=== PATIENT | male | born 1950 | race Caucasian/White ===

== ENCOUNTER 2016-09-22 09:22 | Emergency (ER) | payer MEDICARE, OTHER ==
--- NOTE | 2016-09-22 09:48 | ED ---
General Adult HPI - General Chief complaint: Shortness of Breath Stated complaint: sob hx copd Time Seen by Provider: 09/22/16 09:32 Source: patient, RN notes reviewed, old records reviewed Mode of arrival: ambulatory Limitations: no limitations - History of Present Illness Initial comments: This is a 66-year-old male the ER for evaluation. This patient is a presents for evaluation of shortness of breath cough and congestion. Patient with history of COPD, history of smoking recently quit. Patient states symptoms since new years but worse over the last week, he does do an has at home but no other treatments. No fevers but does have increased cough or congestion, increased sputum production, no travel history or sick contacts. No chest pain - Related Data Allergies Allergy/AdvReac Type Severity Reaction Status Date / Time No Known Allergies Allergy Verified 09/22/16 09:30 Review of Systems ROS Statement: Those systems with pertinent positive or pertinent negative responses have been documented in the HPI. ROS Other: All systems not noted in ROS Statement are negative. Past Medical History Past Medical History: COPD, Hypertension History of Any Multi-Drug Resistant Organisms: None Reported Past Surgical History: No Surgical Hx Reported Past Psychological History: No Psychological Hx Reported Smoking Status: Former smoker Past Alcohol Use History: Daily Past Drug Use History: None Reported General Exam Limitations: no limitations General appearance: alert, in no apparent distress, anxious Head exam: Present: atraumatic, normocephalic, normal inspection Eye exam: Present: normal appearance, PERRL, EOMI. Absent: scleral icterus, conjunctival injection, periorbital swelling ENT exam: Present: normal exam, mucous membranes moist Neck exam: Present: normal inspection. Absent: tenderness, meningismus, lymphadenopathy Respiratory exam: Present: normal lung sounds bilaterally, wheezes. Absent: respiratory distress, rales, rhonchi, stridor Cardiovascular Exam: Present: regular rate, normal rhythm, normal heart sounds. Absent: systolic murmur, diastolic murmur, rubs, gallop, clicks GI/Abdominal exam: Present: soft, normal bowel sounds. Absent: distended, tenderness, guarding, rebound, rigid Extremities exam: Present: normal inspection, full ROM, normal capillary refill. Absent: tenderness, pedal edema, joint swelling, calf tenderness Back exam: Present: normal inspection Neurological exam: Present: alert, oriented X3, CN II-XII intact Psychiatric exam: Present: normal affect, normal mood Skin exam: Present: warm, dry, intact, normal color. Absent: rash Course Vital Signs 09/22/16 09/22/16 09/22/16 09:25 10:02 10:55 Temperature 97.7 F Pulse Rate 93 85 Respiratory 18 18 Rate Blood Pressure 172/94 O2 Sat by Pulse 96 Oximetry 09/22/16 09/22/16 11:15 11:43 Temperature Pulse Rate 89 95 Respiratory Rate Blood Pressure O2 Sat by Pulse Oximetry - Reevaluation(s) Reevaluation #1: 09/22/16 13:38 Patient with no improvement and breathing treatment, still concerned of inability to breathe, lower extremity edema EKG Findings - EKG Comments: EKG Findings:: EKG shows normal sinus rhythm rate of 85, TX 156, QRS 78, QTC 454 Medical Decision Making - Medical Decision Making 66 year with no real improvement of breathing symptoms, patient has CTA of the chest which is negative for PE, patient still with bilateral lower extremity edema shortness of breath and COPD exacerbation, will be admitted for breathing treatments [id number] and continued evaluation of cardiac troponin status, evaluation by pulmonology for COPD, echo for CHF, bilateral lower [place]'S - Lab Data Result diagrams: 09/22/16 10:35 09/22/16 10:35 Lab Results 09/22/16 09/22/16 09/22/16 Range/Units 10:35 10:35 10:35 WBC 9.6 (3.8-10.6) k/uL RBC 5.80 (4.30-5.90) m/uL Hgb 17.2 (13.0-17.5) gm/dL Hct 53.3 H (39.0-53.0) % MCV 91.8 (80.0-100.0) fL MCH 29.6 (25.0-35.0) pg MCHC 32.2 (31.0-37.0) g/dL RDW 20.2 H (11.5-15.5) % Plt Count 213 (150-450) k/uL Neutrophils % 76 % Lymphocytes % 9 % Monocytes % 7 % Eosinophils % 3 % Basophils % 0 % Neutrophils # 7.3 (1.3-7.7) k/uL Lymphocytes # 0.9 L (1.0-4.8) k/uL Monocytes # 0.7 (0-1.0) k/uL Eosinophils # 0.2 (0-0.7) k/uL Basophils # 0.0 (0-0.2) k/uL Anisocytosis Moderate Microcytosis Slight PT (9.0-12.0) sec INR (<1.1) APTT (22.0-30.0) sec D-Dimer (<0.60) mg/L FEU Sodium 140 (137-145) mmol/L Potassium 4.6 (3.5-5.1) mmol/L Chloride 101 (98-107) mmol/L Carbon Dioxide 28 (22-30) mmol/L Anion Gap 11 mmol/L BUN 17 (9-20) mg/dL Creatinine 1.18 (0.66-1.25) mg/dL Est GFR (MDRD) Af Amer >60 (>60 ml/min/1.73 sqM) Est GFR (MDRD) Non-Af >60 (>60 ml/min/1.73 sqM) Glucose 119 H (74-99) mg/dL Calcium 10.0 (8.4-10.2) mg/dL Magnesium 1.7 (1.6-2.3) mg/dL Total Bilirubin 1.0 (0.2-1.3) mg/dL AST 26 (17-59) U/L ALT 39 (21-72) U/L Alkaline Phosphatase 80 (38-126) U/L Total Creatine Kinase 71 (55-170) U/L CK-MB (CK-2) 2.1 (0.0-2.4) ng/mL CK-MB (CK-2) Rel Index 3.0 Troponin I <0.012 (0.000-0.034) ng/mL Total Protein 7.4 (6.3-8.2) g/dL Albumin 4.1 (3.5-5.0) g/dL 09/22/16 Range/Units 10:35 WBC (3.8-10.6) k/uL RBC (4.30-5.90) m/uL Hgb (13.0-17.5) gm/dL Hct (39.0-53.0) % MCV (80.0-100.0) fL MCH (25.0-35.0) pg MCHC (31.0-37.0) g/dL RDW (11.5-15.5) % Plt Count (150-450) k/uL Neutrophils % % Lymphocytes % % Monocytes % % Eosinophils % % Basophils % % Neutrophils # (1.3-7.7) k/uL Lymphocytes # (1.0-4.8) k/uL Monocytes # (0-1.0) k/uL Eosinophils # (0-0.7) k/uL Basophils # (0-0.2) k/uL Anisocytosis Microcytosis PT 11.0 (9.0-12.0) sec INR 1.1 (<1.1) APTT 23.8 (22.0-30.0) sec D-Dimer 0.65 H (<0.60) mg/L FEU Sodium (137-145) mmol/L Potassium (3.5-5.1) mmol/L Chloride (98-107) mmol/L Carbon Dioxide (22-30) mmol/L Anion Gap mmol/L BUN (9-20) mg/dL Creatinine (0.66-1.25) mg/dL Est GFR (MDRD) Af Amer (>60 ml/min/1.73 sqM) Est GFR (MDRD) Non-Af (>60 ml/min/1.73 sqM) Glucose (74-99) mg/dL Calcium (8.4-10.2) mg/dL Magnesium (1.6-2.3) mg/dL Total Bilirubin (0.2-1.3) mg/dL AST (17-59) U/L ALT (21-72) U/L Alkaline Phosphatase (38-126) U/L Total Creatine Kinase (55-170) U/L CK-MB (CK-2) (0.0-2.4) ng/mL CK-MB (CK-2) Rel Index Troponin I (0.000-0.034) ng/mL Total Protein (6.3-8.2) g/dL Albumin (3.5-5.0) g/dL - Radiology Data Radiology results: report reviewed (CXR neg, CTa chest neg for PE, possible mass ), image reviewed Disposition Clinical Impression: Acute exacerbation of chronic obstructive airways disease, Congestive heart failure, Bilateral lower extremity edema Disposition: ADMITTED IP TO THIS HOSP Condition: Good Referrals: Guy Whyte DO [Primary Care Provider] - 1-2 days
[2016-09-22] MEDS ORDERED: ALBUTEROL NEBULIZED 2.5 MG/3 ML INHALATION STA (10:27)
[2016-09-22] MEDS ORDERED: SODIUM CHLORIDE 0.9% 1,000 ML IV STA (10:27)
[2016-09-22] MEDS ORDERED: IPRATROPIUM 0.5 MG/2.5 ML NEBU INHALATION STA (10:27)
[2016-09-22] MEDS ORDERED: SODIUM CHLORIDE 0.9% 1,000 ML IV SCH (10:45)
[2016-09-22 11:00] LABS: Anisocytosis Moderate; Basophils % (A) 0 %; CH 30.3; Eosinophils # (A) 0.2 k/uL (0-0.7); Eosinophils % (A) 3 %; HCT 53.3 % (39.0-53.0); HDW 2.61; HGB 17.2 gm/dL (13.0-17.5); Luc # (Auto) 0.42; Luc % (Auto) 4; Lymphocytes # (A) 0.9 k/uL (1.0-4.8); Lymphocytes % (A) 9 %; MCH 29.6 pg (25.0-35.0); MCHC 32.2 g/dL (31.0-37.0); MCV 91.8 fL (80.0-100.0); Microcytosis Slight; Monocytes # (A) 0.7 k/uL (0-1.0); Monocytes % (A) 7 %; Neutrophils # (A) 7.3 k/uL (1.3-7.7); Neutrophils % (A) 76 %; RDW 20.2 % (11.5-15.5); WBC 9.6 k/uL (3.8-10.6); WBC (Perox) 10.06
[2016-09-22 11:17] LABS: ALT 39 U/L (21-72); AST 26 U/L (17-59); Alkaline Phosphatase 80 U/L (38-126); Anion Gap 11 mmol/L; Blood Urea Nitrogen 17 mg/dL (9-20); Carbon Dioxide 28 mmol/L (22-30); Chloride 101 mmol/L (98-107); Glucose 119 mg/dL (74-99); Magnesium 1.7 mg/dL (1.6-2.3); Non-African American GFR(MDRD) >60 (>60 ml/min/1.73 sqM); Sodium 140 mmol/L (137-145); Total Protein 7.4 g/dL (6.3-8.2)
[2016-09-22 11:23] LABS: Potassium 4.6 mmol/L (3.5-5.1)
[2016-09-22 11:32] LABS: Creatine Kinase 71 U/L (55-170)
[2016-09-22 11:45] LABS: Creatine Kinase MB 2.1 ng/mL (0.0-2.4); Troponin I <0.012 ng/mL (0.000-0.034)
[2016-09-22 11:50] LABS: INR 1.1 (<1.1); Partial Thromboplastin Time 23.8 sec (22.0-30.0)
--- NOTE | 2016-09-22 12:32 | XR ---
EXAMINATION TYPE: XR chest 2V DATE OF EXAM: 09/22/2016 12:01 PM COMPARISON: 09/15/2014 HISTORY: 66-year-old male with pain and shortness of breath for a few days TECHNIQUE: PA and lateral views FINDINGS: Heart is normal size. There is levoconvex scoliosis and focal kyphotic angulation at the thoracolumba r junction similar to prior. Pulmonary vasculature within normal limits. Focal bibasilar opacities lewis ve a linear and strandy configuration. No shagfuta consolidation or pleural effusion. IMPRESSION: 1. Overall stable exam with chronic appearing changes at both lung bases likely areas of scarring and atelectasis. No definite acute process. 2. Chronic appearing deformity of the spine with focal kyphotic angulation at the thoracolumbar junct ion and levoconvex scoliosis.
[2016-09-22] MEDS ORDERED: RX INFO: IV CONTRAST WAS GIVEN 1 EACH MISC MISCELLANE PRN (12:39)
--- NOTE | 2016-09-22 13:15 | CT ---
EXAMINATION TYPE: CT angio chest DATE OF EXAM: 09/22/2016 1:08 PM COMPARISON: NONE HISTORY: SOB CT DLP: 376.7 mGycm CONTRAST: CT chest with contrast and 3D reconstruction with MIP imaging is performed with IV Contrast, patient injected with 65 ml mL of Omnipaque 350. Contrast-enhanced CT of the chest was performed through the course of the pulmonary arteries with zane g and mediastinal window settings submitted. 3D reconstruction with MIP imaging was also performed. PULMONARY ARTERIES: The pulmonary arteries and their major tributaries are patent. I do not see noe dence for sizable filling defect to suggest pulmonary embolic process. LUNGS: 1.1 cm right apical nodule demonstrates mild spiculation and is suspicious for malignancy. Tis adin diagnosis or PET/CT is advised. No additional nodules identified. Hyperinflation compatible with COPD. Basilar parenchymal atelectasis. MEDIASTINUM: Thoracic aorta is of normal caliber . The heart is mildly enlarged. No evidence for me diastinal mass. No mediastinal lymph nodes greater than 1cm. HILAR STRUCTURES: No evidence for mass. No hilar lymph nodes greater than 1 cm. UPPER ABDOMEN: Moderate fixed paraesophageal hiatal hernia. Renal cystic changes noted. IMPRESSION: 1. No evidence for Pulmonary embolism at this time. 2. Right apical spiculated nodule suspicious for malignancy. Tissue diagnosis or PET CT is advised. 3. Fixed hiatal hernia.
[2016-09-22] MEDS ORDERED: methylPREDNISolone SOD SUCCI 125 MG/2 ML VIAL IV STA (13:32)
[2016-09-22] MEDS ORDERED: LEVOFLOXACIN 500 MG TAB PO STA (13:32)
[2016-09-22 15:01] VITALS: BP 135/87; PULSE 84; RESP 20; TEMP 98
--- NOTE | 2016-09-22 15:16 | ED ---
Medical Decision Making - Medical Decision Making 66 male ER for evaluation. The patient is a for evaluation of shortness of breath cough and bilateral lower extremity edema, patient informed of lesion in his right upper lung, patient also informedher lower extremity edema secondary to his COPD. Vision at this time states he does not stay in hospital, and he will be discharged home - Lab Data Result diagrams: 09/22/16 10:35 09/22/16 10:35 Lab Results 09/22/16 09/22/16 09/22/16 Range/Units 10:35 10:35 10:35 WBC 9.6 (3.8-10.6) k/uL RBC 5.80 (4.30-5.90) m/uL Hgb 17.2 (13.0-17.5) gm/dL Hct 53.3 H (39.0-53.0) % MCV 91.8 (80.0-100.0) fL MCH 29.6 (25.0-35.0) pg MCHC 32.2 (31.0-37.0) g/dL RDW 20.2 H (11.5-15.5) % Plt Count 213 (150-450) k/uL Neutrophils % 76 % Lymphocytes % 9 % Monocytes % 7 % Eosinophils % 3 % Basophils % 0 % Neutrophils # 7.3 (1.3-7.7) k/uL Lymphocytes # 0.9 L (1.0-4.8) k/uL Monocytes # 0.7 (0-1.0) k/uL Eosinophils # 0.2 (0-0.7) k/uL Basophils # 0.0 (0-0.2) k/uL Anisocytosis Moderate Microcytosis Slight PT (9.0-12.0) sec INR (<1.1) APTT (22.0-30.0) sec D-Dimer (<0.60) mg/L FEU Sodium 140 (137-145) mmol/L Potassium 4.6 (3.5-5.1) mmol/L Chloride 101 (98-107) mmol/L Carbon Dioxide 28 (22-30) mmol/L Anion Gap 11 mmol/L BUN 17 (9-20) mg/dL Creatinine 1.18 (0.66-1.25) mg/dL Est GFR (MDRD) Af Amer >60 (>60 ml/min/1.73 sqM) Est GFR (MDRD) Non-Af >60 (>60 ml/min/1.73 sqM) Glucose 119 H (74-99) mg/dL Calcium 10.0 (8.4-10.2) mg/dL Magnesium 1.7 (1.6-2.3) mg/dL Total Bilirubin 1.0 (0.2-1.3) mg/dL AST 26 (17-59) U/L ALT 39 (21-72) U/L Alkaline Phosphatase 80 (38-126) U/L Total Creatine Kinase 71 (55-170) U/L CK-MB (CK-2) 2.1 (0.0-2.4) ng/mL CK-MB (CK-2) Rel Index 3.0 Troponin I <0.012 (0.000-0.034) ng/mL Total Protein 7.4 (6.3-8.2) g/dL Albumin 4.1 (3.5-5.0) g/dL 09/22/16 Range/Units 10:35 WBC (3.8-10.6) k/uL RBC (4.30-5.90) m/uL Hgb (13.0-17.5) gm/dL Hct (39.0-53.0) % MCV (80.0-100.0) fL MCH (25.0-35.0) pg MCHC (31.0-37.0) g/dL RDW (11.5-15.5) % Plt Count (150-450) k/uL Neutrophils % % Lymphocytes % % Monocytes % % Eosinophils % % Basophils % % Neutrophils # (1.3-7.7) k/uL Lymphocytes # (1.0-4.8) k/uL Monocytes # (0-1.0) k/uL Eosinophils # (0-0.7) k/uL Basophils # (0-0.2) k/uL Anisocytosis Microcytosis PT 11.0 (9.0-12.0) sec INR 1.1 (<1.1) APTT 23.8 (22.0-30.0) sec D-Dimer 0.65 H (<0.60) mg/L FEU Sodium (137-145) mmol/L Potassium (3.5-5.1) mmol/L Chloride (98-107) mmol/L Carbon Dioxide (22-30) mmol/L Anion Gap mmol/L BUN (9-20) mg/dL Creatinine (0.66-1.25) mg/dL Est GFR (MDRD) Af Amer (>60 ml/min/1.73 sqM) Est GFR (MDRD) Non-Af (>60 ml/min/1.73 sqM) Glucose (74-99) mg/dL Calcium (8.4-10.2) mg/dL Magnesium (1.6-2.3) mg/dL Total Bilirubin (0.2-1.3) mg/dL AST (17-59) U/L ALT (21-72) U/L Alkaline Phosphatase (38-126) U/L Total Creatine Kinase (55-170) U/L CK-MB (CK-2) (0.0-2.4) ng/mL CK-MB (CK-2) Rel Index Troponin I (0.000-0.034) ng/mL Total Protein (6.3-8.2) g/dL Albumin (3.5-5.0) g/dL Disposition Clinical Impression: Acute exacerbation of chronic obstructive airways disease, Congestive heart failure, Bilateral lower extremity edema, Right-sided heart failure Disposition: HOME SELF-CARE Condition: Good
--- NOTE | 2016-09-22 15:18 | US ---
EXAMINATION TYPE: US venous doppler duplex LE BI DATE OF EXAM: 09/22/2016 2:33 PM COMPARISON: Non- CLINICAL HISTORY: 66-year-old male Pain. SOB, history of right leg DVT TECHNIQUE: Duplex Doppler ultrasound examination of the bilateral lower extremities. FINDINGS: SIDE PERFORMED: Bilateral VESSELS IMAGED: External Iliac Vein (EIV) Common Femoral Vein Deep Femoral Vein Greater Saphenous Vein * Femoral Vein Popliteal Vein Small Saphenous Vein * Proximal Calf Veins (* superficial vessels) Right Leg: Appears negative for DVT Left Leg: Appears negative for DVT IMPRESSION: No evidence for DVT in the bilateral lower extremities imaged from the groin to the upper calves.
[2016-09-22] MEDS ORDERED: IPRATROPIUM-ALBUTEROL 3 ML NEB INHALATION SCH (16:00)
[2016-09-22] MEDS ORDERED: methylPREDNISolone SOD SUCCI 125 MG/2 ML VIAL IV SCH (18:00)
[2016-09-23] MEDS ORDERED: AZITHROMYCIN 500 MG TAB PO SCH (09:00)
[2016-09-23] MEDS ORDERED: ENOXAPARIN 40 MG/0.4 ML SYRINGE SQ SCH (09:00)
--- NOTE | 2016-09-23 09:44 | ECHOF ---
Referral Reason:CHF MEASUREMENTS -------- HEIGHT: 152.4 cm WEIGHT: 99.8 kg BP: RVIDd: 3.2 cm (< 3.3) IVSd: 1.2 cm (0.6 - 1.1) LVIDd: 4.6 cm (3.9 - 5.3) LVPWd: 0.8 cm (0.6 - 1.1) IVSs: 1.3 cm LVIDs: 4.1 cm LVPWs: 1.1 cm LA Diam: 3.7 cm (2.7 - 3.8) LAESV Index (A-L): 25.76 ml/m Ao Diam: 3.9 cm (2.0 - 3.7) AV Cusp: 2.2 cm (1.5 - 2.6) LA Diam: 4.1 cm (2.7 - 3.8) MV EXCURSION: 17.701 mm (> 18.000) MV EF SLOPE: 74 mm/s (70 - 150) EPSS: 0.5 cm MV E Royal: 0.54 m/s MV DecT: 211 ms MV A Royal: 0.64 m/s MV E/A Ratio: 0.84 RAP: 5.00 mmHg RVSP: 41.95 mmHg FINDINGS -------- Sinus rhythm. This was a technically adequate study. There is mild concentric left ventricular hypertrophy. Overall left ventricular systolic function is low-normal with, an EF between 50 - 55 %. The right ventricle is normal in size. Normal LA size by volume 22+/-6 ml/m2. The right atrial size is normal. There is mild aortic valve sclerosis. There is no evidence of aortic regurgitation. Mild mitral annular calcification present. Mild mitral regurgitation is present. Mild tricuspid regurgitation present. There is mild pulmonary hypertension. The right ventricular systolic pressure, as measured by Doppler, is 41.95mmHg. There is no pulmonic regurgitation present. The aortic root size is normal. There is no pericardial effusion. CONCLUSIONS -------- 1. There is mild concentric left ventricular hypertrophy. 2. Overall left ventricular systolic function is low-normal with, an EF between 50 - 55 %. 3. Normal LA size by volume 22+/-6 ml/m2. 4. There is mild aortic valve sclerosis. 5. Mild mitral annular calcification present. 6. Mild mitral regurgitation is present. 7. Mild tricuspid regurgitation present. 8. There is mild pulmonary hypertension. 9. The right ventricular systolic pressure, as measured by Doppler, is 41.95mmHg. [employer]ACHINE TENDER: Estela Haines RDCS
== END 2016-09-22 15:24 | disposition home or self-care (01) ==
LOC: EC 09:22 → UNDOADMIN 13:34 → 4MS4W 13:34 → EC 15:24
DX: J44.1 Chronic obstructive pulmonary disease with (acute) exacerbation (principal); I50.9 Heart failure, unspecified; Z87.891 Personal history of nicotine dependence; R91.1 Solitary pulmonary nodule
CPT/HCPCS: 96374 ×2; 99285 ×2; 36415; 94644; 93005; 93306; 85379; 80053; 82550; 82553; 83735; 84484; 85025; 85610; 85730; 71020; 93970; 71275; J2930; Q9967

== ENCOUNTER 2016-10-27 13:24 | Inpatient (IN) | payer MEDICARE, OTHER ==
[2016-10-27] MEDS ORDERED: SODIUM CHLORIDE 0.9% 500 ML IV STA (14:19)
[2016-10-27] MEDS ORDERED: IPRATROPIUM-ALBUTEROL 3 ML NEB INHALATION STA (14:19)
--- NOTE | 2016-10-27 14:22 | ED ---
General Adult HPI - General Chief complaint: Shortness of Breath Stated complaint: SOB/Coughing Time Seen by Provider: 10/27/16 13:30 Source: patient, RN notes reviewed Mode of arrival: ambulatory Limitations: no limitations - History of Present Illness Initial comments: This is a 66-year-old male who presents to the emergency room with a past medical history significant for some years of smoking. Patient states he also has some chronic pedal edema. Patient comes in today because the last 2 weeks she's been coughing having right-sided chest pains worsening with coughing. Patient states she's also been short of breath which is worse with lying down. Patient has not noted any increased swelling to his legs compared to his baseline. Patient denies any fever or chills. Patient denies abdominal pain patient denies nausea vomiting diarrhea. Patient states about 2 weeks ago he went to see his primary medical care doctor and he started him on steroids and an antibiotic but things have not improved. Patient denies any headache patient denies numbness weakness. Patient denies any lightheadedness dizziness or near syncopal episode. - Related Data Home Medications Medication Instructions Recorded Confirmed Albuterol Inhaler [Ventolin Hfa 2 puff INHALATION RT-Q6H PRN 09/22/16 10/27/16 Inhaler] Budesonide/Formoterol Fumarate 2 puff INHALATION RT-BID 09/22/16 10/27/16 [Symbicort 160-4.5 Mcg Inhaler] Finasteride [Proscar] 5 mg PO DAILY 09/22/16 10/27/16 HYDROcodone/APAP 10-325MG [Brutus 2 tab PO QID PRN 09/22/16 10/27/16 10-325] Loratadine [Claritin] 10 mg PO DAILY 09/22/16 10/27/16 Pantoprazole Sodium [Protonix] 40 mg PO AC-BRKFST 09/22/16 10/27/16 Ranitidine HCl [Zantac] 300 mg PO HS 09/22/16 10/27/16 Tamsulosin [Flomax] 0.4 mg PO BID 09/22/16 10/27/16 Tiotropium [place] [Spiriva] 1 cap INHALATION RT-DAILY 09/22/16 10/27/16 amLODIPine [Norvasc] 5 mg PO DAILY 09/22/16 10/27/16 Docusate [Colace] 100 mg PO DAILY 10/27/16 10/27/16 Furosemide [Lasix] 40 mg PO DAILY 10/27/16 10/27/16 Allergies Allergy/AdvReac Type Severity Reaction Status Date / Time No Known Allergies Allergy Verified 10/27/16 14:23 Review of Systems ROS Statement: Those systems with pertinent positive or pertinent negative responses have been documented in the HPI. ROS Other: All systems not noted in ROS Statement are negative. Past Medical History Past Medical History: COPD, Hypertension, Osteoarthritis (OA), Prostate Disorder , Sleep Apnea/CPAP/BIPAP Additional Past Medical History / Comment(s): BACK PAIN, HIATAL HERNIA. History of Any Multi-Drug Resistant Organisms: None Reported Past Surgical History: Tonsillectomy Additional Past Surgical History / Comment(s): COLONOSCOPY Past Anesthesia/Blood Transfusion Reactions: Postoperative Nausea & Vomiting ( PONV) Additional Past Anesthesia/Blood Transfusion Reaction / Comment(s): TAKES A BIT TO WAKE UP Past Psychological History: No Psychological Hx Reported Smoking Status: Former smoker Past Alcohol Use History: Daily Additional Past Alcohol Use History / Comment(s): STARTED SMOKING AT AGE 15 QUIT JUL 2016 SMOKED 1/2 PPD. "COUPLE OF DRINKS A DAY" Past Drug Use History: None Reported Additional Drug Use History / Comment(s): QUIT MARIJUAN A 5 YEARS AGO - Past Family History Father History Unknown: Yes Mother History Unknown: Yes General Exam - General Exam Comments Initial Comments: GENERAL: Patient is well-developed and well-nourished. Patient is nontoxic and well- hydrated and is in mild distress. ENT: Neck is soft and supple. No significant lymphadenopathy is noted. Oropharynx is clear. Moist mucous membranes. Neck has full range of motion without eliciting any pain. EYES: The sclera were anicteric and conjunctiva were pink and moist. Extraocular movements were intact and pupils were equal round and reactive to light. Eyelids were unremarkable. PULMONARY: Patient has decreased breath sounds bilaterally with some expiratory wheezes he also has crackles in both bases but right is greater than left CARDIOVASCULAR: There is a regular rate and rhythm without any murmurs gallops or rubs. ABDOMEN: Soft and nontender with normal bowel sounds. No palpable organomegaly was noted. There is no palpable pulsatile mass. SKIN: Skin is clear with no lesions or rashes and otherwise unremarkable. NEUROLOGIC: Patient is alert and oriented x3. Cranial nerves II through XII are grossly intact. Motor and sensory are also intact. Normal speech, volume and content. Symmetrical smile. MUSCULOSKELETAL: Normal extremities with adequate strength and full range of motion. 1+ edema bilaterally LYMPHATICS: No significant lymphadenopathy is noted PSYCHIATRIC: Normal psychiatric evaluation. Normal interpersonal interactions appears functionally intact in deals appropriately with others. No signs of depression. No signs of anxiety. Limitations: no limitations Course Vital Signs 10/27/16 10/27/16 10/27/16 13:29 13:33 14:23 Temperature 98.0 F 98.9 F Pulse Rate 108 H 102 H Respiratory 18 26 H 28 H Rate Blood Pressure 142/87 O2 Sat by Pulse 91 L Oximetry 10/27/16 10/27/16 10/27/16 15:00 15:24 16:00 Temperature Pulse Rate 96 95 96 Respiratory 24 22 Rate Blood Pressure 141/93 124/76 O2 Sat by Pulse 95 90 L Oximetry Medical Decision Making - Medical Decision Making EKG shows a sinus tachycardia at 101 bpm OH interval is 150 QRS is 92 QT interval 348 QTC is 451. Patient's EKG shows no ST segment elevation or depression or T-wave abdomen is noted. Patient's CT shows a pulmonary embolism started the patient high dose heparin - Lab Data Result diagrams: 10/27/16 14:15 10/27/16 14:15 Lab Results 10/27/16 10/27/16 10/27/16 Range/Units 14:15 14:15 14:15 WBC 10.0 (3.8-10.6) k/uL RBC 5.26 (4.30-5.90) m/uL Hgb 16.3 (13.0-17.5) gm/dL Hct 49.5 (39.0-53.0) % MCV 94.2 (80.0-100.0) fL MCH 31.1 (25.0-35.0) pg MCHC 33.0 (31.0-37.0) g/dL RDW 16.5 H (11.5-15.5) % Plt Count 250 (150-450) k/uL Neutrophils % (Manual) 78.0 % Band Neutrophils % 1.0 % Lymphocytes % (Manual) 13.0 % Monocytes % (Manual) 8.0 % Neutrophils # (Manual) 7.9 H (1.3-7.7) k/uL Lymphocytes # (Manual) 1.3 (1.0-4.8) k/uL Monocytes # (Manual) 0.8 (0-1.0) k/uL Nucleated RBCs 0 (0-0) /100 WBC Manual Slide Review Performed Toxic Granulation Present Anisocytosis Slight PT (9.0-12.0) sec INR (<1.1) APTT (22.0-30.0) sec Sodium 141 (137-145) mmol/L Potassium 4.5 (3.5-5.1) mmol/L Chloride 104 (98-107) mmol/L Carbon Dioxide 26 (22-30) mmol/L Anion Gap 11 mmol/L BUN 22 H (9-20) mg/dL Creatinine 1.16 (0.66-1.25) mg/dL Est GFR (MDRD) Af Amer >60 (>60 ml/min/1.73 sqM) Est GFR (MDRD) Non-Af >60 (>60 ml/min/1.73 sqM) Glucose 96 (74-99) mg/dL Calcium 9.1 (8.4-10.2) mg/dL Magnesium 1.9 (1.6-2.3) mg/dL Total Bilirubin 1.1 (0.2-1.3) mg/dL AST 28 (17-59) U/L ALT 37 (21-72) U/L Alkaline Phosphatase 104 (38-126) U/L Total Creatine Kinase 57 (55-170) U/L CK-MB (CK-2) 2.6 H* (0.0-2.4) ng/mL CK-MB (CK-2) Rel Index 4.6 Troponin I <0.012 (0.000-0.034) ng/mL NT-Pro-B Natriuret Pep pg/mL Total Protein 7.1 (6.3-8.2) g/dL Albumin 3.9 (3.5-5.0) g/dL 10/27/16 10/27/16 Range/Units 14:15 14:15 WBC (3.8-10.6) k/uL RBC (4.30-5.90) m/uL Hgb (13.0-17.5) gm/dL Hct (39.0-53.0) % MCV (80.0-100.0) fL MCH (25.0-35.0) pg MCHC (31.0-37.0) g/dL RDW (11.5-15.5) % Plt Count (150-450) k/uL Neutrophils % (Manual) % Band Neutrophils % % Lymphocytes % (Manual) % Monocytes % (Manual) % Neutrophils # (Manual) (1.3-7.7) k/uL Lymphocytes # (Manual) (1.0-4.8) k/uL Monocytes # (Manual) (0-1.0) k/uL Nucleated RBCs (0-0) /100 WBC Manual Slide Review Toxic Granulation Anisocytosis PT 10.4 (9.0-12.0) sec INR 1.0 (<1.1) APTT 22.1 (22.0-30.0) sec Sodium (137-145) mmol/L Potassium (3.5-5.1) mmol/L Chloride (98-107) mmol/L Carbon Dioxide (22-30) mmol/L Anion Gap mmol/L BUN (9-20) mg/dL Creatinine (0.66-1.25) mg/dL Est GFR (MDRD) Af Amer (>60 ml/min/1.73 sqM) Est GFR (MDRD) Non-Af (>60 ml/min/1.73 sqM) Glucose (74-99) mg/dL Calcium (8.4-10.2) mg/dL Magnesium (1.6-2.3) mg/dL Total Bilirubin (0.2-1.3) mg/dL AST (17-59) U/L ALT (21-72) U/L Alkaline Phosphatase (38-126) U/L Total Creatine Kinase (55-170) U/L CK-MB (CK-2) (0.0-2.4) ng/mL CK-MB (CK-2) Rel Index Troponin I (0.000-0.034) ng/mL NT-Pro-B Natriuret Pep 234 pg/mL Total Protein (6.3-8.2) g/dL Albumin (3.5-5.0) g/dL Critical Care Time Critical Care Time: Yes Total Critical Care Time: 35 Disposition Clinical Impression: Pulmonary embolism Disposition: ADMITTED IP TO THIS [facility] Time of Disposition: 16:58
[2016-10-27 14:47] LABS: ALT 37 U/L (21-72); AST 28 U/L (17-59); Alkaline Phosphatase 104 U/L (38-126); Anion Gap 11 mmol/L; Blood Urea Nitrogen 22 mg/dL (9-20); Calcium 9.1 mg/dL (8.4-10.2); Carbon Dioxide 26 mmol/L (22-30); Chloride 104 mmol/L (98-107); Glucose 96 mg/dL (74-99); Magnesium 1.9 mg/dL (1.6-2.3); Non-African American GFR(MDRD) >60 (>60 ml/min/1.73 sqM); Partial Thromboplastin Time 22.1 sec (22.0-30.0); Potassium 4.5 mmol/L (3.5-5.1); Prothrombin Time 10.4 sec (9.0-12.0); Sodium 141 mmol/L (137-145); Total Bilirubin 1.1 mg/dL (0.2-1.3); Total Protein 7.1 g/dL (6.3-8.2)
[2016-10-27 14:48] LABS: Creatine Kinase 57 U/L (55-170)
[2016-10-27 14:53] LABS: Anisocytosis Slight; Aty Lym Flag Slight; CH 32.4; CHCM 34.4; HCT 49.5 % (39.0-53.0); HDW 2.59; HGB 16.3 gm/dL (13.0-17.5); MCH 31.1 pg (25.0-35.0); MCV 94.2 fL (80.0-100.0); Mean Platelet Volume 6.7; RBC 5.26 m/uL (4.30-5.90); RDW 16.5 % (11.5-15.5)
[2016-10-27 15:02] LABS: Troponin I <0.012 ng/mL (0.000-0.034)
[2016-10-27 15:04] LABS: Creatine Kinase MB 2.6 ng/mL (0.0-2.4)
--- NOTE | 2016-10-27 15:18 | XR ---
EXAMINATION TYPE: XR chest 2V DATE OF EXAM: 10/27/2016 3:14 PM COMPARISON: September 22, 2016 HISTORY: Shortness of breath TECHNIQUE: Frontal and lateral views of the chest are obtained. FINDINGS: Scattered senescent parenchymal changes noted. Hyperinflation compatible with COPD. No evidence for infiltrate. Heart size is stable. Mediastinal structures are stable and grossly unremarkable. No evidence for hilar prominence. Degenerative changes dorsal spine. IMPRESSION: 1. No evidence for acute pulmonary disease.
[2016-10-27 15:49] LABS: Add Differential Manual Differential
[2016-10-27 15:51] LABS: Manual Review Performed; Nucleated Red Blood Cells 0 /100 WBC (0-0); Total Cells Counted 100; Toxic Granulation Present
[2016-10-27] MEDS ORDERED: RX INFO: IV CONTRAST WAS GIVEN 1 EACH MISC MISCELLANE PRN (16:07)
[2016-10-27] MEDS ORDERED: KETOROLAC 60 MG/2 ML VIAL IVP STA (16:08)
[2016-10-27] MEDS ORDERED: HEPARIN SODIUM,PORCINE 10,000 UNIT/ML 1 ML VIAL IV ONE (16:55)
[2016-10-27] MEDS ORDERED: SODIUM CHLORIDE 0.9% 1,000 ML IV ONE (16:58)
--- NOTE | 2016-10-27 17:06 | CT ---
EXAMINATION TYPE: CT chest angio for PE DATE OF EXAM: 10/27/2016 4:56 PM COMPARISON: CTA chest September 22, 2016 HISTORY: Right sided chest pain and cough. CT DLP: 606.00 mGycm. Automated Exposure Control for Dose Reduction was Utilized. CONTRAST: CTA scan of the thorax is performed with IV Contrast, patient injected with 100 mL of Omnipaque 350, pulmonary embolism protocol. MIP Images are created on CT scanner and reviewed. FINDINGS: LUNGS: There is redemonstration of 1.1 x 0.7 cm scarlike nodule posterior right upper lung on axial i mage 30 with some medial aeration now present, stable in size from prior exam. There is dependent ate lectatic change in bilateral lower lobes now seen with more prominent atelectatic change seen near ba ses. Current exam is suboptimal as is degraded by respiratory motion artifact near diaphragm. No pleu ral effusion or pneumothorax is noted. No new parenchymal nodule or mass is seen. MEDIASTINUM: There is satisfactory enhancement of the pulmonary artery and its branches, there is new filling defect in the right middle and lower lobe pulmonary arterial branches with segmental and sub segmental extension beginning on axial image 73 extending prominently through axial image 91. No sig nificant left-sided lobar or segmental PE is clearly seen. There are no greater than 1 cm hilar or me diastinal lymph nodes. No cardiomegaly or pericardial effusion is seen. Main pulmonary artery is di lated at 3.8 cm on axial image 64. RV overall be ratio remains less than 1. There is moderate to larg e size hiatal hernia redemonstrated. Heterogeneous nonenlarged thyroid is redemonstrated, underlying nodules are suspected, consider multinodular goiter. OTHER: Some simple appearing cysts upper pole level right kidney are redemonstrated. Underlying levoc onvex scoliosis centered in the lower thoracic spine is again seen. Moderate spurring at this level i s noted. IMPRESSION: CT evidence for new right-sided lobar pulmonary embolism with segmental and subsegmental extension involving middle and more prominently involving lower lobe. No CT evidence for right ventri cular strain. Critical results communicated to ordering ER physician via telephone at time of dictation.
[2016-10-27] MEDS: HEPARIN SODIUM,PORCINE/D5W PMX 25,000 UNIT in DEXTROSE/WATER 1 500ML.BAG IV SCH (17:31)
--- NOTE | 2016-10-27 17:42 | US ---
EXAMINATION TYPE: US venous doppler duplex LE BI DATE OF EXAM: 10/27/2016 5:31 PM COMPARISON: Prior in PACS CLINICAL HISTORY: Pain. SOB SIDE PERFORMED: Bilateral VESSELS IMAGED: External Iliac Vein (EIV) Common Femoral Vein Deep Femoral Vein Greater Saphenous Vein * Femoral Vein Popliteal Vein Small Saphenous Vein * Proximal Calf Veins (* superficial vessels) TECHNOLOGIST IMPRESSION: Right Leg: Positive for DVT from the right upper popliteal vein to the proximal calf veins Left Leg: Negative for DVT IMPRESSION: No evidence of deep venous thrombosis in the left leg. There is evidence of acute and chronic deep venous thrombosis in the right leg involving popliteal an d posterior tibial vein.
[2016-10-27] MEDS ORDERED: IPRATROPIUM-ALBUTEROL 3 ML NEB INHALATION PRN (19:40)
[2016-10-27] MEDS: TAMSULOSIN 0.4 MG CAP.ER.24H PO SCH (20:07)
[2016-10-27] MEDS: FAMOTIDINE 20 MG TAB PO SCH (20:07)
[2016-10-27] MEDS ORDERED: FUROSEMIDE 40 MG TAB PO SCH (21:00)
[2016-10-27] MEDS: SYMBICORT 160-4.5 MCG INHALER INHALATION SCH (21:11)
[2016-10-27] MEDS: IPRATROPIUM-ALBUTEROL 3 ML NEB INHALATION SCH (21:11)
[2016-10-27] MEDS: HYDROcodone/APAP 10-325MG 1 EACH TAB PO PRN (22:01)
[2016-10-28] MEDS: HEPARIN SODIUM,PORCINE/D5W PMX 25,000 UNIT in DEXTROSE/WATER 1 500ML.BAG IV SCH (06:36)
[2016-10-28] MEDS ORDERED: TIOTROPIUM 18 MCG/PUFF INHALER INHALATION SCH (08:00)
[2016-10-28] MEDS: TAMSULOSIN 0.4 MG CAP.ER.24H PO SCH ×2 (08:13→20:26)
[2016-10-28] MEDS: HYDROcodone/APAP 10-325MG 1 EACH TAB PO PRN ×2 (08:21→13:44)
[2016-10-28] MEDS: SYMBICORT 160-4.5 MCG INHALER INHALATION SCH ×2 (08:57→19:35)
[2016-10-28] MEDS: IPRATROPIUM-ALBUTEROL 3 ML NEB INHALATION SCH ×4 (08:57→19:35)
[2016-10-28] MEDS: RIVAROXABAN 15 MG TAB PO SCH ×2 (10:44→17:21)
--- NOTE | 2016-10-28 10:57 | HP ---
DATE OF ADMISSION: A 66-year-old came in with complaints of severe shortness of breath, has been going on for 5 days. Patient had a DVT in the past. Later it was believed, the patient never had DVT and anticoagulation was discontinued. The patient did not have any recent surgery. Patient had his colonoscopies done. The patient is a smoker. Does have history of COPD. It did not feel like patient had COPD. Patient denied any fever or chills. Patient's chest x-ray is within normal limits. CT angiogram of the chest was done which showed pulmonary embolism in the right lung lower lobe and subsegmental pulmonary embolism. Patient denied any significant cough or sputum production. The patient is still quite a bit short of breath because of which I am unable to discharge the patient today. Although the patient will be switched to Xarelto here and once his respiratory status improves the patient will be discharged. The patient is on 2 L of oxygen, does not wear any oxygen at home, although saturating well. Patient is clinically short of breath. REVIEW OF SYSTEMS: CONSTITUTIONAL: No fever, no malaise, no fatigue. HEENT: No recent visual problems or hearing problems. Denied any sore throat. CARDIOVASCULAR: No chest pain, orthopnea, PND, no palpitations, no syncope. RESPIRATORY: As described in HPI. GASTROINTESTINAL: No diarrhea, no nausea, no vomiting, no abdominal pain. Normoactive bowel sounds. NEUROLOGICAL: No headaches, no weakness, no numbness. HEMATOLOGICAL: Denies any bleeding or petechiae. GENITOURINARY: Denies any burning micturition, frequency, or urgency. MUSCULOSKELETAL/RHEUMATOLOGICAL: Denies any joint pain, swelling, or any muscle pain. ENDOCRINE: Denies any polyuria or polydipsia. The rest of the 14 point review of systems is negative. Home medications include: 1. Albuterol. 2. Budesonide formoterol 3. Finasteride. 4. Hydrocodone acetaminophen. 5. Loratadine. 6. Pantoprazole. 7. Ranitidine. 8. Tamsulosin. 9. Spiriva. 10. Amlodipine. 11. Docusate. 12. Lasix. The patient did not have any chest pain. ALLERGIES: No known drug allergies. PAST MEDICAL HISTORY: COPD, hypertension, osteoarthritis, prostate disorder, sleep apnea, uses CPAP machine, back pain, hiatal hernia, tonsillectomy in the past. SOCIAL HISTORY: Former smoker. Quit smoking on last year. Denied any alcohol abuse or any drug abuse. Used to use marijuana in the past; quit 5 years ago. FAMILY HISTORY: Father had DVT and pulmonary embolism. PHYSICAL EXAMINATION: VITAL SIGNS: Temperature 98.1, pulse of 93, respiratory rate of 18, blood pressure 137/83, saturating at 96% on room air. GENERAL: Alert and oriented x3. Patient is in mild respiratory distress at rest and with ambulation patient goes into significant respiratory distress. HEENT: Pupils are round and equally reacting to light. EOMI. No scleral icterus. No conjunctival pallor. Normocephalic, atraumatic. No pharyngeal erythema. No thyromegaly. CARDIOVASCULAR: S1 and S2 present. No murmurs, rubs, or gallops. PULMONARY: Chest is clear to auscultation, no wheezing or crackles. ABDOMEN: Soft, nontender, nondistended, normoactive bowel sounds. No palpable organomegaly. MUSCULOSKELETAL: No joint swelling or deformity. EXTREMITIES: No cyanosis, clubbing, or pedal edema. NEUROLOGICAL: Gross neurological examination did not reveal any focal deficits. SKIN: No rashes. LABORATORY DATA: CBC, CMP, essentially within normal limits. CT of the chest as mention above. ASSESSMENT AND PLAN: 1. Right-sided pulmonary embolism, Acute No precipitating factor. Patient may need to be on a lifelong anticoagulation. In the past, the patient was treated for pulmonary embolism then believed not to have a pulmonary embolism. 2. Chronic obstructive pulmonary disease without any acute exacerbation, although we will continue with inhalational steroids and albuterol ipratropium. Will not need any systemic steroids. 3. Hypertension. 4. Osteoarthritis. 5. Benign prostatic hypertrophy. 6. Sleep apnea. PLAN: The patient will be switched to oral anticoagulant. Once respiratory status ( ), patient will be discharged. Will clinically monitor him here. Patient is taking Lasix at home for peripheral edema, which will be held. [facility]
--- NOTE | 2016-10-28 11:44 | CDI ---
In responding to this query, please exercise your independent professional judgment. The [facility] Coding Staff and Clinical Documentation Specialists appreciate your assistance in clarifying documentation, maintaining compliance with coding guidelines, accurately documenting patients condition and capturing severity of illness. The fact that a question is asked does not imply that any particular answer is desired or expected. Communication forms are a method of clarifying documentation and are not made part of the Legal Health Record. Thank you in advance for your clarification. Last Revision, June 2015 Job Brown [address] [facility] [place] [address] Documentation Clarification Form Date: 10/28/2016 11:32:00 AM From: Fannie Pacheco RN, CCDS Admit Date: 10/27/2016 4:58:00 PM Patient Name: Adalid Sorto Visit Number: [id number] Dr. Modesta Pan Patient history/risk factors: H&P: "Patient had a DVT in the past. Later it was believed, the patient never had DVT and anticoagulation was discontinued." Clinical Indicators: Venous Doppler Bilateral LE: "There is evidence of acute and chronic deep venous thrombosis in the right leg involving popliteal and posterior tibial vein." 10/28 H&P: "Right-sided pulmonary embolism." Lab findings: CKMB 2.6 Vital Signs: Temp 98, HR 108, RR 18-28, B/P 142/87, Spo2 91% on room air Treatment: Heparin Drip per protocol Xarelto 15mg PO BID Consults: Pulmonary In your professional opinion, can you please clarify based on the radiology results and patient presentation additional diagnosis and if they were POA Acute DVT (Please Specify laterality and location if known.) Chronic DVT (Please Specify laterality and location if known.) Acute on Chronic DVT (Please Specify laterality and location if known.) Other Unable to determine Please document in your progress notes and discharge summary in order to capture severity of illness and risk of mortality. Include clinical findings that support your diagnosis. FYI: Press F11 to launch patient chart. Place X here if this finding has no clinical significance, is not applicable or if you are not able to provide any additional documentation. DELMISD
--- NOTE | 2016-10-28 14:35 | P.CNPUL ---
History of Present Illness Consult date: 10/28/16 Requesting physician: Modesta Pan Reason for consult: abnormal CXR/CT Chief complaint: Chest pain, shortness of breath History of present illness: This is a very pleasant 66-year-old gentleman who follows at the [facility] for his primary care needs. He has a history of hypertension, I asked arthritis, prostate disorder, obstructive sleep apnea utilizing CPAP in the outpatient setting, chronic back pain, chronic hiatal hernia. He does have a history of chronic obstructive pulmonary disease and a significant smoking history however states and he quit in July 2016. He has been seen by a career guidance technician at the [facility] in [place] and is maintained on Spiriva, budesonide and albuterol. He had presented here on 10/27/2016 with complaints of chest pain, shortness of breath and cough. His discomfort was worse with lying down. He denies any recent surgery or trauma to the lower extremities. No lengthy travel. He does have some questionable history of a lower extremity DVT and initially was started on anticoagulants but once seen again at the [facility] in [place] he was felt to not have a DVT and his anticoagulation relation was stopped. No previous history of PE. His EKG showed normal sinus rhythm without acute ST or T-wave abnormalities. Chest x-ray showed no acute pulmonary process. A CT angiogram did reveal a new right-sided pulmonary embolism with segmental and subsegmental extension involving the middle and more prominently involving the lower lobe. No evidence of significant right ventricular strain. He was initiated on a heparin drip and admitted to the selective care unit. He is seen there today in consultation. He is awake and alert in no acute distress. He states he does still have some continued dyspnea on minimal exertion. He has a loose nonproductive cough. He is afebrile. He is maintaining good O2 saturations in the mid to upper 90s on 2 L/m per nasal cannula. He is being transitioned to Xarelto. Review of Systems 14 point review of system was conducted. All negative other than as mentioned in the HPI. Past Medical History Past Medical History: COPD, Hypertension, Osteoarthritis (OA), Prostate Disorder , Sleep Apnea/CPAP/BIPAP Additional Past Medical History / Comment(s): BACK PAIN,SCOLIOSIS,DDD, HIATAL HERNIA.STRIGHT CATHS 2-3 TIMES PER DAY, RECENTLY ON ABX FOR COUGH AND STATED HAD DIARRHEA WHILE ON THEN BUT IT STOPPED ON SAT 10/25/16 History of Any Multi-Drug Resistant Organisms: None Reported Past Surgical History: Tonsillectomy Additional Past Surgical History / Comment(s): COLONOSCOPY, HEMORRHOIDECTOMY Past Anesthesia/Blood Transfusion Reactions: Postoperative Nausea & Vomiting ( PONV) Additional Past Anesthesia/Blood Transfusion Reaction / Comment(s): TAKES A BIT TO WAKE UP Past Psychological History: No Psychological Hx Reported Additional Psychological History / Comment(s): PT IS INDEPENDANT, LIV[place] AL[place] HAS [address] RECIEVES NO OUTSIDE SERVICES. HAS CPAP -NO OTHER MEDICAL EQUIPMENT. 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 Smoking Status: Former smoker Past Alcohol Use History: Daily Additional Past Alcohol Use History / Comment(s): STARTED SMOKING AT AGE 15 QUIT JUL 2016 SMOKED 1/2 PPD. 3 DRINKS PER DAY Past Drug Use History: Marijuana Additional Drug Use History / Comment(s): QUIT MARIJUANA 5 YEARS AGO - Past Family History Father History Unknown: Yes Family Medical History: Congestive Heart Failure (CHF) Mother History Unknown: Yes Additional Family Medical History / Comment(s): IN HER SLEEP "NATRUAL CAUSES" Medications and Allergies Home Medications Medication Instructions Recorded Confirmed Type Albuterol Inhaler [Ventolin Hfa 2 puff INHALATION RT-Q6H PRN 09/22/16 10/27/16 History Inhaler] Budesonide/Formoterol Fumarate 2 puff INHALATION RT-BID 09/22/16 10/27/16 History [Symbicort 160-4.5 Mcg Inhaler] Finasteride [Proscar] 5 mg PO DAILY 09/22/16 10/27/16 History HYDROcodone/APAP 10-325MG [[place] 2 tab PO QID PRN 09/22/16 10/27/16 History 10-325] Loratadine [Claritin] 10 mg PO DAILY 09/22/16 10/27/16 History Pantoprazole Sodium [Protonix] 40 mg PO AC-BRKFST 09/22/16 10/27/16 History Ranitidine HCl [Zantac] 300 mg PO HS 09/22/16 10/27/16 History Tamsulosin [Flomax] 0.4 mg PO BID 09/22/16 10/27/16 History Tiotropium [place] [Spiriva] 1 cap INHALATION RT-DAILY 09/22/16 10/27/16 History amLODIPine [Norvasc] 5 mg PO DAILY 09/22/16 10/27/16 History Docusate [Colace] 100 mg PO DAILY 10/27/16 10/27/16 History Furosemide [Lasix] 40 mg PO DAILY 10/27/16 10/27/16 History Allergies Allergy/AdvReac Type Severity Reaction Status Date / Time No Known Allergies Allergy Verified 10/27/16 14:23 Physical Exam Vitals: Vital Signs Temp Pulse Pulse Resp BP BP Pulse Ox 10/28/16 13:43 100 10/28/16 13:33 100 10/28/16 09:07 98 10/28/16 08:57 98 96 10/28/16 08:20 98.1 F 93 18 137/83 93 L 10/28/16 08:00 93 18 10/27/16 23:20 89 16 10/27/16 21:35 98.2 F 97 16 142/86 94 L 10/27/16 21:22 94 10/27/16 21:11 90 10/27/16 18:54 99.3 F 100 20 137/90 92 L 10/27/16 17:34 98.4 F 100 20 166/87 92 L Intake and Output 10/27/16 10/28/16 10/28/16 22:59 06:59 14:59 Intake Total 1080 900.682 Output Total 500 550 Balance 580 350.682 Intake: Intake, IV Titration 660.682 Amount Heparin Sodium,Porcine/ 480.682 D5w Pmx 25,000 unit In Dextrose/Water 1 500ml. bag @ 18 UNITS/KG/HR 36. 74 mls/hr IV .[id number] [facility] Rx#:[id number] Sodium Chloride 0.9% 1, 180 000 ml @ 100 mls/hr IV . Q10H ONE Rx#:[id number] Oral 1080 240 Output: Urine 500 550 Other: # Voids 1 GENERAL EXAM: Alert, active, comfortable in no apparent distress. HEAD: Normocephalic. EYES: Normal reaction of pupils, equal size. NOSE: Clear with pink turbinates. THROAT: No erythema or exudates. NECK: No masses, no JVD. CHEST: No chest wall deformity. LUNGS: Equal air entry with bilateral end expiratory wheeze, few scattered rhonchi. Diminished.. CVS: S1 and S2 normal with no audible murmurs, regular rhythm. ABDOMEN: No hepatosplenomegaly, normal bowel sounds, no guarding or rigidity. SPINE: No scoliosis or deformity SKIN: No rashes CENTRAL NERVOUS SYSTEM: No focal deficits, tone is normal in all 4 extremities. Extremities: There is no significant peripheral edema. No clubbing, no cyanosis. Peripheral pulses are intact. Results - Laboratory Findings CBC and BMP: 10/27/16 14:15 10/27/16 14:15 PT/INR, D-dimer PT 10.4 sec (9.0-12.0) 10/27/16 14:15 INR 1.0 (<1.1) 10/27/16 14:15 Abnormal lab findings: Abnormal Labs 10/27/16 23:31 APTT 51.3 H - Diagnostic Findings Chest x-ray: image reviewed CT scan - chest: image reviewed Assessment and Plan Plan: Impression #1 Atypical chest pain and shortness of breath secondary to right lung pulmonary embolism. #2 Acute exacerbation of chronic obstructive pulmonary disease. #3 Acute hypoxic respiratory failure secondary to above. #4 Questionable history of previous DVT. #5 Benign prostatic hyperplasia. #6 Gastroesophageal reflux disease. #7 Chronic back pain. Plan: The patient was seen and evaluated by Dr. Gonzalez. His chest x-ray, CAT scan and labs were reviewed. The patient will require at least 6 months of anticoagulation most likely in the form of Xarelto. We'll continue with his current pulmonary medications including DuoNeb inhalations 4 times a day and when necessary, Symbicort. We'll start him on a prednisone taper. Will increase his activity as tolerated. We'll continue to follow make further recommendations based on his clinical status. Time with Patient: Greater than 30
[2016-10-28] MEDS: DOCUSATE 100 MG CAP PO SCH (15:21)
[2016-10-28] MEDS: predniSONE 20 MG TAB PO SCH (16:18)
[2016-10-28] MEDS: FINASTERIDE 5 MG TAB PO SCH (16:18)
[2016-10-28] MEDS: FAMOTIDINE 20 MG TAB PO SCH (20:26)
[2016-10-29] MEDS: HYDROcodone/APAP 10-325MG 1 EACH TAB PO PRN (05:40)
[2016-10-29] MEDS: IPRATROPIUM-ALBUTEROL 3 ML NEB INHALATION SCH ×4 (07:17→19:49)
[2016-10-29] MEDS: SYMBICORT 160-4.5 MCG INHALER INHALATION SCH ×2 (07:17→19:49)
[2016-10-29] MEDS: predniSONE 20 MG TAB PO SCH (07:58)
[2016-10-29] MEDS: FINASTERIDE 5 MG TAB PO SCH (07:58)
[2016-10-29] MEDS: TAMSULOSIN 0.4 MG CAP.ER.24H PO SCH ×2 (07:58→21:18)
[2016-10-29] MEDS: RIVAROXABAN 15 MG TAB PO SCH ×2 (07:58→17:41)
[2016-10-29 08:04] LABS: CH 32.1; CHCM 34.2; HCT 42.8 % (39.0-53.0); HDW 2.48; HGB 14.6 gm/dL (13.0-17.5); MCH 32.1 pg (25.0-35.0); MCV 94.4 fL (80.0-100.0); Mean Platelet Volume 7.8; RBC 4.54 m/uL (4.30-5.90); RDW 15.9 % (11.5-15.5); WBC 8.9 k/uL (3.8-10.6)
[2016-10-29 08:20] LABS: Anion Gap 8 mmol/L; Blood Urea Nitrogen 14 mg/dL (9-20); Calcium 9.3 mg/dL (8.4-10.2); Carbon Dioxide 27 mmol/L (22-30); Chloride 106 mmol/L (98-107); Glucose 116 mg/dL (74-99); Non-African American GFR(MDRD) >60 (>60 ml/min/1.73 sqM); Potassium 4.4 mmol/L (3.5-5.1); Sodium 141 mmol/L (137-145)
[2016-10-29] MEDS ORDERED: DOCUSATE 100 MG CAP PO SCH (09:00)
--- NOTE | 2016-10-29 11:44 | P.PN ---
Subjective Principal diagnosis: Pulmonary embolism This is a very pleasant 66-year-old gentleman who follows at the [facility] for his primary care needs. He has a history of hypertension, I asked arthritis, prostate disorder, obstructive sleep apnea utilizing CPAP in the outpatient setting, chronic back pain, chronic hiatal hernia. He does have a history of chronic obstructive pulmonary disease and a significant smoking history however [facility] and he quit in July 2016. He has been seen by a labor and delivery registered nurse at the [facility] in [place] and is maintained on Spiriva, budesonide and albuterol. He had presented here on 10/27/2016 with complaints of chest pain, shortness of breath and cough. His discomfort was worse with lying down. He denies any recent surgery or trauma to the lower extremities. No lengthy travel. He does have some questionable history of a lower extremity DVT and initially was started on anticoagulants but once seen again at the [facility] in [place] he was felt to not have a DVT and his anticoagulation relation was stopped. No previous history of PE. His EKG showed normal sinus rhythm without acute ST or T-wave abnormalities. Chest x-ray showed no acute pulmonary process. A CT angiogram did reveal a new right-sided pulmonary embolism with segmental and subsegmental extension involving the middle and more prominently involving the lower lobe. No evidence of significant right ventricular strain. He was initiated on a heparin drip and admitted to the selective care unit. He is seen there today in consultation. He is awake and alert in no acute distress. He states he does still have some continued dyspnea on minimal exertion. He has a loose nonproductive cough. He is afebrile. He is maintaining good O2 saturations in the mid to upper 90s on 2 L/m per nasal cannula. He is being transitioned to Xarelto. The patient is seen again today 10/29/2016 in follow-up. He is awake and alert in no acute distress. He denies any worsening shortness of breath, cough or congestion. No hemoptysis. He's been up ambulating without distress. He has been tolerating Xarelto. He is maintaining O2 saturations in the low 90s on room air. Objective - Vital Signs Vital signs: Vital Signs Temp 99.0 F 10/29/16 07:38 Pulse 93 10/29/16 07:38 Resp 18 10/29/16 07:38 BP 127/81 10/29/16 07:38 Pulse Ox 90 L 10/29/16 10:07 Intake & Output 10/28/16 10/29/16 10/29/16 18:59 06:59 18:59 Intake Total 680 Output Total 550 Balance -550 680 Weight 102.058 kg Intake: Intake, IV Titration 80 Amount Sodium Chloride 0.9% 1, 80 000 ml @ 100 mls/hr IV . Q10H ONE Rx#:[id number] Oral 600 Output: Urine 550 Other: # Voids 1 1 - Exam GENERAL EXAM: Alert, active, comfortable in no apparent distress. HEAD: Normocephalic. EYES: Normal reaction of pupils, equal size. NOSE: Clear with pink turbinates. THROAT: No erythema or exudates. NECK: No masses, no JVD. CHEST: No chest wall deformity. LUNGS: Equal air entry with bilateral end expiratory wheeze, few scattered rhonchi. Diminished.. CVS: S1 and S2 normal with no audible murmurs, regular rhythm. ABDOMEN: No hepatosplenomegaly, normal bowel sounds, no guarding or rigidity. SPINE: No scoliosis or deformity SKIN: No rashes CENTRAL NERVOUS SYSTEM: No focal deficits, tone is normal in all 4 extremities. Extremities: There is no significant peripheral edema. No clubbing, no cyanosis. Peripheral pulses are intact. - Labs CBC & Chem 7: 10/29/16 07:22 10/29/16 07:22 Labs: Abnormal Lab Results - Last 24 Hours (Table) 10/29/16 10/29/16 Range/Units 07:22 07:22 RDW 15.9 H (11.5-15.5) % Glucose 116 H (74-99) mg/dL Assessment and Plan Plan: Impression #1 Atypical chest pain and shortness of breath secondary to right lung pulmonary embolism. #2 Acute exacerbation of chronic obstructive pulmonary disease. #3 Acute hypoxic respiratory failure secondary to above. #4 Questionable history of previous DVT. #5 Benign prostatic hyperplasia. #6 Gastroesophageal reflux disease. #7 Chronic back pain. Plan: The patient was seen and evaluated by Dr. Gonzalez. He is cleared for discharge from the pulmonary standpoint. He is to be maintained on Xarelto for at least 6 months time. He will follow-up with his labor and delivery registered nurse at the [facility] and have a repeat computed tomography scan of the chest in 3 months time. The patient is agreeable to the plan and is encouraged to call sooner with any recurrence of symptoms or other questions or concerns.
--- NOTE | 2016-10-29 18:03 | P.PN ---
Subjective Date of service 10/29/2016. Progress note being dictated for Dr. Pan. Interval history: This a 66-year-old gentleman admitted with acute PE, acute on chronic right leg DVT from right upper popliteal vein to proximal calf veins, acute hypoxic respiratory failure, COPD in a patient with possible history of DVT and multiple other medical issues. Maintained on Xarelto. Upon ambulating in the hallway on room air, O2 sat after ambulation decreased to 84%. Denies cough, no hemoptysis. Good diet intake with no nausea or vomiting. Denies chest pain, palpitations. Objective - Vital Signs Vital signs: Vital Signs Temp 99.0 F 10/29/16 15:18 Pulse 84 10/29/16 16:46 Resp 18 10/29/16 15:18 BP 127/81 10/29/16 15:18 Pulse Ox 91 L 10/29/16 15:18 Intake & Output 10/28/16 10/29/16 10/29/16 18:59 06:59 18:59 Intake Total 680 Output Total 550 Balance -550 680 Weight 102.058 kg Intake: Intake, IV Titration 80 Amount Sodium Chloride 0.9% 1, 80 000 ml @ 100 mls/hr IV . Q10H ONE Rx#:[id number] Oral 600 Output: Urine 550 Other: # Voids 1 1 - Exam PHYSICAL EXAM: VITAL SIGNS: As above GENERAL: [Sitting up at bedside, no acute distress] HEENT: [Pupils equal conjunctiva normal.] NECK: [Supple, no JVD] RESPIRATORY EFFORT:[Mildly increased] LUNGS: [Diminished, with scattered fine expiratory wheeze] CARDIOVASCULAR[regular S1 and S2, trace edema] GI: [Abdomen soft, nontender, positive bowel sounds.] PSYCH: [Alert and oriented -3, mood and affect normal.] NEURO: No focal deficits, moves all 4 extremities, strength and sensation grossly intact - Labs CBC & Chem 7: 10/29/16 07:22 10/29/16 07:22 Labs: Abnormal Lab Results - Last 24 Hours (Table) 10/29/16 10/29/16 Range/Units 07:22 07:22 RDW 15.9 H (11.5-15.5) % Glucose 116 H (74-99) mg/dL Assessment and Plan Plan: 1. [Acute right-sided PE, Acute on chronic right leg DVT and right upper popliteal vein to proximal calf veins per Doppler. 2. Acute hypoxic respiratory failure secondary to #1 on top of COPD. 3. [COPD]]. 4. [Hypertension 5. [Benign prostatic hypertrophy]. 6. [Sleep apnea]. 7. Gastroesophageal reflux disease 8. Chronic back pain 9. Osteoarthritis]. Plan: Continue on current medication regime ,monitoring and symptomatic treatment. Initially had planned for discharge but given patient's significant hypoxia after ambulation, will hold discharge until tomorrow. Patient updated on plan of care, verbalizes understanding of and agrees with. The impression and plan of care has been dictated as directed. : I performed a H&P examination of this patient and discussed the same with the dictator. I agree with the dictator's note. Any additional findings/opinions/ etc. will be noted.
[2016-10-29] MEDS: FAMOTIDINE 20 MG TAB PO SCH (21:18)
[2016-10-29 22:16] VITALS: RESP 20; TEMP 98
[2016-10-30] MEDS: IPRATROPIUM-ALBUTEROL 3 ML NEB INHALATION SCH ×2 (07:26→11:53)
[2016-10-30] MEDS: SYMBICORT 160-4.5 MCG INHALER INHALATION SCH (07:37)
[2016-10-30 07:50] VITALS: BP 173/89
[2016-10-30] MEDS: predniSONE 20 MG TAB PO SCH (08:46)
[2016-10-30] MEDS: DOCUSATE 100 MG CAP PO SCH (08:46)
[2016-10-30] MEDS: RIVAROXABAN 15 MG TAB PO SCH (08:47)
[2016-10-30] MEDS: TAMSULOSIN 0.4 MG CAP.ER.24H PO SCH (08:47)
[2016-10-30] MEDS: FINASTERIDE 5 MG TAB PO SCH (08:47)
[2016-10-30] MEDS: HYDROcodone/APAP 10-325MG 1 EACH TAB PO PRN (09:09)
[2016-10-30 12:07] VITALS: PULSE 90
--- NOTE | 2016-10-30 13:06 | P.PN ---
Subjective Progress note dated 10/30/2016 66-year-old gentleman who's typically follows up with the [facility]. The patient does have a clinical data manager and a primary doctor at the [facility]. Was admitted with a diagnosis of pulmonary embolism. Doing well. Likely will be discharged home today. He has an appointment with his lung doctor next week. The patient's feeling well. We thought the patient should be treated for about 6 months. He is currently on a factor X a inhibitor. Objective - Vital Signs Vital signs: Vital Signs Temp 98.0 F 10/29/16 22:14 Pulse 90 10/30/16 12:07 Resp 20 10/30/16 08:00 BP 173/89 10/30/16 07:00 Pulse Ox 98 10/30/16 07:00 Intake & Output 10/29/16 10/30/16 10/30/16 18:59 06:59 18:59 Intake Total 1040 Output Total 550 Balance 490 Intake: Oral 1040 Output: Urine 550 Other: # Voids 3 2 - Exam No acute distress, oriented 3. Next HEENT examination is grossly unremarkable. Neck supple. Full range of motion. Cardiovascular examination was regular rhythm rate. S1-S2 normal. Lungs relatively clear breath sounds are equal. Abdomen soft Extremities are intact. - Labs CBC & Chem 7: 10/29/16 07:22 10/29/16 07:22 Assessment and Plan Plan: Plan The patient will likely be discharged. The patient should follow-up with his primary doctor's clinical data manager out of the [facility]. The patient should get his anticoagulant for a total of 6 months. I told him that he had a difficulty to call the office be happy to see him. About 10-12 weeks after the initial computed tomography scan, a follow-up computed tomography scan should be done to make sure the clot has dissipated. Other than that things are going relatively well. He is feeling well. Hopefully discharge home today. Time with Patient: Less than 30
--- NOTE | 2016-10-31 08:08 | DS ---
DATE OF ADMISSION: 10/27/2016 DATE OF DISCHARGE: 10/30/2016 Patient is admitted with acute pulmonary embolism. Patient is feeling better than yesterday. We will ambulate him today. If patient requires oxygen, we will start him on oxygen. On exam, patient has significantly decreased air entry, it is probably because of his advanced COPD because of his COPD he may end up needing oxygen. The patient will be discharged on Xarelto to follow up with his primary care physician. Patient was seen and examined on the day of discharge. Vital signs stable. PHYSICAL EXAMINATION: GENERAL: The patient is alert and oriented x3, not in any acute distress. Well developed, well nourished. HEENT: Pupils are round and equally reacting to light. EOMI. No scleral icterus. No conjunctival pallor. Normocephalic, atraumatic. No pharyngeal erythema. No thyromegaly. CARDIOVASCULAR: S1 and S2 present. No murmurs, rubs, or gallops. PULMONARY: Chest is clear to auscultation, no wheezing or crackles. ABDOMEN: Soft, nontender, nondistended, normoactive bowel sounds. No palpable organomegaly. MUSCULOSKELETAL: No joint swelling or deformity. EXTREMITIES: No cyanosis, clubbing, or pedal edema. NEUROLOGICAL: Gross neurological examination did not reveal any focal deficits. SKIN: No rashes. FINAL DIAGNOSES: 1. Acute pulmonary embolism, acute hypoxic respiratory failure and pulmonary embolism along with chronic obstructive pulmonary disease. 2. Chronic obstructive pulmonary disease with minimal to no exacerbation. 3. Hypertension. 4. Benign prostatic hypertrophy. 5. Sleep apnea. 6. Gastroesophageal reflux disease. 7. Chronic back pain. 8. Osteoarthritis. Please refer to my depart summary for details of discharge medications. Activity as tolerated. The patient will follow with Dr. Declan Gonzalez in 2 days, Dr. Guy Whyte on 06 of November at 3:00 p.m. Patient will be discharged home today after home O2 evaluation if required. If patient's saturations go down below 88%, patient will be started on home O2 . Yesterday patient's SATS dropped down to 84%. DISCHARGE DIET: Cardiac. Activity as tolerated. Spent greater than 35 minutes in total discharge process.
== END 2016-10-30 15:50 | disposition home or self-care (01) | DRG 175 ==
LOC: EC 13:24 → 5MS5E 16:58
PROVIDERS: ADMIT Internal Medicine; ATTEND Internal Medicine
DX: I26.99 Other pulmonary embolism without acute cor pulmonale (principal); J96.01 Acute respiratory failure with hypoxia; J44.1 Chronic obstructive pulmonary disease with (acute) exacerbation; I82.431 Acute embolism and thrombosis of right popliteal vein; I82.531 Chronic embolism and thrombosis of right popliteal vein; I10 Essential (primary) hypertension; F17.200 Nicotine dependence, unspecified, uncomplicated; G47.33 Obstructive sleep apnea (adult) (pediatric); G89.29 Other chronic pain; K21.9 Gastro-esophageal reflux disease without esophagitis; M19.90 Unspecified osteoarthritis, unspecified site; M41.9 Scoliosis, unspecified; N40.0 Benign prostatic hyperplasia without lower urinary tract symptoms; K44.9 Diaphragmatic hernia without obstruction or gangrene; M54.9 Dorsalgia, unspecified; Z79.899 Other long term (current) drug therapy; Z82.49 Family history of ischemic heart disease and other diseases of the circulatory system
CPT/HCPCS: 36415; 71020; 71275; 80048; 80053; 82550; 82553; 83735; 83880; 84484; 85025; 85027; 85610; 85730; 87040; 93005; 93970; 94640; 94760; 96361; 96365; 96375; 96376; 99291

== ENCOUNTER → 2018-02-19 | Outpatient (CLI) | payer OTHER ==
--- NOTE | 2018-02-19 13:09 | XR ---
EXAMINATION TYPE: XR chest 2V DATE OF EXAM: 02/19/2018 COMPARISON: Chest x-ray and CTA chest October 27, 2016. Chest x-ray from 3 days ago. HISTORY: History of CHF with shortness of breath TECHNIQUE: Frontal and lateral views of the chest are obtained. FINDINGS: Osseous structures remain demineralized. Underlying scoliosis is redemonstrated. Exaggerat ed kyphosis with mild compression fractures near thoracolumbar junction are again seen. There is persistent bibasilar scarring and/or atelectasis. There is no suspicious new focal airspace opacity, pleural effusion, or pneumothorax seen bilaterally. Retrocardiac opacity consistent with hia nidia hernia is redemonstrated. Cardiac silhouette size is stable and upper limits of normal. IMPRESSION: Chronic changes with bibasilar scarring and/or atelectasis. No suspicious acute infiltra te. No significant change from prior.
== END | disposition home or self-care (01) ==
LOC: RADXRMAIN 10:50
PROVIDERS: ATTEND Radiology Radiation Oncology
DX: I50.23 Acute on chronic systolic (congestive) heart failure (principal); C61 Malignant neoplasm of prostate
CPT/HCPCS: 71046

== ENCOUNTER 2018-07-11 14:00 | Emergency (ER) | payer OTHER ==
[2018-07-11 14:04] VITALS: TEMP 97.8
--- NOTE | 2018-07-11 14:27 | ED ---
Extremity Problem HPI - General Chief complaint: Extremity Problem,Nontraumatic Stated complaint: Swollen hand Time Seen by Provider: 07/11/18 14:16 Source: patient, RN notes reviewed Mode of arrival: ambulatory Limitations: no limitations - History of Present Illness Initial comments: This a 67-year-old male presents emergency Department chief complaint of right hand pain, swelling or redness. Patient started within last 24 hours. Patient states pain and torso aspect of his hand with no trauma. Patient has no history of gout reports no fever no chills. Patient states pain radiates up into his forearm denies any swelling of his forearm. Patient denies any current chest pain or worsening shortness breath from his normal baseline. Patient states she's not taking medications for it he does not want any current pain meds. - Related Data Home Medications Medication Instructions Recorded Confirmed Budesonide/Formoterol Fumarate 2 puff INHALATION RT-BID 09/22/16 10/27/16 [Symbicort 160-4.5 Mcg Inhaler] Finasteride [Proscar] 5 mg PO DAILY 09/22/16 10/27/16 HYDROcodone/APAP 10-325MG [[place] 2 tab PO QID PRN 09/22/16 10/27/16 10-325] Loratadine [Claritin] 10 mg PO DAILY 09/22/16 10/27/16 Pantoprazole Sodium [Protonix] 40 mg PO AC-BRKFST 09/22/16 10/27/16 Tamsulosin [Flomax] 0.4 mg PO BID 09/22/16 10/27/16 Tiotropium [place] [Spiriva] 1 cap INHALATION RT-DAILY 09/22/16 10/27/16 Docusate [Colace] 100 mg PO DAILY 10/27/16 10/27/16 Furosemide [Lasix] 40 mg PO DAILY 10/27/16 10/27/16 Previous Rx's Medication Instructions Recorded Albuterol Inhaler [Ventolin Hfa 2 puff INHALATION RT-Q6H PRN #0 10/29/16 Inhaler] Rivaroxaban [Xarelto Starter Pack] 1 each PO DIRECTED #1 pkg 10/29/16 predniSONE 10 mg PO DIRECTED #30 tab 10/29/16 Cephalexin [Keflex] 500 mg PO Q6HR #28 cap 11/18/18 predniSONE 50 mg PO DAILY #3 tab 07/11/18 Allergies Allergy/AdvReac Type Severity Reaction Status Date / Time No Known Allergies Allergy Verified 07/11/18 14:04 Review of Systems ROS Statement: Those systems with pertinent positive or pertinent negative responses have been documented in the HPI. ROS Other: All systems not noted in ROS Statement are negative. Past Medical History Past Medical History: COPD, Hypertension, Osteoarthritis (OA), Prostate Disorder , Sleep Apnea/CPAP/BIPAP Additional Past Medical History / Comment(s): BACK PAIN,SCOLIOSIS,DDD, HIATAL HERNIA.STRIGHT CATHS 2-3 TIMES PER DAY, RECENTLY ON ABX FOR COUGH AND STATED HAD DIARRHEA WHILE ON THEN BUT IT STOPPED ON SAT 10/25/16 History of Any Multi-Drug Resistant Organisms: None Reported Past Surgical History: Tonsillectomy Additional Past Surgical History / Comment(s): COLONOSCOPY, HEMORRHOIDECTOMY Past Anesthesia/Blood Transfusion Reactions: Postoperative Nausea & Vomiting ( PONV) Additional Past Anesthesia/Blood Transfusion Reaction / Comment(s): TAKES A BIT TO WAKE UP Past Psychological History: No Psychological Hx Reported Smoking Status: Former smoker Past Alcohol Use History: Daily Past Drug Use History: Marijuana - Past Family History Father History Unknown: Yes Family Medical History: Congestive Heart Failure (CHF) Mother History Unknown: Yes Additional Family Medical History / Comment(s): IN HER SLEEP "NATRUAL CAUSES" General Exam Limitations: no limitations General appearance: alert, in no apparent distress Head exam: Present: atraumatic, normocephalic, normal inspection Respiratory exam: Present: normal lung sounds bilaterally. Absent: respiratory distress, wheezes, rales, rhonchi, stridor Cardiovascular Exam: Present: regular rate, normal rhythm, normal heart sounds. Absent: systolic murmur, diastolic murmur, rubs, gallop, clicks Extremities exam: Present: other (Right hand there is large swelling on the dorsal aspect mild erythema with cap refill less than 2 seconds of all digits, full range of motion with minimal discomfort range of motion) Skin exam: Present: warm, dry, intact, normal color. Absent: rash Course Vital Signs 07/11/18 07/11/18 14:02 15:54 Temperature 97.8 F Pulse Rate 102 H 68 Respiratory 24 16 Rate Blood Pressure 147/90 136/89 O2 Sat by Pulse 98 98 Oximetry Medical Decision Making - Medical Decision Making 67-year-old male presented for right hand swelling. Patient does have moderate dorsal aspect swelling with minimal erythema. Patient had lab work and x-ray. X-rays unremarkable. Patient does have mild elevated uric acid. Patient we treated for ago and possible underlying cellulitis. Patient has good range of motion no evidence flexor tensosynvitis. Patient will follow-up tomorrow thinners PCP and return for any worsening symptoms. - Lab Data Result diagrams: 07/11/18 15:00 07/11/18 15:00 Lab Results 07/11/18 07/11/18 07/11/18 Range/Units 15:00 15:00 15:00 WBC 11.2 H (3.8-10.6) k/uL RBC 5.17 (4.30-5.90) m/uL Hgb 17.3 (13.0-17.5) gm/dL Hct 51.3 (39.0-53.0) % MCV 99.4 (80.0-100.0) fL MCH 33.5 (25.0-35.0) pg MCHC 33.7 (31.0-37.0) g/dL RDW 13.2 (11.5-15.5) % Plt Count 210 (150-450) k/uL Neutrophils % 75 % Lymphocytes % 11 % Monocytes % 8 % Eosinophils % 2 % Basophils % 0 % Neutrophils # 8.4 H (1.3-7.7) k/uL Lymphocytes # 1.2 (1.0-4.8) k/uL Monocytes # 0.9 (0-1.0) k/uL Eosinophils # 0.2 (0-0.7) k/uL Basophils # 0.0 (0-0.2) k/uL PT (9.0-12.0) sec INR (<1.2) APTT (22.0-30.0) sec Sodium 135 L (137-145) mmol/L Potassium 4.2 (3.5-5.1) mmol/L Chloride 94 L (98-107) mmol/L Carbon Dioxide 28 (22-30) mmol/L Anion Gap 13 mmol/L BUN 30 H (9-20) mg/dL Creatinine 1.25 (0.66-1.25) mg/dL Est GFR (CKD-EPI)AfAm 68 (>60 ml/min/1.73 sqM) Est GFR (CKD-EPI)NonAf 59 (>60 ml/min/1.73 sqM) Glucose 105 H (74-99) mg/dL Plasma Lactic Acid Brandt 1.6 (0.7-2.0) mmol/L Uric Acid 10.9 H (3.5-8.5) mg/dL Calcium 9.1 (8.4-10.2) mg/dL Total Bilirubin 1.2 (0.2-1.3) mg/dL AST 43 (17-59) U/L ALT 28 (21-72) U/L Alkaline Phosphatase 78 (38-126) U/L C-Reactive Protein 14.9 H (<10.0) mg/L Total Protein 7.7 (6.3-8.2) g/dL Albumin 4.2 (3.5-5.0) g/dL 07/11/18 Range/Units 15:00 WBC (3.8-10.6) k/uL RBC (4.30-5.90) m/uL Hgb (13.0-17.5) gm/dL Hct (39.0-53.0) % MCV (80.0-100.0) fL MCH (25.0-35.0) pg MCHC (31.0-37.0) g/dL RDW (11.5-15.5) % Plt Count (150-450) k/uL Neutrophils % % Lymphocytes % % Monocytes % % Eosinophils % % Basophils % % Neutrophils # (1.3-7.7) k/uL Lymphocytes # (1.0-4.8) k/uL Monocytes # (0-1.0) k/uL Eosinophils # (0-0.7) k/uL Basophils # (0-0.2) k/uL PT 12.6 H (9.0-12.0) sec INR 1.3 H (<1.2) APTT 28.9 (22.0-30.0) sec Sodium (137-145) mmol/L Potassium (3.5-5.1) mmol/L Chloride (98-107) mmol/L Carbon Dioxide (22-30) mmol/L Anion Gap mmol/L BUN (9-20) mg/dL Creatinine (0.66-1.25) mg/dL Est GFR (CKD-EPI)AfAm (>60 ml/min/1.73 sqM) Est GFR (CKD-EPI)NonAf (>60 ml/min/1.73 sqM) Glucose (74-99) mg/dL Plasma Lactic Acid Brandt (0.7-2.0) mmol/L Uric Acid (3.5-8.5) mg/dL Calcium (8.4-10.2) mg/dL Total Bilirubin (0.2-1.3) mg/dL AST (17-59) U/L ALT (21-72) U/L Alkaline Phosphatase (38-126) U/L C-Reactive Protein (<10.0) mg/L Total Protein (6.3-8.2) g/dL Albumin (3.5-5.0) g/dL Disposition Clinical Impression: Gout, Cellulitis of right hand Disposition: HOME SELF-CARE Condition: Stable Instructions: Low Purine Diet (ED), Gout (ED) Additional Instructions: Please return to the Emergency Department if symptoms worsen or any other concerns. Prescriptions: Cephalexin [Keflex] 500 mg PO Q6HR #28 cap predniSONE 50 mg PO DAILY #3 tab Is patient prescribed a controlled substance at d/c from ED?: No Referrals: [facility],Clinic [Primary Care Provider] - 1-2 days Time of Disposition: 16:18
--- NOTE | 2018-07-11 14:52 | XR ---
EXAMINATION TYPE: XR hand complete RT DATE OF EXAM: 07/11/2018 COMPARISON: None HISTORY: Right hand TECHNIQUE: Three-view right hand FINDINGS: No acute fractures are evident. Soft tissues are normal. There is moderate degenerative lorenzo nge first carpal metacarpal junction. IMPRESSION: 1. No acute osseous abnormality right hand.
[2018-07-11 15:32] LABS: Basophils % (A) 0 %; Eosinophils # (A) 0.2 k/uL (0-0.7); Eosinophils % (A) 2 %; HCT 51.3 % (39.0-53.0); HGB 17.3 gm/dL (13.0-17.5); Lymphocytes # (A) 1.2 k/uL (1.0-4.8); Lymphocytes % (A) 11 %; MCH 33.5 pg (25.0-35.0); MCHC 33.7 g/dL (31.0-37.0); MCV 99.4 fL (80.0-100.0); Mean Platelet Volume 6.8; Monocytes # (A) 0.9 k/uL (0-1.0); Monocytes % (A) 8 %; Neutrophils # (A) 8.4 k/uL (1.3-7.7); Neutrophils % (A) 75 %; Platelet Count 210 k/uL (150-450); RBC 5.17 m/uL (4.30-5.90); RDW 13.2 % (11.5-15.5); WBC 11.2 k/uL (3.8-10.6)
[2018-07-11 15:41] LABS: INR 1.3 (<1.2); Partial Thromboplastin Time 28.9 sec (22.0-30.0); Prothrombin Time 12.6 sec (9.0-12.0)
[2018-07-11 15:48] LABS: Albumin 4.2 g/dL (3.5-5.0); C Reactive Protein 14.9 mg/L (<10.0); Calcium 9.1 mg/dL (8.4-10.2); Total Bilirubin 1.2 mg/dL (0.2-1.3); Total Protein 7.7 g/dL (6.3-8.2); Uric Acid 10.9 mg/dL (3.5-8.5)
[2018-07-11 15:55] VITALS: RESP 16
[2018-07-11 15:55] LABS: Potassium 4.2 mmol/L (3.5-5.1)
[2018-07-11] MEDS ORDERED: methylPREDNISolone SOD SUCCI 125 MG/2 ML VIAL IV STA (16:15)
[2018-07-11 16:34] VITALS: BP 137/90; PULSE 72
== END 2018-07-11 16:30 | disposition home or self-care (01) ==
LOC: EC 14:00
DX: L03.113 Cellulitis of right upper limb (principal); M10.9 Gout, unspecified; J44.9 Chronic obstructive pulmonary disease, unspecified; G47.30 Sleep apnea, unspecified; I10 Essential (primary) hypertension; Z79.51 Long term (current) use of inhaled steroids; Z79.899 Other long term (current) drug therapy; Z87.891 Personal history of nicotine dependence
CPT/HCPCS: 36415; 80053; 83605; 84550; 85025; 85610; 85730; 86140; 87040; 73130; 99283; 96374; J2930

== ENCOUNTER → 2018-12-21 | Outpatient (CLI) | payer OTHER ==
--- NOTE | 2018-12-21 10:54 | CT ---
EXAMINATION TYPE: CT brain wo/w con DATE OF EXAM: 12/21/2018 COMPARISON: None HISTORY: 68-year-old male Headaches and history of prostate cancer TECHNIQUE: Examination was done in axial plane without and with intravenous contrast. 100 mL Isovue 300 IV contrast is administered. Coronal and sagittal reconstructions performed. CT DLP: 2202 mGycm Automated exposure control for dose reduction was used. FINDINGS: There is no evidence of acute intracranial hemorrhage, acute ischemic changes, mass, mass-effect, or extra-axial fluid collection. There is no effacement of cerebral sulci or basal subarachnoid cister ns. There is no hydrocephalus. There is no midline shift. Bruno-white matter distinction is preserv ed. Empty sella incidentally noted. Mild cerebral cortical volume loss. Dominant right vertebral artery. No enhancing intracranial lesions. Dural venous sinuses are patent. Trace mucosal thickening ethmoid air cells. Mastoid air cells are well pneumatized. IMPRESSION: Mild cortical atrophy. No enhancing intracranial lesions. No acute intracranial abnormality seen.
== END | disposition home or self-care (01) ==
LOC: RADCTMAIN 08:14
DX: R51 Headache (principal); D07.5 Carcinoma in situ of prostate
CPT/HCPCS: 82565; 84520; 70470; 36415; Q9967

== ENCOUNTER → 2019-03-31 | Outpatient (CLI) | payer OTHER ==
--- NOTE | 2019-03-31 09:06 | USB ---
Reason for exam: clinical finding. US Breast BILAT Right complete breast ultrasound includes all four quadrants, the retroareolar region and axilla. Finding demonstrates a 2.4cm hypoechoic lesion at the posterior nipple, appears as gynecomastia. Left complete breast ultrasound includes all four quadrants, the retroareolar region and axilla. Finding demonstrates a 2.0 x 1.6cm hypoechoic lesion at the posterior nipple, appears as gynecomastia. These results were verbally communicated with the patient and result sheet given to the patient on 03/31/19. ASSESSMENT: Benign, BI-RAD 2 RECOMMENDATION: Clinical management of both breasts. Manage patient on a clinical basis.
--- NOTE | 2019-03-31 09:36 | MM ---
Reason for exam: clinical finding. Baseline mammogram. Physical Findings: Nurse Summary: 2cm nodule in the right breast at the nipple and a 2cm nodule in the left breast at the nipple (nurse manfred). MG 3D Diag Mammo W/Cad TIM Bilateral CC and MLO view(s) were taken. No prior studies available for comparison. There are benign appearing round calcifications bilaterally. Flame shaped subareolar fibroglandular densities consistent with gynecomastia. These results were verbally communicated with the patient and result sheet given to the patient on 03/31/19. ASSESSMENT: Benign, BI-RAD 2 RECOMMENDATION: Clinical management of both breasts. Manage on a clinical basis with regard to bilateral pain.
== END | disposition home or self-care (01) ==
LOC: RADMAMWWP 06:56
DX: N62 Hypertrophy of breast (principal)
CPT/HCPCS: 77062; 77066

== ENCOUNTER → 2020-02-07 | Outpatient (CLI) | payer OTHER | END | disposition home or self-care (01) | LOC: LABWHC1 09:09 | PROVIDERS: ATTEND Radiology Radiation Oncology | DX: C61 Malignant neoplasm of prostate (principal); Z92.3 Personal history of irradiation; Z79.818 Long term (current) use of other agents affecting estrogen receptors and estrogen levels | CPT/HCPCS: 36415; 84153 ==

== ENCOUNTER 2020-04-10 13:45 | Emergency (ER) | payer OTHER ==
[2020-04-10 13:51] VITALS: TEMP 97.7
--- NOTE | 2020-04-10 14:15 | ED ---
General Adult HPI - General Source: patient Mode of arrival: wheelchair Limitations: no limitations <Marquis Brown - Last Filed: 04/10/20 14:59> <Mamadou Fan - Last Filed: 04/10/20 16:11> - General Chief complaint: Extremity Problem,Nontraumatic Stated complaint: L Leg Pain Time Seen by Provider: 04/10/20 13:58 - History of Present Illness Initial comments: Dictation was produced using [employer] dictation software. please excuse any grammatical, word or spelling errors. This patient was cared for during a federal and state declared state of emergency secondary to Covid 19 Chief Complaint: 69-year-old male presents with left calf pain. History of Present Illness: A 69-year-old male he has past medical history of DVT. Patient takes rivaroxaban for DVT prophylaxis. Patient's been on this medication for several years. Patient states he woke up this morning with point tenderness to his medial calf. Patient denies any worsening shortness of breath. He has a history of COPD and does rely on nasal cannula oxygen. Patient has any chest pain. Denies any constitutional symptoms. The ROS documented in this emergency department record has been reviewed and confirmed by me. Those systems with pertinent positive or negative responses have been documented in the HPI. All other systems are other negative and/or noncontributory. PHYSICAL EXAM: General Impression: Alert and oriented x3, not in acute distress HEENT: Normocephalic atraumatic, extra-ocular movements intact, pupils equal and reactive to light bilaterally, mucous membranes moist. Cardiovascular: Heart regular rate and rhythm Chest: Able to complete full sentences, no retractions, no tachypnea, diffuse wheezing Abdomen: abdomen soft, non-tender, non-distended, no organomegaly Musculoskeletal: Pulses present and equal in all extremities, no peripheral edema Lower extremities : Varicosity, bilaterally, there is a small 1 x 1 cm area of pain to the left medial calf. No asymmetric girth between the 2 legs Motor: no focal deficits noted Neurological: CN II-XII grossly intact, no focal motor or sensory deficits noted Skin: Intact with no visualized rashes Psych: Normal affect and mood ED course: 69 y Old male past medical history of DVT presents with left calf pain. Vital signs upon arrival are within acceptable limits. Patient does not have any thoracic symptoms. He is on anticoagulation medication. When initiating getting HPI from patient he denied any chest pain however nurse brought it to my attention that patient complained to her about some chest pain. Patient reevaluated at bedside. He states he did have some chest pain to the left lower chest. He points to his left anterior rib. States hurts when he presses or moves. Pain is reproduced with palpation to the lower rib margin at the left lower ribs just over the ribs. Patient's pain symptoms is musculoskeletal in nature. Furthermore, patient has no EKG findings to suggest ischemia or infarction. There is a pending chest x-ray and ultrasound read. Patient care signed out to Dr. Fan for follow-up of her radiology imaging studies and reevaluation to determine final disposition. EKG interpretation: Ventricular rate 98, sinus rhythm,. Interval 150, QRS 100, QTC 510. No OR prolongation, no ST or T-wave changes noted. EKG compared to 10/27/2016 showing no changes. QT is mildly prolonged (Marquis Brown) - Related Data Home Medications Medication Instructions Recorded Confirmed Budesonide/Formoterol Fumarate 2 puff INHALATION RT-BID 09/22/16 10/27/16 [Symbicort 160-4.5 Mcg Inhaler] Finasteride [Proscar] 5 mg PO DAILY 09/22/16 10/27/16 HYDROcodone/APAP 10-325MG [[place] 2 tab PO QID PRN 09/22/16 10/27/16 10-325] Loratadine [Claritin] 10 mg PO DAILY 09/22/16 10/27/16 Pantoprazole Sodium [Protonix] 40 mg PO AC-BRKFST 09/22/16 10/27/16 Tamsulosin [Flomax] 0.4 mg PO BID 09/22/16 10/27/16 Tiotropium [place] [Spiriva] 1 cap INHALATION RT-DAILY 09/22/16 10/27/16 Docusate [Colace] 100 mg PO DAILY 10/27/16 10/27/16 Furosemide [Lasix] 40 mg PO DAILY 10/27/16 10/27/16 Previous Rx's Medication Instructions Recorded Albuterol Inhaler (Mhu) [Ventolin 2 puff INHALATION RT-Q6H PRN #0 10/29/16 Hfa Inhaler (Mhu)] Rivaroxaban [Xarelto Starter Pack] 1 each PO DIRECTED #1 pkg 10/29/16 predniSONE 10 mg PO DIRECTED #30 tab 10/29/16 Cephalexin [Keflex] 500 mg PO Q6HR #28 cap 07/11/18 predniSONE 50 mg PO DAILY #3 tab 07/11/18 Cephalexin [Keflex] 500 mg PO TID #30 cap 04/10/20 Allergies Allergy/AdvReac Type Severity Reaction Status Date / Time No Known Allergies Allergy Verified 04/10/20 13:51 Review of Systems ROS Other: All systems not noted in ROS Statement are negative. <Marquis Brown - Last Filed: 04/10/20 14:59> ROS Other: All systems not noted in ROS Statement are negative. <Mamadou Fan - Last Filed: 04/10/20 16:11> ROS Statement: Those systems with pertinent positive or pertinent negative responses have been documented in the HPI. Past Medical History Past Medical History: COPD, Deep Vein Thrombosis (DVT), Hypertension, Osteoarthritis (OA), Prostate Disorder, Sleep Apnea/CPAP/BIPAP Additional Past Medical History / Comment(s): BACK PAIN,SCOLIOSIS,DDD, HIATAL HERNIA.STRIGHT CATHS 2-3 TIMES PER DAY, RECENTLY ON ABX FOR COUGH AND STATED HAD DIARRHEA WHILE ON THEN BUT IT STOPPED ON SAT 10/25/16, Home 02 3-4L History of Any Multi-Drug Resistant Organisms: None Reported Past Surgical History: Tonsillectomy Additional Past Surgical History / Comment(s): COLONOSCOPY, HEMORRHOIDECTOMY Past Anesthesia/Blood Transfusion Reactions: Postoperative Nausea & Vomiting (PONV) Additional Past Anesthesia/Blood Transfusion Reaction / Comment(s): TAKES A BIT TO WAKE UP Past Psychological History: No Psychological Hx Reported, PTSD Smoking Status: Former smoker Past Alcohol Use History: Daily Past Drug Use History: Marijuana - Past Family History Father History Unknown: Yes Family Medical History: Congestive Heart Failure (CHF) Mother History Unknown: Yes Additional Family Medical History / Comment(s): IN HER SLEEP "NATRUAL CAUSES" <Marquis Brown - Last Filed: 04/10/20 14:59> General Exam Limitations: no limitations <Marquis Brown - Last Filed: 04/10/20 14:59> Course Vital Signs 04/10/20 04/10/20 13:46 15:40 Temperature 97.7 F Pulse Rate 52 L 97 Respiratory 22 20 Rate Blood Pressure 127/89 143/81 O2 Sat by Pulse 97 94 L Oximetry Medical Decision Making - Lab Data Result diagrams: 04/10/20 14:23 04/10/20 14:23 <Marquis Brown - Last Filed: 04/10/20 14:59> - Lab Data Result diagrams: 04/10/20 14:23 04/10/20 14:23 - Radiology Data Radiology results: report reviewed (Ultrasound shows incomplete compressibility left common femoral vein suggesting possible partial chronic thrombosis), image reviewed (Chest x-ray shows COPD. Persistent bibasilar opacities fever and atelectasis or scarring.) <Mamadou Fan - Last Filed: 04/10/20 16:11> - Medical Decision Making Patient states he has been on steroids for the past couple of weeks. Patient reevaluated by myself, Dr. Fan. Patient resting comfortably in bed. Patient does have some pursed lip breathing. Patient has wheezing. Patient is advised for admission for shortness of breath and COPD however patient refuses. Patient is receptive to receiving a nebulizer treatment and a prescription for antibiot ics prior to leaving. Patient does have minimal cellulitic appearance to left anterior leg (Mamadou Fan) - Lab Data Lab Results 04/10/20 04/10/20 04/10/20 Range/Units 14:23 14:23 14:23 WBC 22.8 H (3.8-10.6) k/uL RBC 4.81 (4.30-5.90) m/uL Hgb 16.8 (13.0-17.5) gm/dL Hct 49.2 (39.0-53.0) % MCV 102.3 H (80.0-100.0) fL MCH 34.9 (25.0-35.0) pg MCHC 34.1 (31.0-37.0) g/dL RDW 13.9 (11.5-15.5) % Plt Count 242 (150-450) k/uL Neutrophils % 90 % Lymphocytes % 3 % Monocytes % 5 % Eosinophils % 0 % Basophils % 0 % Neutrophils # 20.5 H (1.3-7.7) k/uL Lymphocytes # 0.6 L (1.0-4.8) k/uL Monocytes # 1.2 H (0-1.0) k/uL Eosinophils # 0.1 (0-0.7) k/uL Basophils # 0.1 (0-0.2) k/uL Macrocytosis Slight PT 11.2 (9.0-12.0) sec INR 1.1 (<1.2) APTT 26.7 (22.0-30.0) sec Sodium 133 L (137-145) mmol/L Potassium 4.0 (3.5-5.1) mmol/L Chloride 90 L (98-107) mmol/L Carbon Dioxide 34 H (22-30) mmol/L Anion Gap 9 mmol/L BUN 28 H (9-20) mg/dL Creatinine 1.18 (0.66-1.25) mg/dL Est GFR (CKD-EPI)AfAm 72 (>60 ml/min/1.73 sqM) Est GFR (CKD-EPI)NonAf 62 (>60 ml/min/1.73 sqM) Glucose 149 H (74-99) mg/dL Calcium 9.1 (8.4-10.2) mg/dL Magnesium (1.6-2.3) mg/dL 04/10/20 Range/Units 14:23 WBC (3.8-10.6) k/uL RBC (4.30-5.90) m/uL Hgb (13.0-17.5) gm/dL Hct (39.0-53.0) % MCV (80.0-100.0) fL MCH (25.0-35.0) pg MCHC (31.0-37.0) g/dL RDW (11.5-15.5) % Plt Count (150-450) k/uL Neutrophils % % Lymphocytes % % Monocytes % % Eosinophils % % Basophils % % Neutrophils # (1.3-7.7) k/uL Lymphocytes # (1.0-4.8) k/uL Monocytes # (0-1.0) k/uL Eosinophils # (0-0.7) k/uL Basophils # (0-0.2) k/uL Macrocytosis PT (9.0-12.0) sec INR (<1.2) APTT (22.0-30.0) sec Sodium (137-145) mmol/L Potassium (3.5-5.1) mmol/L Chloride (98-107) mmol/L Carbon Dioxide (22-30) mmol/L Anion Gap mmol/L BUN (9-20) mg/dL Creatinine (0.66-1.25) mg/dL Est GFR (CKD-EPI)AfAm (>60 ml/min/1.73 sqM) Est GFR (CKD-EPI)NonAf (>60 ml/min/1.73 sqM) Glucose (74-99) mg/dL Calcium (8.4-10.2) mg/dL Magnesium 1.6 (1.6-2.3) mg/dL Disposition <Marquis Brown - Last Filed: 04/10/20 14:59> Is patient prescribed a controlled substance at d/c from ED?: No Time of Disposition: 16:10 <Mamadou Fan - Last Filed: 04/10/20 16:11> Clinical Impression: COPD (chronic obstructive pulmonary disease), Cellulitis Disposition: HOME SELF-CARE Condition: Stable Instructions (If sedation given, give patient instructions): Emphysema (ED), Cellulitis (ED) Additional Instructions: Please follow-up with primary care physician in the next day or 2 for recheck. Return for difficulty breathing, leg swelling, leg pain, fevers, worsening or change in symptoms or other concerns. Prescription sent to [facility] pharmacy Prescriptions: Cephalexin [Keflex] 500 mg PO TID #30 cap Referrals: [facility],Clinic [Primary Care Provider] - 1-2 days
[2020-04-10 14:32] LABS: Basophils # (A) 0.1 k/uL (0-0.2); Basophils % (A) 0 %; Eosinophils # (A) 0.1 k/uL (0-0.7); Eosinophils % (A) 0 %; HCT 49.2 % (39.0-53.0); HGB 16.8 gm/dL (13.0-17.5); Lymphocytes # (A) 0.6 k/uL (1.0-4.8); Lymphocytes % (A) 3 %; MCH 34.9 pg (25.0-35.0); MCHC 34.1 g/dL (31.0-37.0); MCV 102.3 fL (80.0-100.0); Macrocytosis Slight; Mean Platelet Volume 7.1; Monocytes # (A) 1.2 k/uL (0-1.0); Monocytes % (A) 5 %; Neutrophils # (A) 20.5 k/uL (1.3-7.7); Neutrophils % (A) 90 %; Platelet Count 242 k/uL (150-450); RBC 4.81 m/uL (4.30-5.90); RDW 13.9 % (11.5-15.5); WBC 22.8 k/uL (3.8-10.6)
[2020-04-10 14:43] LABS: INR 1.1 (<1.2); Partial Thromboplastin Time 26.7 sec (22.0-30.0); Prothrombin Time 11.2 sec (9.0-12.0)
[2020-04-10 14:52] LABS: Calcium 9.1 mg/dL (8.4-10.2)
[2020-04-10] MEDS ORDERED: MAGNESIUM OXIDE 400 MG TAB PO STA (14:54)
--- NOTE | 2020-04-10 15:12 | US ---
EXAMINATION TYPE: US venous doppler duplex LE LT DATE OF EXAM: 04/10/2020 2:06 PM COMPARISON: US bilateral 2017 CLINICAL HISTORY: calf pain. Left leg pain and swelling, patient on blood thinners SIDE PERFORMED: Left TECHNIQUE: The lower extremity deep venous system is examined utilizing real time linear array sonog ana with graded compression, doppler sonography and color-flow sonography. VESSELS IMAGED: External Iliac Vein (EIV) Common Femoral Vein Deep Femoral Vein Greater Saphenous Vein * Femoral Vein Popliteal Vein Small Saphenous Vein * Proximal Calf Veins (* superficial vessels) Left Leg: unable to fully compress mid femoral vein, color-flow satisfactory Grayscale, color doppler, spectral doppler imaging performed of the deep veins of the left lower extr emity. There is normal flow, . IMPRESSION: Focal incomplete compressibility mid aspect left common femoral vein with satisfactory co noah flow and phasicity suggest possible partial occlusive chronic thrombus. No convincing evidence fo r acute DVT in the left lower extremity.
--- NOTE | 2020-04-10 15:37 | XR ---
EXAMINATION TYPE: XR chest 1V portable DATE OF EXAM: 04/10/2020 COMPARISON: Chest x-ray February 19, 2018. CTA chest September 22, 2016. HISTORY: COPD with leukocytosis. TECHNIQUE: Single frontal view of the chest is obtained. FINDINGS: There is background chronic emphysematous change with left greater than right bibasilar op acities redemonstrated. No pleural effusion or pneumothorax seen bilaterally. The cardiac silhouette size is stable and upper limits of normal. Right retrocardiac opacity consistent with hiatal hernia i s redemonstrated. Underlying scoliosis is better seen on CT. IMPRESSION: Chronic emphysematous change with persistent bibasilar opacities favoring atelectasis an d/or scarring. No new focal infiltrate clearly seen.
[2020-04-10 15:46] VITALS: BP 143/81
[2020-04-10] MEDS ORDERED: IPRATROPIUM-ALBUTEROL 3 ML NEB INHALATION STA (16:08)
[2020-04-10 16:28] VITALS: RESP 18
[2020-04-10 16:34] VITALS: PULSE 88
== END 2020-04-10 16:44 | disposition home or self-care (01) ==
LOC: EC 13:45
DX: J44.9 Chronic obstructive pulmonary disease, unspecified (principal); L03.116 Cellulitis of left lower limb; R07.9 Chest pain, unspecified; G47.30 Sleep apnea, unspecified; N42.9 Disorder of prostate, unspecified; M54.9 Dorsalgia, unspecified; I10 Essential (primary) hypertension; Z79.899 Other long term (current) drug therapy; Z79.01 Long term (current) use of anticoagulants; Z79.51 Long term (current) use of inhaled steroids; Z87.891 Personal history of nicotine dependence; Z86.718 Personal history of other venous thrombosis and embolism; Z99.89 Dependence on other enabling machines and devices
CPT/HCPCS: 36415; 71045; 80048; 83735; 85025; 85610; 85730; 93005; 94640; 99284

== ENCOUNTER 2020-04-17 16:06 | Inpatient (IN) | payer OTHER, MEDICARE ==
[2020-04-17] MEDS ORDERED: SODIUM CHLORIDE 0.9% 1,000 ML IV STA (16:34)
[2020-04-17] MEDS ORDERED: VANCOMYCIN IV PER PHARMACY 1 EACH MISC MISCELLANE PRN (16:35)
[2020-04-17] MEDS ORDERED: DILTIAZEM DRIP BOLUS FROM BAG 1 MG SOLN IV ONE ×2 (16:35→17:46)
[2020-04-17] MEDS ORDERED: VANCOMYCIN 1,750 MG in SODIUM CHLORIDE 0.9% 500 ML 500 ML IVPB STA (16:41)
--- NOTE | 2020-04-17 16:54 | ED ---
Extremity Problem HPI - General Chief complaint: Extremity Problem,Nontraumatic Stated complaint: leg swelling Time Seen by Provider: 04/17/20 16:22 Source: patient, RN notes reviewed, old records reviewed Mode of arrival: wheelchair Limitations: no limitations - History of Present Illness Initial comments: This is a 69-year-old male DF presents today for evaluation regards to significant left lower extremity erythema swelling minimal pain some drainage patient has significant chronic venous stasis some blood thinners for atrial fibrillation patient admits his heart rate being level fastly not feeling well feeling weak. Otherwise no recent travel history sick contacts again is denying current fever. Redness just started today MD Complaint: extremity pain, extremity swelling, other (Significant lower extremity's cellulitic changes, erythema and warmth) Location: left, lower extremity History of Same: No Radiation: proximal Severity scale (1-10): 6 Quality: aching Consistency: constant Improves with: nothing Worsens with: nothing Associated Symptoms: myalgias - Related Data Home Medications Medication Instructions Recorded Confirmed Budesonide/Formoterol Fumarate 2 puff INHALATION RT-BID 09/22/16 04/17/20 [Symbicort 160-4.5 Mcg Inhaler] Pantoprazole Sodium [Protonix] 40 mg PO BID-W/MEALS 09/22/16 04/17/20 Tiotropium [place] [Spiriva] 18 mcg INHALATION RT-DAILY 09/22/16 04/17/20 Furosemide [Lasix] 40 mg PO BID 10/27/16 04/17/20 Acetaminophen [Tylenol] 650 mg PO Q6H 04/17/20 04/17/20 Albuterol Inhaler [Ventolin Hfa 1 puff INHALATION RT-Q6H PRN 04/17/20 04/17/20 Inhaler] Albuterol Nebulized [Ventolin 2.5 mg INHALATION RT-Q4H PRN 04/17/20 04/17/20 Nebulized] Cholecalciferol [Vitamin D3 (25 2,000 unit PO DAILY 04/17/20 04/17/20 Mcg = 1000 Iu)] Ferrous Sulfate [Iron (65 MG 325 mg PO DAILY 04/17/20 04/17/20 Elemental)] Fluticasone Nasal [place] [Flonase 1 spray EA NOSTRIL BID PRN 04/17/20 04/17/20 Nasal [place]] Lidocaine 5% Patch [Lidoderm 5% 1 patch TOPICAL DAILY PRN 04/17/20 04/17/20 Patch] Metoprolol Tartrate [Lopressor] 25 mg PO BID 04/17/20 04/17/20 Rivaroxaban [Xarelto] 20 mg PO DAILY 04/17/20 04/17/20 amLODIPine [Norvasc] 5 mg PO DAILY 04/17/20 04/17/20 Previous Rx's Medication Instructions Recorded Cephalexin [Keflex] 500 mg PO TID #30 cap 04/10/20 Allergies Allergy/AdvReac Type Severity Reaction Status Date / Time No Known Allergies Allergy Verified 04/17/20 18:33 Review of Systems ROS Statement: Those systems with pertinent positive or pertinent negative responses have been documented in the HPI. ROS Other: All systems not noted in ROS Statement are negative. Past Medical History Past Medical History: COPD, Deep Vein Thrombosis (DVT), Hypertension, Osteoarthritis (OA), Prostate Disorder, Sleep Apnea/CPAP/BIPAP Additional Past Medical History / Comment(s): BACK PAIN,SCOLIOSIS,DDD, HIATAL HERNIA.STRIGHT CATHS 2-3 TIMES PER DAY, RECENTLY ON ABX FOR COUGH AND STATED HAD DIARRHEA WHILE ON THEN BUT IT STOPPED ON SAT 10/25/16, Home 02 3-4L History of Any Multi-Drug Resistant Organisms: None Reported Past Surgical History: Tonsillectomy Additional Past Surgical History / Comment(s): COLONOSCOPY, HEMORRHOIDECTOMY Past Anesthesia/Blood Transfusion Reactions: Postoperative Nausea & Vomiting (PONV) Additional Past Anesthesia/Blood Transfusion Reaction / Comment(s): TAKES A BIT TO WAKE UP Past Psychological History: No Psychological Hx Reported, PTSD Smoking Status: Former smoker Past Alcohol Use History: Daily Past Drug Use History: Marijuana - Past Family History Father History Unknown: Yes Family Medical History: Congestive Heart Failure (CHF) Mother History Unknown: Yes Additional Family Medical History / Comment(s): IN HER SLEEP "NATRUAL CAUSES" General Exam - General Exam Comments Initial Comments: Upper extremity with significant cellulitic changes erythema redness and warmth Limitations: no limitations General appearance: alert, in no apparent distress Head exam: Present: atraumatic, normocephalic, normal inspection Eye exam: Present: normal appearance, PERRL, EOMI. Absent: scleral icterus, conjunctival injection, periorbital swelling ENT exam: Present: normal exam, mucous membranes moist Neck exam: Present: normal inspection. Absent: tenderness, meningismus, lymphadenopathy Respiratory exam: Present: normal lung sounds bilaterally. Absent: respiratory distress, wheezes, rales, rhonchi, stridor Cardiovascular Exam: Present: regular rate, normal rhythm, normal heart sounds. Absent: systolic murmur, diastolic murmur, rubs, gallop, clicks GI/Abdominal exam: Present: soft, normal bowel sounds. Absent: distended, tenderness, guarding, rebound, rigid Extremities exam: Present: normal inspection, full ROM, normal capillary refill, other (Left lower extremity shows significant swelling and erythema). Absent: tenderness, pedal edema, joint swelling, calf tenderness Back exam: Present: normal inspection Neurological exam: Present: alert, oriented X3, CN II-XII intact Psychiatric exam: Present: normal affect, normal mood Skin exam: Present: warm, dry, intact, normal color. Absent: rash Course Vital Signs 04/17/20 04/17/20 04/17/20 16:10 17:34 17:59 Temperature 98.0 F Pulse Rate 122 H 120 H 98 Respiratory 20 18 16 Rate Blood Pressure 155/95 178/104 O2 Sat by Pulse 96 99 Oximetry 04/17/20 04/17/20 18:06 18:33 Temperature 98 F Pulse Rate 100 115 H Respiratory 16 18 Rate Blood Pressure 157/98 O2 Sat by Pulse 96 Oximetry - Reevaluation(s) Reevaluation #1: 04/17/20 16:54 Medical records reviewed Reevaluation #2: 04/17/20 16:54 Heart is mildly improved Reevaluation #3: 04/17/20 19:06 Patient heart rate is now significantly improved - Consultations Consultation #1: Spoke with [facility] agrees for admission Medical Decision Making - Medical Decision Making 69 male DF for evaluation of left lower extremity edema, significant cellulitis will start on antibiotics patient found to be nature fibrillation with RVR difficult to control heart rate although is improved, cardiology consultation - Lab Data Result diagrams: 04/17/20 16:44 04/17/20 16:44 Lab Results 04/17/20 04/17/20 04/17/20 Range/Units 16:44 16:44 16:44 WBC 9.9 (3.8-10.6) k/uL RBC 4.39 (4.30-5.90) m/uL Hgb 15.3 (13.0-17.5) gm/dL Hct 45.9 (39.0-53.0) % MCV 104.5 H (80.0-100.0) fL MCH 34.8 (25.0-35.0) pg MCHC 33.3 (31.0-37.0) g/dL RDW 14.2 (11.5-15.5) % Plt Count 293 (150-450) k/uL Neutrophils % 78 % Lymphocytes % 8 % Monocytes % 10 % Eosinophils % 0 % Basophils % 1 % Neutrophils # 7.7 (1.3-7.7) k/uL Lymphocytes # 0.8 L (1.0-4.8) k/uL Monocytes # 1.0 (0-1.0) k/uL Eosinophils # 0.0 (0-0.7) k/uL Basophils # 0.1 (0-0.2) k/uL Macrocytosis Slight PT 10.2 (9.0-12.0) sec INR 1.0 (<1.2) APTT 24.0 (22.0-30.0) sec Sodium (137-145) mmol/L Potassium (3.5-5.1) mmol/L Chloride (98-107) mmol/L Carbon Dioxide (22-30) mmol/L Anion Gap mmol/L BUN (9-20) mg/dL Creatinine (0.66-1.25) mg/dL Est GFR (CKD-EPI)AfAm (>60 ml/min/1.73 sqM) Est GFR (CKD-EPI)NonAf (>60 ml/min/1.73 sqM) Glucose (74-99) mg/dL Plasma Lactic Acid [place] (0.7-2.0) mmol/L Calcium (8.4-10.2) mg/dL Phosphorus (2.5-4.5) mg/dL Magnesium (1.6-2.3) mg/dL Total Bilirubin (0.2-1.3) mg/dL AST (17-59) U/L ALT (4-49) U/L Alkaline Phosphatase (38-126) U/L Creatine Kinase (55-170) U/L Troponin I (0.000-0.034) ng/mL NT-Pro-B Natriuret Pep pg/mL Total Protein (6.3-8.2) g/dL Albumin (3.5-5.0) g/dL TSH (0.465-4.680) mIU/L Urine Color Yellow Urine Appearance Clear (Clear) Urine pH 5.5 (5.0-8.0) Ur Specific [place] 1.008 (1.001-1.035) Urine Protein Negative (Negative) Urine Glucose (UA) Negative (Negative) Urine Ketones Trace H (Negative) Urine Blood Negative (Negative) Urine Nitrite Negative (Negative) Urine Bilirubin Negative (Negative) Urine Urobilinogen <2.0 (<2.0) mg/dL Ur Leukocyte Esterase Negative (Negative) 04/17/20 04/17/20 04/17/20 Range/Units 16:44 16:44 16:44 WBC (3.8-10.6) k/uL RBC (4.30-5.90) m/uL Hgb (13.0-17.5) gm/dL Hct (39.0-53.0) % MCV (80.0-100.0) fL MCH (25.0-35.0) pg MCHC (31.0-37.0) g/dL RDW (11.5-15.5) % Plt Count (150-450) k/uL Neutrophils % % Lymphocytes % % Monocytes % % Eosinophils % % Basophils % % Neutrophils # (1.3-7.7) k/uL Lymphocytes # (1.0-4.8) k/uL Monocytes # (0-1.0) k/uL Eosinophils # (0-0.7) k/uL Basophils # (0-0.2) k/uL Macrocytosis PT (9.0-12.0) sec INR (<1.2) APTT (22.0-30.0) sec Sodium 135 L (137-145) mmol/L Potassium 3.9 (3.5-5.1) mmol/L Chloride 91 L (98-107) mmol/L Carbon Dioxide 34 H (22-30) mmol/L Anion Gap 10 mmol/L BUN 32 H (9-20) mg/dL Creatinine 1.31 H (0.66-1.25) mg/dL Est GFR (CKD-EPI)AfAm 64 (>60 ml/min/1.73 sqM) Est GFR (CKD-EPI)NonAf 55 (>60 ml/min/1.73 sqM) Glucose 105 H (74-99) mg/dL Plasma Lactic Acid [place] (0.7-2.0) mmol/L Calcium 9.3 (8.4-10.2) mg/dL Phosphorus 3.5 (2.5-4.5) mg/dL Magnesium 1.7 (1.6-2.3) mg/dL Total Bilirubin 1.5 H (0.2-1.3) mg/dL AST 96 H (17-59) U/L ALT 68 H (4-49) U/L Alkaline Phosphatase 130 H (38-126) U/L Creatine Kinase 138 (55-170) U/L Troponin I 0.027 (0.000-0.034) ng/mL NT-Pro-B Natriuret Pep 892 pg/mL Total Protein 6.9 (6.3-8.2) g/dL Albumin 4.1 (3.5-5.0) g/dL TSH 0.432 L (0.465-4.680) mIU/L Urine Color Urine Appearance (Clear) Urine pH (5.0-8.0) Ur Specific [place] (1.001-1.035) Urine Protein (Negative) Urine Glucose (UA) (Negative) Urine Ketones (Negative) Urine Blood (Negative) Urine Nitrite (Negative) Urine Bilirubin (Negative) Urine Urobilinogen (<2.0) mg/dL Ur Leukocyte Esterase (Negative) 04/17/20 Range/Units 16:53 WBC (3.8-10.6) k/uL RBC (4.30-5.90) m/uL Hgb (13.0-17.5) gm/dL Hct (39.0-53.0) % MCV (80.0-100.0) fL MCH (25.0-35.0) pg MCHC (31.0-37.0) g/dL RDW (11.5-15.5) % Plt Count (150-450) k/uL Neutrophils % % Lymphocytes % % Monocytes % % Eosinophils % % Basophils % % Neutrophils # (1.3-7.7) k/uL Lymphocytes # (1.0-4.8) k/uL Monocytes # (0-1.0) k/uL Eosinophils # (0-0.7) k/uL Basophils # (0-0.2) k/uL Macrocytosis PT (9.0-12.0) sec INR (<1.2) APTT (22.0-30.0) sec Sodium (137-145) mmol/L Potassium (3.5-5.1) mmol/L Chloride (98-107) mmol/L Carbon Dioxide (22-30) mmol/L Anion Gap mmol/L BUN (9-20) mg/dL Creatinine (0.66-1.25) mg/dL Est GFR (CKD-EPI)AfAm (>60 ml/min/1.73 sqM) Est GFR (CKD-EPI)NonAf (>60 ml/min/1.73 sqM) Glucose (74-99) mg/dL Plasma Lactic Acid [place] 1.6 (0.7-2.0) mmol/L Calcium (8.4-10.2) mg/dL Phosphorus (2.5-4.5) mg/dL Magnesium (1.6-2.3) mg/dL Total Bilirubin (0.2-1.3) mg/dL AST (17-59) U/L ALT (4-49) U/L Alkaline Phosphatase (38-126) U/L Creatine Kinase (55-170) U/L Troponin I (0.000-0.034) ng/mL NT-Pro-B Natriuret Pep pg/mL Total Protein (6.3-8.2) g/dL Albumin (3.5-5.0) g/dL TSH (0.465-4.680) mIU/L Urine Color Urine Appearance (Clear) Urine pH (5.0-8.0) Ur Specific [place] (1.001-1.035) Urine Protein (Negative) Urine Glucose (UA) (Negative) Urine Ketones (Negative) Urine Blood (Negative) Urine Nitrite (Negative) Urine Bilirubin (Negative) Urine Urobilinogen (<2.0) mg/dL Ur Leukocyte Esterase (Negative) Critical Care Time Critical Care Time: Yes Total Critical Care Time: 31 Disposition Clinical Impression: Atrial fibrillation with RVR, Left leg cellulitis Disposition: ADMITTED IP TO THIS HOSP Condition: Good Is patient prescribed a controlled substance at d/c from ED?: No Referrals: [facility],Clinic [Primary Care Provider] - 1-2 days
[2020-04-17] MEDS: DILTIAZEM 125 MG in SODIUM CHLORIDE 0.9% 100 ML IV SCH (16:55)
[2020-04-17 17:10] LABS: Albumin 4.1 g/dL (3.5-5.0); Calcium 9.3 mg/dL (8.4-10.2); Magnesium 1.7 mg/dL (1.6-2.3); Phosphorus 3.5 mg/dL (2.5-4.5); Potassium 3.9 mmol/L (3.5-5.1); Total Bilirubin 1.5 mg/dL (0.2-1.3); Total Protein 6.9 g/dL (6.3-8.2)
[2020-04-17 17:12] LABS: Basophils # (A) 0.1 k/uL (0-0.2); Basophils % (A) 1 %; Eosinophils % (A) 0 %; HCT 45.9 % (39.0-53.0); HGB 15.3 gm/dL (13.0-17.5); Lymphocytes # (A) 0.8 k/uL (1.0-4.8); Lymphocytes % (A) 8 %; MCH 34.8 pg (25.0-35.0); MCHC 33.3 g/dL (31.0-37.0); MCV 104.5 fL (80.0-100.0); Macrocytosis Slight; Mean Platelet Volume 7.1; Monocytes % (A) 10 %; Neutrophils # (A) 7.7 k/uL (1.3-7.7); Neutrophils % (A) 78 %; Platelet Count 293 k/uL (150-450); Prothrombin Time 10.2 sec (9.0-12.0); RBC 4.39 m/uL (4.30-5.90); RDW 14.2 % (11.5-15.5); WBC 9.9 k/uL (3.8-10.6)
[2020-04-17 17:14] LABS: Appearance,Urine Clear (Clear); Bilirubin,Urine Negative (Negative); Blood,Urine Negative (Negative); Color,Urine Yellow; Glucose,Urine (UA) Negative (Negative); Ketones,Urine Trace (Negative); Leukocyte Esterase,Urine Negative (Negative); Nitrite,Urine Negative (Negative); PH, Urine 5.5 (5.0-8.0); Protein,Urine Negative (Negative); Specific Gravity,Urine 1.008 (1.001-1.035); Urobilinogen,Urine <2.0 mg/dL (<2.0)
--- NOTE | 2020-04-17 17:26 | XR ---
EXAMINATION TYPE: XR chest 2V DATE OF EXAM: 04/17/2020 COMPARISON: HISTORY: Shortness of breath TECHNIQUE: Frontal and lateral views of the chest are obtained. FINDINGS: Scattered senescent parenchymal changes noted. Hyperinflation compatible with COPD. Basilar atelectasis and/or infiltrate. Right perihilar infiltrate noted as well. Heart size is stable. Mediastinal structures are stable and grossly unremarkable. No evidence for hilar prominence. Degenerative changes dorsal spine. IMPRESSION: 1. Basilar atelectasis and/or infiltrate. Right perihilar infiltrate noted as well.
[2020-04-17] MEDS ORDERED: IPRATROPIUM-ALBUTEROL 3 ML NEB INHALATION STA (17:46)
[2020-04-17] MEDS ORDERED: NALOXONE 0.4 MG/ML 1 ML VIAL IV PRN (19:01)
[2020-04-17] MEDS ORDERED: ONDANSETRON 4 MG/2 ML VIAL IVP PRN (19:01)
[2020-04-17] MEDS: IPRATROPIUM-ALBUTEROL 3 ML NEB INHALATION SCH (19:42)
[2020-04-17] MEDS ORDERED: ALBUTEROL NEBULIZED 2.5 MG/3 ML INHALATION PRN ×2 (21:54)
[2020-04-17] MEDS ORDERED: FLUTICASONE 50MCG/SPRAY NASAL 16GM EA NOSTRIL PRN (21:54)
[2020-04-17] MEDS ORDERED: LIDOCAINE 5% PATCH TOPICAL PRN (21:54)
[2020-04-17] MEDS ORDERED: ACETAMINOPHEN TAB 325 MG TAB PO SCH (22:00)
[2020-04-17] MEDS ORDERED: LORazepam 2 MG/ML INJ IV PRN ×3 (22:00)
[2020-04-17] MEDS: THIAMINE 100 MG TAB PO SCH (22:14)
[2020-04-17] MEDS: METOPROLOL TARTRATE 25 MG TAB PO SCH (22:17)
[2020-04-18] MEDS: DILTIAZEM 125 MG in SODIUM CHLORIDE 0.9% 100 ML IV SCH (00:33)
[2020-04-18] MEDS: IPRATROPIUM-ALBUTEROL 3 ML NEB INHALATION SCH ×6 (00:55→20:25)
[2020-04-18 06:27] LABS: Basophils # (A) 0.1 k/uL (0-0.2); Basophils % (A) 1 %; Eosinophils # (A) 0.1 k/uL (0-0.7); Eosinophils % (A) 2 %; HCT 43.7 % (39.0-53.0); HGB 14.1 gm/dL (13.0-17.5); Lymphocytes # (A) 0.6 k/uL (1.0-4.8); Lymphocytes % (A) 8 %; MCH 34.5 pg (25.0-35.0); MCHC 32.3 g/dL (31.0-37.0); MCV 106.9 fL (80.0-100.0); Macrocytosis Moderate; Mean Platelet Volume 6.8; Monocytes # (A) 0.7 k/uL (0-1.0); Monocytes % (A) 9 %; Neutrophils # (A) 6.1 k/uL (1.3-7.7); Neutrophils % (A) 77 %; Platelet Count 275 k/uL (150-450); RBC 4.08 m/uL (4.30-5.90); RDW 14.2 % (11.5-15.5); WBC 7.9 k/uL (3.8-10.6)
[2020-04-18 06:39] LABS: Albumin 3.4 g/dL (3.5-5.0); Calcium 8.6 mg/dL (8.4-10.2); Potassium 3.8 mmol/L (3.5-5.1); Total Bilirubin 1.3 mg/dL (0.2-1.3); Total Protein 5.8 g/dL (6.3-8.2)
[2020-04-18] MEDS: THIAMINE 100 MG TAB PO SCH ×2 (07:05→17:02)
[2020-04-18] MEDS: ACETAMINOPHEN TAB 325 MG TAB PO PRN ×2 (07:08→23:06)
[2020-04-18] MEDS ORDERED: PANTOPRAZOLE 40 MG TABLET PO SCH (07:30)
[2020-04-18] MEDS ORDERED: IPRATROPIUM 0.5 MG/2.5 ML NEBU INHALATION SCH (08:00)
[2020-04-18] MEDS ORDERED: VANCOMYCIN 1,500 MG in SODIUM CHLORIDE 0.9% 250 ML IVPB SCH (08:00)
[2020-04-18] MEDS: RIVAROXABAN 20 MG TAB PO SCH (08:28)
[2020-04-18] MEDS: FERROUS SULFATE 325 MG TAB PO SCH (08:28)
[2020-04-18] MEDS: METOPROLOL TARTRATE 25 MG TAB PO SCH ×2 (08:28→20:58)
[2020-04-18] MEDS: CHOLECALCIFEROL 1,000 UNIT TAB PO SCH (08:28)
[2020-04-18] MEDS: FUROSEMIDE 40 MG TAB PO SCH ×2 (08:54→20:58)
[2020-04-18] MEDS ORDERED: amLODIPine 5 MG TAB PO SCH (09:00)
[2020-04-18] MEDS: SYMBICORT 160-4.5 MCG INHALER INHALATION SCH ×2 (09:04→20:26)
--- NOTE | 2020-04-18 09:24 | US ---
EXAMINATION TYPE: US venous doppler duplex LE LT DATE OF EXAM: 04/18/2020 9:09 AM COMPARISON: NONE CLINICAL HISTORY: r/o DVT; lle pain and edema. redness and swelling in calf and ankle, already on thi nners SIDE PERFORMED: Left TECHNIQUE: The lower extremity deep venous system is examined utilizing real time linear array sonog ana with graded compression, doppler sonography and color-flow sonography. VESSELS IMAGED: External Iliac Vein (EIV) Common Femoral Vein Deep Femoral Vein Greater Saphenous Vein * Femoral Vein Popliteal Vein Small Saphenous Vein * Proximal Calf Veins (* superficial vessels) Left Leg: Negative for DVT IMPRESSION: 1. Left lower extremity ultrasound negative for deep venous thrombosis.
--- NOTE | 2020-04-18 11:43 | P.CRDCN ---
History of Present Illness Consult date: 04/18/20 History of present illness: CHIEF COMPLAINT: Afib RVR HISTORY OF PRESENT ILLNESS: 69-year-old male with history of COPD, DVT, PE, and home oxygen who presented to emergency room with chief complaint of increased swelling in his left lower extremity. Patient follows in the office with Dr. Castañeda. Cardiology was consulted for A. fib with RVR. Patient was seen and examined this morning at the bedside. EKG and telemetry reviewed by Dr. Rodarte which revealed multifocal atrial tachycardia, and not afib with RVR. Patient denies chest pain. He reports shortness of breath but states that is his baseline. Denies palpitations. DIAGNOSTICS: EKG reveals multifocal atrial tachycardia Chest xray basilar atelectasis or infiltrates Laboratory data: CBC 7.9. Hemoglobin 14.1. Platelet count 275. Sodium 134. Potassium 3.8. BUN 29. Creatinine 1.22. Lactic acid 1.6. Current home cardiac medications include Xarelto 20 mg daily, Lasix 40 mg twice a day, metoprolol 25 mg twice a day, Norvasc 5 mg daily Echocardiogram completed in February 2020 revealed ejection fraction of 50% with moderate mitral regurgitation REVIEW OF SYSTEMS: CONSTITUTIONAL: Denies fever or chills. HEENT: Denies blurred vision, vision changes, or eye pain. Denies hemoptysis CARDIOVASCULAR: Denies chest pain, orthopnea, PND or palpitations RESPIRATORY: Reports shortness of breath which is chronic for the patient and at his baseline GASTROINTESTINAL: Denies abdominal pain. Denies nausea or vomiting. HEMATOLOGIC: Denies bleeding disorders. GENITOURINARY: Denies any blood in urine. SKIN: Denies pruitis. Denies rash. Reports swelling and redness to left lower extremity PHYSICAL EXAM: VITAL SIGNS: Reviewed. GENERAL: Well-developed in no acute distress. HEENT: Head is normocephalic. Pupils are equal, round. Sclerae anicteric. Mucous membranes of the mouth are moist. Neck supple. No JVD or thyromegaly LUNGS: Respirations even and unlabored. Expiratory wheezing noted HEART: Regular rate and rhythm. S1 and S2 heard. ABDOMEN: Soft. Nontender. EXTREMITIES: Normal range of motion. No clubbing or cyanosis. Peripheral pulses intact. Bilateral lower extremity edema present. Left worse than right. Left with erythema. NEUROLOGIC: Awake and alert. Oriented x 3. ASSESSMENT: 1. Multifocal atrial tachycardia 2. Left lower extremity cellulitis 3. History of DVT/PE, on long-term anticoagulation with Xarelto 4. History of COPD on home O2 PLAN: -Cardizem drip was discontinued this morning by internal medicine -Discontinue Norvasc -Add verapamil -Continue additional cardiac medications including Xarelto, Lasix, and metoprolol -No need to repeat echocardiogram as this was just completed in February 2020. -Further recommendations pending patient's course. Nurse practitioner note has been reviewed by physician. Signing provider agrees with the documented findings, assessment, and plan of care. Past Medical History Past Medical History: COPD, Deep Vein Thrombosis (DVT), Hypertension, Osteoarthritis (OA), Prostate Disorder, Sleep Apnea/CPAP/BIPAP Additional Past Medical History / Comment(s): BACK PAIN,SCOLIOSIS,DDD, HIATAL HERNIA.STRIGHT CATHS 2-3 TIMES PER DAY, RECENTLY ON ABX FOR COUGH AND STATED HAD DIARRHEA WHILE ON THEN BUT IT STOPPED ON SAT 10/25/16, Home 02 3-4L. Prostate CA w/radiation History of Any Multi-Drug Resistant Organisms: None Reported Past Surgical History: Tonsillectomy Additional Past Surgical History / Comment(s): COLONOSCOPY, HEMORRHOIDECTOMY Past Anesthesia/Blood Transfusion Reactions: Postoperative Nausea & Vomiting (PONV) Additional Past Anesthesia/Blood Transfusion Reaction / Comment(s): TAKES A BIT TO WAKE UP Past Psychological History: No Psychological Hx Reported, PTSD Additional Psychological History / Comment(s): PT IS INDEPENDANT, LIVES ALONE IN [place]. HAS 13 STEPS TO APT. RECIEVES NO OUTSIDE SERVICES. HAS CPAP W/-NO OTHER MEDICAL EQUIPMENT. PT SERVED IN THE [employer] AND HAS WORKED A [employer]GEN [employer] F[employer]ER A [employer]. Smoking Status: Former smoker Past Alcohol Use History: Daily Additional Past Alcohol Use History / Comment(s): STARTED SMOKING AT AGE 15 QUIT JUL 2016 SMOKED 1/2 PPD. pt. states he drinks a pint of vodka a day Past Drug Use History: Marijuana Additional Drug Use History / Comment(s): QUIT MARIJUANA 5 YEARS AGO - Past Family History Father History Unknown: Yes Family Medical History: Congestive Heart Failure (CHF) Mother History Unknown: Yes Additional Family Medical History / Comment(s): IN HER SLEEP "NATRUAL CAUSES" Medications and Allergies Home Medications Medication Instructions Recorded Confirmed Type Budesonide/Formoterol Fumarate 2 puff INHALATION RT-BID 09/22/16 04/17/20 History [Symbicort 160-4.5 Mcg Inhaler] Pantoprazole Sodium [Protonix] 40 mg PO BID-W/MEALS 09/22/16 04/17/20 History Tiotropium [place] [Spiriva] 18 mcg INHALATION RT-DAILY 09/22/16 04/17/20 History Furosemide [Lasix] 40 mg PO BID 10/27/16 04/17/20 History Cephalexin [Keflex] 500 mg PO TID #30 cap 04/10/20 04/17/20 Rx Acetaminophen [Tylenol] 650 mg PO Q6H 04/17/20 04/17/20 History Albuterol Inhaler [Ventolin Hfa 1 puff INHALATION RT-Q6H PRN 04/17/20 04/17/20 History Inhaler] Albuterol Nebulized [Ventolin 2.5 mg INHALATION RT-Q4H PRN 04/17/20 04/17/20 History Nebulized] Cholecalciferol [Vitamin D3 (25 2,000 unit PO DAILY 04/17/20 04/17/20 History Mcg = 1000 Iu)] Ferrous Sulfate [Iron (65 MG 325 mg PO DAILY 04/17/20 04/17/20 History Elemental)] Fluticasone Nasal [place] [Flonase 1 spray EA NOSTRIL BID PRN 04/17/20 04/17/20 History Nasal [place]] Lidocaine 5% Patch [Lidoderm 5% 1 patch TOPICAL DAILY PRN 04/17/20 04/17/20 History Patch] Metoprolol Tartrate [Lopressor] 25 mg PO BID 04/17/20 04/17/20 History Rivaroxaban [Xarelto] 20 mg PO DAILY 04/17/20 04/17/20 History amLODIPine [Norvasc] 5 mg PO DAILY 04/17/20 04/17/20 History Allergies Allergy/AdvReac Type Severity Reaction Status Date / Time No Known Allergies Allergy Verified 04/17/20 18:33 Physical Exam Vitals: Vital Signs Temp Pulse Pulse Resp BP BP Pulse Ox 04/18/20 09:04 80 04/18/20 08:26 98.1 F 91 22 123/81 95 04/18/20 04:29 64 04/18/20 04:15 64 04/18/20 03:37 98.4 F 80 20 126/64 98 04/18/20 01:05 110 H 04/18/20 00:59 95 04/18/20 00:58 115 H 04/18/20 00:00 98.1 F 94 20 164/91 97 04/17/20 20:00 99 F 105 H 22 161/88 95 04/17/20 18:33 98 F 115 H 18 157/98 96 04/17/20 18:06 100 16 04/17/20 17:59 98 16 04/17/20 17:34 120 H 18 178/104 99 04/17/20 16:10 98.0 F 122 H 20 155/95 96 Intake and Output 04/17/20 04/18/20 04/18/20 22:59 06:59 14:59 Intake Total 15.183 619.0 294.833 Output Total 800 Balance 15.183 -181.0 294.833 Intake: IV 30 Invasive Line 1 30 Intake, IV Titration 15.183 79.0 24.833 Amount Diltiazem 125 mg In 15.183 79.0 24.833 Sodium Chloride 0.9% 100 ml @ 5 MG/HR 5 mls/hr IV .Q24H [facility] Rx#:[id number] Oral 540 240 Output: Urine 800 Other: Voiding Method Urinal Urinal Urinal # Voids 3 1 # Bowel Movements 0 Weight 103.5 kg 103.5 kg Results 04/18/20 05:56 04/18/20 05:56 Cardiac Enzymes 04/17/20 04/17/20 04/18/20 Range/Units 16:44 16:44 05:56 AST 96 H 55 (17-59) U/L Troponin I 0.027 (0.000-0.034) ng/mL Coagulation 04/17/20 Range/Units 16:44 PT 10.2 (9.0-12.0) sec APTT 24.0 (22.0-30.0) sec CBC 04/17/20 04/18/20 Range/Units 16:44 05:56 WBC 9.9 7.9 (3.8-10.6) k/uL RBC 4.39 4.08 L (4.30-5.90) m/uL Hgb 15.3 14.1 (13.0-17.5) gm/dL Hct 45.9 43.7 (39.0-53.0) % Plt Count 293 275 (150-450) k/uL Comprehensive Metabolic Panel 04/17/20 04/18/20 Range/Units 16:44 05:56 Sodium 135 L 134 L (137-145) mmol/L Potassium 3.9 3.8 (3.5-5.1) mmol/L Chloride 91 L 92 L (98-107) mmol/L Carbon Dioxide 34 H 37 H (22-30) mmol/L BUN 32 H 29 H (9-20) mg/dL Creatinine 1.31 H 1.22 (0.66-1.25) mg/dL Glucose 105 H 103 H (74-99) mg/dL Calcium 9.3 8.6 (8.4-10.2) mg/dL AST 96 H 55 (17-59) U/L ALT 68 H 53 H (4-49) U/L Alkaline Phosphatase 130 H 102 (38-126) U/L Total Protein 6.9 5.8 L (6.3-8.2) g/dL Albumin 4.1 3.4 L (3.5-5.0) g/dL Current Medications Generic Name Dose Route Start Last Admin Trade Name Freq PRN Reason Stop Dose Admin Acetaminophen 650 mg 04/17/20 22:15 04/18/20 07:08 Tylenol Tab PO 650 mg Q6H PRN Administration Pain Albuterol Sulfate 2.5 mg 04/17/20 21:54 Ventolin Nebulized INHALATION RT-Q4H PRN Shortness Of Breath Albuterol/Ipratropium 3 ml 04/17/20 20:00 04/18/20 09:04 Duoneb 0.5 Mg-3 Mg/3 Ml Soln INHALATION 3 ml RT-Q4H [facility] Administration Budesonide/Formoterol Fumarate 2 puff 04/18/20 08:00 04/18/20 09:04 Symbicort 160-4.5 Mcg Inhaler INHALATION 2 puff RT-BID [facility] Administration Cholecalciferol 2,000 unit 04/18/20 09:00 04/18/20 08:28 Vitamin D3 (25 Mcg = 1000 Iu) PO 2,000 unit DAILY [facility] Administration Ferrous Sulfate 325 mg 04/18/20 09:00 04/18/20 08:28 Feosol PO 325 mg DAILY [facility] Administration Fluticasone Propionate 1 spray 04/17/20 21:54 Flonase Nasal [place] EA NOSTRIL BID PRN Allergies Furosemide 40 mg 04/18/20 09:00 04/18/20 08:54 Lasix PO 40 mg BID [facility] Administration Vancomycin HCl 1,500 mg/ 250 mls @ 125 mls/hr 04/18/20 08:00 04/18/20 08:27 Sodium Chloride IVPB 125 mls/hr Q16H [facility] Administration Lidocaine 1 patch 04/17/20 21:54 Lidoderm TOPICAL DAILY PRN Pain Lorazepam 1 mg 04/17/20 22:00 Ativan IV Q2HR PRN CIWA 8 or 9 Lorazepam 1 mg 04/17/20 22:00 Ativan IV Q1HR PRN CIWA 10 to 15 Lorazepam 2 mg 04/17/20 22:00 Ativan IV 04/19/20 22:00 Q10M PRN CIWA 16 or higher Metoprolol Tartrate 25 mg 04/17/20 22:00 04/18/20 08:28 Lopressor PO 25 mg BID [facility] Administration Naloxone HCl 0.2 mg 04/17/20 19:01 Narcan IV Q2M PRN Opioid Reversal Ondansetron HCl 4 mg 04/17/20 19:01 Zofran IVP Q8HR PRN Nausea And Vomiting Pantoprazole Sodium 40 mg 04/19/20 07:30 Protonix PO AC-BRKFST [facility] Rivaroxaban 20 mg 04/18/20 09:00 04/18/20 08:28 Xarelto PO 20 mg DAILY [facility] Administration Thiamine HCl 100 mg 04/17/20 17:30 04/18/20 07:05 Vitamin B-1 PO 100 mg BID-W/MEALS [facility] Administration Verapamil HCl 240 mg 04/18/20 10:15 Isoptin Sr PO DAILY [facility] Intake and Output 04/17/20 04/18/20 04/18/20 22:59 06:59 14:59 Intake Total 15.183 619.0 294.833 Output Total 800 Balance 15.183 -181.0 294.833 Intake: IV 30 Invasive Line 1 30 Intake, IV Titration 15.183 79.0 24.833 Amount Diltiazem 125 mg In 15.183 79.0 24.833 Sodium Chloride 0.9% 100 ml @ 5 MG/HR 5 mls/hr IV .Q24H [facility] Rx#:[id number] Oral 540 240 Output: Urine 800 Other: Voiding Method Urinal Urinal Urinal # Voids 3 1 # Bowel Movements 0 Weight 103.5 kg 103.5 kg 04/18/20 05:56 04/18/20 05:56
[2020-04-18] MEDS: VERAPAMIL SR 240 MG TABLET.ER PO SCH (12:32)
--- NOTE | 2020-04-18 13:17 | P.HPIM ---
History of Present Illness 69-year-old male came in with the Celexa lightest redness of the left lower extremity patient was having increased the pain in that extremity and updated Doppler of the left lower extremity which did not show any DVT. Patient was al so believed to have atrial fibrillation on the EKG all the EKG was reviewed by cardiology and they believe patient has multifocal atrial tachycardia. Patient is already anti-correlation for DVT in the past and PE in the past. Patient was on Cardizem which was discontinued and patient is on metoprolol which will be continued. Patient had any 8 ejection fraction of 50% in month of February with moderate mitral regurgitation. Chest x-ray showing be a basilar atelectasisand BNP is only 92 although patient is obese. Review of Systems REVIEW OF SYSTEMS: CONSTITUTIONAL: No fever, no malaise, no fatigue. HEENT: No recent visual problems or hearing problems. Denied any sore throat. CARDIOVASCULAR: No chest pain, orthopnea, PND, no palpitations, no syncope. PULMONARY: No shortness of breath, no cough, no hemoptysis. GASTROINTESTINAL: No diarrhea, no nausea, no vomiting, no abdominal pain. NEUROLOGICAL: No headaches, no weakness, no numbness. HEMATOLOGICAL: Denies any bleeding or petechiae. GENITOURINARY: Denies any burning micturition, frequency, or urgency. MUSCULOSKELETAL/RHEUMATOLOGICAL: Denies any joint pain, swelling, or any muscle pain. ENDOCRINE: Denies any polyuria or polydipsia. The rest of the 14-point review of systems is negative. Past Medical History Past Medical History: COPD, Deep Vein Thrombosis (DVT), Hypertension, Osteoarthritis (OA), Prostate Disorder, Sleep Apnea/CPAP/BIPAP Additional Past Medical History / Comment(s): BACK PAIN,SCOLIOSIS,DDD, HIATAL HERNIA.STRIGHT CATHS 2-3 TIMES PER DAY, RECENTLY ON ABX FOR COUGH AND STATED HAD DIARRHEA WHILE ON THEN BUT IT STOPPED ON SAT 10/25/16, Home 02 3-4L. Prostate CA w/radiation History of Any Multi-Drug Resistant Organisms: None Reported Past Surgical History: Tonsillectomy Additional Past Surgical History / Comment(s): COLONOSCOPY, HEMORRHOIDECTOMY Past Anesthesia/Blood Transfusion Reactions: Postoperative Nausea & Vomiting (PONV) Additional Past Anesthesia/Blood Transfusion Reaction / Comment(s): TAKES A BIT TO WAKE UP Past Psychological History: No Psychological Hx Reported, PTSD Additional Psychological History / Comment(s): PT IS INDEPENDANT, LIVES ALONE IN [place]. HAS 13 [address]PS TO [address]T. RECIEVES NO OUTSIDE SERVICES. HAS CPAP -NO OTHER MEDICAL EQUIPMENT. 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 Smoking Status: Former smoker Past Alcohol Use History: Daily Additional Past Alcohol Use History / Comment(s): STARTED SMOKING AT AGE 15 QUIT JUL 2016 SMOKED 1/2 PPD. pt. states he drinks a pint of vodka a day Past Drug Use History: Marijuana Additional Drug Use History / Comment(s): QUIT MARIJUANA 5 YEARS AGO - Past Family History Father History Unknown: Yes Family Medical History: Congestive Heart Failure (CHF) Mother History Unknown: Yes Additional Family Medical History / Comment(s): IN HER SLEEP "NATRUAL CAUSES" Medications and Allergies Home Medications Medication Instructions Recorded Confirmed Type Budesonide/Formoterol Fumarate 2 puff INHALATION RT-BID 09/22/16 04/17/20 History [Symbicort 160-4.5 Mcg Inhaler] Pantoprazole Sodium [Protonix] 40 mg PO BID-W/MEALS 09/22/16 04/17/20 History Tiotropium [place] [Spiriva] 18 mcg INHALATION RT-DAILY 09/22/16 04/17/20 History Furosemide [Lasix] 40 mg PO BID 10/27/16 04/17/20 History Cephalexin [Keflex] 500 mg PO TID #30 cap 04/10/20 04/17/20 Rx Acetaminophen [Tylenol] 650 mg PO Q6H 04/17/20 04/17/20 History Albuterol Inhaler [Ventolin Hfa 1 puff INHALATION RT-Q6H PRN 04/17/20 04/17/20 H istory Inhaler] Albuterol Nebulized [Ventolin 2.5 mg INHALATION RT-Q4H PRN 04/17/20 04/17/20 History Nebulized] Cholecalciferol [Vitamin D3 (25 2,000 unit PO DAILY 04/17/20 04/17/20 History Mcg = 1000 Iu)] Ferrous Sulfate [Iron (65 MG 325 mg PO DAILY 04/17/20 04/17/20 History Elemental)] Fluticasone Nasal [place] [Flonase 1 spray EA NOSTRIL BID PRN 04/17/20 04/17/20 History Nasal [place]] Lidocaine 5% Patch [Lidoderm 5% 1 patch TOPICAL DAILY PRN 04/17/20 04/17/20 H istory Patch] Metoprolol Tartrate [Lopressor] 25 mg PO BID 04/17/20 04/17/20 History Rivaroxaban [Xarelto] 20 mg PO DAILY 04/17/20 04/17/20 History amLODIPine [Norvasc] 5 mg PO DAILY 04/17/20 04/17/20 History Allergies Allergy/AdvReac Type Severity Reaction Status Date / Time No Known Allergies Allergy Verified 04/17/20 18:33 Physical Exam Vitals: Vital Signs Temp Pulse Pulse Resp BP BP Pulse Ox 04/18/20 13:02 92 04/18/20 12:47 88 04/18/20 09:19 80 04/18/20 09:04 80 04/18/20 08:26 98.1 F 91 22 123/81 95 04/18/20 04:29 64 04/18/20 04:15 64 04/18/20 03:37 98.4 F 80 20 126/64 98 04/18/20 01:05 110 H 04/18/20 00:59 95 04/18/20 00:58 115 H 04/18/20 00:00 98.1 F 94 20 164/91 97 04/17/20 20:00 99 F 105 H 22 161/88 95 04/17/20 18:33 98 F 115 H 18 157/98 96 04/17/20 18:06 100 16 04/17/20 17:59 98 16 04/17/20 17:34 120 H 18 178/104 99 04/17/20 16:10 98.0 F 122 H 20 155/95 96 Intake and Output 04/17/20 04/18/20 04/18/20 22:59 06:59 14:59 Intake Total 15.183 619.0 294.833 Output Total 800 Balance 15.183 -181.0 294.833 Intake: IV 30 Invasive Line 1 30 Intake, IV Titration 15.183 79.0 24.833 Amount Diltiazem 125 mg In 15.183 79.0 24.833 Sodium Chloride 0.9% 100 ml @ 5 MG/HR 5 mls/hr IV .Q24H [facility] Rx#:[id number] Oral 540 240 Output: Urine 800 Other: Voiding Method Urinal Urinal Urinal # Voids 3 1 # Bowel Movements 0 Weight 103.5 kg 103.5 kg PHYSICAL EXAMINATION: GENERAL: The patient is alert and oriented x3, not in any acute distress. Well developed, well nourished. HEENT: Pupils are round and equally reacting to light. EOMI. No scleral icterus. No conjunctival pallor. Normocephalic, atraumatic. No pharyngeal erythema. No thyromegaly. CARDIOVASCULAR: S1 and S2 present. No murmurs, rubs, or gallops. PULMONARY: Chest is clear to auscultation, no wheezing or crackles. ABDOMEN: Soft, nontender, nondistended, normoactive bowel sounds. No palpable organomegaly. MUSCULOSKELETAL: No joint swelling or deformity. EXTREMITIES: No cyanosis, clubbing, she has significant edema with the local is of temperature redness in the left lower extremity patient has bilateral pedal edema probably because of chronic venous insufficiency. NEUROLOGICAL: Gross neurological examination did not reveal any focal deficits. SKIN: No rashes. Results CBC & Chem 7: 04/18/20 05:56 04/18/20 05:56 Labs: Abnormal Lab Results - Last 24 Hours (Table) 04/17/20 04/17/20 04/17/20 Range/Units 16:44 16:44 16:44 RBC (4.30-5.90) m/uL MCV 104.5 H (80.0-100.0) fL Lymphocytes # 0.8 L (1.0-4.8) k/uL Sodium 135 L (137-145) mmol/L Chloride 91 L (98-107) mmol/L Carbon Dioxide 34 H (22-30) mmol/L BUN 32 H (9-20) mg/dL Creatinine 1.31 H (0.66-1.25) mg/dL Glucose 105 H (74-99) mg/dL Total Bilirubin 1.5 H (0.2-1.3) mg/dL AST 96 H (17-59) U/L ALT 68 H (4-49) U/L Alkaline Phosphatase 130 H (38-126) U/L Total Protein (6.3-8.2) g/dL Albumin (3.5-5.0) g/dL TSH 0.432 L (0.465-4.680) mIU/L Urine Ketones Trace H (Negative) 04/18/20 04/18/20 Range/Units 05:56 05:56 RBC 4.08 L (4.30-5.90) m/uL MCV 106.9 H (80.0-100.0) fL Lymphocytes # 0.6 L (1.0-4.8) k/uL Sodium 134 L (137-145) mmol/L Chloride 92 L (98-107) mmol/L Carbon Dioxide 37 H (22-30) mmol/L BUN 29 H (9-20) mg/dL Creatinine (0.66-1.25) mg/dL Glucose 103 H (74-99) mg/dL Total Bilirubin (0.2-1.3) mg/dL AST (17-59) U/L ALT 53 H (4-49) U/L Alkaline Phosphatase (38-126) U/L Total Protein 5.8 L (6.3-8.2) g/dL Albumin 3.4 L (3.5-5.0) g/dL TSH (0.465-4.680) mIU/L Urine Ketones (Negative) Thrombosis Risk Factor Assmnt - Choose All That Apply Each Factor Represents 1 point: Abnormal pulmonary function (COPD), Obesity (BMI >25) Each Risk Factor Represents 2 Points: Age 61-74 years Each Risk Factor Represents 3 Points: History of DVT/PE Thrombosis Risk Factor Assessment Total Risk Factor Score: 7 Thrombosis Risk Factor Assessment Level: High Risk Assessment and Plan Plan: -possible facilities of the left lower extremity: Patient the was started on vancomycin infectious disease was consulted. Patient is on Lasix although patient is mildly hyponatremic will have to closely monitor serum sodium. multifocalcouple atrial tachycardia tachycardia improved patient has ascended is in sinus rhythm with frequent PVCspatient was started on verapamil all discontinued amlodipine because of that reason and patient is also having pedal edema.reason beta vasquez which will be continued -History of DVT BNP in the past for which patient is on Xarelto, upper of the left lower extremity did not show any DVT during this hospitalization -COPD without any acute exacerbation -history with sleep apnea continue CPAP machine -Benign prostatic of atrophic -Hypertension
--- NOTE | 2020-04-18 23:08 | P.CONS ---
History of Present Illness - Reason for Consult Consult date: 04/18/20 Left lower extremity DVT Requesting physician: Modesta Pan - Chief Complaint Left leg pain swelling and redness x few days - History of Present Illness Patient is a 69-year-old male presenting to the ER yesterday with chief complaints of left leg swelling redness and pain that has been going on for about a week patient denies having history of any trauma and he did mention that he was seen in the ER for the same problem last week where the patient apparently was prescribed antibiotic however the patient not sure about the name which he took it for a few days however his left leg and get more swollen and red and painful patient described the pain to the leg to be more of a dull aching and sharp intensity is 6-7 out of 10 and no radiation patient did have associated diffuse swelling redness of the left leg denies having history of any trauma wound or any drainage he did have some chills but denies high-grade fever on arrival to the ER the patient was afebrile but did have a normal white count patient did have left lower extremity Doppler was negative for DVT patient was started on vancomycin for mistress admitted to the hospital infectious disease was consulted for further management of antibiotic therapy Review of Systems Positive point has been mentioned in the HPI rest of the systems are negative Past Medical History Past Medical History: COPD, Deep Vein Thrombosis (DVT), Hypertension, Osteoarthritis (OA), Prostate Disorder, Sleep Apnea/CPAP/BIPAP Additional Past Medical History / Comment(s): BACK PAIN,SCOLIOSIS,DDD, HIATAL HERNIA.STRIGHT CATHS 2-3 TIMES PER DAY, RECENTLY ON ABX FOR COUGH AND STATED HAD DIARRHEA WHILE ON THEN BUT IT STOPPED ON SAT 10/25/16, Home 02 3-4L. Prostate CA w/radiation History of Any Multi-Drug Resistant Organisms: None Reported Past Surgical History: Tonsillectomy Additional Past Surgical History / Comment(s): COLONOSCOPY, HEMORRHOIDECTOMY Past Anesthesia/Blood Transfusion Reactions: Postoperative Nausea & Vomiting (PONV) Additional Past Anesthesia/Blood Transfusion Reaction / Comm: TAKES A BIT TO WAKE UP Past Psychological History: No Psychological Hx Reported, PTSD Additional Psychological History / Comment(s): PT IS INDEPENDANT, LIV[place] AL[place] HAS [address] RECIEVES NO OUTSIDE SERVICES. HAS CPAP /-NO OTHER MEDICAL EQUIPMENT. PT SERVED IN THE [employer] AND HAS WORKED A [employer] AND [employer]. Smoking Status: Former smoker Past Alcohol Use History: Daily Additional Past Alcohol Use History / Comment(s): STARTED SMOKING AT AGE 15 QUIT JUL 2016 SMOKED 1/2 PPD. pt. states he drinks a pint of vodka a day Past Drug Use History: Marijuana Additional Drug Use History / Comment(s): QUIT MARIJUANA 5 YEARS AGO - Past Family History Father History Unknown: Yes Family Medical History: Congestive Heart Failure (CHF) Mother History Unknown: Yes Additional Family Medical History / Comment(s): IN HER SLEEP "NATRUAL CAUSES" Medications and Allergies Home Medications Medication Instructions Recorded Confirmed Type Budesonide/Formoterol Fumarate 2 puff INHALATION RT-BID 09/22/16 04/17/20 History [Symbicort 160-4.5 Mcg Inhaler] Pantoprazole Sodium [Protonix] 40 mg PO BID-W/MEALS 09/22/16 04/17/20 History Tiotropium [place] [Spiriva] 18 mcg INHALATION RT-DAILY 09/22/16 04/17/20 History Furosemide [Lasix] 40 mg PO BID 10/27/16 04/17/20 History Cephalexin [Keflex] 500 mg PO TID #30 cap 04/10/20 04/17/20 Rx Acetaminophen [Tylenol] 650 mg PO Q6H 04/17/20 04/17/20 History Albuterol Inhaler [Ventolin Hfa 1 puff INHALATION RT-Q6H PRN 04/17/20 04/17/20 History Inhaler] Albuterol Nebulized [Ventolin 2.5 mg INHALATION RT-Q4H PRN 04/17/20 04/17/20 History Nebulized] Cholecalciferol [Vitamin D3 (25 2,000 unit PO DAILY 04/17/20 04/17/20 History Mcg = 1000 Iu)] Ferrous Sulfate [Iron (65 MG 325 mg PO DAILY 04/17/20 04/17/20 History Elemental)] Fluticasone Nasal [place] [Flonase 1 spray EA NOSTRIL BID PRN 04/17/20 04/17/20 History Nasal [place]] Lidocaine 5% Patch [Lidoderm 5% 1 patch TOPICAL DAILY PRN 04/17/20 04/17/20 History Patch] Metoprolol Tartrate [Lopressor] 25 mg PO BID 04/17/20 04/17/20 History Rivaroxaban [Xarelto] 20 mg PO DAILY 04/17/20 04/17/20 History amLODIPine [Norvasc] 5 mg PO DAILY 04/17/20 04/17/20 History Allergies Allergy/AdvReac Type Severity Reaction Status Date / Time No Known Allergies Allergy Verified 04/17/20 18:33 Physical Exam Vitals: Vital Signs Temp Pulse Pulse Resp BP BP Pulse Ox 04/18/20 13:02 92 04/18/20 12:47 88 04/18/20 12:30 97.9 F 82 20 136/92 95 04/18/20 09:19 80 04/18/20 09:04 80 04/18/20 08:26 98.1 F 91 22 123/81 95 04/18/20 04:29 64 04/18/20 04:15 64 04/18/20 03:37 98.4 F 80 20 126/64 98 04/18/20 01:05 110 H 04/18/20 00:59 95 04/18/20 00:58 115 H 04/18/20 00:00 98.1 F 94 20 164/91 97 04/17/20 20:00 99 F 105 H 22 161/88 95 04/17/20 18:33 98 F 115 H 18 157/98 96 04/17/20 18:06 100 16 04/17/20 17:59 98 16 04/17/20 17:34 120 H 18 178/104 99 04/17/20 16:10 98.0 F 122 H 20 155/95 96 Intake and Output 04/17/20 04/18/20 04/18/20 22:59 06:59 14:59 Intake Total 15.183 619.0 604.833 Output Total 800 Balance 15.183 -181.0 604.833 Intake: IV 40 Invasive Line 1 40 Intake, IV Titration 15.183 79.0 24.833 Amount Diltiazem 125 mg In 15.183 79.0 24.833 Sodium Chloride 0.9% 100 ml @ 5 MG/HR 5 mls/hr IV .Q24H [facility] Rx#:[id number] Oral 540 540 Output: Urine 800 Other: Voiding Method Urinal Urinal Urinal # Voids 3 1 # Bowel Movements 0 Weight 103.5 kg 103.5 kg GENERAL DESCRIPTION: An elderly male lying in bed, no distress. No tachypnea or accessory muscle of respiration use. HEENT: Shows Pallor , no scleral icterus. Oral mucous membrane is dry. No phary ngeal erythema or thrush NECK: Trachea central, no thyromegaly. LUNGS: Unlabored breathing. Clear to auscultation anteriorly. No wheeze or crackle. HEART: S1, S2, regular rate and rhythm. No loud murmur ABDOMEN: Soft, no tenderness , guarding or rigidity, no organomegaly EXTREMITIES: Diffuse swelling of the left lower extremity with redness no skin breakdown or any drainage did have evidence of athlete's foot SKIN: No rash, no masses palpable. NEUROLOGICAL: The patient is awake, alert, oriented x3, mood and affect normal. Results CBC & Chem 7: 04/18/20 05:56 04/18/20 05:56 Labs: Abnormal Lab Results - Last 24 Hours (Table) 04/17/20 04/17/20 04/17/20 Range/Units 16:44 16:44 16:44 RBC (4.30-5.90) m/uL MCV 104.5 H (80.0-100.0) fL Lymphocytes # 0.8 L (1.0-4.8) k/uL Sodium 135 L (137-145) mmol/L Chloride 91 L (98-107) mmol/L Carbon Dioxide 34 H (22-30) mmol/L BUN 32 H (9-20) mg/dL Creatinine 1.31 H (0.66-1.25) mg/dL Glucose 105 H (74-99) mg/dL Total Bilirubin 1.5 H (0.2-1.3) mg/dL AST 96 H (17-59) U/L ALT 68 H (4-49) U/L Alkaline Phosphatase 130 H (38-126) U/L Total Protein (6.3-8.2) g/dL Albumin (3.5-5.0) g/dL TSH 0.432 L (0.465-4.680) mIU/L Urine Ketones Trace H (Negative) 04/18/20 04/18/20 Range/Units 05:56 05:56 RBC 4.08 L (4.30-5.90) m/uL MCV 106.9 H (80.0-100.0) fL Lymphocytes # 0.6 L (1.0-4.8) k/uL Sodium 134 L (137-145) mmol/L Chloride 92 L (98-107) mmol/L Carbon Dioxide 37 H (22-30) mmol/L BUN 29 H (9-20) mg/dL Creatinine (0.66-1.25) mg/dL Glucose 103 H (74-99) mg/dL Total Bilirubin (0.2-1.3) mg/dL AST (17-59) U/L ALT 53 H (4-49) U/L Alkaline Phosphatase (38-126) U/L Total Protein 5.8 L (6.3-8.2) g/dL Albumin 3.4 L (3.5-5.0) g/dL TSH (0.465-4.680) mIU/L Urine Ketones (Negative) Assessment and Plan Assessment: 1- patient with acute left lower extremity cellulitis in this patient who did have diffuse swelling and redness likely streptococcal disease 2-athlete's foot 3-borderline kidney function and high risk of nephrotoxicity from vancomycin (1) Athletes foot Current Visit: Yes Status: Acute Code(s): B35.3 - TINEA PEDIS SNOMED Code(s): 2940649 (2) Left leg cellulitis Current Visit: Yes Status: Acute Code(s): L03.116 - CELLULITIS OF LEFT LOWER LIMB SNOMED Code(s): 482759332 Plan: 1- discontinue vancomycin 2- marked the area of redness left leg 3- Mumtaz wrap to the left leg from just above the toe to below the knee 4- cefazolin 2 g every 8 hours We will follow on clinical condition and cultures to further adjust medication if needed Thank you for this consultation will follow this patient with you Time with Patient: Greater than 30
[2020-04-19] MEDS: IPRATROPIUM-ALBUTEROL 3 ML NEB INHALATION SCH ×7 (00:06→23:45)
[2020-04-19] MEDS: PANTOPRAZOLE 40 MG TABLET PO SCH (05:57)
[2020-04-19] MEDS: THIAMINE 100 MG TAB PO SCH ×2 (05:58→17:20)
[2020-04-19] MEDS: METOPROLOL TARTRATE 25 MG TAB PO SCH ×2 (05:58→20:59)
[2020-04-19 06:17] LABS: HCT 42.5 % (39.0-53.0); HGB 13.8 gm/dL (13.0-17.5); MCH 34.8 pg (25.0-35.0); MCHC 32.5 g/dL (31.0-37.0); MCV 107.1 fL (80.0-100.0); Macrocytosis Moderate; Platelet Count 277 k/uL (150-450); RBC 3.97 m/uL (4.30-5.90); RDW 14.1 % (11.5-15.5); WBC 8.6 k/uL (3.8-10.6)
[2020-04-19 06:29] LABS: Calcium 8.7 mg/dL (8.4-10.2); Potassium 3.6 mmol/L (3.5-5.1)
[2020-04-19] MEDS: SYMBICORT 160-4.5 MCG INHALER INHALATION SCH ×2 (08:05→19:54)
[2020-04-19] MEDS: RIVAROXABAN 20 MG TAB PO SCH (08:52)
[2020-04-19] MEDS: VERAPAMIL SR 240 MG TABLET.ER PO SCH (08:52)
[2020-04-19] MEDS: FERROUS SULFATE 325 MG TAB PO SCH (08:52)
[2020-04-19] MEDS: CHOLECALCIFEROL 1,000 UNIT TAB PO SCH (08:52)
[2020-04-19] MEDS: FUROSEMIDE 40 MG TAB PO SCH ×2 (08:52→20:59)
[2020-04-19] MEDS: ACETAMINOPHEN TAB 325 MG TAB PO PRN (08:57)
[2020-04-19] MEDS ORDERED: traMADol 50 MG TAB PO PRN (10:33)
--- NOTE | 2020-04-19 10:41 | CDI ---
Documentation Clarification Form Date: 04/19/2020 10:26:31 AM From: Paola Ocasio RN CCDS Admit Date: 04/17/2020 07:02:00 PM Patient Name: Adalid Sorto Visit Number: [id number] Discharge Date: ATTENTION: The Clinical Documentation Specialists (CDI) and [facility] Coding Staff appreciate your assistance in clarifying documentation. Please respond to the clarification below the line at the bottom and electronically sign. The CDI & [facility] Coding staff will review the response and follow-up if needed. Please note: Queries are made part of the Legal Health Record. If you have any questions, please contact the author of this message via ITS. Dr. Modesta Pan The patient presented with the following respiratory symptoms shortness of breath. History/Risk Factors: 69-year-old male presents to the ED for evaluation of left lower extremity erythema swelling and drainage. Medical History chronic venous stasis, Atrial fibrillation, COPD, Sleep apnea on cpap/bipap and home oxygen Tobacco use: Former smoker quit 2015 Home oxygen: 3-4L Clinical Indicators: 04/17 Admission Vital signs: BP: 155/95; HR: 122; Temp: 98.0; RR: 20; SpO2: 96% 4L nasal cannula 04/18 H&P Lung/Breathing assessment: Chest is clear to auscultation, no wheezing or crackles. Treatment: Breathing Tx: Duoneb scheduled Oxygen via nasal cannula 3 to 4 L In your professional opinion, can you please clarify if these findings signify one of the following conditions? Chronic Respiratory Failure Other Diagnosis, please specify Unable to determine Specificity: If known, further specify (if known): With hypercapnia? (pCO2 >50 and pH <7.35) With hypoxia? (pO2 <60 mm Hg or SpO2 <91% on room air) (Last Query Form Revision: April 2019) unknown MTDD
--- NOTE | 2020-04-19 11:07 | CDI ---
chronic diastolic heart failure Documentation Clarification Form Date: 04/19/2020 10:43:30 AM From: Paola Ocasio RN CCDS Admit Date: 04/17/2020 07:02:00 PM Patient Name: Adalid Sorto Visit Number: [id number] Discharge Date: ATTENTION: The Clinical Documentation Specialists (CDI) and [facility] Coding Staff appreciate your assistance in clarifying documentation. Please respond to the clarification below the line at the bottom and electronically sign. The CDI & [facility] Coding staff will review the response and follow-up if needed. Please note: Queries are made part of the Legal Health Record. If you have any questions, please contact the author of this message via ITS. Dr. Vanessa Rodarte The patient is on home medication of Lasix and Lopressor. The patient is also being treated with the same medications while inpatient. History/Risk Factors: 69-year-old male presents to the ED for evaluation of Shortness of breath, left lower extremity erythema swelling and drainage. Medical History: chronic venous stasis and Atrial fibrillation. Clinical Indicators: 04/17 Admission Vital signs: BP: 155/95; HR: 122; Temp: 98.0; RR: 20; SpO2: 96% 4L nasal 04/17 BNP: 892 04/18 Per Cardiology Consult: Echocardiogram completed February 2020 revealed ejection fraction of 50% with moderate mitral regurgitation. 04/17 Chest X Ray: Basilar atelectasis and /or infiltrate. Right perihilar infiltrate. 04/18 Per Cardiology Consult: Treatment: Lasix 40mg bid; Lopressor 25mg bid In your professional opinion, can you please clarify the acuity and type of CHF if known? Chronic Diastolic Heart Failure: Chronic Systolic & Diastolic Heart Failure: Heart Failure Ruled Out: Unable to Determine: Other, please specify: (Last Revision: November 2017) MTDD
--- NOTE | 2020-04-19 12:27 | P.PN ---
Subjective Progress Note Date: 04/19/20 CHIEF COMPLAINT: Afib RVR HISTORY OF PRESENT ILLNESS: Patient examined this morning at the bedside. He denies chest pain or shortness of breath. Vital signs have been stable. Heart rate in the 80s. PHYSICAL EXAM: VITAL SIGNS: Reviewed. GENERAL: Well-developed in no acute distress. HEENT: Head is normocephalic. Pupils are equal, round. Sclerae anicteric. Mucous membranes of the mouth are moist. Neck supple. No JVD or thyromegaly LUNGS: Respirations even and unlabored. HEART: Regular rate and rhythm. S1 and S2 heard. ABDOMEN: Soft. Nontender. EXTREMITIES: Normal range of motion. No clubbing or cyanosis. Peripheral pulses intact. Bilateral lower extremity edema present. Left worse than right. Left with erythema. NEUROLOGIC: Awake and alert. Oriented x 3. ASSESSMENT: 1. Multifocal atrial tachycardia 2. Left lower extremity cellulitis 3. History of DVT/PE, on long-term anticoagulation with Xarelto 4. History of COPD on home O2 PLAN: -Continue current cardiac medications -No need to repeat echocardiogram as this was just completed in February 2020. -Further recommendations pending patient's course -Stable for discharge from a cardiac standpoint Nurse practitioner note has been reviewed by physician. Signing provider agrees with the documented findings, assessment, and plan of care. Objective - Vital Signs Vital signs: Vital Signs Temp 98 F 04/19/20 08:00 Pulse 88 04/19/20 08:18 Resp 18 04/19/20 08:00 BP 123/78 04/19/20 08:00 Pulse Ox 99 04/19/20 08:00 Intake & Output 04/18/20 04/19/20 04/19/20 18:59 06:59 18:59 Intake Total 1864.833 780 Output Total 3100 Balance 1864.833 -2320 Weight 103.5 kg Intake: IV 300 Invasive Line 1 50 Vancomycin 1,500 mg In 250 Sodium Chloride 0.9% 250 ml @ 125 mls/hr IVPB Q16H [facility] Rx#:[id number] Intake, IV Titration 24.833 Amount Diltiazem 125 mg In 24.833 Sodium Chloride 0.9% 100 ml @ 5 MG/HR 5 mls/hr IV .Q24H [facility] Rx#:[id number] Oral 1540 780 Output: Urine 3100 Other: Voiding Method Urinal Urinal # Voids 1 1 # Bowel Movements 0 - Labs CBC & Chem 7: 04/19/20 05:33 04/19/20 05:33 Labs: Abnormal Lab Results - Last 24 Hours (Table) 04/19/20 04/19/20 Range/Units 05:33 05:33 RBC 3.97 L (4.30-5.90) m/uL MCV 107.1 H (80.0-100.0) fL Sodium 135 L (137-145) mmol/L Chloride 92 L (98-107) mmol/L Carbon Dioxide 37 H (22-30) mmol/L BUN 23 H (9-20) mg/dL Glucose 111 H (74-99) mg/dL Microbiology - Last 24 Hours (Table) 04/17/20 17:34 Blood Culture - Preliminary Blood No Growth after 24 hours
--- NOTE | 2020-04-19 13:19 | P.PN ---
Subjective 69-year-old male came in with the Celexa lightest redness of the left lower extremity patient was having increased the pain in that extremity and Doppler of the left lower extremity which did not show any DVT. Patient was also believed to have atrial fibrillation on the EKG all the EKG was reviewed by cardiology and they believe patient has multifocal atrial tachycardia. Patient is already anti-correlation for DVT in the past and PE in the past. Patient was on Cardizem which was discontinued and patient is on metoprolol which will be continued. Patient had any 8 ejection fraction of 50% in month of February with moderate mitral regurgitation. Chest x-ray showing be a basilar atelectasisand BNP is only 92 although patient is obese. 04/19/2020 patient's pedal edema improved patient still has the lightest because of which are infectious disease is recommending addition of clindamycin. Patient's creatinine improved patient will be reviewed on IV Lasix patient heart rate is well controlled at this time. Constitutional: Denied any fatigue denied any fever. Cardio vascular: denied any chest pain, palpitations Gastrointestinal denied any nausea vomiting Pulmonary: Denied any shortness of breath cough Neurologic denied any new focal deficits All inpatient medications were reviewed and appropriate changes in these medications as dictated in the interval history and assessment and plan. Objective - Vital Signs Vital signs: Vital Signs Temp 97.9 F 04/19/20 11:40 Pulse 76 04/19/20 13:05 Resp 18 04/19/20 11:40 BP 134/82 04/19/20 11:40 Pulse Ox 97 04/19/20 11:40 Intake & Output 04/18/20 04/19/20 04/19/20 18:59 06:59 18:59 Intake Total 1864.833 780 590 Output Total 3100 700 Balance 1407.833 -2320 -110 Weight 103.5 kg Intake: IV 300 50 Invasive Line 1 50 Vancomycin 1,500 mg In 250 Sodium Chloride 0.9% 250 ml @ 125 mls/hr IVPB Q16H [facility] Rx#:[id number] ceFAZolin 2 gm In Sodium 50 Chloride 0.9% 50 ml @ 100 mls/hr IVPB Q8HR [facility] Rx# :[id number] Intake, IV Titration 24.833 Amount Diltiazem 125 mg In 24.833 Sodium Chloride 0.9% 100 ml @ 5 MG/HR 5 mls/hr IV .Q24H [facility]PLAC[facility] Rx#:[id number] Oral 1540 780 240 Tube Feeding 300 Output: Urine 3100 700 Other: Voiding Method Urinal Urinal Urinal # Voids 1 1 # Bowel Movements 0 - Exam PHYSICAL EXAMINATION: GENERAL: The patient is alert and oriented x3, not in any acute distress. Well developed, well nourished. HEENT: Pupils are round and equally reacting to light. EOMI. No scleral icterus. No conjunctival pallor. Normocephalic, atraumatic. No pharyngeal erythema. No thyromegaly. CARDIOVASCULAR: S1 and S2 present. No murmurs, rubs, or gallops. PULMONARY: Chest is clear to auscultation, no wheezing or crackles. ABDOMEN: Soft, nontender, nondistended, normoactive bowel sounds. No palpable organomegaly. MUSCULOSKELETAL: No joint swelling or deformity. EXTREMITIES: No cyanosis, clubbing, patient has edema with the local is of temperature redness in the left lower extremity patient has bilateral pedal edema probably because of chronic venous insufficiency.pedal edema did improve NEUROLOGICAL: Gross neurological examination did not reveal any focal deficits. SKIN: No rashes. - Labs CBC & Chem 7: 04/19/20 05:33 04/19/20 05:33 Labs: Abnormal Lab Results - Last 24 Hours (Table) 04/19/20 04/19/20 Range/Units 05:33 05:33 RBC 3.97 L (4.30-5.90) m/uL MCV 107.1 H (80.0-100.0) fL Sodium 135 L (137-145) mmol/L Chloride 92 L (98-107) mmol/L Carbon Dioxide 37 H (22-30) mmol/L BUN 23 H (9-20) mg/dL Glucose 111 H (74-99) mg/dL Microbiology - Last 24 Hours (Table) 04/17/20 17:34 Blood Culture - Preliminary Blood No Growth after 24 hours Assessment and Plan Plan: -cellulitisof the left lower extremity: Patient the was started on ceftezole by infectious disease , Clindamycin is being added multifocalcouple atrial tachycardia tachycardia improved patient has ascended is in sinus rhythm with frequent PVCspatient was started on verapamil and patient is on beta vasquez as well -History of DVT NPT in the past for which patient is on Xarelto, upper of the left lower extremity did not show any DVT during this hospitalization -acute renal failure with hyperkalemia patient is on Lasix serum creatinine improved -Bilateral chronic venous stasis -hypervolemic hyponatremia improved with Lasix -COPD without any acute exacerbation -history with sleep apnea continue CPAP machine -Benign prostatic of atrophic -Hypertension
[2020-04-19] MEDS: CLINDAMYCIN 900 MG in DEXTROSE 5% IN WATER 50 ML IVPB SCH ×4 (14:33→20:59)
--- NOTE | 2020-04-19 15:41 | PN ---
PROGRESS NOTE DATE OF SERVICE: 04/19/2020 REASON FOR FOLLOWUP: Left lower extremity cellulitis. INTERVAL HISTORY: Patient is currently afebrile, patient is breathing comfortably. The patient is still complaining of pain and swelling to the left leg, minimally improved. No chest pain, no cough, no abdominal pain, no diarrhea. PHYSICAL EXAMINATION: Blood pressure 125/72 with a pulse of 87, temperature 97.9. He is 97% on 5 L nasal cannula. General description is an elderly male, lying in bed in no distress. RESPIRATORY SYSTEM: Unlabored breathing, clear to auscultation anteriorly. HEART: S1, S2. Regular rate and rhythm. ABDOMEN: Soft, no tenderness. Left leg swelling and redness minimally improved. LABS: Hemoglobin 13.1, white count 8.6, BUN of 23, creatinine 0.19. DIAGNOSTIC IMPRESSION AND PLAN: Patient with acute left lower extremity cellulitis. The patient minimally focus of the oral clindamycin, francisco the area of the redness. Continue Mumtaz wrap. Continue supportive care. MMODL / IJN: [id number] /
[2020-04-19] MEDS ORDERED: CLINDAMYCIN 900 MG in DEXTROSE 5% IN WATER 50 ML IVPB SCH ×2 (16:00)
[2020-04-20] MEDS: IPRATROPIUM-ALBUTEROL 3 ML NEB INHALATION SCH ×5 (03:53→20:17)
[2020-04-20] MEDS: THIAMINE 100 MG TAB PO SCH ×2 (06:29→16:35)
[2020-04-20] MEDS: PANTOPRAZOLE 40 MG TABLET PO SCH (06:29)
[2020-04-20] MEDS: CLINDAMYCIN 900 MG in DEXTROSE 5% IN WATER 50 ML IVPB SCH ×6 (06:29→22:33)
[2020-04-20] MEDS: SYMBICORT 160-4.5 MCG INHALER INHALATION SCH ×2 (07:30→20:17)
[2020-04-20] MEDS: CHOLECALCIFEROL 1,000 UNIT TAB PO SCH (09:09)
[2020-04-20] MEDS: VERAPAMIL SR 240 MG TABLET.ER PO SCH (09:09)
[2020-04-20] MEDS: FERROUS SULFATE 325 MG TAB PO SCH (09:10)
[2020-04-20] MEDS: RIVAROXABAN 20 MG TAB PO SCH (09:10)
[2020-04-20] MEDS: FUROSEMIDE 40 MG TAB PO SCH ×2 (09:10→20:12)
[2020-04-20] MEDS: METOPROLOL TARTRATE 25 MG TAB PO SCH ×2 (09:10→20:12)
[2020-04-20 10:00] LABS: Potassium 3.9 mmol/L (3.5-5.1)
[2020-04-20] MEDS ORDERED: predniSONE 20 MG TAB PO STA (10:15)
[2020-04-20] MEDS ORDERED: FUROSEMIDE 10 MG/ML 4 ML VIAL IV STA (10:27)
--- NOTE | 2020-04-20 10:34 | P.PN ---
Subjective 69-year-old male came in with the Celexa lightest redness of the left lower extremity patient was having increased the pain in that extremity and Doppler of the left lower extremity which did not show any DVT. Patient was also believed to have atrial fibrillation on the EKG all the EKG was reviewed by cardiology and they believe patient has multifocal atrial tachycardia. Patient is already anti-correlation for DVT in the past and PE in the past. Patient was on Cardizem which was discontinued and patient is on metoprolol which will be continued. Patient had any 8 ejection fraction of 50% in month of February with moderate mitral regurgitation. Chest x-ray showing be a basilar atelectasisand BNP is only 92 although patient is obese. 04/19/2020 patient's pedal edema improved patient still has the lightest because of which are infectious disease is recommending addition of clindamycin. Patient's creatinine improved patient will be reviewed on IV Lasix patient heart rate is well controlled at this time. 04/20/2020 Patient has significant wheezing today patient will be started on systemic steroids I'll start him on 20 mg oral steroids. patient stilll has edema and redness in the left leg Constitutional: Denied any fatigue denied any fever. Cardio vascular: denied any chest pain, palpitations Gastrointestinal denied any nausea vomiting Pulmonary: Denied any shortness of breath cough Neurologic denied any new focal deficits All inpatient medications were reviewed and appropriate changes in these medications as dictated in the interval history and assessment and plan. Objective - Vital Signs Vital signs: Vital Signs Temp 97.8 F 04/20/20 08:45 Pulse 96 04/20/20 08:45 Resp 20 04/20/20 08:45 BP 111/75 04/20/20 08:45 Pulse Ox 97 04/20/20 08:45 Intake & Output 04/19/20 04/20/20 04/20/20 18:59 06:59 18:59 Intake Total 590 1620 240 Output Total 700 1600 200 Balance -110 20 40 Weight 102.7 kg Intake: IV 50 ceFAZolin 2 gm In Sodium 50 Chloride 0.9% 50 ml @ 100 mls/hr IVPB Q8HR CHAU Rx# :[id number] Oral 240 1620 240 Tube Feeding 300 Output: Urine 700 1600 200 Other: Voiding Method Urinal Urinal Urinal # Voids 2 - Exam PHYSICAL EXAMINATION: GENERAL: The patient is alert and oriented x3, not in any acute distress. Well developed, well nourished. HEENT: Pupils are round and equally reacting to light. EOMI. No scleral icterus. No conjunctival pallor. Normocephalic, atraumatic. No pharyngeal erythema. No thyromegaly. CARDIOVASCULAR: S1 and S2 present. No murmurs, rubs, or gallops. PULMONARY: significant expiratory wheezing on exam ABDOMEN: Soft, nontender, nondistended, normoactive bowel sounds. No palpable organomegaly. MUSCULOSKELETAL: No joint swelling or deformity. EXTREMITIES: No cyanosis, clubbing, patient has edema with the local is of temperature redness in the left lower extremity patient has bilateral pedal edema probably because of chronic venous insufficiency.pedal edema did improve NEUROLOGICAL: Gross neurological examination did not reveal any focal deficits. SKIN: No rashes. - Labs CBC & Chem 7: 04/19/20 05:33 04/20/20 09:37 Labs: Abnormal Lab Results - Last 24 Hours (Table) 04/20/20 Range/Units 09:37 Sodium 134 L (137-145) mmol/L Chloride 91 L (98-107) mmol/L Carbon Dioxide 37 H (22-30) mmol/L BUN 22 H (9-20) mg/dL Microbiology - Last 24 Hours (Table) 04/17/20 17:34 Blood Culture - Preliminary Blood No Growth after 48 hours Assessment and Plan Plan: -cellulitisof the left lower extremity: infectious disease evaluate the patient and patient is presently on Cefazolin and clindamycin multifocal atrial tachycardia tachycardia improved patient has ascended is in sinus rhythm with frequent PVCspatient was started on verapamil and patient is on beta vasquez as well -History of DVT NPT in the past for which patient is on Xarelto, upper of the left lower extremity did not show any DVT during this hospitalization -acute renal failure with hyperkalemia patient is on Lasix serum creatinine improved -Bilateral chronic venous stasis -hypervolemic hyponatremia improved with Lasix -COPD with acute exacerbation and patient is also coughing. Patient was started on oral Lasix continue with breathing treatments -history with sleep apnea continue CPAP machine -Benign prostatic of atrophic -Hypertension
--- NOTE | 2020-04-20 12:49 | P.PN ---
Subjective Progress Note Date: 04/20/20 CHIEF COMPLAINT: Afib RVR HISTORY OF PRESENT ILLNESS: Patient examined this morning at the bedside. He denies chest pain or shortness of breath. He continues to have lower extremity edema. Vital signs have been stable. PHYSICAL EXAM: VITAL SIGNS: Reviewed. GENERAL: Well-developed in no acute distress. HEENT: Head is normocephalic. Pupils are equal, round. Sclerae anicteric. Mucous membranes of the mouth are moist. Neck supple. No JVD or thyromegaly LUNGS: Respirations even and unlabored. HEART: Regular rate and rhythm. S1 and S2 heard. ABDOMEN: Soft. Nontender. EXTREMITIES: Normal range of motion. No clubbing or cyanosis. Peripheral pulses intact. Bilateral lower extremity edema present. Left worse than right. Left with erythema. NEUROLOGIC: Awake and alert. Oriented x 3. ASSESSMENT: 1. Multifocal atrial tachycardia, A. fib ruled out 2. Left lower extremity cellulitis 3. History of DVT/PE, on long-term anticoagulation with Xarelto 4. History of COPD on home O2 PLAN: -Continue current cardiac medications -No need to repeat echocardiogram as this was just completed in February 2020. -Continue oral Lasix. Patient given a one-time dose of IV Lasix per internal me dicine -Further recommendations pending patient's course Nurse practitioner note has been reviewed by physician. Signing provider agrees with the documented findings, assessment, and plan of care. Objective - Vital Signs Vital signs: Vital Signs Temp 97.8 F 04/20/20 08:45 Pulse 96 04/20/20 08:45 Resp 20 04/20/20 08:45 BP 111/75 04/20/20 08:45 Pulse Ox 97 04/20/20 08:45 Intake & Output 04/19/20 04/20/20 04/20/20 18:59 06:59 18:59 Intake Total 590 1620 240 Output Total 700 1600 200 Balance -110 20 40 Weight 102.7 kg Intake: IV 50 ceFAZolin 2 gm In Sodium 50 Chloride 0.9% 50 ml @ 100 mls/hr IVPB Q8HR CHAU Rx# :[id number] Oral 240 1620 240 Tube Feeding 300 Output: Urine 700 1600 200 Other: Voiding Method Urinal Urinal Urinal # Voids 2 - Labs CBC & Chem 7: 04/19/20 05:33 04/20/20 09:37 Labs: Microbiology - Last 24 Hours (Table) 04/17/20 17:34 Blood Culture - Preliminary Blood No Growth after 48 hours
--- NOTE | 2020-04-20 16:09 | PN ---
PROGRESS NOTE DATE OF SERVICE: 04/20/2020 REASON FOR FOLLOWUP: Left lower extremity cellulitis. INTERVAL HISTORY: The patient is currently afebrile. The patient is breathing comfortably. Denies having any chest pain or cough. No abdominal pain. Left leg swelling and redness minimally improved. PHYSICAL EXAMINATION: Blood pressure 116/76, pulse of 91, temperature 97.9. He is 98% on 3.5 L nasal cannula. General description is an elderly male lying in bed in no distress. RESPIRATORY SYSTEM: Unlabored breathing. Clear to auscultation anteriorly. HEART: S1, S2. Regular rate and rhythm. ABDOMEN: Soft. No tenderness. Left leg swelling and redness have decreased. LABS: Hemoglobin is 13.8, white count 8.6, BUN of 22, creatinine 1.18. DIAGNOSTIC IMPRESSION AND PLAN: Patient with acute left lower extremity cellulitis in this patient who did have diffuse swelling and redness, likely streptococcal disease. The patient is covered with cefazolin and clindamycin; to continue for another 24 hours. Re-evaluate the leg tomorrow. Continue with supportive care. MMODL / IJN: [id number] /
[2020-04-20] MEDS: ACETAMINOPHEN TAB 325 MG TAB PO PRN (22:30)
[2020-04-21] MEDS: CLINDAMYCIN 900 MG in DEXTROSE 5% IN WATER 50 ML IVPB SCH ×6 (05:46→23:22)
[2020-04-21 08:08] LABS: Calcium 8.9 mg/dL (8.4-10.2); Potassium 3.4 mmol/L (3.5-5.1)
[2020-04-21] MEDS: IPRATROPIUM-ALBUTEROL 3 ML NEB INHALATION SCH ×4 (08:11→20:37)
[2020-04-21] MEDS: SYMBICORT 160-4.5 MCG INHALER INHALATION SCH ×2 (08:12→20:37)
[2020-04-21] MEDS: METOPROLOL TARTRATE 25 MG TAB PO SCH ×2 (08:54→20:14)
[2020-04-21] MEDS: FERROUS SULFATE 325 MG TAB PO SCH (08:54)
[2020-04-21] MEDS: predniSONE 20 MG TAB PO SCH (08:54)
[2020-04-21] MEDS: CHOLECALCIFEROL 1,000 UNIT TAB PO SCH (08:54)
[2020-04-21] MEDS: PANTOPRAZOLE 40 MG TABLET PO SCH (08:54)
[2020-04-21] MEDS: FUROSEMIDE 40 MG TAB PO SCH (08:54)
[2020-04-21] MEDS: THIAMINE 100 MG TAB PO SCH ×2 (08:54→17:02)
[2020-04-21] MEDS: VERAPAMIL SR 240 MG TABLET.ER PO SCH (08:55)
[2020-04-21] MEDS: RIVAROXABAN 20 MG TAB PO SCH (09:20)
[2020-04-21] MEDS ORDERED: Potassium Replacement Protocol 1 EACH MISC MISCELLANE PRN ×2 (10:13→17:29)
[2020-04-21] MEDS: POTASSIUM CHLORIDE ER 20 MEQ TAB.ER PO SCH ×3 (10:33→20:14)
--- NOTE | 2020-04-21 16:47 | PN ---
PROGRESS NOTE DATE OF SERVICE: 04/21/2020 REASON FOR FOLLOWUP: Left lower extremity cellulitis. INTERVAL HISTORY: Patient is currently afebrile. The patient is breathing comfortably. Denies having any chest pain. No shortness of breath or cough. Left leg swelling and redness slightly decreased. No diarrhea. The patient is constipated with no bowel movement for 3 days. PHYSICAL EXAMINATION: Blood pressure 135/85 with a pulse of 61. Temperature 96.8. He is 100% on 3.5 L nasal cannula. General description is an elderly male lying in bed in no distress. Respiratory system: Unlabored breathing, clear to auscultation anteriorly. Heart S1, S2. Regular rate and rhythm. ABDOMEN: Soft, no tenderness. Left leg swelling and redness has decreased. LABS: BUN of 24, creatinine 1.12. DIAGNOSTIC IMPRESSION AND PLAN: Patient with acute left lower extremity cellulitis with diffuse swelling and redness likely streptococcal disease in this patient seemed to have shown some clinical improvement with cefazolin and vancomycin to continue along with Mumtaz wrap and monitor clinical course closely. MMODL / IJN: [id number] /
[2020-04-21] MEDS ORDERED: ALPRAZolam 0.25 MG TAB PO PRN (17:26)
[2020-04-21] MEDS ORDERED: HYDROcodone/APAP 5-325MG 1 EACH TAB PO PRN (17:26)
[2020-04-21] MEDS ORDERED: TEMAZEPAM 15 MG CAP PO PRN (17:27)
[2020-04-21] MEDS ORDERED: Magnesium Replacement Protocol 1 EACH MISC MISCELLANE PRN (17:29)
[2020-04-21] MEDS: FUROSEMIDE 10 MG/ML 4 ML VIAL IV SCH (17:49)
[2020-04-21 18:31] LABS: Albumin 3.9 g/dL (3.5-5.0); Calcium 8.8 mg/dL (8.4-10.2); Total Bilirubin 0.5 mg/dL (0.2-1.3); Total Protein 6.6 g/dL (6.3-8.2)
--- NOTE | 2020-04-21 18:38 | PN ---
PROGRESS NOTE DATE OF SERVICE: 04/21/2020. This 69-year-old gentleman with a past history of multiple medical problems was admitted with significant cellulitis. Cultures are not available at this time. Patient also has a history of DVT. Patient also complains of generalized swelling also. The patient is on p.o. Lasix. PAST MEDICAL HISTORY: Reviewed. REVIEW OF SYSTEMS: CARDIOVASCULAR SYSTEM: No angina or palpitations. GI: As mentioned. : As mentioned. CURRENT MEDICATIONS: Tylenol, [place] 5 mg, Ventolin, Symbicort, cefazolin, clindamycin, Lasix, Ativan, Lopressor. Other medications reviewed. Doses are reviewed. PHYSICAL EXAM: Patient is alert, oriented x3. Pulse is 88, blood pressure 130/76, respirations 19, temperature 97.7, pulse ox 98% on 4 L HEENT: Conjunctivae normal. NECK: Supple. No JVD. CARDIOVASCULAR: S1 and S2 muffled. LUNGS: Breath sounds diminished at the bases. Few scattered rhonchi. ABDOMEN: Soft, obese. Bilateral leg edema. Left leg cellulitis. NERVOUS SYSTEM: No focal deficits. LABS: Sodium 132, potassium 3.4. ASSESSMENT: 1. Acute cellulitis of left lower extremity with failure of outpatient treatment. 2. Multifocal atrial tachycardia. 3. History of deep vein thrombosis. 4. History of acute renal failure with hyperkalemia. 5. Bilateral chronic venostasis. 6. Hypokalemia, currently. 7. Hypovolemic hyponatremia. 8. Chronic obstructive pulmonary disease. 9. History of sleep apnea. 10.History of benign prostatic hypertrophy. 11.Hypertension. RECOMMENDATIONS: Recommend to continue current management and symptomatic treatment. Recommend a short course of IV Lasix. Potassium supplementation. We will monitor the potassium and as well as creatinine very closely. Total bilirubin is 1.5, present on admission. AST and ALT were also elevated. I would will repeat CMP tomorrow, otherwise continue the rest of medications. Prognosis guarded. Further recommendations to follow. Elevate the leg. Continue the IV antibiotics. I will also order aerobic wound culture as well. Prognosis guarded because of multiple complex medical conditions. MMODL / IJN: [id number] /
[2020-04-21] MEDS: ACETAMINOPHEN TAB 325 MG TAB PO PRN (20:14)
[2020-04-22] MEDS: CLINDAMYCIN 900 MG in DEXTROSE 5% IN WATER 50 ML IVPB SCH ×6 (05:39→22:29)
[2020-04-22] MEDS: IPRATROPIUM-ALBUTEROL 3 ML NEB INHALATION SCH ×4 (07:18→19:43)
[2020-04-22] MEDS: SYMBICORT 160-4.5 MCG INHALER INHALATION SCH ×2 (07:18→19:43)
[2020-04-22] MEDS: METOPROLOL TARTRATE 25 MG TAB PO SCH ×2 (08:14→22:29)
[2020-04-22] MEDS: THIAMINE 100 MG TAB PO SCH ×2 (08:14→15:43)
[2020-04-22] MEDS: FUROSEMIDE 10 MG/ML 4 ML VIAL IV SCH ×2 (08:14→22:29)
[2020-04-22] MEDS: POTASSIUM CHLORIDE ER 20 MEQ TAB.ER PO SCH ×2 (08:14→22:29)
[2020-04-22] MEDS: CHOLECALCIFEROL 1,000 UNIT TAB PO SCH (08:14)
[2020-04-22] MEDS: FERROUS SULFATE 325 MG TAB PO SCH (08:14)
[2020-04-22] MEDS: PANTOPRAZOLE 40 MG TABLET PO SCH (08:14)
[2020-04-22] MEDS: predniSONE 20 MG TAB PO SCH (08:14)
[2020-04-22] MEDS: VERAPAMIL SR 240 MG TABLET.ER PO SCH (08:15)
[2020-04-22] MEDS: RIVAROXABAN 20 MG TAB PO SCH (08:15)
[2020-04-22 09:16] LABS: Calcium 9.1 mg/dL (8.4-10.2); Magnesium 1.5 mg/dL (1.6-2.3)
[2020-04-22 09:19] LABS: Basophils # (A) 0.1 k/uL (0-0.2); Basophils % (A) 1 %; Eosinophils # (A) 0.3 k/uL (0-0.7); Eosinophils % (A) 3 %; HCT 45.4 % (39.0-53.0); HGB 14.2 gm/dL (13.0-17.5); Lymphocytes # (A) 1.1 k/uL (1.0-4.8); Lymphocytes % (A) 11 %; MCH 33.9 pg (25.0-35.0); MCHC 31.3 g/dL (31.0-37.0); MCV 108.4 fL (80.0-100.0); Macrocytosis Marked; Mean Platelet Volume 7.2; Monocytes # (A) 0.8 k/uL (0-1.0); Monocytes % (A) 7 %; Neutrophils # (A) 7.7 k/uL (1.3-7.7); Neutrophils % (A) 74 %; Platelet Count 285 k/uL (150-450); RBC 4.19 m/uL (4.30-5.90); WBC 10.3 k/uL (3.8-10.6)
[2020-04-22] MEDS ORDERED: NICOTINE 4 MG PO PRN (17:52)
--- NOTE | 2020-04-22 23:37 | PN ---
PROGRESS NOTE DATE OF SERVICE: 04/22/2020 This 69-year-old gentleman who was admitted with acute cellulitis left lower extremity with failure of outpatient treatment also had multifocal atrial tachycardia. The patient also has swelling of the leg also. No chest pain. No palpitations. The cultures are negative so far. PHYSICAL EXAMINATION: On exam, alert and oriented x3. Pulse 86, blood pressure 132/88, respiration 20, temperature 97.8, pulse ox 96% on 5 L. HEENT: Conjunctivae normal. NECK: No JVD. CARDIOVASCULAR: S1, S2 muffled. RESPIRATORY: Breath sounds diminished at the bases. A few scattered rhonchi and crackles. ABDOMEN: Soft, nontender. LEGS: Significant cellulitis and edema of the left leg present. NERVOUS SYSTEM: No focal deficits. LABS: WBC 10.3, hemoglobin 14.2, creatinine is 1.2 and BUN is 25. Sodium 136. ASSESSMENT: 1. Acute cellulitis of the left lower extremity with failure of outpatient treatment. 2. Multifocal atrial tachycardia. 3. History of deep vein thrombosis. 4. History of acute renal failure with hyperkalemia. 5. Bilateral chronic venous stasis. 6. Hypokalemia, currently. 7. Hypovolemic hyponatremia. 8. Chronic obstructive pulmonary disease. 9. History of sleep apnea. 10.History of benign prostatic hypertrophy. 11.Hypertension. RECOMMENDATIONS AND DISCUSSION: Recommend to continue current medications. Continue with monitoring and symptomatic treatment. Repeat electrolytes. Continue the antibiotics. Local treatment. Guarded prognosis. Further recommendations to follow. MMODL / IJN: [id number] /
--- NOTE | 2020-04-23 00:52 | PN ---
PROGRESS NOTE DATE OF SERVICE: 04/22/2020 REASON FOR FOLLOWUP: Left lower extremity cellulitis. INTERVAL HISTORY: The patient is currently afebrile. Patient is feeling better. Breathing comfortably. Overall, left leg is swelling and redness has decreased. No chest pain. No cough. No abdominal pain. No diarrhea. PHYSICAL EXAMINATION: Blood pressure 132/88 with a pulse of 86, temperature is 97.8. He is 98% on 5 L nasal cannula. General description is an elderly male up in the bed in no distress. RESPIRATORY SYSTEM: Unlabored breathing, decreased intensity of breath sounds. No wheeze. HEART: S1, S2. Regular rate and rhythm. ABDOMEN: Soft, no tenderness. Left leg swelling and redness has decreased. LABS: Hemoglobin is 14.2, white count 10.3, BUN of 25, creatinine 1.21. Blood culture has been negative. DIAGNOSTIC IMPRESSION AND PLAN: Patient with acute left lower extremity cellulitis with diffuse swelling and redness likely streptococcal disease. The patient is currently covered with cefazolin and clindamycin. Plan to finish therapy with oral Keflex 500 mg p.o. q.8 hours for 7 to 10 days. Continue with Mumtaz wrap to the leg to keep the swelling down. MMODL / IJN: [id number] /
[2020-04-23] MEDS: CLINDAMYCIN 900 MG in DEXTROSE 5% IN WATER 50 ML IVPB SCH ×2 (05:44)
[2020-04-23] MEDS: FERROUS SULFATE 325 MG TAB PO SCH (07:54)
[2020-04-23] MEDS: CHOLECALCIFEROL 1,000 UNIT TAB PO SCH (07:54)
[2020-04-23] MEDS: THIAMINE 100 MG TAB PO SCH (07:54)
[2020-04-23] MEDS: PANTOPRAZOLE 40 MG TABLET PO SCH (07:54)
[2020-04-23] MEDS: RIVAROXABAN 20 MG TAB PO SCH (07:54)
[2020-04-23] MEDS: predniSONE 20 MG TAB PO SCH (07:54)
[2020-04-23] MEDS: VERAPAMIL SR 240 MG TABLET.ER PO SCH (07:54)
[2020-04-23] MEDS: POTASSIUM CHLORIDE ER 20 MEQ TAB.ER PO SCH (07:55)
[2020-04-23] MEDS: METOPROLOL TARTRATE 25 MG TAB PO SCH (07:55)
[2020-04-23] MEDS: FUROSEMIDE 10 MG/ML 4 ML VIAL IV SCH (07:55)
--- NOTE | 2020-04-23 08:01 | CDI ---
unable to determine Documentation Clarification Form Date: 04/20/2020 10:43:30 AM From: Paola Ocasio RN CCDS Admit Date: 04/17/2020 07:02:00 PM Patient Name: Adalid Sorto Visit Number: [id number] Discharge Date: ATTENTION: The Clinical Documentation Specialists (CDI) and [facility] Coding Staff appreciate your assistance in clarifying documentation. Please respond to the clarification below the line at the bottom and electronically sign. The CDI & [facility] Coding staff will review the response and follow-up if needed. Please note: Queries are made part of the Legal Health Record. If you have any questions, please contact the author of this message via ITS. Dr. Vanessa Rodarte The patient is on home medication of Lasix and Lopressor. The patient is also being treated with the same medications while inpatient. History/Risk Factors: 69-year-old male presents to the ED for evaluation of Shortness of breath, left lower extremity erythema swelling and drainage. Medical History: chronic venous stasis and Atrial fibrillation. Clinical Indicators: 04/17 Admission Vital signs: BP: 155/95; HR: 122; Temp: 98.0; RR: 20; SpO2: 96% 4L nasal 04/17 BNP: 892 04/18 Per Cardiology Consult: Echocardiogram completed February 2020 revealed ejection fraction of 50% with moderate mitral regurgitation. 04/17 Chest X Ray: Basilar atelectasis and /or infiltrate. Right perihilar infiltrate. 04/18 Per Cardiology Consult: Bilateral lower extremity edema present. Continue additional cardiac medications including Xarelto, Lasix and Metoprolol Treatment: Lasix 40mg bid; Lopressor 25mg bid In your professional opinion, can you please clarify the acuity and type of CHF if known? Chronic Diastolic Heart Failure: Chronic Systolic & Diastolic Heart Failure: Heart Failure Ruled Out: Unable to Determine: Other, please specify: (Last Revision: November 2017) MTDD
[2020-04-23] MEDS: IPRATROPIUM-ALBUTEROL 3 ML NEB INHALATION SCH ×2 (08:37→11:54)
[2020-04-23] MEDS: SYMBICORT 160-4.5 MCG INHALER INHALATION SCH (08:38)
[2020-04-23 09:01] VITALS: BP 143/86; RESP 20; TEMP 97.6
[2020-04-23 11:12] VITALS: BMI 32.9
[2020-04-23 12:07] VITALS: PULSE 82
--- NOTE | 2020-04-23 15:40 | PN ---
PROGRESS NOTE DATE OF SERVICE: 04/23/2020 REASON FOR FOLLOWUP: 1. Left lower extremity cellulitis. 2. Onychomycosis. INTERVAL HISTORY: The patient is currently afebrile. The patient is breathing comfortably. Denies having any chest pain or shortness of breath or cough. The leg swelling and redness has improved. No nausea, vomiting or abdominal pain. Has been complaining of fungal infection of the toes and wants some prescription for the same. PHYSICAL EXAMINATION: Blood pressure 143/86, pulse of 78, temperature 97.6. He is 96% on 3 L nasal cannula. General description is an elderly male up in the chair in no distress. RESPIRATORY SYSTEM: Unlabored breathing. Clear to auscultation anteriorly. HEART: S1, S2. Regular rate and rhythm. ABDOMEN: Soft. No tenderness. Left leg swelling and redness has improved. Did have onychomycosis of the fingernails, left foot. LABS: Hemoglobin is 14.8, white count 10.3, BUN of 25, creatinine 1.21. ALT was mildly elevated but it has normalized now. DIAGNOSTIC IMPRESSION AND PLAN: 1. Patient with left lower extremity cellulitis, for which the patient therapy with oral Keflex. 2. Patient with onychomycosis. We will give him a prescription for Lamisil. However, we need to monitor his liver function closely. Advised to follow up in the office 1-2 weeks for repeat liver enzymes and close outpatient followup. MMODL / IJN: [id number] /
--- NOTE | 2020-04-24 08:44 | P.DS ---
Providers Date of admission: 04/17/20 19:02 Expected date of discharge: 04/23/20 Attending physician: Otoniel Lee Consults: 04/17/20 22:03 Consult Physician Routine Consulting Provider: Dilip Granger Consult Reason/Comments: a fib rvr Do you want consulting provider notified?: Yes, Notify in am 04/17/20 22:05 Consult Physician Routine Consulting Provider: Joshua Woodruff Consult Reason/Comments: cellulitis Do you want consulting provider notified?: Yes, Notify in am Primary care physician: [facility] Hospital Course: Final diagnosis Acute cellulitis of the left lower extremity with failure of outpatient treatment Multifocal atrial tachycardia History of deep vein thrombosis History of acute renal failure with hyperkalemia Bilateral chronic venous stasis Hypokalemia, currently Hypovolemic hyponatremia Chronic obstructive pulmonary disease History of sleep apnea History of benign prostatic hypertrophy Hypertension Discharge disposition Patient is being discharged in a stable condition with guarded prognosis to home. Patient will follow-up with [facility] in the outpatient setting upon discharge. Patient also instructed to follow-up with Dr. Woodruff in the outpatient setting in 2-3 weeks. Patient is to continue with short course of oral antibiotics in the form of Keflex 500 mg 3 times daily for the next 10 days to complete the course along with a prednisone taper. Patient will also continue with Lamisil until follow-up. Patient also instructed to follow-up with podiatry although a referral will be needed from the [place]. Total time taken is greater than 35 minutes. History of present illness This is a 69-year-old male who was recently admitted with acute cellulitis of the left lower extremity with failure of outpatient treatment and was also found to have multifactorial atrial tachycardia and was being closely monitored. Cardiology along with infectious disease following. Patient continued to have lower extremity swelling in the left more so than the right and will continue to use compression stockings on the right and continue to Mumtaz wrap the left lower extremity from the toes up to the knee to aid in swelling for the next few days. Patient also instructed to elevate lower extremities while at rest. Patient was also given a prescription for Lamisil and instructed to follow-up with a sawmill production worker in the outpatient setting for skin and nail care of the feet. [facility] and will need a referral to podiatry from there. Patient will also be following up with infectious disease in the outpatient setting. Will continue on oral Keflex 500 mg 3 times daily for the next 10 days. Patient would really like to go home today. Currently no reports of chest pain, shortness of breath, or palpitations. Patient is afebrile. No reports of nausea or vomiting and patient is tolerating diet. Patient will be discharged home today. Guarded prognosis. On exam vital signs are stable. Temp is 97.6F, pulse is 78, respirations are 20, blood pressure is 143/86, oxygen saturation is 96% on 3 L via nasal cannula. Cardio S1, S2 are muffled. Respiratory system shows diminished breath sounds at the bases with no wheezing or rhonchi noted. Abdomen is soft and nontender. Nervous system shows no focal deficits. Please refer to medication reconciliation sheet for a list of medications. Patient Condition at Discharge: Good Plan - Discharge Summary Discharge Rx Participant: No New Discharge Prescriptions: New Verapamil Sr [Isoptin Sr] 240 mg PO DAILY #30 tablet.er Potassium Chloride ER [K-Dur 20] 20 meq PO DAILY 30 Days #30 tab.er.prt Cephalexin [Keflex] 500 mg PO Q8HR 10 Days #30 cap predniSONE 10 mg PO DIRECTED #20 tab SILVER sulfADIAZINE CREAM [Silvadene Cream] 1 applic TOPICAL DAILY 30 Days #1 applic Thiamine [Vitamin B-1] 100 mg PO BID-W/MEALS 30 Days #60 tab Terbinafine [LamISIL] 250 mg PO DAILY #30 tablet Continue Tiotropium [place] [Spiriva] 18 mcg INHALATION RT-DAILY Pantoprazole Sodium [Protonix] 40 mg PO BID-W/MEALS Budesonide/Formoterol Fumarate [Symbicort 160-4.5 Mcg Inhaler] 2 puff INHALATION RT-BID Furosemide [Lasix] 40 mg PO BID Acetaminophen [Tylenol] 650 mg PO Q6H Albuterol Inhaler [Ventolin Hfa Inhaler] 1 puff INHALATION RT-Q6H PRN PRN Reason: Shortness Of Breath Albuterol Nebulized [Ventolin Nebulized] 2.5 mg INHALATION RT-Q4H PRN PRN Reason: Shortness Of Breath Cholecalciferol [Vitamin D3 (25 Mcg = 1000 Iu)] 2,000 unit PO DAILY Fluticasone Nasal [place] [Flonase Nasal [place]] 1 spray EA NOSTRIL BID PRN PRN Reason: Allergies Lidocaine 5% Patch [Lidoderm 5% Patch] 1 patch TOPICAL DAILY PRN PRN Reason: Pain Metoprolol Tartrate [Lopressor] 25 mg PO BID Rivaroxaban [Xarelto] 20 mg PO DAILY Ferrous Sulfate [Iron (65 MG Elemental)] 325 mg PO DAILY Discontinued Cephalexin [Keflex] 500 mg PO TID #30 cap amLODIPine [Norvasc] 5 mg PO DAILY Discharge Medication List Budesonide/Formoterol Fumarate [Symbicort 160-4.5 Mcg Inhaler] 2 puff INHALATION RT-BID 09/22/16 [History] Pantoprazole Sodium [Protonix] 40 mg PO BID-W/MEALS 09/22/16 [History] Tiotropium [place] [Spiriva] 18 mcg INHALATION RT-DAILY 09/22/16 [History] Furosemide [Lasix] 40 mg PO BID 10/27/16 [History] Acetaminophen [Tylenol] 650 mg PO Q6H 04/17/20 [History] Albuterol Inhaler [Ventolin Hfa Inhaler] 1 puff INHALATION RT-Q6H PRN 04/17/20 [History] Albuterol Nebulized [Ventolin Nebulized] 2.5 mg INHALATION RT-Q4H PRN 04/17/20 [History] Cholecalciferol [Vitamin D3 (25 Mcg = 1000 Iu)] 2,000 unit PO DAILY 04/17/20 [History] Ferrous Sulfate [Iron (65 MG Elemental)] 325 mg PO DAILY 04/17/20 [History] Fluticasone Nasal [place] [Flonase Nasal [place]] 1 spray EA NOSTRIL BID PRN 04/17/20 [History] Lidocaine 5% Patch [Lidoderm 5% Patch] 1 patch TOPICAL DAILY PRN 04/17/20 [History] Metoprolol Tartrate [Lopressor] 25 mg PO BID 04/17/20 [History] Rivaroxaban [Xarelto] 20 mg PO DAILY 04/17/20 [History] Verapamil Sr [Isoptin Sr] 240 mg PO DAILY #30 tablet.er 04/19/20 [Rx] Cephalexin [Keflex] 500 mg PO Q8HR 10 Days #30 cap 04/23/20 [Rx] Potassium Chloride ER [K-Dur 20] 20 meq PO DAILY 30 Days #30 tab.er.prt 04/23/20 [Rx] SILVER sulfADIAZINE CREAM [Silvadene Cream] 1 applic TOPICAL DAILY 30 Days #1 applic 04/23/20 [Rx] Terbinafine [LamISIL] 250 mg PO DAILY #30 tablet 04/23/20 [Rx] Thiamine [Vitamin B-1] 100 mg PO BID-W/MEALS 30 Days #60 tab 04/23/20 [Rx] predniSONE 10 mg PO DIRECTED #20 tab 04/23/20 [Rx] Follow up Appointment(s)/Referral(s): Joshua Woodruff MD [STAFF PHYSICIAN] - 05[facility]15[facility]20 10[facility] - 05/18/20 3:00 pm Patient Instructions/Handouts: Cellulitis (DC) Activity/Diet/Wound Care/Special Instructions: Activity Limited until follow-up Continue with antibiotics for 10 days until finished Follow-up with infectious disease Follow-up with primary care provider upon discharge Follow-up with podiatry in the outpatient setting Continue with antifungal to bilateral feet Continue to Mumtaz wrap the left lower extremity from the toes up to the knee and wear compression hosing on the right lower extremity Continue to elevate bilateral lower extremities while at rest Continue with a heart healthy diet Follow-up with cardiology in the outpatient setting Discharge Disposition: HOME SELF-CARE
== END 2020-04-23 15:48 | disposition home or self-care (01) | DRG 603 ==
LOC: EC 16:06 → 3SCARD 19:02 → 3NCARDOBS 20:12 → 4SSUR 04-20 18:24
PROVIDERS: ADMIT Hospitalist; ATTEND Hospitalist
DX: L03.116 Cellulitis of left lower limb (principal); J98.11 Atelectasis; E87.1 Hypo-osmolality and hyponatremia; N17.9 Acute kidney failure, unspecified; J44.1 Chronic obstructive pulmonary disease with (acute) exacerbation; I47.1 Supraventricular tachycardia; I48.91 Unspecified atrial fibrillation; M19.90 Unspecified osteoarthritis, unspecified site; G47.30 Sleep apnea, unspecified; E66.9 Obesity, unspecified; I10 Essential (primary) hypertension; I34.0 Nonrheumatic mitral (valve) insufficiency; E86.1 Hypovolemia; B35.1 Tinea unguium; M41.9 Scoliosis, unspecified; B35.3 Tinea pedis; E87.5 Hyperkalemia; I87.8 Other specified disorders of veins; K59.00 Constipation, unspecified; N40.0 Benign prostatic hyperplasia without lower urinary tract symptoms; E87.6 Hypokalemia; Z79.899 Other long term (current) drug therapy; Z79.51 Long term (current) use of inhaled steroids; Z79.01 Long term (current) use of anticoagulants; Z87.891 Personal history of nicotine dependence; Z99.81 Dependence on supplemental oxygen; Z87.19 Personal history of other diseases of the digestive system; Z82.49 Family history of ischemic heart disease and other diseases of the circulatory system; Z86.711 Personal history of pulmonary embolism; Z90.89 Acquired absence of other organs; Z98.890 Other specified postprocedural states; Z86.718 Personal history of other venous thrombosis and embolism; Z99.89 Dependence on other enabling machines and devices; Z85.46 Personal history of malignant neoplasm of prostate; Z92.3 Personal history of irradiation; Z68.32 Body mass index [BMI] 32.0-32.9, adult
CPT/HCPCS: 36415; 71046; 80048; 80053; 81003; 82550; 83605; 83735; 83880; 84100; 84439; 84443; 84484; 85025; 85027; 85610; 85730; 87040; 93005; 94640; 94760; 96365; 96366; 96368; 96376; 99285

== ENCOUNTER 2020-05-05 09:55 | Inpatient (IN) | payer OTHER, MEDICARE ==
[2020-05-05] MEDS ORDERED: KETOROLAC 15 MG/ML 1 ML VIAL IM STA (10:10)
[2020-05-05] MEDS ORDERED: HYDROmorphone 0.5 MG/0.5 ML SYRINGE IM STA (10:10)
--- NOTE | 2020-05-05 10:35 | ED ---
General Adult HPI - General Chief complaint: Fall Stated complaint: fall, tailbone pain Time Seen by Provider: 05/05/20 10:00 Source: patient, RN notes reviewed, old records reviewed Mode of arrival: wheelchair Limitations: no limitations - History of Present Illness Initial comments: This is a 69-year-old male who was standing outside and he lost his pills fell backward and landed on his tailbone. Patient complains of lower back pain. Patient denies hip pain. Patient states he was able to ambulate after the fall. Patient denies hitting his head or neck. Patient denies any other complaints except lower back pain. Patient denies any chest pain difficulty breathing or palpitations. Patient is on oxygen for COPD but he states that currently. - Related Data Home Medications Medication Instructions Recorded Confirmed Budesonide/Formoterol Fumarate 2 puff INHALATION RT-BID 09/22/16 04/17/20 [Symbicort 160-4.5 Mcg Inhaler] Pantoprazole Sodium [Protonix] 40 mg PO BID-W/MEALS 09/22/16 04/17/20 Tiotropium [place] [Spiriva] 18 mcg INHALATION RT-DAILY 09/22/16 04/17/20 Furosemide [Lasix] 40 mg PO BID 10/27/16 04/17/20 Acetaminophen [Tylenol] 650 mg PO Q6H 04/17/20 04/17/20 Albuterol Inhaler [Ventolin Hfa 1 puff INHALATION RT-Q6H PRN 04/17/20 04/17/20 Inhaler] Albuterol Nebulized [Ventolin 2.5 mg INHALATION RT-Q4H PRN 04/17/20 04/17/20 Nebulized] Cholecalciferol [Vitamin D3 (25 2,000 unit PO DAILY 04/17/20 04/17/20 Mcg = 1000 Iu)] Ferrous Sulfate [Iron (65 MG 325 mg PO DAILY 04/17/20 04/17/20 Elemental)] Fluticasone Nasal [place] [Flonase 1 spray EA NOSTRIL BID PRN 04/17/20 04/17/20 Nasal [place]] Lidocaine 5% Patch [Lidoderm 5% 1 patch TOPICAL DAILY PRN 04/17/20 04/17/20 Patch] Metoprolol Tartrate [Lopressor] 25 mg PO BID 08/25/20 08/25/20 Rivaroxaban [Xarelto] 20 mg PO DAILY 04/17/20 04/17/20 Previous Rx's Medication Instructions Recorded Verapamil Sr [Isoptin Sr] 240 mg PO DAILY #30 tablet.er 04/19/20 Cephalexin [Keflex] 500 mg PO Q8HR 10 Days #30 cap 04/23/20 Potassium Chloride ER [K-Dur 20] 20 meq PO DAILY 30 Days #30 04/23/20 tab.er.prt SILVER sulfADIAZINE CREAM 1 applic TOPICAL DAILY 30 Days #1 04/23/20 [Silvadene Cream] applic Terbinafine [LamISIL] 250 mg PO DAILY #30 tablet 04/23/20 Thiamine [Vitamin B-1] 100 mg PO BID-W/MEALS 30 Days #60 04/23/20 tab predniSONE 10 mg PO DIRECTED #20 tab 04/23/20 Allergies Allergy/AdvReac Type Severity Reaction Status Date / Time No Known Allergies Allergy Verified 05/05/20 10:00 Review of Systems ROS Statement: Those systems with pertinent positive or pertinent negative responses have been documented in the HPI. ROS Other: All systems not noted in ROS Statement are negative. Past Medical History Past Medical History: COPD, Deep Vein Thrombosis (DVT), Hypertension, Osteoarthritis (OA), Prostate Disorder, Sleep Apnea/CPAP/BIPAP Additional Past Medical History / Comment(s): BACK PAIN,SCOLIOSIS,DDD, HIATAL HERNIA.STRIGHT CATHS 2-3 TIMES PER DAY, RECENTLY ON ABX FOR COUGH AND STATED HAD DIARRHEA WHILE ON THEN BUT IT STOPPED ON SAT 10/25/16, Home 02 3-4L. Prostate CA w/radiation History of Any Multi-Drug Resistant Organisms: None Reported Past Surgical History: Tonsillectomy Additional Past Surgical History / Comment(s): COLONOSCOPY, HEMORRHOIDECTOMY Past Anesthesia/Blood Transfusion Reactions: Postoperative Nausea & Vomiting (PONV) Additional Past Anesthesia/Blood Transfusion Reaction / Comment(s): TAKES A BIT TO WAKE UP Past Psychological History: No Psychological Hx Reported, PTSD Smoking Status: Former smoker Past Alcohol Use History: Daily Past Drug Use History: Marijuana - Past Family History Father History Unknown: Yes Family Medical History: Congestive Heart Failure (CHF) Mother History Unknown: Yes Additional Family Medical History / Comment(s): IN HER SLEEP "NATRUAL CAUSES" General Exam - General Exam Comments Initial Comments: GENERAL: Patient is well-developed and well-nourished. Patient is nontoxic and well- hydrated and is in moderate distress. ENT: Neck is soft and supple. No significant lymphadenopathy is noted. Oropharynx is clear. Moist mucous membranes. Neck has full range of motion without eliciting any pain. EYES: The sclera were anicteric and conjunctiva were pink and moist. Extraocular movements were intact and pupils were equal round and reactive to light. Eyelids were unremarkable. PULMONARY: Some expiratory wheezing CARDIOVASCULAR: There is a regular rate and rhythm without any murmurs gallops or rubs. ABDOMEN: Soft and nontender with normal bowel sounds. SKIN: Skin is clear with no lesions or rashes and otherwise unremarkable. NEUROLOGIC: Patient is alert and oriented x3. Cranial nerves II through XII are grossly intact. Motor and sensory are also intact. Normal speech, volume and content. Symmetrical smile. MUSCULOSKELETAL: Normal extremities with adequate strength and full range of motion. Lower back is tender in the L3 4 5 region LYMPHATICS: No significant lymphadenopathy is noted PSYCHIATRIC: Normal psychiatric evaluation. Limitations: no limitations Course Vital Signs 05/05/20 05/05/20 05/05/20 09:57 11:41 12:13 Temperature 98.4 F Pulse Rate 98 145 H 141 H Respiratory 24 22 20 Rate Blood Pressure 135/88 142/98 115/93 O2 Sat by Pulse 95 95 95 Oximetry Medical Decision Making - Medical Decision Making When patient was in the emergency department his heart rate started going fast or so he took an EKG showed atrial fibrillation with rapid ventricular response at 143 bpm QRS 104 QT interval 336 QTC is 518. Patient's EKG shows some ST segment depression in precordial leads. CT of the lumbar spine shows an L3 burst fracture with no retropulsion. It is nondisplaced. Chest x-ray shows some scarring but no new infiltrate or acute abnormality Patient is an Cardizem drip after Cardizem bolus was given Spoke with Mr. Laura hospitalist agreed to consult the patient admitted the patient wrote admitting orders consult cardiology. - Lab Data Result diagrams: 05/05/20 11:45 05/05/20 11:45 Lab Results 05/05/20 05/05/20 05/05/20 Range/Units 11:45 11:45 11:45 WBC 13.2 H (3.8-10.6) k/uL RBC 4.30 (4.30-5.90) m/uL Hgb 14.3 (13.0-17.5) gm/dL Hct 44.0 (39.0-53.0) % MCV 102.3 H D (80.0-100.0) fL MCH 33.3 (25.0-35.0) pg MCHC 32.5 (31.0-37.0) g/dL RDW 14.0 (11.5-15.5) % Plt Count 279 (150-450) k/uL Neutrophils % 79 % Lymphocytes % 7 % Monocytes % 8 % Eosinophils % 1 % Basophils % 1 % Neutrophils # 10.5 H (1.3-7.7) k/uL Lymphocytes # 0.9 L (1.0-4.8) k/uL Monocytes # 1.0 (0-1.0) k/uL Eosinophils # 0.1 (0-0.7) k/uL Basophils # 0.1 (0-0.2) k/uL Macrocytosis Slight PT 10.7 (9.0-12.0) sec INR 1.0 (<1.2) APTT 25.5 (22.0-30.0) sec Sodium 134 L (137-145) mmol/L Potassium 4.6 (3.5-5.1) mmol/L Chloride 97 L (98-107) mmol/L Carbon Dioxide 28 (22-30) mmol/L Anion Gap 9 mmol/L BUN 35 H (9-20) mg/dL Creatinine 1.53 H (0.66-1.25) mg/dL Est GFR (CKD-EPI)AfAm 52 (>60 ml/min/1.73 sqM) Est GFR (CKD-EPI)NonAf 45 (>60 ml/min/1.73 sqM) Glucose 126 H (74-99) mg/dL Calcium 8.5 (8.4-10.2) mg/dL Magnesium 1.8 (1.6-2.3) mg/dL Total Bilirubin 0.8 (0.2-1.3) mg/dL AST 39 (17-59) U/L ALT 26 (4-49) U/L Alkaline Phosphatase 60 (38-126) U/L Total Protein 6.6 (6.3-8.2) g/dL Albumin 3.6 (3.5-5.0) g/dL Critical Care Time Critical Care Time: Yes Total Critical Care Time: 35 Disposition Clinical Impression: Fall, L3 vertebral fracture, Atrial fibrillation with rapid ventricular response, Acute renal failure Disposition: ADMITTED IP TO THIS HOSP Referrals: [facility],Clinic [Primary Care Provider] - 1-2 days Time of Disposition: 12:20
--- NOTE | 2020-05-05 10:56 | XR ---
EXAMINATION TYPE: XR lumbosacral spine min 4V DATE OF EXAM: 05/05/2020 CLINICAL HISTORY: Fall 5 days ago TECHNIQUE: Frontal, lateral, and oblique images of the lumbar spine are obtained. COMPARISON: None FINDINGS: There are 5 lumbar type vertebral bodies identified. There is severe degenerative disc di sease and facet arthropathy. Dextro scoliosis of the lumbar spine with rotation component. There frac ture of the L3 vertebral body extending to each endplate. Questionable height loss of L1 on lateral p rojection may be due to oblique orientation of the vertebral body. Decreased osseous mineralization. IMPRESSION: 1. Comminuted fracture of the L3 vertebral body. Decreased osseous mineralization and severe degenera tive change somewhat limits evaluation of this fracture. Consider follow-up with CT. 2. Questionable compression deformity of L1 may be projectional.
[2020-05-05] MEDS ORDERED: HYDROmorphone 1 MG/ML 1 ML SYRINGE IVP STA (11:20)
[2020-05-05] MEDS ORDERED: HYDROmorphone 1 MG/ML 1 ML SYRINGE IM STA (11:24)
[2020-05-05] MEDS ORDERED: DILTIAZEM DRIP BOLUS FROM BAG 1 MG SOLN IV ONE (11:34)
[2020-05-05 11:55] LABS: Basophils # (A) 0.1 k/uL (0-0.2); Basophils % (A) 1 %; Eosinophils # (A) 0.1 k/uL (0-0.7); Eosinophils % (A) 1 %; HGB 14.3 gm/dL (13.0-17.5); Lymphocytes # (A) 0.9 k/uL (1.0-4.8); Lymphocytes % (A) 7 %; MCH 33.3 pg (25.0-35.0); MCHC 32.5 g/dL (31.0-37.0); Macrocytosis Slight; Mean Platelet Volume 7.3; Monocytes % (A) 8 %; Neutrophils # (A) 10.5 k/uL (1.3-7.7); Neutrophils % (A) 79 %; Platelet Count 279 k/uL (150-450); WBC 13.2 k/uL (3.8-10.6)
--- NOTE | 2020-05-05 11:58 | CT ---
EXAMINATION TYPE: CT lumbar spine wo con DATE OF EXAM: 05/05/2020 11:21 AM COMPARISON: Lumbar radiograph 05/05/2020. CTA chest 10/27/2016. HISTORY: Low back pain post fall CT DLP: 1696.6 mGycm Automated exposure control for dose reduction was used. Unenhanced CT of the lumbar spine was performed. Bone and soft tissue window settings are submitted as well as coronal and sagittal reconstructions. Decreased osseous mineralization. There is dextroscoliosis of the lumbar spine with areas of lateral subluxation and marked degenerative change. There is a burst fracture of the mid and left thirds of t he L3 vertebral body spanning from anterior to posterior and superior to inferior endplates. There is no significant displacement or vertebral body height loss. There is no retropulsion. The previously questioned vertebral body height loss of L1 on same day radiograph and was projectional and due to ob lique plane. There is mild old height loss of T11 related to endplate degenerative changes. Multilevel mild to moderate canal stenosis and neural foramina narrowing. No high-grade canal stenosi s. Numerous renal cysts and indeterminate renal lesions. No hydronephrosis. Incompletely visualized hiat al hernia. IMPRESSION: 1. Nondisplaced burst fracture of the mid and left thirds of the L3 vertebral body. No height loss or retropulsion. 2. Previously questioned L1 vertebral body height loss was projectional. 3. Decreased osseous mineralization. 4. Dextroscoliosis with marked areas of subluxation, degenerative disc disease, and facet arthropathy . Mild to moderate canal stenosis with no high-grade stenosis. Varying degrees of neural foramina florin rowing. 5. Numerous renal cysts and indeterminate renal lesions, incompletely evaluated on noncontrast exam. Consider nonemergent dedicated renal ultrasound.
[2020-05-05 12:04] LABS: MCV 102.3 fL (80.0-100.0)
[2020-05-05 12:06] LABS: Albumin 3.6 g/dL (3.5-5.0); Calcium 8.5 mg/dL (8.4-10.2); Total Bilirubin 0.8 mg/dL (0.2-1.3); Total Protein 6.6 g/dL (6.3-8.2)
[2020-05-05 12:07] LABS: Partial Thromboplastin Time 25.5 sec (22.0-30.0); Prothrombin Time 10.7 sec (9.0-12.0)
[2020-05-05] MEDS: DILTIAZEM 125 MG in SODIUM CHLORIDE 0.9% 100 ML IV SCH ×2 (12:13→22:49)
[2020-05-05 12:14] LABS: Magnesium 1.8 mg/dL (1.6-2.3); Potassium 4.6 mmol/L (3.5-5.1)
[2020-05-05] MEDS ORDERED: NITROGLYCERIN SL TABS 0.4 MG TAB SUBLINGUAL PRN (12:20)
--- NOTE | 2020-05-05 12:49 | XR ---
EXAMINATION TYPE: XR chest 2V DATE OF EXAM: 05/05/2020 CLINICAL HISTORY: Chest pain, shortness of breath TECHNIQUE: Frontal and lateral views of the chest are obtained. COMPARISON: 04/17/2020 chest radiograph FINDINGS: Lungs are hyperinflated. The cardiac silhouette is unchanged, upper limits of normal. Pulm onary vasculature is normal. Left basilar subsegmental atelectasis redemonstrated. There is no focal air space opacity, pleural effusion, or pneumothorax seen. Hiatal hernia. Increased thoracic kyphosis . Osseous demineralization. IMPRESSION: Chronic left basilar subsegmental atelectasis. No acute cardiopulmonary process.
[2020-05-05] MEDS: HYDROmorphone 1 MG/ML 1 ML SYRINGE IVP PRN (14:05)
[2020-05-05] MEDS ORDERED: LIDOCAINE 5% PATCH TOPICAL PRN (15:41)
[2020-05-05] MEDS ORDERED: IPRATROPIUM-ALBUTEROL 3 ML NEB INHALATION PRN (15:43)
[2020-05-05] MEDS ORDERED: ACETAMINOPHEN TAB 325 MG TAB PO PRN (15:45)
[2020-05-05] MEDS ORDERED: polyethylene glycoL 3350 17 GM POWD.PACK PO PRN (15:47)
[2020-05-05] MEDS ORDERED: IPRATROPIUM-ALBUTEROL 3 ML NEB INHALATION SCH (16:00)
--- NOTE | 2020-05-05 16:06 | P.HPIM ---
History of Present Illness Patient is pleasant 69-year-old male was recently discharged from the hospital came back after a fall patient is started having back pain after a fall. Patient has been chronically on steroids which may have lead to osteoporosis and patient is found to have burst fracture and nondisplaced fracture of the mid and left the third set of the L3 vertebral body. There is some may height loss in the L1 vertebral body as well. Patient is found to be bit dehydrated with acute renal failure with creatinine going up to 1.5 baseline appear to be around 1.1. Patient in ER for found to have been atrial fibrillation with rapid ventricular rate because of which patient was subsequently admitted patient was started on Cardizem drip and patient is present and Cardizem drip. Patient had multifocal atrial tachycardia in the past and patient probably had history of atrial fibrillation because of which patient is on anti-correlation with Xarelto patient is bit hyponatremic as well. Patient does have advanced COPD uses about 3 and half liters at home presently on 4 L of oxygen patient is wheezing and a fairly short of breath. Patient is also completing of tingling and numbness in both the feet fingers. This is not new actually he believes this tingling and numbness led to his fall. Patient denied any other weakness or any sensory deficits. Patient had normal ejection fraction the past and patient is with a is on Lasix for pedal edema patient has Mumtaz bandages does have significant edema of both legs. Patient has only mild pulmonary hypertension with RVSP of around 42. Review of Systems REVIEW OF SYSTEMS: CONSTITUTIONAL: No fever, no malaise, no fatigue. HEENT: No recent visual problems or hearing problems. Denied any sore throat. CARDIOVASCULAR: No chest pain, orthopnea, PND, no palpitations, no syncope. PULMONARY: no hemoptysis. GASTROINTESTINAL: No diarrhea, no nausea, no vomiting, no abdominal pain. NEUROLOGICAL: No headaches, no weakness, no numbness. HEMATOLOGICAL: Denies any bleeding or petechiae. GENITOURINARY: Denies any burning micturition, frequency, or urgency. MUSCULOSKELETAL/RHEUMATOLOGICAL: Denies any joint pain, swelling, or any muscle pain. ENDOCRINE: Denies any polyuria or polydipsia. The rest of the 14-point review of systems is negative. Past Medical History Past Medical History: COPD, Deep Vein Thrombosis (DVT), Hypertension, Osteoarthritis (OA), Prostate Disorder, Sleep Apnea/CPAP/BIPAP Additional Past Medical History / Comment(s): BACK PAIN,SCOLIOSIS,DDD, HIATAL HERNIA.STRIGHT CATHS 2-3 TIMES PER DAY, RECENTLY ON ABX FOR COUGH AND STATED HAD DIARRHEA WHILE ON THEN BUT IT STOPPED ON SAT 10/25/16, Home 02 3-4L. Prostate CA w/radiation History of Any Multi-Drug Resistant Organisms: None Reported Past Surgical History: Tonsillectomy Additional Past Surgical History / Comment(s): COLONOSCOPY, HEMORRHOIDECTOMY Past Anesthesia/Blood Transfusion Reactions: Postoperative Nausea & Vomiting (PONV) Additional Past Anesthesia/Blood Transfusion Reaction / Comment(s): TAKES A BIT TO WAKE UP Smoking Status: Former smoker - Past Family History Father History Unknown: Yes Family Medical History: Congestive Heart Failure (CHF) Mother History Unknown: Yes Additional Family Medical History / Comment(s): IN HER SLEEP "NATRUAL CAUSES" Medications and Allergies Home Medications Medication Instructions Recorded Confirmed Type Budesonide/Formoterol Fumarate 2 puff INHALATION RT-BID 09/22/16 05/05/20 History [Symbicort 160-4.5 Mcg Inhaler] Pantoprazole Sodium [Protonix] 40 mg PO BID-W/MEALS 09/22/16 05/05/20 History Tiotropium [place] [Spiriva] 18 mcg INHALATION RT-DAILY 09/22/16 05/05/20 History Furosemide [Lasix] 40 mg PO BID 10/27/16 05/05/20 History Acetaminophen [Tylenol] 650 mg PO Q6H 04/17/20 05/05/20 History Albuterol Inhaler [Ventolin Hfa 1 puff INHALATION RT-Q6H PRN 04/17/20 05/05/20 History Inhaler] Albuterol Nebulized [Ventolin 2.5 mg INHALATION RT-Q4H PRN 04/17/20 05/05/20 History Nebulized] Cholecalciferol [Vitamin D3 (25 2,000 unit PO DAILY 04/17/20 05/05/20 History Mcg = 1000 Iu)] Ferrous Sulfate [Iron (65 MG 325 mg PO DAILY 04/17/20 05/05/20 History Elemental)] Fluticasone Nasal [place] [Flonase 1 spray EA NOSTRIL BID PRN 04/17/20 05/05/20 History Nasal [place]] Lidocaine 5% Patch [Lidoderm 5% 1 patch TOPICAL DAILY PRN 04/17/20 05/05/20 History Patch] Metoprolol Tartrate [Lopressor] 25 mg PO BID 04/17/20 05/05/20 History Rivaroxaban [Xarelto] 20 mg PO DAILY 04/17/20 05/05/20 History Verapamil Sr [Isoptin Sr] 240 mg PO DAILY #30 tablet.er 04/19/20 05/05/20 Rx Potassium Chloride ER [K-Dur 20] 20 meq PO DAILY 30 Days #30 04/23/20 05/05/20 Rx tab.er.prt SILVER sulfADIAZINE CREAM 1 applic TOPICAL DAILY 30 Days #1 04/23/20 05/05/20 Rx [Silvadene Cream] applic Terbinafine [LamISIL] 250 mg PO DAILY #30 tablet 04/23/20 05/05/20 Rx Thiamine [Vitamin B-1] 100 mg PO BID-W/MEALS 30 Days #60 04/23/20 05/05/20 Rx tab predniSONE See Taper PO DAILY 05/05/20 05/05/20 History Allergies Allergy/AdvReac Type Severity Reaction Status Date / Time No Known Allergies Allergy Verified 05/05/20 10:00 Physical Exam Vitals: Vital Signs Temp Pulse Pulse Resp BP BP Pulse Ox 05/05/20 15:13 98.0 F 84 20 141/84 96 05/05/20 13:23 98.6 F 128 H 22 134/98 95 05/05/20 12:13 141 H 20 115/93 95 05/05/20 11:41 145 H 22 142/98 95 05/05/20 09:57 98.4 F 98 24 135/88 95 Intake and Output 05/05/20 05/05/20 05/05/20 06:59 14:59 22:59 Intake Total 5.417 Balance 5.417 Intake: Intake, IV Titration 5.417 Amount Diltiazem 125 mg In 5.417 Sodium Chloride 0.9% 100 ml @ 5 MG/HR 5 mls/hr IV .Q24H [facility] Rx#:[id number] Other: Weight 103.419 kg 98 kg PHYSICAL EXAMINATION: GENERAL: The patient is alert and oriented x3, not in any acute distress. Well developed, well nourished. Obese HEENT: Pupils are round and equally reacting to light. EOMI. No scleral icterus. No conjunctival pallor. Normocephalic, atraumatic. No pharyngeal erythema. No thyromegaly. CARDIOVASCULAR: S1 and S2 present. No murmurs, rubs, or gallops. Tachycardia,irregularly irregular rhythm PULMONARY: Chest is clear to auscultation, no wheezing or crackles. ABDOMEN: Soft, nontender, nondistended, normoactive bowel sounds. No palpable organomegaly. MUSCULOSKELETAL: No joint swelling or deformity. EXTREMITIES: No cyanosis, clubbing, extensive pedal edema NEUROLOGICAL: Gross neurological examination did not reveal any focal deficits. SKIN: No rashes. Results CBC & Chem 7: 05/05/20 11:45 05/05/20 11:45 Labs: Abnormal Lab Results - Last 24 Hours (Table) 05/05/20 05/05/20 Range/Units 11:45 11:45 WBC 13.2 H (3.8-10.6) k/uL MCV 102.3 H D (80.0-100.0) fL Neutrophils # 10.5 H (1.3-7.7) k/uL Lymphocytes # 0.9 L (1.0-4.8) k/uL Sodium 134 L (137-145) mmol/L Chloride 97 L (98-107) mmol/L BUN 35 H (9-20) mg/dL Creatinine 1.53 H (0.66-1.25) mg/dL Glucose 126 H (74-99) mg/dL Thrombosis Risk Factor Assmnt - Choose All That Apply Any of the Below Risk Factors Present?: Yes Each Factor Represents 1 point: Obesity (BMI >25) Other Risk Factors: Yes Each Risk Factor Represents 2 Points: Age 61-74 years Each Risk Factor Represents 3 Points: History of DVT/PE Other congenital or acquired thrombophilia - If yes, enter type in comment: No Thrombosis Risk Factor Assessment Total Risk Factor Score: 6 Thrombosis Risk Factor Assessment Level: High Risk Assessment and Plan Plan: -Burst fracture of the lumbar vertebrae: PT and OT will be consulted and we'll order TLSO brace. Unfortunately we cannot use any NSAIDs for pain patient is on Dilaudid to avoid excess opiate use her start him on oral [place] for pain. -COPD with acute exacerbation patient was started on 40 mg of oral steroids along with the continuation of inhalational treatments. -Acute on chronic hypercapnic respiratory failure secondary to COPD -Atrial fibrillation, paroxysmal patient will be continued on the coagulation, continue with the Cardizem patient is still in atrial fibrillation rapid unclear rate -History of DVT in the past -B benign prostatic hypertrophy -Sleep apnea: Continue with CPAP machine -Mild pulmonary hypertension -Peripheral edema chronic -Acute renal failure secondary to diuretics, Lasix will be held temporarily patient will be given IV fluids -Mild hypovolemic hyponatremia
[2020-05-05] MEDS: IPRATROPIUM-ALBUTEROL 3 ML NEB INHALATION SCH ×2 (16:14→20:08)
[2020-05-05] MEDS: SODIUM CHLORIDE 0.9% 1,000 ML IV SCH (17:28)
[2020-05-05] MEDS: predniSONE 20 MG TAB PO SCH (17:28)
[2020-05-05] MEDS: PANTOPRAZOLE 40 MG TABLET PO SCH (17:28)
[2020-05-05] MEDS: THIAMINE 100 MG TAB PO SCH (17:28)
[2020-05-05] MEDS: SYMBICORT 160-4.5 MCG INHALER INHALATION SCH (20:08)
[2020-05-05] MEDS ORDERED: METOPROLOL TARTRATE 25 MG TAB PO SCH (21:00)
[2020-05-06] MEDS: HYDROcodone/APAP 7.5-325MG 1 EACH TAB PO PRN ×3 (01:36→20:10)
[2020-05-06 02:42] LABS: Cholesterol 204 mg/dL (<200); HDL Cholesterol 88 mg/dL (40-60); LDL Cholesterol,Calculated 80 mg/dL (0-99); Triglycerides 182 mg/dL (<150)
[2020-05-06] MEDS: HYDROmorphone 1 MG/ML 1 ML SYRINGE IVP PRN ×3 (04:30→23:30)
[2020-05-06] MEDS: PANTOPRAZOLE 40 MG TABLET PO SCH ×2 (07:01→17:03)
[2020-05-06] MEDS: THIAMINE 100 MG TAB PO SCH ×2 (07:01→17:03)
[2020-05-06] MEDS: SODIUM CHLORIDE 0.9% 1,000 ML IV SCH ×2 (07:02→17:03)
--- NOTE | 2020-05-06 08:00 | P.PN ---
Subjective Patient is admitted after fall patient is found to have a burst fracture of L3 vertebral body, patient also has acute renal failure because of which patient is receiving IV fluids although patient does have some pedal edema once the creatinine improves IV fluids will be discontinued. Patient to be history of benign hypovolemia because of which I can't started him on IV fluids. A she is also on anti-correlation patient presented with atrial fibrillation with rapid ventricular rate patient is presently sinus rhythm Cardizem was discontinued in crease the dose of metoprolol from 25 to 50 twice a day. Cardiology will evaluate the patient. Patient was also treated for COPD exacerbation patient wheezing significantly improved. TLSO brace was ordered, PT and OT will evaluate the patient patient may need to be placed in subacute rehabitation. Patient apparently drinks about 1 pint of alcohol every day patient is on Ativan CIWA protocol patient does have tremor but doesn't have any alcohol withdrawals this to for his chronic. Constitutional: Denied any fatigue denied any fever. Still has pain in the back Cardio vascular: denied any chest pain, palpitations Gastrointestinal denied any nausea vomiting Pulmonary: Shortness of breath significantly improved Neurologic denied any new focal deficits All inpatient medications were reviewed and appropriate changes in these medications as dictated in the interval history and assessment and plan. Objective - Vital Signs Vital signs: Vital Signs Temp 98.2 F 05/06/20 04:00 Pulse 73 05/06/20 04:00 Resp 20 05/06/20 04:00 BP 162/95 05/06/20 04:00 Pulse Ox 96 05/06/20 04:00 Intake & Output 05/05/20 05/06/20 05/06/20 18:59 06:59 18:59 Intake Total 245.417 95.167 Balance 245.417 95.167 Weight 98 kg 98.5 kg Intake: Intake, IV Titration 5.417 95.167 Amount Diltiazem 125 mg In 5.417 95.167 Sodium Chloride 0.9% 100 ml @ 5 MG/HR 5 mls/hr IV .Q24H [facility] Rx#:[id number] Oral 240 Other: Voiding Method Toilet # Voids 1 - Exam PHYSICAL EXAMINATION: GENERAL: The patient is alert and oriented x3, not in any acute distress. Well developed, well nourished. Obese HEENT: Pupils are round and equally reacting to light. EOMI. No scleral icterus. No conjunctival pallor. Normocephalic, atraumatic. No pharyngeal erythema. No thyromegaly. CARDIOVASCULAR: S1 and S2 present. No murmurs, rubs, or gallops. Sinus rhythm rate controlled PULMONARY: She has significant wheezing which improved ABDOMEN: Soft, nontender, nondistended, normoactive bowel sounds. No palpable organomegaly. MUSCULOSKELETAL: No joint swelling or deformity. EXTREMITIES: No cyanosis, clubbing, extensive pedal edema NEUROLOGICAL: Gross neurological examination did not reveal any focal deficits. SKIN: No rashes. - Labs CBC & Chem 7: 05/05/20 11:45 05/05/20 11:45 Labs: Abnormal Lab Results - Last 24 Hours (Table) 05/05/20 05/05/20 05/05/20 Range/Units 11:45 11:45 11:45 WBC 13.2 H (3.8-10.6) k/uL MCV 102.3 H D (80.0-100.0) fL Neutrophils # 10.5 H (1.3-7.7) k/uL Lymphocytes # 0.9 L (1.0-4.8) k/uL Sodium 134 L (137-145) mmol/L Chloride 97 L (98-107) mmol/L BUN 35 H (9-20) mg/dL Creatinine 1.53 H (0.66-1.25) mg/dL Glucose 126 H (74-99) mg/dL Triglycerides 182 H (<150) mg/dL Cholesterol 204 H (<200) mg/dL HDL Cholesterol 88 H (40-60) mg/dL Assessment and Plan Plan: -Burst fracture of the lumbar vertebrae: PT and OT will be consulted and we'll order TLSO brace. Unfortunately we cannot use any NSAIDs for pain patient is on Dilaudid and [place] for pain. -COPD with acute exacerbation patient was started on 40 mg of oral steroids along with the continuation of inhalational treatments. Improved respiratory status -Acute on chronic hypercapnic respiratory failure secondary to COPD -Atrial fibrillation, paroxysmal patient will be continued on anticoagulation, Cardizem will be discontinued and patient was switched to metoprolol and increase the dose of metoprolol -History of DVT in the past -B benign prostatic hypertrophy -Sleep apnea: Continue with CPAP machine -Mild pulmonary hypertension -Peripheral edema chronic -Acute renal failure secondary to diuretics, Lasix will be held temporarily patient will be given IV fluids, his kidney function improves IV fluids and this can urine patient does have pedal edema -Mild hypovolemic hyponatremia -Alcohol abuse: Patient will be monitored for alcohol withdrawals
[2020-05-06] MEDS: SYMBICORT 160-4.5 MCG INHALER INHALATION SCH ×2 (08:34→19:09)
[2020-05-06] MEDS: IPRATROPIUM-ALBUTEROL 3 ML NEB INHALATION SCH ×4 (08:34→19:10)
[2020-05-06 08:55] LABS: Calcium 8.5 mg/dL (8.4-10.2); Potassium 4.6 mmol/L (3.5-5.1)
[2020-05-06] MEDS ORDERED: ASPIRIN 325 MG TAB PO SCH (09:00)
[2020-05-06] MEDS: predniSONE 20 MG TAB PO SCH (09:23)
[2020-05-06] MEDS: RIVAROXABAN 20 MG TAB PO SCH (09:23)
[2020-05-06] MEDS: METOPROLOL TARTRATE 50 MG TAB PO SCH ×2 (09:24→23:22)
[2020-05-06] MEDS: TERBINAFINE 250 MG TAB PO SCH (09:27)
--- NOTE | 2020-05-06 11:11 | P.CNOR ---
<Shakir Herman - Last Filed: 05/06/20 11:08> History of Present Illness - [facility] Consult date: 05/06/20 History of present illness: This patient is a 69-year-old male with past medical history of COPD, atrial fibrillation, acute renal failure, and alcohol abuse that presented to [facility] emergency department yesterday with complaints of low back pain. The patient states he sustained a fall on Thursday04/30/20. The fall was from ground height. Patient states he is unsure what happened, he believes he may have tripped over his toes, he is unsure. He states he woke up on the ground, and called his children for assistance. He states his low back pain worsened over the past few days, therefore he presented to [facility] emergency department for evaluation. X-rays and computed tomography scan of the lumbar spine in the emergency department revealed an L3 burst fracture. Patient was also found to be in atrial fibrillation with RVR in the emergency department, therefore the patient was admitted under the care of the internal medicine with a consult placed to orthopedic surgery for the L3 burst fracture. At the time exam, the patient is complaining of isolated low back pain. He states his pain has improved with medication. He denies numbness or tingling of the bilateral lower extremities. Denies weakness of the bilateral lower extremities. Denies bowel or bladder dysfunction. He does note mild tingling in his toes, although he states this is chronic and has been present for about 6-8 months. He states this is not new since his fall. He denies any additional complaints today. Vital signs stable. Past Medical History Past Medical History: COPD, Deep Vein Thrombosis (DVT), Hypertension, Osteoarthritis (OA), Prostate Disorder, Sleep Apnea/CPAP/BIPAP Additional Past Medical History / Comment(s): BACK PAIN,SCOLIOSIS,DDD, HIATAL HERNIA.STRIGHT CATHS 2-3 TIMES PER DAY, RECENTLY ON ABX FOR COUGH AND STATED HAD DIARRHEA WHILE ON THEN BUT IT STOPPED ON SAT 10/25/16, Home 02 3-4L. Prostate CA w/radiation History of Any Multi-Drug Resistant Organisms: None Reported Past Surgical History: Tonsillectomy Additional Past Surgical History / Comment(s): COLONOSCOPY, HEMORRHOIDECTOMY Past Anesthesia/Blood Transfusion Reactions: Postoperative Nausea & Vomiting (PONV) Additional Past Anesthesia/Blood Transfusion Reaction / Comm: TAKES A BIT TO WAKE UP Smoking Status: Former smoker - Past Family History Father History Unknown: Yes Family Medical History: Congestive Heart Failure (CHF) Mother History Unknown: Yes Additional Family Medical History / Comment(s): IN HER SLEEP "NATRUAL CAUSES" Medications and Allergies Home Medications Medication Instructions Recorded Confirmed Type Budesonide/Formoterol Fumarate 2 puff INHALATION RT-BID 09/22/16 05/05/20 History [Symbicort 160-4.5 Mcg Inhaler] Pantoprazole Sodium [Protonix] 40 mg PO BID-W/MEALS 09/22/16 05/05/20 History Tiotropium [place] [Spiriva] 18 mcg INHALATION RT-DAILY 09/22/16 05/05/20 History Furosemide [Lasix] 40 mg PO BID 10/27/16 05/05/20 History Acetaminophen [Tylenol] 650 mg PO Q6H 04/17/20 05/05/20 History Albuterol Inhaler [Ventolin Hfa 1 puff INHALATION RT-Q6H PRN 04/17/20 05/05/20 History Inhaler] Albuterol Nebulized [Ventolin 2.5 mg INHALATION RT-Q4H PRN 04/17/20 05/05/20 History Nebulized] Cholecalciferol [Vitamin D3 (25 2,000 unit PO DAILY 04/17/20 05/05/20 History Mcg = 1000 Iu)] Ferrous Sulfate [Iron (65 MG 325 mg PO DAILY 04/17/20 05/05/20 History Elemental)] Fluticasone Nasal [place] [Flonase 1 spray EA NOSTRIL BID PRN 04/17/20 05/05/20 History Nasal [place]] Lidocaine 5% Patch [Lidoderm 5% 1 patch TOPICAL DAILY PRN 04/17/20 05/05/20 History Patch] Metoprolol Tartrate [Lopressor] 25 mg PO BID 04/17/20 05/05/20 History Rivaroxaban [Xarelto] 20 mg PO DAILY 04/17/20 05/05/20 History Verapamil Sr [Isoptin Sr] 240 mg PO DAILY #30 tablet.er 04/19/20 05/05/20 Rx Potassium Chloride ER [K-Dur 20] 20 meq PO DAILY 30 Days #30 04/23/20 05/05/20 Rx tab.er.prt SILVER sulfADIAZINE CREAM 1 applic TOPICAL DAILY 30 Days #1 04/23/20 05/05/20 Rx [Silvadene Cream] applic Terbinafine [LamISIL] 250 mg PO DAILY #30 tablet 04/23/20 05/05/20 Rx Thiamine [Vitamin B-1] 100 mg PO BID-W/MEALS 30 Days #60 04/23/20 05/05/20 Rx tab predniSONE See Taper PO DAILY 05/05/20 05/05/20 History Allergies Allergy/AdvReac Type Severity Reaction Status Date / Time No Known Allergies Allergy Verified 05/05/20 10:00 Physical Examination On examination, the patient is sitting up in the bedside chair in no apparent distress. He is alert and oriented 3. His head appears normocephalic and atraumatic. His breathing appears nonlabored. On inspection of his bilateral upper extremities there is no obvious deformities or signs of trauma. On inspection of the bilateral lower extremities, no obvious deformities or signs of trauma. On inspection of the low back, there is no ecchymosis, erythema, skin discolor ation. There are no open wounds or lacerations. There is no pain on palpation of the cervical or thoracic spine. There is moderate pain on palpation of the fracture site. Full strength of his bilateral lower extremities, sensory function subjectively intact. The bilateral extremities are warm and well-perfused with brisk capillary refill distally. Calves are soft and nontender bilaterally. No significant pain with PROM of the bilateral hips. Results Computed tomography scan lumbar spine 05/05/20: Nondisplaced L3 burst fracture. Scoliosis. - Labs Labs: Abnormal Lab Results - Last 24 Hours (Table) 05/05/20 05/05/20 05/05/20 Range/Units 11:45 11:45 11:45 WBC 13.2 H (3.8-10.6) k/uL MCV 102.3 H D (80.0-100.0) fL Neutrophils # 10.5 H (1.3-7.7) k/uL Lymphocytes # 0.9 L (1.0-4.8) k/uL Sodium 134 L (137-145) mmol/L Chloride 97 L (98-107) mmol/L BUN 35 H (9-20) mg/dL Creatinine 1.53 H (0.66-1.25) mg/dL Glucose 126 H (74-99) mg/dL Triglycerides 182 H (<150) mg/dL Cholesterol 204 H (<200) mg/dL HDL Cholesterol 88 H (40-60) mg/dL 05/06/20 Range/Units 08:34 WBC (3.8-10.6) k/uL MCV (80.0-100.0) fL Neutrophils # (1.3-7.7) k/uL Lymphocytes # (1.0-4.8) k/uL Sodium 135 L (137-145) mmol/L Chloride 97 L (98-107) mmol/L BUN 38 H (9-20) mg/dL Creatinine 1.36 H (0.66-1.25) mg/dL Glucose 118 H (74-99) mg/dL Triglycerides (<150) mg/dL Cholesterol (<200) mg/dL HDL Cholesterol (40-60) mg/dL H & H 05/05/20 Range/Units 11:45 Hgb 14.3 (13.0-17.5) gm/dL Hct 44.0 (39.0-53.0) % Coagulation 05/05/20 Range/Units 11:45 INR 1.0 (<1.2) Result Diagrams: 05/05/20 11:45 05/06/20 08:34 Assessment and Plan Assessment: Nondisplaced L3 burst fracture Plan: Clinical and imaging findings were discussed with the patient. The patient was discussed with Dr. Peng. Recommended conservative treatment at this time. We will order the patient an LSO brace. Once the patient obtains the brace, he may ambulate and mobilize as tolerated. Fall precautions. Pain management per admitting team. We will continue to follow the patient as he remains inpatient and make recommendations as needed. He may follow-up with Dr. Wing on an outpatient basis following discharge. <Jose Eduardo Peng - Last Filed: 05/06/20 13:14> Results - Labs Labs: Abnormal Lab Results - Last 24 Hours (Table) 05/05/20 05/06/20 Range/Units 11:45 08:34 Sodium 135 L (137-145) mmol/L Chloride 97 L (98-107) mmol/L BUN 38 H (9-20) mg/dL Creatinine 1.36 H (0.66-1.25) mg/dL Glucose 118 H (74-99) mg/dL Triglycerides 182 H (<150) mg/dL Cholesterol 204 H (<200) mg/dL HDL Cholesterol 88 H (40-60) mg/dL H & H 05/05/20 Range/Units 11:45 Hgb 14.3 (13.0-17.5) gm/dL Hct 44.0 (39.0-53.0) % Coagulation 05/05/20 Range/Units 11:45 INR 1.0 (<1.2) Result Diagrams: 05/05/20 11:45 05/06/20 08:34 Assessment and Plan Plan: Case was discussed with RUTH Herman. Reviewed and agree with above (amendments/corrections noted below). The patient was subsequently seen and examined by me as well. S: The patient states that he does not know how he fell but thinks he must have tripped. He admits that he has had some diminished sensation in his toes for a few months and feels that may have contributed. In the days immediately following the fall, the pain wasnt too intense. However, the day of admission, it became intense and he had to crawl out of bed. Known history of scoliosis. He denies incontinence, subjective weakness or saddle anesthesia. O: Mild to moderate tenderness in the mid lumbar spine, most prominent at the L3 level. Full (5/5) and symmetric strength to the tibialis anterior, extensor hallucis longus and gastrocsoleus complex. Intact and subjectively symmetric light touch sensation throughout the L2-S1 dermatomes; however, the patient states that the toes of both feet feel funny. One beat of clonus bilaterally. Subtle flexor response with Babinski bilaterally. Bilateral LE edema noted. Imaging: CT scan demonstrates a nondisplaced burst fracture of the L3 vertebral body. Fractures extend into both the superior and inferior endplates. No loss of height or encroachment into the canal. No appreciable involvement of the posterior column. Dextroscoliosis noted with advanced degenerative changes, including near-complete loss of the L1-2 and L4-5 disc spaces. A: Nondisplaced L3 burst fracture status post fall Dextroscoliosis with moderately advanced lumbar degenerative disc disease Morbid obesity P: I reviewed the clinical and x-ray findings in detail with the patient. Treatment options were presented. Recommended nonsurgical management with bracing ([place] LSO). Weightbearing as tolerated with a walker or cane. Up with assist only. Fall precautions. Continue PRN pain management with ice and topical/oral analgesics as needed. Recommend a Lidoderm patch trial. Follow up outpatient with Dr. Wing in 1-2 weeks. We discussed potential signs and symptoms which could indicate progressive neurological compromise. He was instructed to contact our office right away or return to the emergency department if any of these develop. Questions were invited and answered; the patient expressed understanding and agreement with the plan as outlined above. Thank you for allowing us to participate in the care of this patient. Jose Eduardo Peng D.O. [facility]
--- NOTE | 2020-05-06 11:42 | P.CRDCN ---
History of Present Illness History of present illness: This is Mel Romeo PA-C dictating a consult on this patient The patient was interviewed and examined by me as well as by Dr. Granger Case discussed with Dr. Granger and he agrees with the plan of care HPI Patient is a 69-year-old male with a history of COPD on home oxygen, DVT for which he takes Xarelto who presented with weakness. He follows with Dr. Castañeda in the office. He states that this past Thursday he fell in his kitchen. He is unsure how he fell but he states he did not pass out. He thinks he may have tripped. Then on Thursday he felt weak. He wasn't able to get out of bed. He is short of breath at baseline due to his COPD but denies any worsening shortness o f breath. No chest pain. No dizziness or lightheadedness. No syncope or palpitations. He called EMS because of his weakness and was brought into the emergency department. On arrival to the emergency department he was afebrile, pulse 98, respirations 24, blood pressure 135/88, oxygen saturation 95% on 4 L nasal cannula. EKG showed atrial fibrillation with RVR, incomplete right bundle branch block, rate of 143. Chest x-ray showed chronic left basilar subsegmental atelectasis. Lumbar spine CT showed nondisplaced burst fracture of the mid and left thirds of the L3 vertebral body. Troponins were negative 3. Overnight he converted to sinus rhythm. EKG today shows sinus rhythm with incomplete right bundle branch block, T wave inversions V1 and V2. Today he is in sinus rhythm with heart rates in the 80s. Patient seen and examined resting in bed. Continues to feel weak. Complains of back pain. Denies any chest pain. He is short of breath at baseline but denies any worsening shortness of breath. Patient is a former smoker and admits to drinking greater than 1 pint per day ROS: No fevers, chills or rigors, Positive for cough no nausea, vomiting or diarrhea, no hematuria, dysuria, Positive for back pain no strokes or seizures, Positive for bruising on the arms EXAMINATION: Patient is afebrile, pulse in the 80s, respirations 20, blood pressure 155/93, oxygen saturation 96% on 4 L nasal cannula Patient seen and examined sitting up at the side of the bed, in no acute distress Lungs with diffuse wheezing bilaterally Heart is regular, no audible murmurs No JVD Mild lower extremity edema bilaterally REVIEW OF LABS, ECG & MEDICAL DATA WBC 13.2, hemoglobin 14.3, platelets 279, sodium 135, potassium 4.6, BUN 38, creatinine 1.36 LDL 80 Total cholesterol 204 per previous cardiology note echocardiogram in February 2020 revealed EF 50% with moderate MR IMPRESSION / ASSESSMENT: #1 paroxysmal atrial fibrillation with RVR, currently in sinus rhythm, on Xarelto #2 nondisplaced burst fracture of the mid and left thirds of the L3 vertebral body, or so following, recommends conservative treatment and a brace at this time #3 symptoms of weakness #4 COPD on home oxygen #5 history of DVT on Xarelto #6 hypertension #7 daily alcohol use #8 acute kidney injury improved #9 dyslipidemia #10 recent echocardiogram showing EF 50% with moderate MR PLAN: He has been started on metoprolol 50 mg twice a day Continue anticoagulation with Xarelto Reduce the dose of aspirin to 81 mg daily Start atorvastatin 20 mg daily Discussed the importance of alcohol cessation with the patient Continue to monitor telemetry Past Medical History Past Medical History: COPD, Deep Vein Thrombosis (DVT), Hypertension, Osteoarthritis (OA), Prostate Disorder, Sleep Apnea/CPAP/BIPAP Additional Past Medical History / Comment(s): BACK PAIN,SCOLIOSIS,DDD, HIATAL HERNIA.STRIGHT CATHS 2-3 TIMES PER DAY, RECENTLY ON ABX FOR COUGH AND STATED HAD DIARRHEA WHILE ON THEN BUT IT STOPPED ON SAT 10/25/16, Home 02 3-4L. Prostate CA w/radiation History of Any Multi-Drug Resistant Organisms: None Reported Past Surgical History: Tonsillectomy Additional Past Surgical History / Comment(s): COLONOSCOPY, HEMORRHOIDECTOMY Past Anesthesia/Blood Transfusion Reactions: Postoperative Nausea & Vomiting (PONV) Additional Past Anesthesia/Blood Transfusion Reaction / Comment(s): TAKES A BIT TO WAKE UP Smoking Status: Former smoker - Past Family History Father History Unknown: Yes Family Medical History: Congestive Heart Failure (CHF) Mother History Unknown: Yes Additional Family Medical History / Comment(s): IN HER SLEEP "NATRUAL CAUSES" Medications and Allergies Home Medications Medication Instructions Recorded Confirmed Type Budesonide/Formoterol Fumarate 2 puff INHALATION RT-BID 09/22/16 05/05/20 History [Symbicort 160-4.5 Mcg Inhaler] Pantoprazole Sodium [Protonix] 40 mg PO BID-W/MEALS 09/22/16 05/05/20 History Tiotropium [place] [Spiriva] 18 mcg INHALATION RT-DAILY 09/22/16 05/05/20 History Furosemide [Lasix] 40 mg PO BID 10/27/16 05/05/20 History Acetaminophen [Tylenol] 650 mg PO Q6H 04/17/20 05/05/20 History Albuterol Inhaler [Ventolin Hfa 1 puff INHALATION RT-Q6H PRN 04/17/20 05/05/20 History Inhaler] Albuterol Nebulized [Ventolin 2.5 mg INHALATION RT-Q4H PRN 04/17/20 05/05/20 History Nebulized] Cholecalciferol [Vitamin D3 (25 2,000 unit PO DAILY 04/17/20 05/05/20 History Mcg = 1000 Iu)] Ferrous Sulfate [Iron (65 MG 325 mg PO DAILY 04/17/20 05/05/20 History Elemental)] Fluticasone Nasal [place] [Flonase 1 spray EA NOSTRIL BID PRN 04/17/20 05/05/20 History Nasal [place]] Lidocaine 5% Patch [Lidoderm 5% 1 patch TOPICAL DAILY PRN 04/17/20 05/05/20 History Patch] Metoprolol Tartrate [Lopressor] 25 mg PO BID 04/17/20 05/05/20 History Rivaroxaban [Xarelto] 20 mg PO DAILY 04/17/20 05/05/20 History Verapamil Sr [Isoptin Sr] 240 mg PO DAILY #30 tablet.er 04/19/20 05/05/20 Rx Potassium Chloride ER [K-Dur 20] 20 meq PO DAILY 30 Days #30 04/23/20 05/05/20 Rx tab.er.prt SILVER sulfADIAZINE CREAM 1 applic TOPICAL DAILY 30 Days #1 04/23/20 05/05/20 Rx [Silvadene Cream] applic Terbinafine [LamISIL] 250 mg PO DAILY #30 tablet 04/23/20 05/05/20 Rx Thiamine [Vitamin B-1] 100 mg PO BID-W/MEALS 30 Days #60 04/23/20 05/05/20 Rx tab predniSONE See Taper PO DAILY 05/05/20 05/05/20 History Allergies Allergy/AdvReac Type Severity Reaction Status Date / Time No Known Allergies Allergy Verified 05/05/20 10:00 Physical Exam Vitals: Vital Signs Temp Pulse Pulse Resp BP BP Pulse Ox 05/06/20 08:47 82 05/06/20 08:34 83 96 05/06/20 08:00 97.0 F L 84 20 155/93 98 05/06/20 04:00 98.2 F 73 18 162/95 96 05/06/20 00:00 98.1 F 69 20 159/98 98 05/05/20 20:24 84 05/05/20 20:09 80 05/05/20 20:00 97.7 F 85 20 169/92 95 05/05/20 16:32 82 05/05/20 16:15 84 95 05/05/20 15:13 98.0 F 84 20 141/84 96 05/05/20 13:23 98.6 F 128 H 22 134/98 95 05/05/20 12:13 141 H 20 115/93 95 Intake and Output 05/05/20 05/06/20 05/06/20 22:59 06:59 14:59 Intake Total 335.167 240 Balance 335.167 240 Intake: Intake, IV Titration 95.167 Amount Diltiazem 125 mg In 95.167 Sodium Chloride 0.9% 100 ml @ 5 MG/HR 5 mls/hr IV .Q24H [facility] Rx#:[id number] Oral 240 240 Other: Voiding Method Toilet Toilet # Voids 1 1 Weight 98 kg 98.5 kg Results 05/05/20 11:45 05/06/20 08:34 Cardiac Enzymes 05/05/20 05/05/20 05/05/20 Range/Units 11:45 11:45 14:20 AST 39 (17-59) U/L Troponin I 0.014 0.013 (0.000-0.034) ng/mL 05/05/20 Range/Units 17:17 AST (17-59) U/L Troponin I <0.012 (0.000-0.034) ng/mL Coagulation 05/05/20 Range/Units 11:45 PT 10.7 (9.0-12.0) sec APTT 25.5 (22.0-30.0) sec Lipids 05/05/20 Range/Units 11:45 Triglycerides 182 H (<150) mg/dL Cholesterol 204 H (<200) mg/dL HDL Cholesterol 88 H (40-60) mg/dL CBC 05/05/20 Range/Units 11:45 WBC 13.2 H (3.8-10.6) k/uL RBC 4.30 (4.30-5.90) m/uL Hgb 14.3 (13.0-17.5) gm/dL Hct 44.0 (39.0-53.0) % Plt Count 279 (150-450) k/uL Comprehensive Metabolic Panel 05/05/20 05/06/20 Range/Units 11:45 08:34 Sodium 134 L 135 L (137-145) mmol/L Potassium 4.6 4.6 (3.5-5.1) mmol/L Chloride 97 L 97 L (98-107) mmol/L Carbon Dioxide 28 30 (22-30) mmol/L BUN 35 H 38 H (9-20) mg/dL Creatinine 1.53 H 1.36 H (0.66-1.25) mg/dL Glucose 126 H 118 H (74-99) mg/dL Calcium 8.5 8.5 (8.4-10.2) mg/dL AST 39 (17-59) U/L ALT 26 (4-49) U/L Alkaline Phosphatase 60 (38-126) U/L Total Protein 6.6 (6.3-8.2) g/dL Albumin 3.6 (3.5-5.0) g/dL Current Medications Generic Name Dose Route Start Last Admin Trade Name Freq PRN Reason Stop Dose Admin Acetaminophen 650 mg 05/05/20 15:45 Acetaminophen Tab 325 Mg Tab PO Q6H PRN Mild pain Hydrocodone Bitart/Acetaminophen 1 each 05/05/20 15:46 05/06/20 09:23 Hydrocodone/Apap 7.5-325mg 1 Each Tab PO 1 each Q6H PRN Administration Pain Albuterol/Ipratropium 3 ml 05/05/20 15:43 Ipratropium-Albuterol 3 Ml Neb INHALATION RT-QID PRN Shortness Of Breath Or Wheezing Albuterol/Ipratropium 3 ml 05/05/20 16:00 05/06/20 08:34 Ipratropium-Albuterol 3 Ml Neb INHALATION 3 ml RT-QID CHAU Administration Aspirin 81 mg 05/07/20 09:00 Aspirin 325 Mg Tab PO DAILY [facility] Atorvastatin Calcium 20 mg 05/06/20 21:00 Atorvastatin 20 Mg Tab PO HS [facility] Budesonide/Formoterol Fumarate 2 puff 05/05/20 20:00 05/06/20 08:34 Symbicort 160-4.5 Mcg Inhaler INHALATION 2 puff RT-BID CHAU Administration Hydromorphone HCl 1 mg 05/05/20 12:23 05/06/20 04:30 Hydromorphone 1 Mg/Ml 1 Ml Syringe IVP 1 mg Q4HR PRN Administration Pain Sodium Chloride 1,000 mls @ 75 mls/hr 05/05/20 15:45 05/06/20 07:02 Saline 0.9% IV 75 mls/hr .[id number] CHAU Administration Lidocaine 1 patch 05/05/20 15:41 Lidocaine 5% Patch TOPICAL DAILY PRN Pain Metoprolol Tartrate 50 mg 05/06/20 09:00 05/06/20 09:24 Metoprolol Tartrate 50 Mg Tab PO 50 mg BID [facility] Administration Nitroglycerin 0.4 mg 05/05/20 12:20 Nitroglycerin Sl Tabs 0.4 Mg Tab SUBLINGUAL Q5M PRN Chest Pain Pantoprazole Sodium 40 mg 05/05/20 17:30 05/06/20 07:01 Pantoprazole 40 Mg Tablet PO 40 mg BID-W/MEALS [facility] Administration Polyethylene Glycol 17 gm 05/05/20 15:47 Polyethylene Glycol 3350 17 Gm Powd.Pack PO DAILY PRN Constipation Prednisone 40 mg 05/05/20 15:45 05/06/20 09:23 Prednisone 20 Mg Tab PO 40 mg DAILY [facility] Administration Rivaroxaban 20 mg 05/06/20 09:00 05/06/20 09:23 Rivaroxaban 20 Mg Tab PO 20 mg DAILY [facility] Administration Silver Sulfadiazine 1 applic 05/06/20 09:00 05/06/20 09:24 Silver Sulfadiazine 1% Cream 25 Gm Tube TOPICAL 1 applic DAILY [facility] Administration Terbinafine HCl 250 mg 05/06/20 09:00 05/06/20 09:27 Terbinafine 250 Mg Tab PO 250 mg DAILY [facility] Administration Thiamine HCl 100 mg 05/05/20 17:30 05/06/20 07:01 Thiamine 100 Mg Tab PO 100 mg BID-W/MEALS CHAU Administration Intake and Output 05/05/20 05/06/20 05/06/20 22:59 06:59 14:59 Intake Total 335.167 240 Balance 335.167 240 Intake: Intake, IV Titration 95.167 Amount Diltiazem 125 mg In 95.167 Sodium Chloride 0.9% 100 ml @ 5 MG/HR 5 mls/hr IV .Q24H [facility] Rx#:[id number] Oral 240 240 Other: Voiding Method Toilet Toilet # Voids 1 1 Weight 98 kg 98.5 kg 05/05/20 11:45 05/06/20 08:34
[2020-05-06] MEDS: ATORVASTATIN 20 MG TAB PO SCH (23:22)
[2020-05-07] MEDS: HYDROcodone/APAP 7.5-325MG 1 EACH TAB PO PRN ×3 (03:33→21:12)
[2020-05-07 06:50] LABS: Calcium 8.2 mg/dL (8.4-10.2); Potassium 4.3 mmol/L (3.5-5.1)
[2020-05-07] MEDS: THIAMINE 100 MG TAB PO SCH ×2 (07:12→17:22)
[2020-05-07] MEDS: PANTOPRAZOLE 40 MG TABLET PO SCH ×2 (07:12→17:22)
[2020-05-07] MEDS: IPRATROPIUM-ALBUTEROL 3 ML NEB INHALATION SCH ×5 (09:00→21:56)
[2020-05-07] MEDS: SYMBICORT 160-4.5 MCG INHALER INHALATION SCH ×3 (09:00→21:56)
[2020-05-07] MEDS: ASPIRIN 81 MG PO SCH (09:28)
[2020-05-07] MEDS: TERBINAFINE 250 MG TAB PO SCH (09:28)
[2020-05-07] MEDS: HYDROmorphone 1 MG/ML 1 ML SYRINGE IVP PRN (09:28)
[2020-05-07] MEDS: predniSONE 20 MG TAB PO SCH (09:29)
[2020-05-07] MEDS: RIVAROXABAN 20 MG TAB PO SCH (09:29)
[2020-05-07] MEDS: METOPROLOL TARTRATE 50 MG TAB PO SCH ×2 (09:29→21:10)
[2020-05-07] MEDS ORDERED: FUROSEMIDE 10 MG/ML 2 ML VIAL IV STA (09:39)
[2020-05-07] MEDS ORDERED: SENNOSIDES 8.6 MG TAB PO PRN (09:40)
[2020-05-07] MEDS ORDERED: polyethylene glycoL 3350 17 GM POWD.PACK PO PRN (09:40)
--- NOTE | 2020-05-07 10:40 | XR ---
EXAMINATION TYPE: XR chest 1V DATE OF EXAM: 05/07/2020 CLINICAL HISTORY: Difficulty breathing and CHF progress study. TECHNIQUE: Single AP portable upright view of the chest is obtained. COMPARISON: Chest x-ray from 2 days earlier and older studies. FINDINGS: Background chronic parenchymal change without suspicious new focal airspace opacity, pleur al effusion, or pneumothorax seen bilaterally. Patchy bibasilar opacities redemonstrated. Stable mild cardiomegaly. Osseous structures remain intact. Hiatal hernia less well seen on current single view study. IMPRESSION: Chronic changes and mild cardiomegaly without new suspicious infiltrate or effusion. No n ew significant interstitial edema noted. Patchy bibasilar atelectasis and/or infiltrate remain stable .
--- NOTE | 2020-05-07 12:52 | P.PN ---
Subjective Patient is admitted after fall patient is found to have a burst fracture of L3 vertebral body, patient also has acute renal failure because of which patient is receiving IV fluids although patient does have some pedal edema once the creatinine improves IV fluids will be discontinued. Patient to be history of benign hypovolemia because of which I can't started him on IV fluids. A she is also on anti-correlation patient presented with atrial fibrillation with rapid ventricular rate patient is presently sinus rhythm Cardizem was discontinued in crease the dose of metoprolol from 25 to 50 twice a day. Cardiology will evaluate the patient. Patient was also treated for COPD exacerbation patient wheezing significantly improved. TLSO brace was ordered, PT and OT will evaluate the patient patient may need to be placed in subacute rehabitation. Patient apparently drinks about 1 pint of alcohol every day patient is on Ativan CIWA protocol patient does have tremor but doesn't have any alcohol withdrawals this to for his chronic. 05/07/2020 Patient respiratory status improved, patient heart rate is better controlled and presently sinus rhythm with the rate well controlled serum creatinine improved with a sodium has worsened patient does have segment pedal edema. Give a dose of Lasix and see how his sodium responds. IV fluids were discontinued. And patient is still having significant pain in the back and using Dilaudid frequently patient is awaiting for TLSO brace. PT and OT will evaluate the patient Constitutional: Denied any fatigue denied any fever. Still has pain in the back Cardio vascular: denied any chest pain, palpitations Gastrointestinal denied any nausea vomiting Pulmonary: Shortness of breath significantly improved Neurologic denied any new focal deficits All inpatient medications were reviewed and appropriate changes in these medications as dictated in the interval history and assessment and plan. Objective - Vital Signs Vital signs: Vital Signs Temp 98.1 F 05/07/20 08:00 Pulse 88 05/07/20 12:24 Resp 20 05/07/20 08:00 BP 156/93 05/07/20 08:00 Pulse Ox 95 05/07/20 08:00 Intake & Output 05/06/20 05/07/20 05/07/20 18:59 06:59 18:59 Intake Total 720 Output Total 800 300 Balance -80 -300 Weight 102 kg Intake: Oral 720 Output: Urine 800 300 Other: Voiding Method Toilet Toilet # Voids 3 - Exam PHYSICAL EXAMINATION: GENERAL: The patient is alert and oriented x3, not in any acute distress. Well developed, well nourished. Obese HEENT: Pupils are round and equally reacting to light. EOMI. No scleral icterus. No conjunctival pallor. Normocephalic, atraumatic. No pharyngeal erythema. No thyromegaly. CARDIOVASCULAR: S1 and S2 present. No murmurs, rubs, or gallops. Sinus rhythm rate controlled PULMONARY: Wheezing did improve ABDOMEN: Soft, nontender, nondistended, normoactive bowel sounds. No palpable organomegaly. MUSCULOSKELETAL: No joint swelling or deformity. EXTREMITIES: No cyanosis, clubbing, extensive pedal edema NEUROLOGICAL: Gross neurological examination did not reveal any focal deficits. SKIN: No rashes. - Labs CBC & Chem 7: 05/05/20 11:45 05/07/20 06:12 Labs: Abnormal Lab Results - Last 24 Hours (Table) 05/07/20 Range/Units 06:12 Sodium 132 L (137-145) mmol/L Carbon Dioxide 32 H (22-30) mmol/L BUN 34 H (9-20) mg/dL Calcium 8.2 L (8.4-10.2) mg/dL Assessment and Plan Plan: -Burst fracture of the lumbar vertebrae: PT and OT will be consulted and we'll order TLSO brace. Unfortunately we cannot use any NSAIDs for pain patient is on Dilaudid and [place] for pain. -COPD with acute exacerbation patient was started on 40 mg of oral steroids along with the continuation of inhalational treatments. Improved respiratory status -Acute on chronic hypercapnic respiratory failure secondary to COPD -Atrial fibrillation, paroxysmal patient will be continued on anticoagulation, aphasia and is presently on metoprolol. Patient presently appears sinus rhythm -History of DVT in the past - benign prostatic hypertrophy -Sleep apnea: Continue with CPAP machine -Mild pulmonary hypertension -Peripheral edema chronic -Acute renal failure secondary to diuretics, with IV fluids -Mild hyponatremia for worsened with IV fluids, will give a dose of Lasix and see if that improves his serum sodium. -Alcohol abuse: Patient will be monitored for alcohol withdrawals
--- NOTE | 2020-05-07 14:37 | P.PN ---
Subjective Progress Note Date: 05/07/20 Patient is a 69-year-old male with a history of COPD on home oxygen, DVT for which he takes Xarelto who presented with weakness. Patient also has a history of prior nicotine dependence, hypertension, and EtOH use. Patient presented to the hospital after he experienced a fall in his kitchen. According to the patient, he had been extremely weak at home. On arrival to the emergency room patient was afebrile, heart rate in the 90s, blood pressure 135/80, oxygen saturation 95% on 4 L of oxygen. His EKG showed atrial fibrillation with a rapid ventricular response and incomplete right bundle branch block pattern, rate of 143. Patient since converted to normal sinus rhythm, continues to be in a normal sinus rhythm with a right bundle branch block pattern. Patient does have vertebral fracture for which conservative therapy was recommended, patient is awaiting a brace for that. He also had a recent echocardiogram with Doppler study performed which revealed an ejection fraction of 50%, moderate mitral regurgitation. Patient was seen and examined this morning, he was complaining of moderate to severe pain in his back. His breathing was overall stable. He denied any chest discomfort. Remains in normal sinus rhythm this morning. Blood pressure 138/80 with a heart rate in the 80s, 97% on 3 L of oxygen. Sodium 132, potassium 4.3, BUN 34 and creatinine 1.2. Objective - Vital Signs Vital signs: Vital Signs Temp 98.1 F 05/07/20 08:00 Pulse 88 05/07/20 12:24 Resp 20 05/07/20 08:00 BP 156/93 05/07/20 08:00 Pulse Ox 95 05/07/20 08:00 Intake & Output 05/06/20 05/07/20 05/07/20 18:59 06:59 18:59 Intake Total 720 Output Total 800 300 Balance -80 -300 Weight 102 kg Intake: Oral 720 Output: Urine 800 300 Other: Voiding Method Toilet Toilet # Voids 3 - Exam Patient seen and examined sitting up at the side of the bed, intermittent severe back pain Lungs with diffuse wheezing bilaterally Heart S1 S2 1 systolic murmur is heard No JVD 1+ lower extremity edema bilaterally - Labs CBC & Chem 7: 05/05/20 11:45 05/07/20 06:12 Labs: Abnormal Lab Results - Last 24 Hours (Table) 05/07/20 Range/Units 06:12 Sodium 132 L (137-145) mmol/L Carbon Dioxide 32 H (22-30) mmol/L BUN 34 H (9-20) mg/dL Calcium 8.2 L (8.4-10.2) mg/dL Assessment and Plan Plan: IMPRESSION / ASSESSMENT: #1 paroxysmal atrial fibrillation with RVR, currently in sinus rhythm, on Xarelto #2 nondisplaced burst fracture of the mid and left thirds of the L3 vertebral body, or so following, recommends conservative treatment and a brace at this time #3 symptoms of weakness #4 COPD on home oxygen #5 history of DVT on Xarelto #6 hypertension #7 daily alcohol use #8 acute kidney injury improved #9 dyslipidemia #10 recent echocardiogram showing EF 50% with moderate MR Plan From cardiology's perspective we will continue current dose of metoprolol along with Xarelto for anticoagulation. DNP note has been reviewed, I agree with a documented findings and plan of care. Patient was seen and examined.
[2020-05-07] MEDS: SODIUM CHLORIDE 0.9% 1,000 ML IV SCH (15:15)
--- NOTE | 2020-05-07 17:01 | P.PN ---
Subjective Progress Note Date: 05/07/20 This patient is a 69-year-old male with past medical history of COPD, atrial fibrillation, acute renal failure, and alcohol abuse that presented to [facility] emergency department yesterday with complaints of low back pain. The patient states he sustained a fall on Thursday04/30/20. The fall was from ground height. Patient states he is unsure what happened, he believes he may have tripped over his toes, he is unsure. He states he woke up on the ground, and called his children for assistance. He states his low back pain worsened over the past few days, therefore he presented to [facility] emergency department for evaluation. X-rays and computed tomography scan of the lumbar spine in the emergency department revealed an L3 burst fracture. Patient was also found to be in atrial fibrillation with RVR in the emergency department, therefore the patient was admitted under the care of the internal medicine with a consult placed to orthopedic surgery for the L3 burst fracture. At the time exam, the patient is complaining of isolated low back pain. He states his pain has improved with medication. He denies numbness or tingling of the bilateral lower extremities. Denies weakness of the bilateral lower extremities. Denies bowel or bladder dysfunction. He does note mild tingling in his toes, although he states this is chronic and has been present for about 6-8 months. He states this is not new since his fall. He denies any additional complaints today. Vital signs stable. 05/07/20: Patient is seen and examined bedside. He states the pain in his back is well-controlled if he does not move. He has not yet obtained his LSO brace. He has no new complaints today in regards to his L3 burst fracture. Denies any new numbness, tingling, weakness of his bilateral lower extremities. Objective - Vital Signs Vital signs: Vital Signs Temp 98.1 F 05/07/20 08:00 Pulse 84 05/07/20 16:18 Resp 20 05/07/20 16:00 BP 134/75 05/07/20 12:00 Pulse Ox 93 L 05/07/20 12:00 Intake & Output 05/06/20 05/07/20 05/07/20 18:59 06:59 18:59 Intake Total 720 240 Output Total 800 700 Balance -80 -460 Weight 102 kg Intake: Oral 720 240 Output: Urine 800 700 Other: Voiding Method Toilet Toilet # Voids 3 - Exam On examination, the patient is sitting up in the bed in no apparent distress. He is alert and oriented 3. On inspection of the low back, there is no ecchymosis, erythema, skin discoloration. There are no open wounds or lacerations. There is no pain on palpation of the cervical or thoracic spine. There is moderate pain on palpation of the fracture site. Full strength of his bilateral lower extremities, sensory function subjectively intact. The bilateral extremities are warm and well-perfused with brisk capillary refill distally. Calves are soft and nontender bilaterally. - Labs CBC & Chem 7: 05/05/20 11:45 05/07/20 06:12 Labs: Abnormal Lab Results - Last 24 Hours (Table) 05/07/20 Range/Units 06:12 Sodium 132 L (137-145) mmol/L Carbon Dioxide 32 H (22-30) mmol/L BUN 34 H (9-20) mg/dL Calcium 8.2 L (8.4-10.2) mg/dL Assessment and Plan Assessment: Nondisplaced L3 burst fracture Plan: Recommended continuing with conservative treatment at this time. Patient is currently awaiting LSO brace. Once the patient obtains the brace, he may ambulate and mobilize as tolerated. Up with a walker or cane, up with assist only. Fall precautions. Pain management per admitting team. We will continue to follow the patient as he remains inpatient and make recommendations as needed. He may follow-up with Dr. Wing on an outpatient basis 2 weeks following discharge. Patient was discussed with Dr. Peng.
[2020-05-07] MEDS: traMADol 50 MG TAB PO PRN (17:22)
[2020-05-07] MEDS: ATORVASTATIN 20 MG TAB PO SCH (21:10)
[2020-05-08] MEDS: PANTOPRAZOLE 40 MG TABLET PO SCH ×2 (05:37→17:21)
[2020-05-08] MEDS: HYDROcodone/APAP 7.5-325MG 1 EACH TAB PO PRN ×2 (05:37→20:33)
[2020-05-08] MEDS: THIAMINE 100 MG TAB PO SCH ×2 (05:37→17:21)
[2020-05-08 07:57] LABS: Calcium 8.6 mg/dL (8.4-10.2); Potassium 4.1 mmol/L (3.5-5.1)
[2020-05-08] MEDS: SYMBICORT 160-4.5 MCG INHALER INHALATION SCH ×2 (08:19→20:37)
[2020-05-08] MEDS: IPRATROPIUM-ALBUTEROL 3 ML NEB INHALATION SCH ×4 (08:19→20:37)
[2020-05-08] MEDS: ASPIRIN 81 MG PO SCH (08:55)
[2020-05-08] MEDS: predniSONE 20 MG TAB PO SCH (08:55)
[2020-05-08] MEDS: METOPROLOL TARTRATE 50 MG TAB PO SCH ×2 (08:55→20:33)
[2020-05-08] MEDS: TERBINAFINE 250 MG TAB PO SCH (08:56)
[2020-05-08] MEDS: traMADol 50 MG TAB PO PRN (08:56)
[2020-05-08] MEDS: RIVAROXABAN 20 MG TAB PO SCH (08:56)
[2020-05-08] MEDS ORDERED: FUROSEMIDE 10 MG/ML 4 ML VIAL IV STA (08:58)
--- NOTE | 2020-05-08 10:31 | P.PN ---
Subjective Patient is admitted after fall patient is found to have a burst fracture of L3 vertebral body, patient also has acute renal failure because of which patient is receiving IV fluids although patient does have some pedal edema once the creatinine improves IV fluids will be discontinued. Patient to be history of benign hypovolemia because of which I can't started him on IV fluids. A she is also on anti-correlation patient presented with atrial fibrillation with rapid ventricular rate patient is presently sinus rhythm Cardizem was discontinued in crease the dose of metoprolol from 25 to 50 twice a day. Cardiology will evaluate the patient. Patient was also treated for COPD exacerbation patient wheezing significantly improved. TLSO brace was ordered, PT and OT will evaluate the patient patient may need to be placed in subacute rehabitation. Patient apparently drinks about 1 pint of alcohol every day patient is on Ativan CIWA protocol patient does have tremor but doesn't have any alcohol withdrawals this to for his chronic. 05/07/2020 Patient respiratory status improved, patient heart rate is better controlled and presently sinus rhythm with the rate well controlled serum creatinine improved with a sodium has worsened patient does have segment pedal edema. Give a dose of Lasix and see how his sodium responds. IV fluids were discontinued. And patient is still having significant pain in the back and using Dilaudid frequently patient is awaiting for TLSO brace. PT and OT will evaluate the patient 05/08/2020 Patient serum sodium improved with IV Lasix. Patient has significant edema which is much worse, patient the has some questions about how to use a brace. Possibly of discharge tomorrow. Constitutional: Denied any fatigue denied any fever. Still has pain in the back Cardio vascular: denied any chest pain, palpitations Gastrointestinal denied any nausea vomiting Pulmonary: Shortness of breath significantly improved Neurologic denied any new focal deficits All inpatient medications were reviewed and appropriate changes in these medications as dictated in the interval history and assessment and plan. Objective - Vital Signs Vital signs: Vital Signs Temp 98.1 F 05/08/20 04:46 Pulse 92 05/08/20 08:37 Resp 18 05/08/20 04:46 BP 171/94 05/08/20 04:46 Pulse Ox 94 L 05/08/20 04:46 Intake & Output 05/07/20 05/08/20 05/08/20 18:59 06:59 18:59 Intake Total 720 240 Output Total 700 500 Balance 20 -500 240 Weight 102 kg Intake: Oral 720 240 Output: Urine 700 500 Other: Voiding Method Toilet - Exam PHYSICAL EXAMINATION: GENERAL: The patient is alert and oriented x3, not in any acute distress. Well developed, well nourished. Obese HEENT: Pupils are round and equally reacting to light. EOMI. No scleral icterus. No conjunctival pallor. Normocephalic, atraumatic. No pharyngeal erythema. No thyromegaly. CARDIOVASCULAR: S1 and S2 present. No murmurs, rubs, or gallops. Sinus rhythm rate controlled PULMONARY: Wheezing did improve ABDOMEN: Soft, nontender, nondistended, normoactive bowel sounds. No palpable organomegaly. MUSCULOSKELETAL: No joint swelling or deformity. EXTREMITIES: No cyanosis, clubbing, extensive pedal edema NEUROLOGICAL: Gross neurological examination did not reveal any focal deficits. SKIN: No rashes. - Labs CBC & Chem 7: 05/05/20 11:45 05/08/20 07:09 Labs: Abnormal Lab Results - Last 24 Hours (Table) 05/08/20 Range/Units 07:09 Sodium 134 L (137-145) mmol/L Chloride 97 L (98-107) mmol/L Carbon Dioxide 34 H (22-30) mmol/L BUN 35 H (9-20) mg/dL Assessment and Plan Plan: -Burst fracture of the lumbar vertebrae: PT and OT will be consulted and we'll order TLSO brace. Unfortunately we cannot use any NSAIDs for pain patient is on Dilaudid and [place] for pain. -COPD with acute exacerbation patient was started on 40 mg of oral steroids along with the continuation of inhalational treatments. Improved respiratory status -Acute on chronic hypercapnic respiratory failure secondary to COPD -Atrial fibrillation, paroxysmal patient will be continued on anticoagulation, aphasia and is presently on metoprolol. Patient presently appears sinus rhythm -History of DVT in the past - benign prostatic hypertrophy -Sleep apnea: Continue with CPAP machine -Mild pulmonary hypertension -Peripheral edema chronic -Acute renal failure believed to be secondary to excessive diuresis now improved patient was resumed on not diuretic because of extensive pedal edema. -Mild hyponatremia for worsened with IV fluids, will give a dose of Lasix and see if that improves his serum sodium. -Alcohol abuse: Patient will be monitored for alcohol withdrawals
[2020-05-08] MEDS: HYDROmorphone 1 MG/ML 1 ML SYRINGE IVP PRN ×2 (12:32→17:21)
--- NOTE | 2020-05-08 14:39 | P.PN ---
Subjective Progress Note Date: 05/08/20 Patient is a 69-year-old male with a history of COPD on home oxygen, DVT for which he takes Xarelto who presented with weakness. Patient also has a history of prior nicotine dependence, hypertension, and EtOH use. Patient presented to the hospital after he experienced a fall in his kitchen. According to the patient, he had been extremely weak at home. On arrival to the emergency room patient was afebrile, heart rate in the 90s, blood pressure 135/80, oxygen saturation 95% on 4 L of oxygen. His EKG showed atrial fibrillation with a rapid ventricular response and incomplete right bundle branch block pattern, rate of 143. Patient since converted to normal sinus rhythm, continues to be in a normal sinus rhythm with a right bundle branch block pattern. Patient does have vertebral fracture for which conservative therapy was recommended, patient is awaiting a brace for that. He also had a recent echocardiogram with Doppler study performed which revealed an ejection fraction of 50%, moderate mitral regurgitation. Patient was seen and examined this morning, he was complaining of moderate to severe pain in his back. His breathing was overall stable. He denied any chest discomfort. Remains in normal sinus rhythm this morning. Blood pressure 138/80 with a heart rate in the 80s, 97% on 3 L of oxygen. Sodium 132, potassium 4.3, BUN 34 and creatinine 1.2. 05/08/2020 Patient seen and examined this morning overall her breathing is improving as well as his edema. Continues to have back pain, continues to be in a normal sinus rhythm. Sodium 134, potassium 4.1, BUN 35, creatinine 1.2. Objective - Vital Signs Vital signs: Vital Signs Temp 98.2 F 05/08/20 08:00 Pulse 84 05/08/20 12:17 Resp 20 05/08/20 08:00 BP 153/67 05/08/20 08:00 Pulse Ox 95 05/08/20 08:00 Intake & Output 05/07/20 05/08/20 05/08/20 18:59 06:59 18:59 Intake Total 720 240 Output Total 700 500 Balance 20 -500 240 Weight 102 kg Intake: Oral 720 240 Output: Urine 700 500 Other: Voiding Method Toilet - Exam Patient seen and examined sitting up at the side of the bed, intermittent severe back pain Lungs with diffuse wheezing bilaterally Heart S1 S2 1 systolic murmur is heard No JVD 1+ lower extremity edema bilaterally - Labs CBC & Chem 7: 05/05/20 11:45 05/08/20 07:09 Labs: Abnormal Lab Results - Last 24 Hours (Table) 05/08/20 Range/Units 07:09 Sodium 134 L (137-145) mmol/L Chloride 97 L (98-107) mmol/L Carbon Dioxide 34 H (22-30) mmol/L BUN 35 H (9-20) mg/dL Assessment and Plan Plan: IMPRESSION / ASSESSMENT: #1 paroxysmal atrial fibrillation with RVR, currently in sinus rhythm, on Xarelto #2 nondisplaced burst fracture of the mid and left thirds of the L3 vertebral body, or so following, recommends conservative treatment and a brace at this time #3 symptoms of weakness #4 COPD on home oxygen #5 history of DVT on Xarelto #6 hypertension #7 daily alcohol use #8 acute kidney injury improved #9 dyslipidemia #10 recent echocardiogram showing EF 50% with moderate MR Plan From cardiology's perspective we will continue current dose of metoprolol along with Xarelto for anticoagulation. We will follow this patient along with you now on an as-needed basis only, please don't hesitate to call with any questions. DNP note has been reviewed, I agree with a documented findings and plan of care. Patient was seen and examined.
[2020-05-08] MEDS ORDERED: FUROSEMIDE 40 MG TAB PO SCH (16:00)
[2020-05-08] MEDS: FUROSEMIDE 10 MG/ML 4 ML VIAL IV SCH (20:33)
[2020-05-08] MEDS: ATORVASTATIN 20 MG TAB PO SCH (20:33)
[2020-05-09] MEDS: THIAMINE 100 MG TAB PO SCH ×2 (04:27→15:17)
[2020-05-09] MEDS: HYDROcodone/APAP 7.5-325MG 1 EACH TAB PO PRN ×3 (04:27→22:11)
[2020-05-09] MEDS: PANTOPRAZOLE 40 MG TABLET PO SCH ×2 (04:27→15:17)
[2020-05-09 06:02] LABS: Glucose,Whole Blood 89 mg/dL (75-99)
[2020-05-09 08:02] LABS: Calcium 8.5 mg/dL (8.4-10.2)
[2020-05-09] MEDS: SYMBICORT 160-4.5 MCG INHALER INHALATION SCH ×2 (08:31→19:55)
[2020-05-09] MEDS: IPRATROPIUM-ALBUTEROL 3 ML NEB INHALATION SCH ×4 (08:31→19:55)
[2020-05-09] MEDS: RIVAROXABAN 20 MG TAB PO SCH (08:44)
[2020-05-09] MEDS: ASPIRIN 81 MG PO SCH (08:44)
[2020-05-09] MEDS: TERBINAFINE 250 MG TAB PO SCH (08:45)
[2020-05-09] MEDS: predniSONE 20 MG TAB PO SCH (08:45)
[2020-05-09] MEDS: FUROSEMIDE 10 MG/ML 4 ML VIAL IV SCH ×2 (08:45→20:45)
[2020-05-09] MEDS: METOPROLOL TARTRATE 50 MG TAB PO SCH ×2 (08:45→20:45)
--- NOTE | 2020-05-09 10:07 | P.PN ---
Subjective Progress Note Date: 05/09/20 Patient is a 69-year-old male with a history of COPD on home oxygen, DVT for which he takes Xarelto who presented with weakness. Patient also has a history of prior nicotine dependence, hypertension, and EtOH use. Patient presented to the hospital after he experienced a fall in his kitchen. According to the patient, he had been extremely weak at home. On arrival to the emergency room patient was afebrile, heart rate in the 90s, blood pressure 135/80, oxygen saturation 95% on 4 L of oxygen. His EKG showed atrial fibrillation with a rapid ventricular response and incomplete right bundle branch block pattern, rate of 143. Patient since converted to normal sinus rhythm, continues to be in a normal sinus rhythm with a right bundle branch block pattern. Patient does have vertebral fracture for which conservative therapy was recommended, patient is awaiting a brace for that. He also had a recent echocardiogram with Doppler study performed which revealed an ejection fraction of 50%, moderate mitral regurgitation. Patient was seen and examined this morning, he was complaining of moderate to severe pain in his back. His breathing was overall stable. He denied any chest discomfort. Remains in normal sinus rhythm this morning. Blood pressure 138/80 with a heart rate in the 80s, 97% on 3 L of oxygen. Sodium 132, potassium 4.3, BUN 34 and creatinine 1.2. 05/08/2020 Patient seen and examined this morning overall her breathing is improving as well as his edema. Continues to have back pain, continues to be in a normal sinus rhythm. Sodium 134, potassium 4.1, BUN 35, creatinine 1.2. 05/09/2020 Patient seen and examined this morning, he is sitting up in the chair at bedside, overall doing significantly better. Physical therapy was in to work with the patient this morning as well. Blood pressure this morning 122/60 with a heart rate in the 50s to 70s, 95% on 3 L of oxygen. Sodium 135, potassium 4.0, BUN 36, creatinine 1.2. Objective - Vital Signs Vital signs: Vital Signs Temp 97.9 F 05/09/20 04:00 Pulse 50 L 05/09/20 08:44 Resp 16 05/09/20 04:00 BP 122/67 05/09/20 04:00 Pulse Ox 95 05/09/20 04:00 Intake & Output 0905/09/20 05/09/20 18:59 06:59 18:59 Intake Total 480 240 120 Output Total 400 Balance 480 -160 120 Weight 101.6 kg Intake: Oral 480 240 120 Output: Urine 400 Other: Voiding Method Toilet # Voids 2 - Exam Patient seen and examined sitting up at the side of the bed, intermittent severe back pain Lungs with diffuse wheezing bilaterally Heart S1 S2 1 systolic murmur is heard No JVD 1+ lower extremity edema bilaterally - Labs CBC & Chem 7: 05/05/20 11:45 05/09/20 07:18 Labs: Abnormal Lab Results - Last 24 Hours (Table) 05/09/20 Range/Units 07:18 Sodium 135 L (137-145) mmol/L Chloride 97 L (98-107) mmol/L Carbon Dioxide 36 H (22-30) mmol/L BUN 36 H (9-20) mg/dL Assessment and Plan Plan: IMPRESSION / ASSESSMENT: #1 paroxysmal atrial fibrillation with RVR, currently in sinus rhythm, on Xarelto #2 nondisplaced burst fracture of the mid and left thirds of the L3 vertebral body, or so following, recommends conservative treatment and a brace at this time #3 symptoms of weakness #4 COPD on home oxygen #5 history of DVT on Xarelto #6 hypertension #7 daily alcohol use #8 acute kidney injury improved #9 dyslipidemia #10 recent echocardiogram showing EF 50% with moderate MR Plan From cardiology's perspective we will continue current dose of metoprolol along with Xarelto for anticoagulation. We will follow this patient along with you now on an as-needed basis only, please don't hesitate to call with any [place]uro[place] ions. DNP note has been reviewed, I agree with a documented findings and plan of care. Patient was seen and examined.
--- NOTE | 2020-05-09 10:09 | P.PN ---
Subjective Patient is admitted after fall patient is found to have a burst fracture of L3 vertebral body, patient also has acute renal failure because of which patient is receiving IV fluids although patient does have some pedal edema once the creatinine improves IV fluids will be discontinued. Patient to be history of benign hypovolemia because of which I can't started him on IV fluids. A she is also on anti-correlation patient presented with atrial fibrillation with rapid ventricular rate patient is presently sinus rhythm Cardizem was discontinued in crease the dose of metoprolol from 25 to 50 twice a day. Cardiology will evaluate the patient. Patient was also treated for COPD exacerbation patient wheezing significantly improved. TLSO brace was ordered, PT and OT will evaluate the patient patient may need to be placed in subacute rehabitation. Patient apparently drinks about 1 pint of alcohol every day patient is on Ativan CIWA protocol patient does have tremor but doesn't have any alcohol withdrawals this to for his chronic. 05/07/2020 Patient respiratory status improved, patient heart rate is better controlled and presently sinus rhythm with the rate well controlled serum creatinine improved with a sodium has worsened patient does have segment pedal edema. Give a dose of Lasix and see how his sodium responds. IV fluids were discontinued. And patient is still having significant pain in the back and using Dilaudid frequently patient is awaiting for TLSO brace. PT and OT will evaluate the patient 05/08/2020 Patient serum sodium improved with IV Lasix. Patient has significant edema which is much worse, patient the has some questions about how to use a brace. Possibly of discharge tomorrow. 05/09/2020 Patient still has edema concerned about edema because of which patient wanted to stay until the edema is better so we'll continue with IV Lasix for today. Possibly of discharge tomorrow. Patient declining subacute rehabilitation. Constitutional: Denied any fatigue denied any fever. Still has pain in the back Cardio vascular: denied any chest pain, palpitations Gastrointestinal denied any nausea vomiting Pulmonary: Shortness of breath significantly improved Neurologic denied any new focal deficits All inpatient medications were reviewed and appropriate changes in these medications as dictated in the interval history and assessment and plan. Objective - Vital Signs Vital signs: Vital Signs Temp 97.9 F 05/09/20 04:00 Pulse 50 L 05/09/20 08:44 Resp 16 05/09/20 04:00 BP 122/67 05/09/20 04:00 Pulse Ox 95 05/09/20 04:00 Intake & Output 05/08/20 05/09/20 05/09/20 18:59 06:59 18:59 Intake Total 480 240 120 Output Total 400 Balance 480 -160 120 Weight 101.6 kg Intake: Oral 480 240 120 Output: Urine 400 Other: Voiding Method Toilet # Voids 2 - Exam PHYSICAL EXAMINATION: GENERAL: The patient is alert and oriented x3, not in any acute distress. Well developed, well nourished. Obese HEENT: Pupils are round and equally reacting to light. EOMI. No scleral icterus. No conjunctival pallor. Normocephalic, atraumatic. No pharyngeal erythema. No thyromegaly. CARDIOVASCULAR: S1 and S2 present. No murmurs, rubs, or gallops. Sinus rhythm rate controlled PULMONARY: Wheezing did improve ABDOMEN: Soft, nontender, nondistended, normoactive bowel sounds. No palpable organomegaly. MUSCULOSKELETAL: No joint swelling or deformity. EXTREMITIES: No cyanosis, clubbing, still has pedal edema but improved compared to yesterday NEUROLOGICAL: Gross neurological examination did not reveal any focal deficits. SKIN: No rashes. - Labs CBC & Chem 7: 05/05/20 11:45 05/09/20 07:18 Labs: Abnormal Lab Results - Last 24 Hours (Table) 05/09/20 Range/Units 07:18 Sodium 135 L (137-145) mmol/L Chloride 97 L (98-107) mmol/L Carbon Dioxide 36 H (22-30) mmol/L BUN 36 H (9-20) mg/dL Assessment and Plan Plan: -Burst fracture of the lumbar vertebrae: PT and OT valuated and patient has TLSO brace. Unfortunately we cannot use any NSAIDs for pain patient is on Dilaudid and [place] for pain. -COPD with acute exacerbation patient was started on 40 mg of oral steroids along with the continuation of inhalational treatments. Improved respiratory status -Acute on chronic hypercapnic respiratory failure secondary to COPD -Atrial fibrillation, paroxysmal patient will be continued on anticoagulation, aphasia and is presently on metoprolol. Patient presently appears sinus rhythm -History of DVT in the past - benign prostatic hypertrophy -Sleep apnea: Continue with CPAP machine -Mild pulmonary hypertension -Peripheral edema chronic -Acute renal failure believed to be secondary to excessive diuresis now improved patient was resumed on diuretic because of extensive pedal edema. -Mild hyponatremia improved with the Lasix hypervolemic hyponatremia -Alcohol abuse: Patient will be monitored for alcohol withdrawals Patient will be discharged home with home care has his declining
--- NOTE | 2020-05-09 20:09 | P.PN ---
Subjective Progress Note Date: 05/09/20 This patient is a 69-year-old male with past medical history of COPD, atrial fibrillation, acute renal failure, and alcohol abuse that presented to [facility] emergency department yesterday with complaints of low back pain. The patient states he sustained a fall on Thursday04/30/20. The fall was from ground height. Patient states he is unsure what happened, he believes he may have tripped over his toes, he is unsure. He states he woke up on the ground, and called his children for assistance. He states his low back pain worsened over the past few days, therefore he presented to [facility] emergency department for evaluation. X-rays and computed tomography scan of the lumbar spine in the emergency department revealed an L3 burst fracture. Patient was also found to be in atrial fibrillation with RVR in the emergency department, therefore the patient was admitted under the care of the internal medicine with a consult placed to orthopedic surgery for the L3 burst fracture. At the time exam, the patient is complaining of isolated low back pain. He states his pain has improved with medication. He denies numbness or tingling of the bilateral lower extremities. Denies weakness of the bilateral lower extremities. Denies bowel or bladder dysfunction. He does note mild tingling in his toes, although he states this is chronic and has been present for about 6-8 months. He states this is not new since his fall. He denies any additional complaints today. Vital signs stable. 05/09/20: Patient is seen and examined bedside. He has his LSO brace, which is is unsure how to wear. He has questions regarding how to use it. He is complaining of bilateral lower extremity edema, which is being managed by internal medicine. He has no new complaints today in regards to his L3 burst fracture. He has been ambulating. Denies any new numbness, tingling, weakness of his bilateral lower extremities. Objective - Vital Signs Vital signs: Vital Signs Temp 97.8 F 05/09/20 15:00 Pulse 68 05/09/20 19:55 Resp 16 05/09/20 19:55 BP 134/80 05/09/20 15:00 Pulse Ox 96 05/09/20 15:00 Intake & Output 05/09/20 05/09/20 05/10/20 06:59 18:59 06:59 Intake Total 240 720 Output Total 400 Balance -160 720 Weight 101.6 kg Intake: Oral 240 720 Output: Urine 400 Other: Voiding Method Toilet - Exam On examination, the patient is sitting up in the bedside chair in no apparent distress. He is alert and oriented 3. On inspection of the low back, there is a lidocaine patch in place. There are no open wounds or lacerations. There is no pain on palpation of the cervical or thoracic spine. There is moderate pain on palpation of the fracture site. Full strength of his bilateral lower extremities, sensory function subjectively intact. The bilateral extremities are warm and well-perfused. Calves are soft and non tender bilaterally. Bilateral lower legs are wrapped in SHANDRA wraps. - Labs CBC & Chem 7: 05/05/20 11:45 05/09/20 07:18 Labs: Abnormal Lab Results - Last 24 Hours (Table) 05/09/20 Range/Units 07:18 Sodium 135 L (137-145) mmol/L Chloride 97 L (98-107) mmol/L Carbon Dioxide 36 H (22-30) mmol/L BUN 36 H (9-20) mg/dL Assessment and Plan Assessment: Nondisplaced L3 burst fracture Plan: - Recommended continuing with conservative treatment at this time. Patient has obtained LSO brace. He was instructed to wear the brace at all times while sitting upright, or at an angle greater than 45 degrees, and while working with physical therapy. He should wear the brace with ambulation. He does not have to wear the brace while lying in bed or bathing. - Patient may ambulate and mobilize as tolerated with the LSO brace. Up with a walker or cane, up with assist only. Fall precautions. - Pain management and medial management per admitting team. - Patient will follow-up with Dr. Wing on an outpatient basis 2 weeks following discharge.
[2020-05-09] MEDS: traMADol 50 MG TAB PO PRN (20:44)
[2020-05-09] MEDS: ATORVASTATIN 20 MG TAB PO SCH (20:45)
[2020-05-10] MEDS: HYDROmorphone 1 MG/ML 1 ML SYRINGE IVP PRN (01:06)
[2020-05-10] MEDS: THIAMINE 100 MG TAB PO SCH (06:12)
[2020-05-10] MEDS: HYDROcodone/APAP 7.5-325MG 1 EACH TAB PO PRN (06:12)
[2020-05-10] MEDS: PANTOPRAZOLE 40 MG TABLET PO SCH (06:12)
[2020-05-10] MEDS: IPRATROPIUM-ALBUTEROL 3 ML NEB INHALATION SCH ×2 (07:34→11:37)
[2020-05-10] MEDS: SYMBICORT 160-4.5 MCG INHALER INHALATION SCH (07:34)
[2020-05-10 08:24] VITALS: BP 121/76; RESP 23; TEMP 97.5
[2020-05-10 08:41] LABS: Calcium 8.7 mg/dL (8.4-10.2); Potassium 3.9 mmol/L (3.5-5.1)
[2020-05-10] MEDS: ASPIRIN 81 MG PO SCH (10:10)
[2020-05-10] MEDS: METOPROLOL TARTRATE 50 MG TAB PO SCH (10:11)
[2020-05-10] MEDS: predniSONE 20 MG TAB PO SCH (10:11)
[2020-05-10] MEDS: RIVAROXABAN 20 MG TAB PO SCH (10:13)
[2020-05-10] MEDS: traMADol 50 MG TAB PO PRN (10:13)
[2020-05-10] MEDS: FUROSEMIDE 10 MG/ML 4 ML VIAL IV SCH (10:15)
[2020-05-10] MEDS: TERBINAFINE 250 MG TAB PO SCH (10:15)
--- NOTE | 2020-05-10 10:34 | P.DS ---
Providers Date of admission: 05/05/20 12:21 Attending physician: Modesta Pan Consults: 05/05/20 12:20 Consult Physician Urgent Consulting Provider: Jose Eduardo Peng Consult Reason/Comments: L3 burst fracture Do you want consulting provider notified?: Yes 05/05/20 12:21 Consult Physician Urgent Consulting Provider: [facility] Consult Reason/Comments: A. fib with rapid ventricular response Do you want consulting provider notified?: Yes Primary care physician: [facility] Hospital Course: Patient is admitted after fall patient is found to have a burst fracture of L3 vertebral body, patient also has acute renal failure because of which patient is receiving IV fluids although patient does have some pedal edema once the creatinine improves IV fluids will be discontinued. Patient to be history of benign hypovolemia because of which I can't started him on IV fluids. A she is also on anti-correlation patient presented with atrial fibrillation with rapid ventricular rate patient is presently sinus rhythm Cardizem was discontinued increase the dose of metoprolol from 25 to 50 twice a day. Cardiology will evaluate the patient. Patient was also treated for COPD exacerbation patient wheezing significantly improved. TLSO brace was ordered, PT and OT will evaluate the patient patient may need to be placed in subacute rehabitation. Patient apparently drinks about 1 pint of alcohol every day patient is on Ativan CIWA protocol patient does have tremor but doesn't have any alcohol withdrawals this to for his chronic. 05/07/2020 Patient respiratory status improved, patient heart rate is better controlled and presently sinus rhythm with the rate well controlled serum creatinine improved with a sodium has worsened patient does have segment pedal edema. Give a dose of Lasix and see how his sodium responds. IV fluids were discontinued. And patient is still having significant pain in the back and using Dilaudid frequently patient is awaiting for TLSO brace. PT and OT will evaluate the patient 05/08/2020 Patient serum sodium improved with IV Lasix. Patient has significant edema which is much worse, patient the has some questions about how to use a brace. Possibly of discharge tomorrow. 05/09/2020 Patient still has edema concerned about edema because of which patient wanted to stay until the edema is better so we'll continue with IV Lasix for today. Possibly of discharge tomorrow. Patient declining subacute rehabilitation. 05/10/2020 Patient's peripheral edema improved significantly patient is otherwise clinically doing well is only requiring 2 L of oxygen here. Patient is not willing to go to subacute rehabilitation patient was discharged home with home care. PHYSICAL EXAMINATION: GENERAL: The patient is alert and oriented x3, not in any acute distress. Well developed, well nourished. Obese HEENT: Pupils are round and equally reacting to light. EOMI. No scleral icterus. No conjunctival pallor. Normocephalic, atraumatic. No pharyngeal erythema. No thyromegaly. CARDIOVASCULAR: S1 and S2 present. No murmurs, rubs, or gallops. Sinus rhythm rate controlled PULMONARY: Wheezing did improve ABDOMEN: Soft, nontender, nondistended, normoactive bowel sounds. No palpable organomegaly. MUSCULOSKELETAL: No joint swelling or deformity. EXTREMITIES: No cyanosis, clubbing, pedal edema improved NEUROLOGICAL: Gross neurological examination did not reveal any focal deficits. SKIN: No rashes. Assessment and Plan Plan: -Burst fracture of the lumbar vertebrae: Patient is mixed discharged to home with home care patient has TLSO brace. Unfortunately we cannot use any NSAIDs for pain patient is on Dilaudid and [place] for pain. -COPD with acute exacerbation patient will be discharged on weaning dose of steroids -Acute on chronic hypercapnic respiratory failure secondary to COPD -Atrial fibrillation, paroxysmal patient will be continued on anticoagulation, heart rate and is presently on metoprolol. Patient presently in sinus rhythm -History of DVT in the past - benign prostatic hypertrophy -Sleep apnea: Continue with CPAP machine -Mild pulmonary hypertension -Peripheral edema chronic -Acute renal failure improved and at his baseline of around 1.2. -Mild hyponatremia improved with the Lasix hypervolemic hyponatremia -Alcohol abuse: Counseling was provided Plan - Discharge Summary Discharge Rx Participant: No New Discharge Prescriptions: New Metoprolol Tartrate [Lopressor] 50 mg PO BID #30 tab predniSONE 10 mg PO DAILY #30 tab Continue Tiotropium [place] [Spiriva] 18 mcg INHALATION RT-DAILY Pantoprazole Sodium [Protonix] 40 mg PO BID-W/MEALS Budesonide/Formoterol Fumarate [Symbicort 160-4.5 Mcg Inhaler] 2 puff INHALATION RT-BID Furosemide [Lasix] 40 mg PO BID Acetaminophen [Tylenol] 650 mg PO Q6H Albuterol Inhaler [Ventolin Hfa Inhaler] 1 puff INHALATION RT-Q6H PRN PRN Reason: Shortness Of Breath Albuterol Nebulized [Ventolin Nebulized] 2.5 mg INHALATION RT-Q4H PRN PRN Reason: Shortness Of Breath Cholecalciferol [Vitamin D3 (25 Mcg = 1000 Iu)] 2,000 unit PO DAILY Fluticasone Nasal [place] [Flonase Nasal [place]] 1 spray EA NOSTRIL BID PRN PRN Reason: Allergies Lidocaine 5% Patch [Lidoderm 5% Patch] 1 patch TOPICAL DAILY PRN PRN Reason: Pain Rivaroxaban [Xarelto] 20 mg PO DAILY Ferrous Sulfate [Iron (65 MG Elemental)] 325 mg PO DAILY Potassium Chloride ER [K-Dur 20] 20 meq PO DAILY 30 Days #30 tab.er.prt SILVER sulfADIAZINE CREAM [Silvadene Cream] 1 applic TOPICAL DAILY 30 Days #1 applic Thiamine [Vitamin B-1] 100 mg PO BID-W/MEALS 30 Days #60 tab Terbinafine [LamISIL] 250 mg PO DAILY #30 tablet Discontinued Metoprolol Tartrate [Lopressor] 25 mg PO BID Verapamil Sr [Isoptin Sr] 240 mg PO DAILY #30 tablet.er predniSONE See Taper PO DAILY Discharge Medication List Budesonide/Formoterol Fumarate [Symbicort 160-4.5 Mcg Inhaler] 2 puff INHALATION RT-BID 09/22/16 [History] Pantoprazole Sodium [Protonix] 40 mg PO BID-W/MEALS 09/22/16 [History] Tiotropium [place] [Spiriva] 18 mcg INHALATION RT-DAILY 09/22/16 [History] Furosemide [Lasix] 40 mg PO BID 10/27/16 [History] Acetaminophen [Tylenol] 650 mg PO Q6H 04/17/20 [History] Albuterol Inhaler [Ventolin Hfa Inhaler] 1 puff INHALATION RT-Q6H PRN 04/17/20 [History] Albuterol Nebulized [Ventolin Nebulized] 2.5 mg INHALATION RT-Q4H PRN 04/17/20 [History] Cholecalciferol [Vitamin D3 (25 Mcg = 1000 Iu)] 2,000 unit PO DAILY 04/17/20 [History] Ferrous Sulfate [Iron (65 MG Elemental)] 325 mg PO DAILY 04/17/20 [History] Fluticasone Nasal [place] [Flonase Nasal [place]] 1 spray EA NOSTRIL BID PRN 04/17/20 [History] Lidocaine 5% Patch [Lidoderm 5% Patch] 1 patch TOPICAL DAILY PRN 04/17/20 [History] Rivaroxaban [Xarelto] 20 mg PO DAILY 04/17/20 [History] Potassium Chloride ER [K-Dur 20] 20 meq PO DAILY 30 Days #30 tab.er.prt 04/23/20 [Rx] SILVER sulfADIAZINE CREAM [Silvadene Cream] 1 applic TOPICAL DAILY 30 Days #1 applic 04/23/20 [Rx] Terbinafine [LamISIL] 250 mg PO DAILY #30 tablet 04/23/20 [Rx] Thiamine [Vitamin B-1] 100 mg PO BID-W/MEALS 30 Days #60 tab 04/23/20 [Rx] HYDROcodone/APAP 7.5-325MG [[place] 7.5-325] 1 each PO Q6H PRN #14 tab 05/10/20 [Rx] Metoprolol Tartrate [Lopressor] 50 mg PO BID #30 tab 05/10/20 [Rx] predniSONE 10 mg PO DAILY #30 tab 05/10/20 [Rx] traMADol HCl [Ultram] 50 mg PO QID PRN #14 tab 05/10/20 [Rx] Follow up Appointment(s)/Referral(s): Monica Wing DO [Doctor of Osteopathic Medicine] - 2 Weeks [facility] [Primary Care Provider] - 3 Days Activity/Diet/Wound Care/Special Instructions: Patient is to wear LSO brace while sitting upright or while sitting at greater than 45 angle. He is to wear the brace to with increased activity, ambulating, and while working with physical therapy. Patient does not have to wear the LSO brace while lying in bed or while bathing. Discharge Disposition: HOME WITH HOME HEALTH SERVICES
[2020-05-10 11:51] VITALS: PULSE 72
--- NOTE | 2020-05-11 12:45 | CDI ---
Documentation Clarification Form Date: 05/11/2020 11:34:00 AM From: Tete Walls Phone: If you have a question about this query, please contact Jennie Monroy Lines Tender at [phone] between 8am and 5pm Admit Date: 05/05/2020 12:21:00 PM Patient Name: Adalid Sorto Visit Number: [id number] Discharge Date: 05/10/2020 02:17:00 PM ATTENTION: The Clinical Documentation Specialists (CDI) and [employer] Coding Staff appreciate your assistance in clarifying documentation. Please respond to the clarification below the line at the bottom and electronically sign. The CDI & [employer] Coding staff will review the response and follow-up if needed. Please note: Queries are made part of the Legal Health Record. If you have any questions, please contact the author of this message via ITS. Dr. Modesta Pan Patient has been diagnosed with an L3 burst fracture. Per H and P "Patient has been chronically on steroieds which may have lead to osteoporosis and patient is found to have a burst fracture and nondisplaced fracture of mid and left third set of the L3 vertebral body. Please clarify if fracture was traumatic or pathologic. 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
== END 2020-05-10 14:17 | disposition home health service (06) | DRG 551 ==
LOC: EC 09:55 → 3SCARD 12:21
PROVIDERS: ADMIT Internal Medicine; ATTEND Internal Medicine
DX: S32.031A Stable burst fracture of third lumbar vertebra, initial encounter for closed fracture (principal); J96.22 Acute and chronic respiratory failure with hypercapnia; N17.9 Acute kidney failure, unspecified; E87.1 Hypo-osmolality and hyponatremia; J44.1 Chronic obstructive pulmonary disease with (acute) exacerbation; J98.11 Atelectasis; W01.0XXA Fall on same level from slipping, tripping and stumbling without subsequent striking against object, initial encounter; Y92.000 Kitchen of unspecified non-institutional (private) residence as the place of occurrence of the external cause; M41.9 Scoliosis, unspecified; E86.0 Dehydration; E86.1 Hypovolemia; F10.10 Alcohol abuse, uncomplicated; G47.30 Sleep apnea, unspecified; Z99.89 Dependence on other enabling machines and devices; I10 Essential (primary) hypertension; I27.20 Pulmonary hypertension, unspecified; I34.0 Nonrheumatic mitral (valve) insufficiency; I45.10 Unspecified right bundle-branch block; I48.0 Paroxysmal atrial fibrillation; N40.0 Benign prostatic hyperplasia without lower urinary tract symptoms; T50.2X5A Adverse effect of carbonic-anhydrase inhibitors, benzothiadiazides and other diuretics, initial encounter; Z79.01 Long term (current) use of anticoagulants; Z79.51 Long term (current) use of inhaled steroids; Z79.52 Long term (current) use of systemic steroids; M81.8 Other osteoporosis without current pathological fracture; T38.0X5A Adverse effect of glucocorticoids and synthetic analogues, initial encounter; Z79.899 Other long term (current) drug therapy; Z82.49 Family history of ischemic heart disease and other diseases of the circulatory system; Z85.46 Personal history of malignant neoplasm of prostate; Z86.718 Personal history of other venous thrombosis and embolism; Z87.891 Personal history of nicotine dependence; Z99.81 Dependence on supplemental oxygen; Z92.3 Personal history of irradiation; M51.36 Other intervertebral disc degeneration, lumbar region; Z71.41 Alcohol abuse counseling and surveillance of alcoholic; K44.9 Diaphragmatic hernia without obstruction or gangrene; R60.0 Localized edema; M19.90 Unspecified osteoarthritis, unspecified site; Z90.89 Acquired absence of other organs
CPT/HCPCS: 36415; 71045; 71046; 72110; 72131; 80048; 80053; 80061; 83735; 84484; 85025; 85610; 85730; 93005; 94640; 94760; 96365; 96372; 96376; 99291

== ENCOUNTER 2020-07-03 14:06 | Inpatient (IN) | payer OTHER, MEDICARE ==
[2020-07-03] MEDS ORDERED: cefTRIAXone IN SWFI 1,000 MG/10 ML SYRINGE IVP STA (15:36)
[2020-07-03] MEDS ORDERED: IPRATROPIUM-ALBUTEROL 3 ML NEB INHALATION STA (15:39)
[2020-07-03] MEDS ORDERED: methylPREDNISolone SOD SUCCI 125 MG/2 ML VIAL IV STA (15:39)
--- NOTE | 2020-07-03 15:39 | ED ---
Skin/Abscess/FB HPI - General Chief complaint: Skin/Abscess/Foreign Body Stated complaint: Swelling Time Seen by Provider: 07/03/20 15:16 Source: patient Mode of arrival: wheelchair Limitations: no limitations - History of Present Illness Initial comments: 69-year-old male presenting today for chief complaint of left hand swelling bilateral lower extremity swelling left hand redness right foot redness. Patient states that he has been struggling with partially swelling for the past 3-4 weeks. He states the past 2 weeks his left hand has been swollen he states it began developing redness as well as the right foot. He denies fevers chills general malaise. Patient states he has chronic shortness of breath from severe COPD and is on home oxygen 3 L. Patient states as the years have gone on including the last year he has had increasing shortness of breath he denies acute onset of worsening shortness of breath. He states it has gradually become more and more difficulty to ambulate secondary to dyspnea. Patient admits to kidney and liver disease, states he currently in no drinking but has a past history ETOH use/possible abuse. Denies abdominal pain, states "always big", denies vomiting, chest pain, pain with deep inspiration. Patient on arrival appears SOB. - Related Data Home Medications Medication Instructions Recorded Confirmed Budesonide/Formoterol Fumarate 2 puff INHALATION RT-BID 09/22/16 05/05/20 [Symbicort 160-4.5 Mcg Inhaler] Pantoprazole Sodium [Protonix] 40 mg PO BID-W/MEALS 09/22/16 05/05/20 Tiotropium [place] [Spiriva] 18 mcg INHALATION RT-DAILY 09/22/16 05/05/20 Furosemide [Lasix] 40 mg PO BID 10/27/16 05/05/20 Acetaminophen [Tylenol] 650 mg PO Q6H 04/17/20 05/05/20 Albuterol Inhaler [Ventolin Hfa 1 puff INHALATION RT-Q6H PRN 04/17/20 05/05/20 Inhaler] Albuterol Nebulized [Ventolin 2.5 mg INHALATION RT-Q4H PRN 04/17/20 05/05/20 Nebulized] Cholecalciferol [Vitamin D3 (25 2,000 unit PO DAILY 04/17/20 05/05/20 Mcg = 1000 Iu)] Ferrous Sulfate [Iron (65 MG 325 mg PO DAILY 04/17/20 05/05/20 Elemental)] Fluticasone Nasal [place] [Flonase 1 spray EA NOSTRIL BID PRN 04/17/20 05/05/20 Nasal [place]] Lidocaine 5% Patch [Lidoderm 5% 1 patch TOPICAL DAILY PRN 04/17/20 05/05/20 Patch] Rivaroxaban [Xarelto] 20 mg PO DAILY 04/17/20 05/05/20 Previous Rx's Medication Instructions Recorded Potassium Chloride ER [K-Dur 20] 20 meq PO DAILY 30 Days #30 04/23/20 tab.er.prt SILVER sulfADIAZINE CREAM 1 applic TOPICAL DAILY 30 Days #1 04/23/20 [Silvadene Cream] applic Terbinafine [LamISIL] 250 mg PO DAILY #30 tablet 04/23/20 Thiamine [Vitamin B-1] 100 mg PO BID-W/MEALS 30 Days #60 04/23/20 tab HYDROcodone/APAP 7.5-325MG [[place] 1 each PO Q6H PRN #14 tab 05/10/20 7.5-325] Metoprolol Tartrate [Lopressor] 50 mg PO BID #30 tab 05/10/20 predniSONE 10 mg PO DAILY #30 tab 05/10/20 traMADol HCl [Ultram] 50 mg PO QID PRN #14 tab 05/10/20 Allergies Allergy/AdvReac Type Severity Reaction Status Date / Time No Known Allergies Allergy Verified 07/03/20 14:47 Review of Systems ROS Statement: Those systems with pertinent positive or pertinent negative responses have been documented in the HPI. ROS Other: All systems not noted in ROS Statement are negative. Past Medical History Past Medical History: COPD, Deep Vein Thrombosis (DVT), Hypertension, Osteoarthritis (OA), Prostate Disorder, Sleep Apnea/CPAP/BIPAP Additional Past Medical History / Comment(s): BACK PAIN,SCOLIOSIS,DDD, HIATAL HERNIA.STRIGHT CATHS 2-3 TIMES PER DAY, RECENTLY ON ABX FOR COUGH AND STATED HAD DIARRHEA WHILE ON THEN BUT IT STOPPED ON SAT 10/25/16, Home 02 3-4L. Prostate CA w/radiation History of Any Multi-Drug Resistant Organisms: None Reported Past Surgical History: Tonsillectomy Additional Past Surgical History / Comment(s): COLONOSCOPY, HEMORRHOIDECTOMY Past Anesthesia/Blood Transfusion Reactions: Postoperative Nausea & Vomiting (PONV) Additional Past Anesthesia/Blood Transfusion Reaction / Comment(s): TAKES A BIT TO WAKE UP Past Psychological History: No Psychological Hx Reported, PTSD Smoking Status: Former smoker Past Alcohol Use History: Abuse, Daily, Heavy Past Drug Use History: Marijuana - Past Family History Father History Unknown: Yes Family Medical History: Congestive Heart Failure (CHF) Mother History Unknown: Yes Additional Family Medical History / Comment(s): IN HER SLEEP "NATRUAL CAUSES" General Exam - General Exam Comments Initial Comments: General: The patient is awake and alert Eye: +3 mm pupils are equal, round and reactive to light, extra-ocular movements are intact. No nystagmus. There is normal conjunctiva bilaterally. No signs of icterus. Ears, nose, mouth and throat: There are moist mucous membranes and no oral lesions. Neck: The neck is supple, there is no tenderness or JVD. Cardiovascular: There is a increased rate and irregular rhythm. No murmur, rub or gallop is appreciated. Respiratory: Diminished lung sounds throughout, respirations are mildly- labored, breath sounds are equal. Mild expiratory wheeze. No stridor, rales, or rhonchi. Gastrointestinal: Soft, non-distended, non-tender abdomen without masses or organomegaly noted. There is no rebound or guarding present. Musculoskeletal: Normal ROM, no tenderness. Strength 5/5. Sensation intact. Radial and DP pulses equal bilaterally 2+. Neurological: A&O x 3. CN II-XII intact grossly, There are no obvious motor or sensory deficits. Coordination appears grossly intact. Speech is normal. Skin: Skin is warm and dry and no rashes or lesions are noted. There is b/l +3 pitting edema of the LE, with redness of the right foot Psychiatric: Cooperative, appropriate mood & affect, normal judgment. Limitations: no limitations Course Vital Signs 07/03/20 07/03/20 07/03/20 14:40 15:50 16:30 Temperature 98.8 F Pulse Rate 50 L 133 H 151 H Respiratory 22 22 22 Rate Blood Pressure 116/56 109/80 116/79 O2 Sat by Pulse 99 99 99 Oximetry 07/03/20 07/03/20 07/03/20 17:00 17:30 18:00 Temperature Pulse Rate 125 H 117 H 135 H Respiratory 20 20 20 Rate Blood Pressure 124/80 124/85 114/53 O2 Sat by Pulse 97 98 95 Oximetry Medical Decision Making - Medical Decision Making Pt presenting for swelling, SOB. HX liver disease/kidney disease/Afib. In Afib RVR on arrival. on xarelto. Patient case consulted wtih attending, recommend cardizem drip without bolus. No CXR findings for pulmonary congestion, will hold lasix with BP being on lower aspect of normal. Patient troponin (-). Lung diminished, mild wheeze, consistent with hx of COPD. Patient denied any chest pain. Patient hand, and foot concerning for cellulitis. Will treat with antibiotics, pt doesnt appear toxic. Patient is agreeable to admission. Cardiology on consultation, Dr. Carrasco spoke with accepting admitting provider. Total 35 minutes of critical care time spent speaking with patient, attending, admitting providers, reviewing labs/EKG/images. DX; Afib RVR > 60 minutes. - Lab Data Result diagrams: 07/03/20 16:14 07/03/20 16:14 Lab Results 07/03/20 07/03/20 07/03/20 Range/Units 16:14 16:14 16:14 WBC 12.7 H (3.8-10.6) k/uL RBC 4.22 L (4.30-5.90) m/uL Hgb 14.1 (13.0-17.5) gm/dL Hct 43.2 (39.0-53.0) % MCV 102.3 H (80.0-100.0) fL MCH 33.4 (25.0-35.0) pg MCHC 32.6 (31.0-37.0) g/dL RDW 15.6 H (11.5-15.5) % Plt Count 352 (150-450) k/uL MPV 7.1 Neutrophils % 80 % Lymphocytes % 7 % Monocytes % 9 % Eosinophils % 0 % Basophils % 0 % Neutrophils # 10.1 H (1.3-7.7) k/uL Lymphocytes # 0.9 L (1.0-4.8) k/uL Monocytes # 1.2 H (0-1.0) k/uL Eosinophils # 0.0 (0-0.7) k/uL Basophils # 0.0 (0-0.2) k/uL Macrocytosis Slight Sodium 136 L (137-145) mmol/L Potassium 4.4 (3.5-5.1) mmol/L Chloride 93 L (98-107) mmol/L Carbon Dioxide 30 (22-30) mmol/L Anion Gap 13 mmol/L BUN 38 H (9-20) mg/dL Creatinine 1.91 H (0.66-1.25) mg/dL Est GFR (CKD-EPI)AfAm 40 (>60 ml/min/1.73 sqM) Est GFR (CKD-EPI)NonAf 35 (>60 ml/min/1.73 sqM) Glucose 84 (74-99) mg/dL Plasma Lactic Acid [place] 1.7 (0.7-2.0) mmol/L Calcium 9.3 (8.4-10.2) mg/dL Total Bilirubin 1.6 H (0.2-1.3) mg/dL AST 39 (17-59) U/L ALT 17 (4-49) U/L Alkaline Phosphatase 123 (38-126) U/L Troponin I (0.000-0.034) ng/mL NT-Pro-B Natriuret Pep pg/mL Total Protein 6.5 (6.3-8.2) g/dL Albumin 3.5 (3.5-5.0) g/dL 07/03/20 07/03/20 Range/Units 16:14 16:14 WBC (3.8-10.6) k/uL RBC (4.30-5.90) m/uL Hgb (13.0-17.5) gm/dL Hct (39.0-53.0) % MCV (80.0-100.0) fL MCH (25.0-35.0) pg MCHC (31.0-37.0) g/dL RDW (11.5-15.5) % Plt Count (150-450) k/uL MPV Neutrophils % % Lymphocytes % % Monocytes % % Eosinophils % % Basophils % % Neutrophils # (1.3-7.7) k/uL Lymphocytes # (1.0-4.8) k/uL Monocytes # (0-1.0) k/uL Eosinophils # (0-0.7) k/uL Basophils # (0-0.2) k/uL Macrocytosis Sodium (137-145) mmol/L Potassium (3.5-5.1) mmol/L Chloride (98-107) mmol/L Carbon Dioxide (22-30) mmol/L Anion Gap mmol/L BUN (9-20) mg/dL Creatinine (0.66-1.25) mg/dL Est GFR (CKD-EPI)AfAm (>60 ml/min/1.73 sqM) Est GFR (CKD-EPI)NonAf (>60 ml/min/1.73 sqM) Glucose (74-99) mg/dL Plasma Lactic Acid Brandt (0.7-2.0) mmol/L Calcium (8.4-10.2) mg/dL Total Bilirubin (0.2-1.3) mg/dL AST (17-59) U/L ALT (4-49) U/L Alkaline Phosphatase (38-126) U/L Troponin I 0.015 (0.000-0.034) ng/mL NT-Pro-B Natriuret Pep 5560 pg/mL Total Protein (6.3-8.2) g/dL Albumin (3.5-5.0) g/dL Disposition Clinical Impression: Atrial fibrillation with RVR, Dyspnea, Leg swelling, Hand swelling, Cellulitis Disposition: ADMITTED IP TO THIS [facility] Condition: Serious Is patient prescribed a controlled substance at d/c from ED?: No Time of Disposition: 18:05 Decision to Admit Reason: Admit from EC Decision Date: 07/03/20 Decision Time: 18:05
--- NOTE | 2020-07-03 15:49 | XR ---
EXAMINATION TYPE: XR chest 2V DATE OF EXAM: 07/03/2020 COMPARISON: 05/07/2020 HISTORY: Shortness of breath TECHNIQUE: Frontal and lateral views of the chest are obtained. FINDINGS: Scattered senescent parenchymal changes noted. Hyperinflation compatible with COPD. No evidence for infiltrate. No evidence for atelectasis. Heart size is stable. Mediastinal structures are stable and grossly unremarkable. No evidence for hilar prominence. Degenerative changes dorsal spine. IMPRESSION: 1. No evidence for acute pulmonary disease.
[2020-07-03 16:26] LABS: Basophils % (A) 0 %; Eosinophils % (A) 0 %; HCT 43.2 % (39.0-53.0); HGB 14.1 gm/dL (13.0-17.5); Lymphocytes # (A) 0.9 k/uL (1.0-4.8); Lymphocytes % (A) 7 %; MCH 33.4 pg (25.0-35.0); MCHC 32.6 g/dL (31.0-37.0); MCV 102.3 fL (80.0-100.0); Macrocytosis Slight; Mean Platelet Volume 7.1; Monocytes # (A) 1.2 k/uL (0-1.0); Monocytes % (A) 9 %; Neutrophils # (A) 10.1 k/uL (1.3-7.7); Neutrophils % (A) 80 %; Platelet Count 352 k/uL (150-450); RBC 4.22 m/uL (4.30-5.90); RDW 15.6 % (11.5-15.5); WBC 12.7 k/uL (3.8-10.6)
[2020-07-03 16:41] LABS: Albumin 3.5 g/dL (3.5-5.0); Calcium 9.3 mg/dL (8.4-10.2); Potassium 4.4 mmol/L (3.5-5.1); Total Bilirubin 1.6 mg/dL (0.2-1.3); Total Protein 6.5 g/dL (6.3-8.2)
[2020-07-03] MEDS: DILTIAZEM 125 MG in SODIUM CHLORIDE 0.9% 100 ML IV SCH (16:43)
[2020-07-03] MEDS ORDERED: NALOXONE 0.4 MG/ML 1 ML VIAL IV PRN (16:54)
[2020-07-03] MEDS ORDERED: AMPICILLIN-SULBACTAM 1.5 GM in SODIUM CHLORIDE 0.9% 50 ML IVPB STA (17:11)
[2020-07-03] MEDS ORDERED: SODIUM CHLORIDE 0.9% 500 ML 500 ML IV STA (19:21)
[2020-07-03] MEDS ORDERED: VANCOMYCIN IV PER PHARMACY 1 EACH MISC MISCELLANE PRN (20:33)
[2020-07-03] MEDS ORDERED: VANCOMYCIN 1,000 MG in SODIUM CHLORIDE 0.9% 250 ML IVPB ONE (21:00)
[2020-07-03] MEDS ORDERED: ALBUTEROL HFA INHALER INHALATION PRN (21:17)
[2020-07-03] MEDS ORDERED: LIDOCAINE 5% PATCH TOPICAL PRN (21:17)
[2020-07-03] MEDS ORDERED: ARTIFICIAL TEARS-HYPROMELLOSE DROPS 15 ML BTL BOTH EYES PRN (21:17)
[2020-07-03] MEDS: ACETAMINOPHEN TAB 325 MG TAB PO SCH (22:00)
[2020-07-03] MEDS: RIVAROXABAN 20 MG TAB PO SCH (23:51)
[2020-07-04] MEDS: ACETAMINOPHEN TAB 325 MG TAB PO SCH ×4 (06:10→23:27)
[2020-07-04] MEDS: THIAMINE 100 MG TAB PO SCH ×2 (06:30→17:12)
[2020-07-04] MEDS: ALBUTEROL NEBULIZED 2.5 MG/3 ML INHALATION PRN ×3 (07:26→21:33)
[2020-07-04] MEDS: SYMBICORT 160-4.5 MCG INHALER INHALATION SCH ×2 (07:27→21:33)
[2020-07-04] MEDS: TIOTROPIUM 18 MCG/PUFF INHALER INHALATION SCH (07:38)
[2020-07-04] MEDS ORDERED: SODIUM CHLORIDE 0.9% 1,000 ML IV SCH (07:45)
[2020-07-04] MEDS ORDERED: TIOTROPIUM 18 MCG/PUFF INHALER INHALATION SCH (08:00)
[2020-07-04] MEDS ORDERED: LORazepam 2 MG/ML INJ IV PRN ×4 (08:15)
--- NOTE | 2020-07-04 08:32 | P.HPIM ---
History of Present Illness This is a 69 years old male with past medical history of COPD, with chronic hypoxic respiratory failure deep at 3 L of oxygen at home. venous thrombosis on Xarelto, hypertension, osteoarthritis, benign prostatic hypertrophy, sleep apnea on CPAP/BiPAP. Atrial fibrillation, patient presents because of bilateral leg swelling for 1 week duration. Also he has swelling and redness of the left hand with no loss of function. He has chronic dyspnea related to COPD and he is under 3-1/2 L of oxygen via nasal cannula. Today he still have dyspnea with chronic cough and scant white phlegm. He denies chest pain, he had some loose stool yesterday but not sure what today, no abdominal pain or nausea vomiting. He has some difficulty in urination and [facility]: Last week he might need self-catheterization. No fever no palpitation or dizziness He quit smoking about 1.5 years ago, however he drinks about half: Per day, he quit cocaine or heroin and to use marijuana occasionally. On admission patient was tachycardic around 135-151, tachypneic 22, transiently hypotensive 89/54, currently blood pressure is 116/67, patient saturating 98% on 4 L oxygen via nasal cannula WBCs increased to 12.7 K, rest of CBC is unremarkable. Sodium 136, creatinine 1.9, baseline is around 1.2. Liver enzymes not elevated. ProBNP is 5560, troponin is negative at 0.015. EKG showing A. fib with RVR at [address]-T changes. Chest x-ray: No acute process by office services assistant. And emergency room he received Unasyn 1, ceftriaxone 1, IV vancomycin 1 Solu- Medrol from 125 mg and Review of Systems CONSTITUTIONAL: No fever, no malaise, no fatigue. HEENT: No recent visual problems or hearing problems. Denied any sore throat. CARDIOVASCULAR: No orthopnea, PND, no palpitations, no syncope. PULMONARY: No chest wall tenderness, no hemoptysis. GASTROINTESTINAL: No diarrhea, no nausea, no vomiting, no abdominal pain. Normoactive bowel sounds. NEUROLOGICAL: No headaches, no weakness, no numbness. HEMATOLOGICAL: Denies any bleeding or petechiae. GENITOURINARY: Denies any burning micturition, frequency, or urgency. MUSCULOSKELETAL/RHEUMATOLOGICAL: Denies any joint pain, or any muscle pain. ENDOCRINE: Denies any polyuria or polydipsia. Past Medical History Past Medical History: COPD, Deep Vein Thrombosis (DVT), Hypertension, Osteoart hritis (OA), Prostate Disorder, Sleep Apnea/CPAP/BIPAP Additional Past Medical History / Comment(s): BACK PAIN,SCOLIOSIS,DDD, HIATAL HERNIA.STRIGHT CATHS 2-3 TIMES PER DAY, RECENTLY ON ABX FOR COUGH AND STATED HAD DIARRHEA WHILE ON THEN BUT IT STOPPED ON SAT 10/25/16, Home 02 3-4L. Prostate CA w/radiation History of Any Multi-Drug Resistant Organisms: None Reported Past Surgical History: Tonsillectomy Additional Past Surgical History / Comment(s): COLONOSCOPY, HEMORRHOIDECTOMY Past Anesthesia/Blood Transfusion Reactions: Postoperative Nausea & Vomiting (PONV) Additional Past Anesthesia/Blood Transfusion Reaction / Comment(s): TAKES A BIT TO WAKE UP Past Psychological History: No Psychological Hx Reported, PTSD Smoking Status: Former smoker Past Alcohol Use History: Abuse, Daily, Heavy Past Drug Use History: Marijuana - Past Family History Father History Unknown: Yes Family Medical History: Congestive Heart Failure (CHF) Mother History Unknown: Yes Additional Family Medical History / Comment(s): IN HER SLEEP "NATRUAL CAUSES" Medications and Allergies Home Medications Medication Instructions Recorded Confirmed Type Budesonide/Formoterol Fumarate 2 puff INHALATION RT-BID 09/22/16 07/03/20 History [Symbicort 160-4.5 Mcg Inhaler] Tiotropium [place] [Spiriva] 18 mcg INHALATION RT-DAILY 09/22/16 07/03/20 History Furosemide [Lasix] 40 mg PO BID 10/27/16 07/03/20 History Acetaminophen [Tylenol] 650 mg PO Q6H 04/17/20 07/03/20 History Albuterol Inhaler [Ventolin Hfa 1 puff INHALATION RT-Q6H PRN 04/17/20 07/03/20 History Inhaler] Albuterol Nebulized [Ventolin 2.5 mg INHALATION RT-Q4H PRN 04/17/20 07/03/20 History Nebulized] Cholecalciferol [Vitamin D3 (25 2,000 unit PO DAILY 04/17/20 07/03/20 History Mcg = 1000 Iu)] Lidocaine 5% Patch [Lidoderm 5% 1 patch TOPICAL DAILY PRN 04/17/20 07/03/20 History Patch] Rivaroxaban [Xarelto] 20 mg PO DAILY 04/17/20 07/03/20 History Potassium Chloride ER [K-Dur 20] 20 meq PO DAILY 30 Days #30 04/23/20 07/03/20 Rx tab.er.prt SILVER sulfADIAZINE CREAM 1 applic TOPICAL DAILY 30 Days #1 04/23/20 07/03/20 Rx [Silvadene Cream] applic Thiamine [Vitamin B-1] 100 mg PO BID-W/MEALS 30 Days #60 04/23/20 07/03/20 Rx tab Dextran 70/Hypromellose [Genteal 1 drop BOTH EYES QID PRN 07/03/20 07/03/20 History Tears 0.1%-0.3% Drop] Metoprolol Tartrate [Lopressor] 25 mg PO BID 07/03/20 07/03/20 History amLODIPine [Norvasc] 5 mg PO DAILY 07/03/20 07/03/20 History Allergies Allergy/AdvReac Type Severity Reaction Status Date / Time No Known Allergies Allergy Verified 07/03/20 19:34 Physical Exam Vitals: Vital Signs Temp Pulse Pulse Resp BP BP Pulse Ox 07/04/20 04:00 98 18 07/04/20 03:45 98.4 F 98 18 116/67 98 07/04/20 00:00 89 19 07/03/20 23:44 98.1 F 89 19 116/96 97 07/03/20 20:00 99.0 F 98 18 144/81 97 07/03/20 19:00 151 H 22 102/53 93 L 07/03/20 18:59 135 H 22 89/54 95 07/03/20 18:00 135 H 20 114/53 95 07/03/20 17:30 117 H 20 124/85 98 07/03/20 17:00 125 H 20 124/80 97 07/03/20 16:30 138 H 22 100/74 96 07/03/20 15:50 133 H 22 109/80 99 07/03/20 14:40 98.8 F 50 L 22 116/56 99 Intake and Output 07/03/20 07/04/20 07/04/20 22:59 06:59 14:59 Other: # Voids 0 GENERAL: The patient is alert and oriented x3, not in any acute distress. Well developed, well nourished. HEENT: Pupils are round and equally reacting to light. EOMI. No scleral icterus. No conjunctival pallor. Normocephalic, atraumatic. No pharyngeal erythema. No thyromegaly. CARDIOVASCULAR: S1 and S2 present. No murmurs, rubs, or gallops. -PULMONARY: Chest is clear to auscultation, bilateral expiratory wheezing ABDOMEN: Soft, nontender, nondistended, normoactive bowel sounds. No palpable organomegaly. MUSCULOSKELETAL: No joint swelling or deformity. -EXTREMITIES: No cyanosis, clubbing,. Bilateral patellar like edema. Left hand slightly swollen and pink and warm. NEUROLOGICAL: Gross neurological examination did not reveal any focal deficits. SKIN: No rashes. No petechiae Results CBC & Chem 7: 07/03/20 16:14 07/03/20 16:14 Labs: Abnormal Lab Results - Last 24 Hours (Table) 07/03/20 07/03/20 Range/Units 16:14 16:14 WBC 12.7 H (3.8-10.6) k/uL RBC 4.22 L (4.30-5.90) m/uL MCV 102.3 H (80.0-100.0) fL RDW 15.6 H (11.5-15.5) % Neutrophils # 10.1 H (1.3-7.7) k/uL Lymphocytes # 0.9 L (1.0-4.8) k/uL Monocytes # 1.2 H (0-1.0) k/uL Sodium 136 L (137-145) mmol/L Chloride 93 L (98-107) mmol/L BUN 38 H (9-20) mg/dL Creatinine 1.91 H (0.66-1.25) mg/dL Total Bilirubin 1.6 H (0.2-1.3) mg/dL Assessment and Plan Assessment: -Bilateral leg swelling, could be due to Norvasc. Rule out heart failure -Cellulitis of the left hand -Paroxysmal A. fib with RVR -Acute kidney injury -History of prostate cancer, status post radiotherapy, also necessary catheterization -COPD , and mild exacerbation -Chronic respiratory failure or 3.5 L/m of oxygen via nasal cannula -History of DVT in the past -Benign prostatic hypertrophy -Sleep apnea: Continue with CPAP machine -Mild pulmonary hypertension -History of Burst fracture of the lumbar vertebrae:TLSO brace. With osteoporosis -Peripheral edema chronic -Acute renal failure secondary to diuretics, Lasix will be held temporarily patient will be given IV fluids -Mild hypovolemic hyponatremia Plan: This is a pleasant 69 years old male who presents with cellulitis of the left hand and right foot and A. fib with RVR. Start the patient on cefazolin. Continue with Cardizem drip. Follow-up recommendation with infectious disease and cardiology team. Order urine analysis, add calcium-vitamin D. Hold Norvasc for now, continue with metoprolol 25 mg twice daily. We will check a bladder scan and renal ultrasound Start prednisone and presented treatment for his COPD. Continue with you Labs and medication were reviewed.. Continue same treatment. Continue with symptomatic treatment. Resume home medication. Monitor lytes and vitals. DVT and GI prophylaxis. Further recommendations depends on the clinical course of the patient DVT prophylaxis: Xarelto GI Prophylaxis: Pepcid PT/OT: Pending Prognosis is guarded
[2020-07-04] MEDS ORDERED: amLODIPine 5 MG TAB PO SCH (09:00)
[2020-07-04] MEDS: CHOLECALCIFEROL 1,000 UNIT TAB PO SCH (09:45)
[2020-07-04] MEDS: METOPROLOL TARTRATE 25 MG TAB PO SCH ×2 (09:45→21:24)
[2020-07-04] MEDS: predniSONE 20 MG TAB PO SCH (09:45)
[2020-07-04] MEDS: MULTIVITAMINS, THERA 1 EACH TAB PO SCH (09:45)
--- NOTE | 2020-07-04 09:52 | US ---
EXAMINATION TYPE: US renals and bladder DATE OF EXAM: 07/04/2020 COMPARISON: NONE CLINICAL HISTORY: 69 year-old male acute kidney injury, history of prostate cancer. Abnormal labs, no kidney complaints, radiation to prostate, changes in urinary function TECHNIQUE: Multiple sonographic images of the kidneys and bladder are obtained. FINDINGS: EXAM MEASUREMENTS: Right Kidney: 9.4 x 4.0 x 5.6cm Left Kidney: 10.4 x 5.3 x 6.0 cm Right Kidney: multiple cysts, largest = 3.0cm superior pole. On image 2, there is an ovoid hypoecho ic area along the upper pole of the right kidney measuring 4.3 x 2.6 cm, suspect projection artifact as it is not seen on any of the latter images. Follow-up is recommended. No hydronephrosis. Left Kidney: No hydronephrosis. Bladder: wnl Bilateral Jets seen: only left IMPRESSION: 1. No hydronephrosis. 2. Multiple cysts within the right kidney, largest measuring 3.0 cm. 3. On one image, there is a focal hypoechoic area along the upper pole of the right kidney measuring 4.3 x 2.6 cm. Suspect projection artifact related to renal contour rather than mass as this is not se en on any of the lateral images. 6 - 8 week follow-up ultrasound recommended to reassess this area.
--- NOTE | 2020-07-04 10:44 | ECHOF ---
Referral Reason: MEASUREMENTS -------- HEIGHT: 177.8 cm WEIGHT: 56.7 kg BP: RVIDd: 3.6 cm (< 3.3) IVSd: 1.7 cm (0.6 - 1.1) LVIDd: 4.1 cm (3.9 - 5.3) LVPWd: 1.2 cm (0.6 - 1.1) IVSs: 1.3 cm LVIDs: 3.1 cm LVPWs: 1.1 cm Ao Diam: 3.4 cm (2.0 - 3.7) AV Cusp: 2.1 cm (1.5 - 2.6) LA Diam: 4.1 cm (2.7 - 3.8) RAP: 15.00 mmHg RVSP: 48.74 mmHg FINDINGS -------- Atrial fibrillation. This was a technically adequate study. The left ventricular size is normal. There is mild concentric left ventricular hypertrophy. Overa ll left ventricular systolic function is low-normal with, an EF between 50 - 55 %. There is paradox ical/dysynergic septal motion consistent with right ventricular volume overload and/or elevated right ventricular end-diastolic pressure. The right ventricle is mildly enlarged. The left atrium is mildly dilated. The right atrial size is normal. The aortic valve is trileaflet and appears structurally normal. The mitral valve is normal. Mild mitral regurgitation is present. The tricuspid valve appears structurally normal. Mild tricuspid regurgitation present. There is m ild to moderate pulmonary hypertension. The right ventricular systolic pressure, as measured by Dop pler, is 48.74mmHg. There is no pulmonic regurgitation present. The aortic root size is normal. The inferior vena cava is mildly dilated. There is no pericardial effusion. CONCLUSIONS -------- 1. The left ventricular size is normal. 2. There is mild concentric left ventricular hypertrophy. 3. Overall left ventricular systolic function is low-normal with, an EF between 50 - 55 %. 4. There is paradoxical/dysynergic septal motion consistent with right ventricular volume overload an d/or elevated right ventricular end-diastolic pressure. 5. The right ventricle is mildly enlarged. 6. The left atrium is mildly dilated. 7. Mild mitral regurgitation is present. 8. Mild tricuspid regurgitation present. 9. There is mild to moderate pulmonary hypertension. 10. The right ventricular systolic pressure, as measured by Doppler, is 48.74mmHg. 11. There is no pericardial effusion. SENIOR RISK MANAGER: Erica Grossman RDCS
[2020-07-04] MEDS ORDERED: VANCOMYCIN 1,000 MG in SODIUM CHLORIDE 0.9% 250 ML IVPB SCH (12:00)
[2020-07-04] MEDS: CALCIUM CARB-VIT D 500MG-200UN 1 EACH TAB PO SCH ×2 (12:42→17:12)
--- NOTE | 2020-07-04 13:05 | P.CRDCN ---
History of Present Illness Consult date: 07/04/20 Chief complaint: Bilateral lower extremities edema History of present illness: This is a very pleasant 69-year-old gentleman with a past medical history significant for paroxysmal atrial fibrillation as well as history of chronic obstructive pulmonary disease and history of hypoxic respiratory failure on oxygen who presented to the hospital complaining of bilateral lower extremities edema. The patient somewhat is a poor historian. He stated that for the last few days he has been experiencing increasing in the swelling in the legs without any increasing in the shortness of breath above the baseline and without any symptoms of chest pain or chest discomfort or dizziness or lightheadedness or any feeling of heart racing or fluttering or syncope. No fever or chills. When he presented to the emergency he was found to be in atrial fibrillation with rapid ventricular response and subsequently he was started on Cardizem drip. I reviewed the EKG which seems to be atrial fibrillation with differential diagnosis of multifocal atrial tachycardia. The patient is known to have atrial fibrillation in the past and currently he is on oral anticoagulation. No prior history of congestive heart failure according to him. The blood work came in to be unremarkable except for slightly abnormal creatinine. He underwent an echocardiogram during this admission and that revealed normal left ventricular systolic function was evidence off mild valvular abnormalities and mild to moderate pulmonary hypertension which is expected because of the chronic obstructive pulmonary disease. On examination he seems to be euvolemic was very mild lower extremities edema only. Past Medical History Past Medical History: COPD, Deep Vein Thrombosis (DVT), Hypertension, Osteoarthritis (OA), Prostate Disorder, Sleep Apnea/CPAP/BIPAP Additional Past Medical History / Comment(s): BACK PAIN,SCOLIOSIS,DDD, HIATAL HERNIA.STRIGHT CATHS 2-3 TIMES PER DAY, RECENTLY ON ABX FOR COUGH AND STATED HAD DIARRHEA WHILE ON THEN BUT IT STOPPED ON SAT 10/25/16, Home 02 3-4L. Prostate CA w/radiation History of Any Multi-Drug Resistant Organisms: None Reported Past Surgical History: Tonsillectomy Additional Past Surgical History / Comment(s): COLONOSCOPY, HEMORRHOIDECTOMY Past Anesthesia/Blood Transfusion Reactions: Postoperative Nausea & Vomiting (PONV) Additional Past Anesthesia/Blood Transfusion Reaction / Comment(s): TAKES A BIT TO WAKE UP Past Psychological History: No Psychological Hx Reported, PTSD Smoking Status: Former smoker Past Alcohol Use History: Abuse, Daily, Heavy Past Drug Use History: Marijuana - Past Family History Father History Unknown: Yes Family Medical History: Congestive Heart Failure (CHF) Mother History Unknown: Yes Additional Family Medical History / Comment(s): IN HER SLEEP "NATRUAL CAUSES" Medications and Allergies Home Medications Medication Instructions Recorded Confirmed Type Budesonide/Formoterol Fumarate 2 puff INHALATION RT-BID 09/22/16 07/03/20 History [Symbicort 160-4.5 Mcg Inhaler] Tiotropium [place] [Spiriva] 18 mcg INHALATION RT-DAILY 09/22/16 07/03/20 History Furosemide [Lasix] 40 mg PO BID 10/27/16 07/03/20 History Acetaminophen [Tylenol] 650 mg PO Q6H 04/17/20 07/03/20 History Albuterol Inhaler [Ventolin Hfa 1 puff INHALATION RT-Q6H PRN 04/17/20 07/03/20 History Inhaler] Albuterol Nebulized [Ventolin 2.5 mg INHALATION RT-Q4H PRN 04/17/20 07/03/20 History Nebulized] Cholecalciferol [Vitamin D3 (25 2,000 unit PO DAILY 04/17/20 07/03/20 History Mcg = 1000 Iu)] Lidocaine 5% Patch [Lidoderm 5% 1 patch TOPICAL DAILY PRN 04/17/20 07/03/20 History Patch] Rivaroxaban [Xarelto] 20 mg PO DAILY 04/17/20 07/03/20 History Potassium Chloride ER [K-Dur 20] 20 meq PO DAILY 30 Days #30 04/23/20 07/03/20 Rx tab.er.prt SILVER sulfADIAZINE CREAM 1 applic TOPICAL DAILY 30 Days #1 04/23/20 07/03/20 Rx [Silvadene Cream] applic Thiamine [Vitamin B-1] 100 mg PO BID-W/MEALS 30 Days #60 04/23/20 07/03/20 Rx tab Dextran 70/Hypromellose [Genteal 1 drop BOTH EYES QID PRN 07/03/20 07/03/20 History Tears 0.1%-0.3% Drop] Metoprolol Tartrate [Lopressor] 25 mg PO BID 07/03/20 07/03/20 History amLODIPine [Norvasc] 5 mg PO DAILY 07/03/20 07/03/20 History Allergies Allergy/AdvReac Type Severity Reaction Status Date / Time No Known Allergies Allergy Verified 07/03/20 19:34 Physical Exam Vitals: Vital Signs Temp Pulse Pulse Resp BP BP Pulse Ox 07/04/20 12:00 97.9 F 70 18 126/96 100 07/04/20 11:30 73 07/04/20 11:19 87 07/04/20 07:51 106 H 18 138/96 98 07/04/20 07:43 107 H 07/04/20 07:31 107 H 07/04/20 04:00 98 18 07/04/20 03:45 98.4 F 98 18 116/67 98 07/04/20 00:00 89 19 07/03/20 23:44 98.1 F 89 19 116/96 97 07/03/20 20:00 99.0 F 98 18 144/81 97 07/03/20 19:00 151 H 22 102/53 93 L 07/03/20 18:59 135 H 22 89/54 95 07/03/20 18:00 135 H 20 114/53 95 07/03/20 17:30 117 H 20 124/85 98 07/03/20 17:00 125 H 20 124/80 97 07/03/20 16:30 138 H 22 100/74 96 07/03/20 15:50 133 H 22 109/80 99 07/03/20 14:40 98.8 F 50 L 22 116/56 99 Intake and Output 07/03/20 07/04/20 07/04/20 22:59 06:59 14:59 Output Total 1060 Balance -1060 Output: Urine 1060 Straight 530 Other: Voiding Method Urinal Self-Catheterization # Voids 0 Weight 56.699 kg - Constitutional General appearance: no acute distress - Respiratory Respiratory: bilateral: diminished, wheezing - Cardiovascular Rhythm: irregularly irregular Heart sounds: normal: S1, S2 Results 07/03/20 16:14 07/04/20 07:56 Cardiac Enzymes 07/03/20 07/03/20 Range/Units 16:14 16:14 AST 39 (17-59) U/L Troponin I 0.015 (0.000-0.034) ng/mL CBC 07/03/20 Range/Units 16:14 WBC 12.7 H (3.8-10.6) k/uL RBC 4.22 L (4.30-5.90) m/uL Hgb 14.1 (13.0-17.5) gm/dL Hct 43.2 (39.0-53.0) % Plt Count 352 (150-450) k/uL Comprehensive Metabolic Panel 07/03/20 07/04/20 Range/Units 16:14 07:56 Sodium 136 L (137-145) mmol/L Potassium 4.4 (3.5-5.1) mmol/L Chloride 93 L (98-107) mmol/L Carbon Dioxide 30 (22-30) mmol/L BUN 38 H (9-20) mg/dL Creatinine 1.91 H 1.78 H (0.66-1.25) mg/dL Glucose 84 (74-99) mg/dL Calcium 9.3 (8.4-10.2) mg/dL AST 39 (17-59) U/L ALT 17 (4-49) U/L Alkaline Phosphatase 123 (38-126) U/L Total Protein 6.5 (6.3-8.2) g/dL Albumin 3.5 (3.5-5.0) g/dL Current Medications Generic Name Dose Route Start Last Admin Trade Name Freq PRN Reason Stop Dose Admin Acetaminophen 650 mg 07/03/20 21:30 07/04/20 09:44 Acetaminophen Tab 325 Mg Tab PO 650 mg Q6H CHAU Administration Albuterol Sulfate 2.5 mg 07/03/20 21:17 07/04/20 11:19 Albuterol Nebulized 2.5 Mg/3 Ml INHALATION 2.5 mg RT-Q4H PRN Administration Shortness Of Breath Artificial Tears 1 drops 07/03/20 21:17 Artificial Tears-Hypromellose Drops 15 Ml Btl BOTH EYES QID PRN DRY EYES Budesonide/Formoterol Fumarate 2 puff 07/04/20 08:00 07/04/20 07:27 Symbicort 160-4.5 Mcg Inhaler INHALATION 2 puff RT-BID CHAU Administration Calcium Carbonate 1 each 07/04/20 12:30 07/04/20 12:42 Calcium Carb-Vit D 500mg-200un 1 Each Tab PO 1 each TID-W/MEALS CHAU Administration Cholecalciferol 2,000 unit 07/04/20 09:00 11/11/20 09:45 Cholecalciferol 1,000 Unit Tab PO 2,000 unit DAILY CHAU Administration Diltiazem HCl 125 mg/ Sodium 125 mls @ 5 mls/hr 07/03/20 16:30 07/03/20 16:43 Chloride IV 5 mg/hr .Q24H CHAU 5 mls/hr Administration 5 MG/HR Vancomycin HCl 1,000 mg/ 250 mls @ 125 mls/hr 07/04/20 12:00 07/04/20 12:37 Sodium Chloride IVPB 125 mls/hr DAILY CHAU Administration Cefazolin Sodium 1,000 mg/ 50 mls @ 100 mls/hr 07/04/20 08:30 07/04/20 09:45 Sodium Chloride IVPB 100 mls/hr Q8HR CHAU Administration Lidocaine 1 patch 07/03/20 21:17 Lidocaine 5% Patch TOPICAL DAILY PRN Pain Lorazepam 1 mg 07/04/20 08:15 Lorazepam 2 Mg/Ml Inj IV Q2HR PRN CIWA 8 or 9 Lorazepam 1 mg 07/04/20 08:15 Lorazepam 2 Mg/Ml Inj IV Q1HR PRN CIWA 10 to 15 Lorazepam 2 mg 07/04/20 08:15 Lorazepam 2 Mg/Ml Inj IV 07/06/20 08:17 Q10M PRN CIWA 16 or higher Lorazepam 2 mg 07/04/20 08:15 Lorazepam 2 Mg/Ml Inj IV Q6HR PRN Seizures Metoprolol Tartrate 25 mg 07/04/20 09:00 07/04/20 09:45 Metoprolol Tartrate 25 Mg Tab PO 25 mg BID CHAU Administration Multivitamins 1 each 07/04/20 09:00 07/04/20 09:45 Multivitamins, Thera 1 Each Tab PO 1 each DAILY CHAU Administration Naloxone HCl 0.2 mg 07/03/20 16:54 Naloxone 0.4 Mg/Ml 1 Ml Vial IV Q2M PRN Opioid Reversal Prednisone 40 mg 07/04/20 09:00 07/04/20 09:45 Prednisone 20 Mg Tab PO 40 mg DAILY CHAU Administration Rivaroxaban 20 mg 07/03/20 21:30 07/03/20 23:51 Rivaroxaban 20 Mg Tab PO 20 mg HS CHAU Administration Silver Sulfadiazine 1 applic 07/04/20 09:00 07/04/20 09:45 Silver Sulfadiazine 1% Cream 25 Gm Tube TOPICAL 1 applic DAILY CHAU Administration Thiamine HCl 100 mg 07/04/20 07:30 07/04/20 06:30 Thiamine 100 Mg Tab PO 100 mg BID-W/MEALS CHAU Administration Tiotropium [place] 1 puff 07/04/20 08:00 07/04/20 07:38 Tiotropium 18 Mcg/Puff Inhaler INHALATION 1 puff RT-DAILY CHAU Administration Intake and Output 07/03/20 07/04/20 07/04/20 22:59 06:59 14:59 Output Total 1060 Balance -1060 Output: Urine 1060 Straight 530 Other: Voiding Method Urinal Self-Catheterization # Voids 0 Weight 56.699 kg Patient Weight 07/05/20 06:59 Weight 56.699 kg 07/03/20 16:14 07/04/20 07:56 Assessment and Plan Assessment: Assessment #1 bilateral lower extremities edema #2 atrial fibrillation with rapid ventricular response #3 renal failure #4 chronic hypoxic respiratory failure #50 comorbid conditions Plan #1 continue the Cardizem drip and try to titrate that down #2 I would start the patient on a small dose of Lasix was 20 mg by mouth twice a day. He is only in very mild heart failure with predominantly right more than left heart failure #3 continue oral anticoagulation #4 the echocardiogram was reviewed and described above #5 follow-up with the patient Thank you for allowing us participate in his care
[2020-07-04 15:33] LABS: Appearance,Urine Clear (Clear); Bacteria,Urine Rare /hpf; Bilirubin,Urine Negative (Negative); Blood,Urine Small (Negative); Color,Urine Yellow; Glucose,Urine (UA) Negative (Negative); Ketones,Urine 1+ (Negative); Leukocyte Esterase,Urine Small (Negative); Mucus,Urine Rare /hpf; Nitrite,Urine Negative (Negative); PH, Urine 6.5 (5.0-8.0); Protein,Urine Trace (Negative); RBC,Urine 5 /hpf (0-5); Squamous Epithelial Cell,Urine 1 /hpf (0-4); Urobilinogen,Urine <2.0 mg/dL (<2.0); WBC,Urine <1 /hpf (0-5)
[2020-07-04 16:45] LABS: Glucose,Whole Blood 117 mg/dL (75-99)
[2020-07-04] MEDS: FUROSEMIDE 20 MG TAB PO SCH (17:12)
[2020-07-04] MEDS: DILTIAZEM 125 MG in SODIUM CHLORIDE 0.9% 100 ML IV SCH (17:13)
[2020-07-04] MEDS: RIVAROXABAN 20 MG TAB PO SCH (21:24)
--- NOTE | 2020-07-04 21:43 | XR ---
EXAMINATION TYPE: XR ankle complete RT DATE OF EXAM: 07/04/2020 COMPARISON: NONE HISTORY: Pain TECHNIQUE: 3 views FINDINGS: Ankle mortise is anatomic. There is soft tissue swelling over the lateral malleolus. Joint spaces are fairly normal. IMPRESSION: Soft tissue swelling. No fracture.
--- NOTE | 2020-07-05 02:40 | CONS ---
CONSULTATION DATE OF SERVICE: 07/04/2020 REASON FOR CONSULTATION: Cellulitis. HISTORY OF PRESENT ILLNESS: The patient is a 69-year-old male presenting to the ER with chief complaints of left hand swelling and bilateral lower extremity swelling and right foot redness. The patient's symptoms have been going on for the last few days. The patient denies having any history of any trauma or any falls. Has been complaining of pain mostly to the right ankle area, intensity almost 5 to 6 out of 10, no radiation with extensive swelling and redness, but no open wound or any drainage. The patient did have some chills, but denies high-grade fever. With these symptoms, the patient was evaluated by the ER physician. On arrival to the ER, the patient was afebrile. The patient did have a white count of 12.7, creatinine 1.91. Liver enzymes are normal. Urine has been negative. Patient did have a chest x-ray which was negative for any acute pulmonary process. The patient has been diagnosed with lower extremity cellulitis. The patient was started on cefazolin and admitted to the hospital. Infectious Disease was consulted for further management for antibiotic therapy. REVIEW OF SYSTEMS: Positive points have been mentioned in HPI. Rest of the systems are negative. PAST MEDICAL HISTORY: COPD, DVT, hypertension, osteoarthritis, sleep apnea, and lower extremity cellulitis. PAST SURGICAL HISTORY: Tonsillectomy, colonoscopy, hemorrhoidectomy. SOCIAL HISTORY: Remote history of smoking. No history of drug use as well as a drinking. FAMILY HISTORY: Father has congestive heart failure. ALLERGIES: No known drug allergies. MEDICATIONS: Medications include the patient is currently on Tylenol, Ventolin, Symbicort, cefazolin 1 gram q.8 hours, diltiazem, Lasix, lidocaine, Ativan, Lopressor, prednisone, Xarelto, Spiriva and vancomycin. PHYSICAL EXAMINATION: Blood pressure 128/99 with a pulse of 82, temperature 97.9. He is 92% on 4 L nasal cannula. General description is an elderly male lying in bed in no distress. No tachypnea or accessory muscle of respiration use. HEENT: Examination no pallor or scleral icterus. Oral mucous membranes moist. NECK: Trachea central, no thyromegaly. LUNGS: Unlabored breathing, clear to auscultation anteriorly. HEART: S1, S2. Regular rate and rhythm. ABDOMEN: Soft, no tenderness. EXTREMITIES: Lower extremities did have swelling. The patient mentioned the redness seemed to improve since he has been in the hospital since yesterday. No open wound or any drainage. NEUROLOGICAL: Patient is awake, alert, oriented x3. Mood and affect normal. LABS: Hemoglobin 14.1, white count 12.7, BUN of 38, creatinine 1.91. DIAGNOSTIC IMPRESSION: Patient admitted to the hospital with lower extremity swelling and redness with concern for cellulitis in this patient complaining of more swelling to the ankle area in this patient who did have diffuse swelling, no open wound or any drainage, possible streptococcal cellulitis however with a history of deep venous thrombosis. We will need to rule out deep venous thrombosis. The patient is on anticoagulation. PLAN: 1. We will adjust dose of cefazolin 2 grams . 2. Discontinue vancomycin. 3. Check bilateral lower extremity Doppler. 4. We will follow on clinical condition and culture to further adjust medication if needed. Thank you for this consultation. Will follow this patient along with you. MMYUL / TATYN: [id number] /
[2020-07-05] MEDS: ACETAMINOPHEN TAB 325 MG TAB PO SCH ×4 (04:05→20:00)
[2020-07-05] MEDS: THIAMINE 100 MG TAB PO SCH ×2 (06:35→17:58)
[2020-07-05] MEDS: CALCIUM CARB-VIT D 500MG-200UN 1 EACH TAB PO SCH ×3 (06:35→18:06)
--- NOTE | 2020-07-05 07:42 | US ---
EXAMINATION TYPE: US venous doppler duplex LE DATE OF EXAM: 07/05/2020 7:20 AM COMPARISON: Left lower extremity venous ultrasound April 18, 2020. Bilateral lower extremity venous ultrasound October 27, 2016 CLINICAL HISTORY: swelling r/o dvt. cellulitis. History of DVT in past. SIDE PERFORMED: Bilateral TECHNIQUE: The lower extremity deep venous system is examined utilizing real time linear array sonog ana with graded compression, doppler sonography and color-flow sonography. VESSELS IMAGED: External Iliac Vein (EIV) Common Femoral Vein Deep Femoral Vein Greater Saphenous Vein * Femoral Vein Popliteal Vein Small Saphenous Vein * Proximal Calf Veins (* superficial vessels) Right Leg: Negative for DVT Left Leg: Negative for DVT Grayscale, color doppler, spectral doppler imaging performed of the deep veins of the bilateral lower extremities. There is normal flow, compressibility, vascular waveforms. IMPRESSION: No evidence of acute DVT in either lower extremity on current study.
[2020-07-05] MEDS: TIOTROPIUM 18 MCG/PUFF INHALER INHALATION SCH (08:01)
[2020-07-05] MEDS: SYMBICORT 160-4.5 MCG INHALER INHALATION SCH ×2 (08:01→19:25)
[2020-07-05] MEDS: ALBUTEROL NEBULIZED 2.5 MG/3 ML INHALATION PRN ×5 (08:07→23:44)
[2020-07-05 08:24] LABS: Basophils % (A) 0 %; Eosinophils % (A) 1 %; HCT 41.2 % (39.0-53.0); HGB 13.6 gm/dL (13.0-17.5); Lymphocytes # (A) 0.8 k/uL (1.0-4.8); Lymphocytes % (A) 9 %; MCHC 33.1 g/dL (31.0-37.0); MCV 102.7 fL (80.0-100.0); Macrocytosis Slight; Mean Platelet Volume 6.9; Monocytes # (A) 0.8 k/uL (0-1.0); Monocytes % (A) 9 %; Neutrophils # (A) 7.1 k/uL (1.3-7.7); Neutrophils % (A) 79 %; Platelet Count 351 k/uL (150-450); RBC 4.01 m/uL (4.30-5.90); RDW 14.8 % (11.5-15.5)
[2020-07-05 08:38] LABS: Calcium 9.1 mg/dL (8.4-10.2)
[2020-07-05] MEDS: CHOLECALCIFEROL 1,000 UNIT TAB PO SCH (09:30)
[2020-07-05] MEDS: predniSONE 20 MG TAB PO SCH (09:30)
[2020-07-05] MEDS: METOPROLOL TARTRATE 25 MG TAB PO SCH ×2 (09:31→20:01)
[2020-07-05] MEDS: MULTIVITAMINS, THERA 1 EACH TAB PO SCH (09:31)
[2020-07-05] MEDS: FUROSEMIDE 20 MG TAB PO SCH ×2 (09:31→17:58)
--- NOTE | 2020-07-05 12:21 | P.PN ---
Subjective This is a 69 years old male with past medical history of COPD, with chronic hypoxic respiratory failure deep at 3 L of oxygen at home. venous thrombosis on Xarelto, hypertension, osteoarthritis, benign prostatic hypertrophy, sleep apnea on CPAP/BiPAP. Atrial fibrillation, patient presents because of bilateral leg swelling for 1 week duration. Also he has swelling and redness of the left hand with no loss of function. He has chronic dyspnea related to COPD and he is under 3-1/2 L of oxygen via nasal cannula. Today he still have dyspnea with chronic cough and scant white phlegm. He denies chest pain, he had some loose stool yesterday but not sure what today, no abdominal pain or nausea vomiting. He has some difficulty in urination and [facility]: Last week he might need self-catheterization. No fever no palpitation or dizziness He quit smoking about 1.5 years ago, however he drinks about half: Per day, he quit cocaine or heroin and to use marijuana occasionally. On admission patient was tachycardic around 135-151, tachypneic 22, transiently hypotensive 89/54, currently blood pressure is 116/67, patient saturating 98% on 4 L oxygen via nasal cannula WBCs increased to 12.7 K, rest of CBC is unremarkable. Sodium 136, creatinine 1.9, baseline is around 1.2. Liver enzymes not elevated. ProBNP is 5560, trop onin is negative at 0.015. EKG showing A. fib with RVR at [address]-T changes. 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 And emergency room he received Unasyn 1, ceftriaxone 1, IV vancomycin 1 Solu- Medrol from 125 mg and 07/05/2020 Patient is awake however he is anxious today and agitated is concerned about pain in the distal interphalangeal joint of the left third toe, although his left hand cellulitis is significantly improving and he thinks that stool, his left hand is less swollen and pink compared to yesterday. He also is concerned about pain in his right ankle. There is bilateral leg swelling and ankle swelling, he denies fall or trauma, ankle x-ray was done yesterday showing no fracture. Patient thinks his leg swelling is also improving.I think the patient is anxious due to alcohol withdrawal also has some tremor in the hands Vitas looks stable. His leukocytosis is back to normal. Creatinine is improving to 1.4 compared to 1.7 yesterday. He remains on Lasix 20 mg orally twice a day by cardiology team for his right heart failure, he is undergoing alcohol withdrawal and he is currently on CIWA protocol plus thiamine. Also his heart rate is controlled with calcium channel vasquez Cardizem per cardiology team following the case closely. Also patient is on Xarelto. Infectious disease R following the patient for his cellulitis and is currently on cefazolin . vancomycin was stopped yesterday by ID team Ultrasound of the lower extremity is negative for DVT. Renal ultrasound: No hydronephrosis. Multiple cysts in the right kidney largest measuring 3 cm and there is focal hyperechoic area along the upper pole of the right kidney measuring 4.3 x 2.6 cm suspect artifact and the recommend CT to 8 weeks follow-up ultrasound Review of Systems CONSTITUTIONAL: No fever, no malaise, no fatigue. HEENT: No recent visual problems or hearing problems. Denied any sore throat. CARDIOVASCULAR: No orthopnea, PND, no palpitations, no syncope. PULMONARY: No chest wall tenderness, no hemoptysis. GASTROINTESTINAL: No diarrhea, no nausea, no vomiting, no abdominal pain. Normoactive bowel sounds. NEUROLOGICAL: No headaches, no weakness, no numbness. HEMATOLOGICAL: Denies any bleeding or petechiae. GENITOURINARY: Denies any burning micturition, frequency, or urgency. Active Medications Generic Name Dose Route Start Last Admin Trade Name Freq PRN Reason Stop Dose Admin Acetaminophen 650 mg 07/03/20 21:30 07/05/20 09:30 Acetaminophen Tab 325 Mg Tab PO 650 mg Q6H CHAU Administration Albuterol Sulfate 2.5 mg 07/03/20 21:17 07/05/20 11:48 Albuterol Nebulized 2.5 Mg/3 Ml INHALATION 2.5 mg RT-Q4H PRN Administration Shortness Of Breath Artificial Tears 1 drops 07/03/20 21:17 Artificial Tears-Hypromellose Drops 15 Ml Btl BOTH EYES QID PRN DRY EYES Budesonide/Formoterol Fumarate 2 puff 07/04/20 08:00 07/05/20 08:01 Symbicort 160-4.5 Mcg Inhaler INHALATION 2 puff RT-BID CHAU Administration Calcium Carbonate 1 each 07/04/20 12:30 07/05/20 06:35 Calcium Carb-Vit D 500mg-200un 1 Each Tab PO 1 each TID-W/MEALS CHAU Administration Cholecalciferol 2,000 unit 07/04/20 09:00 07/05/20 09:30 Cholecalciferol 1,000 Unit Tab PO 2,000 unit DAILY CHAU Administration Furosemide 20 mg 07/04/20 16:00 07/05/20 09:31 Furosemide 20 Mg Tab PO 20 mg BID@0900,1600 CHAU Administration Diltiazem HCl 125 mg/ Sodium 125 mls @ 5 mls/hr 07/03/20 16:30 07/04/20 17:13 Chloride IV 5 mg/hr .Q24H CHAU 5 mls/hr Administration 5 MG/HR Cefazolin Sodium 2 gm/ Sodium 50 mls @ 100 mls/hr 07/05/20 00:00 07/05/20 09:29 Chloride IVPB 100 mls/hr Q12HR CHAU Administration Lidocaine 1 patch 07/03/20 21:17 Lidocaine 5% Patch TOPICAL DAILY PRN Pain Lorazepam 1 mg 07/04/20 08:15 Lorazepam 2 Mg/Ml Inj IV Q2HR PRN CIWA 8 or 9 Lorazepam 1 mg 07/04/20 08:15 Lorazepam 2 Mg/Ml Inj IV Q1HR PRN CIWA 10 to 15 Lorazepam 2 mg 07/04/20 08:15 Lorazepam 2 Mg/Ml Inj IV 07/06/20 08:17 Q10M PRN CIWA 16 or higher Lorazepam 2 mg 07/04/20 08:15 Lorazepam 2 Mg/Ml Inj IV Q6HR PRN Seizures Metoprolol Tartrate 25 mg 07/04/20 09:00 07/05/20 09:31 Metoprolol Tartrate 25 Mg Tab PO 25 mg BID CHAU Administration Multivitamins 1 each 07/04/20 09:00 07/05/20 09:31 Multivitamins, Thera 1 Each Tab PO 1 each DAILY CHAU Administration Naloxone HCl 0.2 mg 07/03/20 16:54 Naloxone 0.4 Mg/Ml 1 Ml Vial IV Q2M PRN Opioid Reversal Prednisone 40 mg 07/04/20 09:00 07/05/20 09:30 Prednisone 20 Mg Tab PO 40 mg DAILY CHAU Administration Rivaroxaban 20 mg 07/03/20 21:30 07/04/20 21:24 Rivaroxaban 20 Mg Tab PO 20 mg HS CHAU Administration Silver Sulfadiazine 1 applic 07/04/20 09:00 07/05/20 11:21 Silver Sulfadiazine 1% Cream 25 Gm Tube TOPICAL Not Given DAILY CHAU Thiamine HCl 100 mg 07/04/20 07:30 07/05/20 06:35 Thiamine 100 Mg Tab PO 100 mg BID-W/MEALS CHAU Administration Tiotropium [place] 1 puff 07/04/20 08:00 07/05/20 08:01 Tiotropium 18 Mcg/Puff Inhaler INHALATION 1 puff RT-DAILY CHAU Administration Objective - Vital Signs Vital signs: Vital Signs Temp 97.7 F 07/05/20 08:10 Pulse 84 07/05/20 12:01 Resp 16 07/05/20 08:10 BP 130/80 07/05/20 08:10 Pulse Ox 98 07/05/20 08:10 Intake & Output 07/04/20 07/05/20 07/05/20 18:59 06:59 18:59 Intake Total 362.5 20 125 Output Total 1060 550 200 Balance -697.5 -530 -75 Weight 56.699 kg 95.5 kg Intake: IV 20 0.9 20 Intake, IV Titration 122.5 Amount Diltiazem 125 mg In 122.5 Sodium Chloride 0.9% 100 ml @ 5 MG/HR 5 mls/hr IV .Q24H CHAU Rx#:[id number] Oral 240 125 Output: Urine 1060 550 200 Straight 530 550 Other: Voiding Method Urinal Urinal Urinal Self-Catheterization Self-Catheterization Self-Catheterization # Voids 0 - Exam GENERAL: The patient is alert and oriented x3, not in any acute distress. Well developed, well nourished. HEENT: Pupils are round and equally reacting to light. EOMI. No scleral icterus. No conjunctival pallor. Normocephalic, atraumatic. No pharyngeal erythema. No thyromegaly. CARDIOVASCULAR: S1 and S2 present. No murmurs, rubs, or gallops. -PULMONARY: Chest is clear to auscultation, bilateral expiratory wheezing ABDOMEN: Soft, nontender, nondistended, normoactive bowel sounds. No palpable organomegaly. MUSCULOSKELETAL: No joint swelling or deformity. -EXTREMITIES: No cyanosis, clubbing,. Improving Bilateral patellar leg edema. Left hand slightly swollen and pink and warm, Improving =NEUROLOGICAL: Gross neurological examination did not reveal any focal deficits. Patient is anxious, agitated and undergone alcohol withdrawal SKIN: No rashes. No petechiae - Labs CBC & Chem 7: 07/05/20 07:55 07/05/20 07:55 Labs: Abnormal Lab Results - Last 24 Hours (Table) 07/04/20 07/04/20 07/05/20 Range/Units 12:13 16:34 07:55 RBC (4.30-5.90) m/uL MCV (80.0-100.0) fL Lymphocytes # (1.0-4.8) k/uL Sodium 133 L (137-145) mmol/L BUN 45 H (9-20) mg/dL Creatinine 1.43 H (0.66-1.25) mg/dL POC Glucose (mg/dL) 117 H (75-99) mg/dL Urine Protein Trace H (Negative) Urine Ketones 1+ H (Negative) Urine Blood Small H (Negative) Ur Leukocyte Esterase Small H (Negative) Urine Bacteria Rare H (None) /hpf Urine Mucus Rare H (None) /hpf 07/05/20 Range/Units 07:55 RBC 4.01 L (4.30-5.90) m/uL MCV 102.7 H (80.0-100.0) fL Lymphocytes # 0.8 L (1.0-4.8) k/uL Sodium (137-145) mmol/L BUN (9-20) mg/dL Creatinine (0.66-1.25) mg/dL POC Glucose (mg/dL) (75-99) mg/dL Urine Protein (Negative) Urine Ketones (Negative) Urine Blood (Negative) Ur Leukocyte Esterase (Negative) Urine Bacteria (None) /hpf Urine Mucus (None) /hpf Microbiology - Last 24 Hours (Table) 07/03/20 16:15 Blood Culture - Preliminary Blood No Growth after 24 hours Assessment and Plan Assessment: -Bilateral leg swelling, could be due to Norvasc. with some elements off right heart failure -Cellulitis of the left hand -Paroxysmal A. fib with RVR -Acute kidney injury, improving -right kidney cyst, patient informed -History of prostate cancer, status post radiotherapy, also necessary catheterization -COPD , and mild exacerbation -Chronic respiratory failure or 3.5 L/m of oxygen via nasal cannula -History of DVT in the past -Benign prostatic hypertrophy -Sleep apnea: Continue with CPAP machine -Mild pulmonary hypertension -History of Burst fracture of the lumbar vertebrae:TLSO brace. With osteoporosis -Peripheral edema chronic -Acute renal failure secondary to diuretics, Lasix will be held temporarily patient will be given IV fluids -Mild hypovolemic hyponatremia Plan: This is a pleasant 69 years old male who presents with cellulitis of the left hand and right foot and A. fib with RVR. Start the patient on cefazolin. Continue with Cardizem, and xarelto, Follow-up recommendation with infectious disease and cardiology team. Order urine analysis, add calcium-vitamin D. Hold Norvasc for now, continue with metoprolol 25 mg twice daily. Consult urology for possible kidney mass Start prednisone and presented treatment for his COPD. Continue with you Labs and medication were reviewed.. Continue same treatment. Continue with symptomatic treatment. Resume home medication. Monitor lytes and vitals. DVT and GI prophylaxis. Further recommendations depends on the clinical course of the patient DVT prophylaxis: Xarelto GI Prophylaxis: Pepcid PT/OT: Pending Prognosis is guarded
[2020-07-05] MEDS: DILTIAZEM 125 MG in SODIUM CHLORIDE 0.9% 100 ML IV SCH (18:06)
--- NOTE | 2020-07-05 18:16 | P.GSCN ---
History of Present Illness Consult date: 07/05/20 Reason for Consult: Right renal cyst Requesting physician: Rogelio E Sheet History of present illness: The patient is a 69-year-old white male with a history of COPD, which requires 3 L of home oxygen via nasal cannula. He is a vague historian. He has performed intermittent self-catheterization in the past for incomplete bladder emptying. Bladder scan was performed yesterday on 2 occasions, with results of approxima tely 500 mL. Catheterization by the nursing staff was successful only when a 14-Green[place]ic coud Zavaleta catheter was used, but the patient is able to catheterize himself with his 14-[place]ic catheter. Renal ultrasound shows multiple right renal cysts as well as a 4.3 cm ovoid hypoechoic lesion, the significance of which is unclear. A computed tomography scan of the lumbar spine without contrast in April 2020 showed the kidneys well. Again, multiple right renal lesions were seen, difficult to characterize. The patient has a history of prostate cancer, treated here at [facility] with external beam radiation therapy. He is unsure when he was treated. He states that he was las t seen in follow-up there several months ago. His PSA level in January 2020 was 0.2. Review of Systems - Constitutional Denies chills, Denies fever - Cardiovascular Reports edema - Respiratory Reports dyspnea - Genitourinary Reports nocturia Past Medical History Past Medical History: COPD, Deep Vein Thrombosis (DVT), Hypertension, Osteoarthritis (OA), Prostate Disorder, Sleep Apnea/CPAP/BIPAP Additional Past Medical History / Comment(s): BACK PAIN,SCOLIOSIS,DDD, HIATAL HERNIA.STRIGHT CATHS 2-3 TIMES PER DAY, RECENTLY ON ABX FOR COUGH AND STATED HAD DIARRHEA WHILE ON THEN BUT IT STOPPED ON SAT 10/25/16, Home 02 3-4L. Prostate CA w/radiation History of Any Multi-Drug Resistant Organisms: None Reported Past Surgical History: Tonsillectomy Additional Past Surgical History / Comment(s): COLONOSCOPY, HEMORRHOIDECTOMY Past Anesthesia/Blood Transfusion Reactions: Postoperative Nausea & Vomiting (PONV) Additional Past Anesthesia/Blood Transfusion Reaction / Comm: TAKES A BIT TO WAKE UP Past Psychological History: No Psychological Hx Reported, PTSD Smoking Status: Former smoker Past Alcohol Use History: Abuse, Daily, Heavy Past Drug Use History: Marijuana - Past Family History Father History Unknown: Yes Family Medical History: Congestive Heart Failure (CHF) Mother History Unknown: Yes Additional Family Medical History / Comment(s): IN HER SLEEP "NATRUAL CAUSES" Medications and Allergies Home Medications Medication Instructions Recorded Confirmed Type Budesonide/Formoterol Fumarate 2 puff INHALATION RT-BID 09/22/16 07/03/20 History [Symbicort 160-4.5 Mcg Inhaler] Tiotropium [place] [Spiriva] 18 mcg INHALATION RT-DAILY 09/22/16 07/03/20 History Furosemide [Lasix] 40 mg PO BID 10/27/16 07/03/20 History Acetaminophen [Tylenol] 650 mg PO Q6H 04/17/20 07/03/20 History Albuterol Inhaler [Ventolin Hfa 1 puff INHALATION RT-Q6H PRN 04/17/20 07/03/20 History Inhaler] Albuterol Nebulized [Ventolin 2.5 mg INHALATION RT-Q4H PRN 04/17/20 07/03/20 History Nebulized] Cholecalciferol [Vitamin D3 (25 2,000 unit PO DAILY 04/17/20 07/03/20 History Mcg = 1000 Iu)] Lidocaine 5% Patch [Lidoderm 5% 1 patch TOPICAL DAILY PRN 04/17/20 07/03/20 History Patch] Rivaroxaban [Xarelto] 20 mg PO DAILY 04/17/20 07/03/20 History Potassium Chloride ER [K-Dur 20] 20 meq PO DAILY 30 Days #30 04/23/20 07/03/20 Rx tab.er.prt SILVER sulfADIAZINE CREAM 1 applic TOPICAL DAILY 30 Days #1 04/23/20 07/03/20 Rx [Silvadene Cream] applic Thiamine [Vitamin B-1] 100 mg PO BID-W/MEALS 30 Days #60 04/23/20 07/03/20 Rx tab Dextran 70/Hypromellose [Gente[place] 1 drop BOTH EYES QID PRN 07/03/20 07/03/20 History Tears 0.1%-0.3% Drop] Metoprolol Tartrate [Lopressor] 25 mg PO BID 07/03/20 07/03/20 History amLODIPine [Norvasc] 5 mg PO DAILY 07/03/20 07/03/20 History Allergies Allergy/AdvReac Type Severity Reaction Status Date / Time No Known Allergies Allergy Verified 07/03/20 19:34 Surgical - Exam Vital Signs Temp Pulse Resp BP Pulse Ox 98.8 F 50 L 22 116/56 99 07/03/20 14:40 07/03/20 14:40 07/03/20 14:40 07/03/20 14:40 07/03/20 14:40 - General well developed, well nourished, no distress - Respiratory normal respiratory effort - Abdomen Abdomen: soft, non tender, no guarding, no rigid, no rebound - Genitourinary normal penis with no external lesions, testicles non-tender - Psychiatric oriented to time, oriented to person, oriented to place, speech is normal, memory intact Results - Labs 07/05/20 07:55 07/05/20 07:55 Abnormal Lab Results - Last 24 Hours (Table) 07/05/20 07/05/20 Range/Units 07:55 07:55 RBC 4.01 L (4.30-5.90) m/uL MCV 102.7 H (80.0-100.0) fL Lymphocytes # 0.8 L (1.0-4.8) k/uL Sodium 133 L (137-145) mmol/L BUN 45 H (9-20) mg/dL Creatinine 1.43 H (0.66-1.25) mg/dL Microbiology - Last 24 Hours (Table) 07/03/20 16:15 Blood Culture - Preliminary Blood No Growth after 24 hours Diabetes panel 07/05/20 Range/Units 07:55 Sodium 133 L (137-145) mmol/L Potassium 4.0 (3.5-5.1) mmol/L Chloride 98 (98-107) mmol/L Carbon Dioxide 29 (22-30) mmol/L BUN 45 H (9-20) mg/dL Creatinine 1.43 H (0.66-1.25) mg/dL Glucose 90 (74-99) mg/dL Calcium 9.1 (8.4-10.2) mg/dL Calcium panel 07/05/20 Range/Units 07:55 Calcium 9.1 (8.4-10.2) mg/dL Pituitary panel 07/05/20 Range/Units 07:55 Sodium 133 L (137-145) mmol/L Potassium 4.0 (3.5-5.1) mmol/L Chloride 98 (98-107) mmol/L Carbon Dioxide 29 (22-30) mmol/L BUN 45 H (9-20) mg/dL Creatinine 1.43 H (0.66-1.25) mg/dL Glucose 90 (74-99) mg/dL Calcium 9.1 (8.4-10.2) mg/dL Adrenal panel 07/05/20 Range/Units 07:55 Sodium 133 L (137-145) mmol/L Potassium 4.0 (3.5-5.1) mmol/L Chloride 98 (98-107) mmol/L Carbon Dioxide 29 (22-30) mmol/L BUN 45 H (9-20) mg/dL Creatinine 1.43 H (0.66-1.25) mg/dL Glucose 90 (74-99) mg/dL Calcium 9.1 (8.4-10.2) mg/dL - Imaging CT scan - abdomen: report reviewed, image reviewed US - kidney/bladder: report reviewed, image reviewed Assessment and Plan (1) Malignant neoplasm of prostate Current Visit: Yes Status: Acute Code(s): C61 - MALIGNANT NEOPLASM OF PROSTATE SNOMED Code(s): 856954249 (2) Retention of urine, unspecified Current Visit: Yes Status: Acute Code(s): R33.9 - RETENTION OF URINE, UNSPECIFIED SNOMED Code(s): 624532131 (3) Renal cyst Current Visit: Yes Status: Acute Code(s): N28.1 - CYST OF KIDNEY, ACQUIRED SNOMED Code(s): 002498740 Plan: Patient was advised to resume intermittent self-catheterization 4 times daily. The ideal way to evaluate the right renal lesions would be an enhanced MRI or computed tomography scan, though the patient appears to have renal insuffi ciency. He was advised to follow up with me as an outpatient. If his renal function improves, the enhanced study will be obtained. Otherwise, he will be followed by ultrasound. Given his pulmonary condition, he may not be a candidate for surgical treatment even if his renal lesion was suspicious for malignancy. Time with Patient: Greater than 30
[2020-07-05] MEDS: RIVAROXABAN 20 MG TAB PO SCH (20:01)
--- NOTE | 2020-07-05 22:30 | PN ---
PROGRESS NOTE DATE OF SERVICE: 07/05/2020 REASON FOR FOLLOWUP: Bilateral lower extremity swelling and question of cellulitis especially to the right leg. INTERVAL HISTORY: The patient is currently afebrile. He is breathing slightly comfortably. The patient denies having any chest pain, cough, abdominal pain, or worsening pain in the lower extremity. Has been complaining of more swelling in his arm. PHYSICAL EXAMINATION: Blood pressure 120/69, pulse of 69, temperature is 97.4. He is 98% on 3 L nasal cannula. General description is an elderly male lying in bed in no distress. Respiratory system: Unlabored breathing, clear to auscultation anteriorly. Heart S1, S2. Regular rate and rhythm. ABDOMEN: Soft, no tenderness. Legs did have some swelling. No significant redness or drainage. LABS: Hemoglobin is 13.1, white count 9.0, BUN of 25, creatinine 1.43. DIAGNOSTIC IMPRESSION AND PLAN: Patient admitted to the hospital with lower extremity swelling, possible fluid overload. Did mention there was some redness to the right leg and possible cellulitis for which the patient has been treated with cefazolin to continue. X-rays of the ankle as well as Doppler negative. Questions were answered. MMODL / IJN: [id number] /
[2020-07-06] MEDS: CALCIUM CARB-VIT D 500MG-200UN 1 EACH TAB PO SCH ×3 (06:27→17:05)
[2020-07-06] MEDS: THIAMINE 100 MG TAB PO SCH ×2 (06:27→17:05)
[2020-07-06] MEDS: ACETAMINOPHEN TAB 325 MG TAB PO SCH ×4 (06:27→17:05)
[2020-07-06] MEDS: ALBUTEROL NEBULIZED 2.5 MG/3 ML INHALATION PRN ×3 (08:47→19:45)
[2020-07-06] MEDS: TIOTROPIUM 18 MCG/PUFF INHALER INHALATION SCH (08:48)
[2020-07-06] MEDS: SYMBICORT 160-4.5 MCG INHALER INHALATION SCH ×2 (08:48→19:45)
[2020-07-06] MEDS: FUROSEMIDE 20 MG TAB PO SCH ×2 (09:06→17:05)
[2020-07-06] MEDS: METOPROLOL TARTRATE 25 MG TAB PO SCH ×2 (09:06→20:19)
[2020-07-06] MEDS: MULTIVITAMINS, THERA 1 EACH TAB PO SCH (09:06)
[2020-07-06] MEDS: predniSONE 20 MG TAB PO SCH (09:06)
[2020-07-06] MEDS: CHOLECALCIFEROL 1,000 UNIT TAB PO SCH (09:06)
--- NOTE | 2020-07-06 09:12 | P.PN ---
Progress Note - Text Progress Note Date: 07/06/20 The patient experienced some difficulty catheterizing himself, though his nurse was able to catheterize him without difficulty. He may have developed a urethral stricture as a result of the radiation therapy, and if this becomes increasingly problematic I advised him to follow up with me as I can perform urethral dilation in the office. I reassured him that his PSA level of 0.2 is consistent with excellent prostate cancer control. With regards to the renal lesions, an enhanced study (CT or MRI) would be very helpful but is contraindicated unless his renal function improves. Given that he requires home oxygen, he may not be a candidate for general anesthesia and a procedure would be considered only if a lesion was obviously suspicious for malignancy. Please notify me if I can be of any further assistance during this hospitalization.
[2020-07-06 10:47] LABS: Basophils % (A) 0 %; Eosinophils # (A) 0.1 k/uL (0-0.7); Eosinophils % (A) 1 %; HCT 39.5 % (39.0-53.0); HGB 13.1 gm/dL (13.0-17.5); Lymphocytes # (A) 0.7 k/uL (1.0-4.8); Lymphocytes % (A) 9 %; MCHC 33.1 g/dL (31.0-37.0); MCV 102.6 fL (80.0-100.0); Macrocytosis Slight; Mean Platelet Volume 6.9; Monocytes # (A) 0.7 k/uL (0-1.0); Monocytes % (A) 9 %; Neutrophils # (A) 6.2 k/uL (1.3-7.7); Neutrophils % (A) 78 %; Platelet Count 321 k/uL (150-450); RBC 3.85 m/uL (4.30-5.90); RDW 14.6 % (11.5-15.5)
[2020-07-06] MEDS ORDERED: FUROSEMIDE 10 MG/ML 4 ML VIAL IV STA (11:11)
[2020-07-06 11:14] LABS: Calcium 9.1 mg/dL (8.4-10.2); Potassium 4.7 mmol/L (3.5-5.1)
--- NOTE | 2020-07-06 12:40 | P.PN ---
Subjective Progress Note Date: 07/06/20 This is a 69-year-old gentleman with past medical history significant for paroxysmal atrial fibrillation, COPD, chronic hypoxic respiratory failure, chronic swelling of his bilateral lower extremities, history of DVT, hypertension, sleep apnea, presented to the hospital with increased swelling in his lower extremities. Cardiology consultation was requested because of atrial fibrillation. Patient was seen yesterday in consult by Dr. Taveras, he was initiated on a Cardizem drip. This morning patient is in and out of atrial fibrillation, his heart rate is in the 70s, Cardizem drip was turned off through the night and remains off this morning. He underwent an echocardiogram with Doppler study during this admission which revealed normal left ventricular systolic function, moderate pulmonary hypertension likely secondary to the COPD. Patient was seen and examined this morning, appears somewhat anxious, complaining of pain in his ankle, he still has bilateral swelling. Patient does drink a significant amount of alcohol and may be going through some withdrawal symptoms this morning, he does have tremors noted as well. Currently on C wall protocol. Blood pressure 130/80, heart rate in the 80s, 98% on 4 L of oxygen. White blood cell count 9.0, hemoglobin 13.6, platelet count 351. Sodium 133, potassium 4.0, BUN 45, creatinine 1.4. 07/06/2020 Patient was seen and examined this morning, he does feel a little more short of breath today, and has an increase in his lower extremity edema. Blood pressure 112/70 with a heart rate in the 70s, 95% on 4 L of oxygen. White blood cell count 8.0, hemoglobin 13.5, platelet count 321. Sodium 135, potassium 4.7, BUN 48, creatinine 1.5. Echocardiogram with Doppler study revealed an ejection fraction of 50-55%. Right ventricle is mildly enlarged. Objective - Vital Signs Vital signs: Vital Signs Temp 98.5 F 07/06/20 03:20 Pulse 76 07/06/20 09:02 Resp 18 07/06/20 03:20 BP 113/73 07/06/20 03:20 Pulse Ox 95 07/06/20 03:20 Intake & Output 07/05/20 07/06/20 07/06/20 18:59 06:59 18:59 Intake Total 605 660 Output Total 500 1600 Balance 105 -1600 660 Weight 95.2 kg Intake: Oral 605 660 Output: Urine 500 1600 Straight 1100 Other: Voiding Method Self-Catheterization Self-Catheterization # Voids 2 1 - Exam PHYSICAL EXAMINATION: GENERAL: 69-year-old gentleman in no acute distress at the time of my examination HEENT: Head is atraumatic, normocephalic. Pupils equal, round. Sclera anicteric. Conjunctiva are clear. Mucous membranes of the mouth are moist. Neck is supple. There is no elevated jugular venous pressure. No carotid bruit is heard. HEART EXAMINATION: Heart S1 S2 1 systolic murmur is heard CHEST EXAMINATION: To be scattered wheezing throughout with diminished air entry to the bases bilaterally. ABDOMEN: Soft, nontender. Bowel sounds are heard. No organomegaly noted. EXTREMITIES: 2+ peripheral pulses with 1+ evidence of peripheral edema, bilateral ear erythema. NEUROLOGIC patient is awake, alert and oriented X3 . - Labs CBC & Chem 7: 07/06/20 09:57 07/06/20 09:57 Labs: Abnormal Lab Results - Last 24 Hours (Table) 07/06/20 07/06/20 Range/Units 09:57 09:57 RBC 3.85 L (4.30-5.90) m/uL MCV 102.6 H (80.0-100.0) fL Lymphocytes # 0.7 L (1.0-4.8) k/uL Sodium 135 L (137-145) mmol/L Carbon Dioxide 34 H (22-30) mmol/L BUN 48 H (9-20) mg/dL Creatinine 1.52 H (0.66-1.25) mg/dL Microbiology - Last 24 Hours (Table) 07/03/20 16:15 Blood Culture - Preliminary Blood No Growth after 48 hours Assessment and Plan Plan: Assessment and plan #1 diastolic congestive heart failure acute on chronic #2 paroxysmal atrial fibrillation, currently in normal sinus rhythm #3 acute on chronic renal failure, improved from admission #4 COPD #5 obstructive sleep apnea #6 hypertension #7 history of DVT #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 Continue metoprolol, Xarelto. DNP note has been reviewed, I agree with a documented findings and plan of care. Patient was seen and examined.
--- NOTE | 2020-07-06 17:46 | P.PN ---
Subjective Progress Note Date: 07/06/20 69-year-old gentleman with past medical history significant for paroxysmal atrial fibrillation, COPD, chronic hypoxic respiratory failure, chronic swelling of his bilateral lower extremities, history of DVT, hypertension, sleep apnea, presented to the hospital with increased swelling in his lower extremities. Cardiology consultation was requested because of atrial fibrillation. Patient was seen yesterday in consult by Dr. Taveras, he was initiated on a Cardizem drip. This morning patient is in and out of atrial fibrillation, his heart rate is in the 70s, Cardizem drip was turned off through the night and remains off this morning. He underwent an echocardiogram with Doppler study during this admis paulo which revealed normal left ventricular systolic function, moderate pulmonary hypertension likely secondary to the COPD. 07/06/2020 Patient was seen and examined this morning, he does feel a little more short of breath today, and has an increase in his lower extremity edema. Blood pressure 112/70 with a heart rate in the 70s, 95% on 4 L of oxygen. White blood cell count 8.0, hemoglobin 13.5, platelet count 321. Sodium 135, potassium 4.7, BUN 48, creatinine 1.5. Echocardiogram with Doppler study revealed an ejection fraction of 50-55%. Right ventricle is mildly enlarged. We will order x-ray of left hand and uric acid levels to rule out Objective - Vital Signs Vital signs: Vital Signs Temp 97.4 F L 07/06/20 15:34 Pulse 81 07/06/20 15:34 Resp 18 07/06/20 15:34 BP 117/84 07/06/20 15:34 Pulse Ox 97 07/06/20 15:34 Intake & Output 07/05/20 07/06/20 07/06/20 18:59 06:59 18:59 Intake Total 605 900 Output Total 500 1600 750 Balance 105 -1600 150 Weight 95.2 kg Intake: Oral 605 900 Output: Urine 500 1600 750 Straight 1100 Other: Voiding Method Self-Catheterization Self-Catheterization Self-Catheterization # Voids 2 1 - Exam PHYSICAL EXAMINATION: GENERAL: The patient is alert and oriented x3, not in any acute distress. Well developed, well nourished. HEENT: Pupils are round and equally reacting to light. EOMI. No scleral icterus. No conjunctival pallor. Normocephalic, atraumatic. No pharyngeal erythema. No thyromegaly. CARDIOVASCULAR: S1 and S2 present. No murmurs, rubs, or gallops. PULMONARY: Chest is clear to auscultation, no wheezing or crackles. ABDOMEN: Soft, nontender, nondistended, normoactive bowel sounds. No palpable organomegaly. MUSCULOSKELETAL: No joint swelling or deformity. EXTREMITIES: Patient does have swelling and erythema of third distal phalanx. NEUROLOGICAL: Gross neurological examination did not reveal any focal deficits. SKIN: No rashes. - Labs CBC & Chem 7: 07/06/20 09:57 07/06/20 09:57 Labs: Abnormal Lab Results - Last 24 Hours (Table) 07/06/20 07/06/20 Range/Units 09:57 09:57 RBC 3.85 L (4.30-5.90) m/uL MCV 102.6 H (80.0-100.0) fL Lymphocytes # 0.7 L (1.0-4.8) k/uL Sodium 135 L (137-145) mmol/L Carbon Dioxide 34 H (22-30) mmol/L BUN 48 H (9-20) mg/dL Creatinine 1.52 H (0.66-1.25) mg/dL Microbiology - Last 24 Hours (Table) 07/03/20 16:15 Blood Culture - Preliminary Blood No Growth after 48 hours Assessment and Plan Assessment: 1. Diastolic congestive heart failure acute on chronic 2. Paroxysmal atrial fibrillation, currently in normal sinus rhythm 3. Acute on chronic renal failure, improved from admission 4. COPD 5. Obstructive sleep apnea 6. Hypertension Plan We will give the patient a one-time dose of IV Lasix today; we will continue to monitor strict JAYCEE's, daily weights, renal function and electrolytes; continue with low-salt and fluid restricted diet . Continue metoprolol, Xarelto.
[2020-07-06] MEDS: RIVAROXABAN 20 MG TAB PO SCH (20:19)
[2020-07-06] MEDS ORDERED: MAG HYDROX/AL HYDROX/SIMETH 30 ML CUP PO PRN (20:34)
[2020-07-06] MEDS: FAMOTIDINE 20 MG TAB PO SCH (21:18)
--- NOTE | 2020-07-06 22:34 | PN ---
PROGRESS NOTE DATE OF SERVICE: 07/06/2020 REASON FOR FOLLOWUP: Left lower extremity swelling and question of cellulitis. INTERVAL HISTORY: Patient is currently afebrile, has been breathing comfortably. Still complaining of swelling to the lower extremity and some redness and pain but no worsening. No chest pain, shortness of breath or cough. No abdominal pain, no diarrhea. PHYSICAL EXAMINATION: Blood pressure 123/74 with a pulse of 89, temperature is 97.8, he is 98% on 4 L nasal cannula. General description is an elderly male lying in bed in no distress. Respiratory system: Unlabored breathing, decreased breath sounds at the base, no wheeze. Heart S1, S2. Regular rate and rhythm. Abdomen soft, no tenderness. LABS: Hemoglobin 13.1, hematocrit 8.0, BUN of 48, creatinine 1.52. Blood culture negative. DIAGNOSTIC IMPRESSION AND PLAN: Patient with bilateral lower extremity swelling and question of cellulitis, did have diffuse swelling. Recommend applying Mumtaz wrap to both legs to keep some of the swelling down. Continue with empiric cefazolin and monitor clinical course closely. MMODL / IJN: [id number] /
[2020-07-07] MEDS: ACETAMINOPHEN TAB 325 MG TAB PO SCH ×4 (02:29→17:55)
[2020-07-07] MEDS: THIAMINE 100 MG TAB PO SCH ×2 (06:00→17:56)
[2020-07-07] MEDS: CALCIUM CARB-VIT D 500MG-200UN 1 EACH TAB PO SCH ×3 (06:00→17:54)
[2020-07-07] MEDS: SYMBICORT 160-4.5 MCG INHALER INHALATION SCH ×2 (07:59→19:40)
[2020-07-07] MEDS: TIOTROPIUM 18 MCG/PUFF INHALER INHALATION SCH (07:59)
[2020-07-07] MEDS: ALBUTEROL NEBULIZED 2.5 MG/3 ML INHALATION PRN ×4 (08:05→19:40)
[2020-07-07 08:20] LABS: Basophils % (A) 0 %; Eosinophils # (A) 0.1 k/uL (0-0.7); Eosinophils % (A) 1 %; HCT 40.9 % (39.0-53.0); HGB 13.1 gm/dL (13.0-17.5); Lymphocytes # (A) 0.9 k/uL (1.0-4.8); Lymphocytes % (A) 12 %; MCH 32.8 pg (25.0-35.0); MCHC 32.1 g/dL (31.0-37.0); MCV 102.2 fL (80.0-100.0); Macrocytosis Slight; Mean Platelet Volume 7.1; Monocytes # (A) 0.8 k/uL (0-1.0); Monocytes % (A) 11 %; Neutrophils # (A) 5.5 k/uL (1.3-7.7); Neutrophils % (A) 72 %; Platelet Count 359 k/uL (150-450); RBC 4.01 m/uL (4.30-5.90); RDW 15.5 % (11.5-15.5); WBC 7.6 k/uL (3.8-10.6)
[2020-07-07 08:32] LABS: Calcium 8.9 mg/dL (8.4-10.2); Potassium 4.2 mmol/L (3.5-5.1); Uric Acid 7.8 mg/dL (3.5-8.5)
[2020-07-07] MEDS: CHOLECALCIFEROL 1,000 UNIT TAB PO SCH (09:41)
[2020-07-07] MEDS: FAMOTIDINE 20 MG TAB PO SCH ×2 (09:41→20:07)
[2020-07-07] MEDS: MULTIVITAMINS, THERA 1 EACH TAB PO SCH (09:41)
[2020-07-07] MEDS: FUROSEMIDE 20 MG TAB PO SCH ×2 (09:41→17:55)
[2020-07-07] MEDS: METOPROLOL TARTRATE 25 MG TAB PO SCH ×2 (09:41→20:07)
[2020-07-07] MEDS: predniSONE 20 MG TAB PO SCH (09:41)
--- NOTE | 2020-07-07 11:56 | P.PN ---
Subjective Progress Note Date: 07/07/20 This is a 69-year-old gentleman with past medical history significant for paroxysmal atrial fibrillation, COPD, chronic hypoxic respiratory failure, chronic swelling of his bilateral lower extremities, history of DVT, hypertension, sleep apnea, presented to the hospital with increased swelling in his lower extremities. Cardiology consultation was requested because of atrial fibrillation. Patient was seen yesterday in consult by Dr. Taveras, he was initiated on a Cardizem drip. This morning patient is in and out of atrial fibrillation, his heart rate is in the 70s, Cardizem drip was turned off through the night and remains off this morning. He underwent an echocardiogram with Doppler study during this admission which revealed normal left ventricular systolic function, moderate pulmonary hypertension likely secondary to the COPD. Patient was seen and examined this morning, appears somewhat anxious, complaining of pain in his ankle, he still has bilateral swelling. Patient does drink a significant amount of alcohol and may be going through some withdrawal symptoms this morning, he does have tremors noted as well. Currently on C wall protocol. Blood pressure 130/80, heart rate in the 80s, 98% on 4 L of oxygen. White blood cell count 9.0, hemoglobin 13.6, platelet count 351. Sodium 133, potassium 4.0, BUN 45, creatinine 1.4. 07/06/2020 Patient was seen and examined this morning, he does feel a little more short of breath today, and has an increase in his lower extremity edema. Blood pressure 112/70 with a heart rate in the 70s, 95% on 4 L of oxygen. White blood cell count 8.0, hemoglobin 13.5, platelet count 321. Sodium 135, potassium 4.7, BUN 48, creatinine 1.5. Echocardiogram with Doppler study revealed an ejection fraction of 50-55%. Right ventricle is mildly enlarged. 07/07/2020 Patient was seen and examined this morning, overall looking better today. Edema less in his lower extremities. Blood pressure 1 130/80 with a heart rate in the 60s, 100% on 4 L of oxygen. White blood cell count 7.6, hemoglobin 13.1, platelet count 359. Sodium 134, potassium 4.2, BUN 39, creatinine 1.3 Objective - Vital Signs Vital signs: Vital Signs Temp 97.8 F 07/07/20 03:10 Pulse 74 07/07/20 11:28 Resp 24 07/07/20 08:00 BP 130/89 07/07/20 08:00 Pulse Ox 100 07/07/20 08:00 Intake & Output 07/06/20 07/07/20 07/07/20 18:59 06:59 18:59 Intake Total 1840 540 240 Output Total 1300 1100 Balance 540 -560 240 Weight 96.162 kg Intake: Intake, IV Titration 100 Amount ceFAZolin 2 gm In Sodium 100 Chloride 0.9% 50 ml @ 100 mls/hr IVPB Q12HR [facility] Rx #:[id number] Oral 1740 540 240 Output: Urine 1300 1100 Straight 500 Other: Voiding Method Self-Catheterization Self-Catheterization Self-Catheterization # Voids 2 1 - Exam PHYSICAL EXAMINATION: GENERAL: 69-year-old gentleman in no acute distress at the time of my examination HEENT: Head is atraumatic, normocephalic. Pupils equal, round. Sclera anicteric. Conjunctiva are clear. Mucous membranes of the mouth are moist. Neck is supple. There is no elevated jugular venous pressure. No carotid bruit is heard. HEART EXAMINATION: Heart S1 S2 1 systolic murmur is heard CHEST EXAMINATION: Lungs show some improvement in air entry with fine scattered wheezing throughout. ABDOMEN: Soft, nontender. Bowel sounds are heard. No organomegaly noted. EXTREMITIES: 2+ peripheral pulses with trace -1+ evidence of peripheral edema, bilateral ear erythema. NEUROLOGIC patient is awake, alert and oriented X3 . - Labs CBC & Chem 7: 07/07/20 07:05 07/07/20 07:05 Labs: Abnormal Lab Results - Last 24 Hours (Table) 07/07/20 07/07/20 Range/Units 07:05 07:05 RBC 4.01 L (4.30-5.90) m/uL MCV 102.2 H (80.0-100.0) fL Lymphocytes # 0.9 L (1.0-4.8) k/uL Sodium 134 L (137-145) mmol/L Carbon Dioxide 34 H (22-30) mmol/L BUN 39 H (9-20) mg/dL Creatinine 1.35 H (0.66-1.25) mg/dL Microbiology - Last 24 Hours (Table) 07/03/20 16:15 Blood Culture - Preliminary Blood No Growth after 72 hours Assessment and Plan Plan: Assessment and plan #1 diastolic congestive heart failure acute on chronic #2 paroxysmal atrial fibrillation, currently in normal sinus rhythm #3 acute on chronic renal failure, improved from admission #4 COPD #5 obstructive sleep apnea #6 hypertension #7 history of DVT #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 Continue to observe for another 24-48 hours. DNP note has been reviewed, I agree with a documented findings and plan of care. Patient was seen and examined.
--- NOTE | 2020-07-07 18:26 | P.PN ---
Subjective Progress Note Date: 07/07/20 69-year-old gentleman with past medical history significant for paroxysmal atrial fibrillation, COPD, chronic hypoxic respiratory failure, chronic swelling of his bilateral lower extremities, history of DVT, hypertension, sleep apnea, presented to the hospital with increased swelling in his lower extremities. Cardiology consultation was requested because of atrial fibrillation. Patient was seen yesterday in consult by Dr. Taveras, he was initiated on a Cardizem drip. This morning patient is in and out of atrial fibrillation, his heart rate is in the 70s, Cardizem drip was turned off through the night and remains off this morning. He underwent an echocardiogram with Doppler study during this admis paulo which revealed normal left ventricular systolic function, moderate pulmonary hypertension likely secondary to the COPD. 07/06/2020 Patient was seen and examined this morning, he does feel a little more short of breath today, and has an increase in his lower extremity edema. Blood pressure 112/70 with a heart rate in the 70s, 95% on 4 L of oxygen. White blood cell count 8.0, hemoglobin 13.5, platelet count 321. Sodium 135, potassium 4.7, BUN 48, creatinine 1.5. Echocardiogram with Doppler study revealed an ejection fraction of 50-55%. Right ventricle is mildly enlarged. We will order x-ray of left hand and uric acid levels to rule out 07/07/2020 Patient was seen and examined this morning, remains frustrated regarding recurrent swelling of lower extremities; overall looking better today. Edema less in his lower extremities. Blood pressure 1 130/80 with a heart rate in the 60s, 100% on 4 L of oxygen. White blood cell count 7.6, hemoglobin 13.1, platelet count 359. Sodium 134, potassium 4.2, BUN 39, creatinine 1.3 Cardiology is following and recommending to continue current medications and observe patient for another 24-48 hours prior to discharge Objective - Vital Signs Vital signs: Vital Signs Temp 97.8 F 07/07/20 03:10 Pulse 74 07/07/20 11:28 Resp 24 07/07/20 08:00 BP 130/89 07/07/20 08:00 Pulse Ox 100 07/07/20 08:00 Intake & Output 07/06/20 07/07/20 07/07/20 18:59 06:59 18:59 Intake Total 1840 540 240 Output Total 1300 1100 Balance 540 -560 240 Weight 96.162 kg Intake: Intake, IV Titration 100 Amount ceFAZolin 2 gm In Sodium 100 Chloride 0.9% 50 ml @ 100 mls/hr IVPB Q12HR [facility] Rx #:[id number] Oral 1740 540 240 Output: Urine 1300 1100 Straight 500 Other: Voiding Method Self-Catheterization Self-Catheterization Self-Catheterization # Voids 2 1 - Exam PHYSICAL EXAMINATION: GENERAL: The patient is alert and oriented x3, not in any acute distress. Well d eveloped, well nourished. HEENT: Pupils are round and equally reacting to light. EOMI. No scleral icterus. No conjunctival pallor. Normocephalic, atraumatic. No pharyngeal erythema. No thyromegaly. CARDIOVASCULAR: S1 and S2 present. No murmurs, rubs, or gallops. PULMONARY: Chest is clear to auscultation, no wheezing or crackles. ABDOMEN: Soft, nontender, nondistended, normoactive bowel sounds. No palpable organomegaly. MUSCULOSKELETAL: No joint swelling or deformity. EXTREMITIES: Patient does have swelling and erythema of third distal phalanx. NEUROLOGICAL: Gross neurological examination did not reveal any focal deficits. SKIN: No rashes. - Labs CBC & Chem 7: 07/07/20 07:05 07/07/20 07:05 Labs: Abnormal Lab Results - Last 24 Hours (Table) 07/07/20 07/07/20 Range/Units 07:05 07:05 RBC 4.01 L (4.30-5.90) m/uL MCV 102.2 H (80.0-100.0) fL Lymphocytes # 0.9 L (1.0-4.8) k/uL Sodium 134 L (137-145) mmol/L Carbon Dioxide 34 H (22-30) mmol/L BUN 39 H (9-20) mg/dL Creatinine 1.35 H (0.66-1.25) mg/dL Microbiology - Last 24 Hours (Table) 07/03/20 16:15 Blood Culture - Preliminary Blood No Growth after 72 hours Assessment and Plan Assessment: 1. Diastolic congestive heart failure acute on chronic 2. Paroxysmal atrial fibrillation, currently in normal sinus rhythm 3. Acute on chronic renal failure, improved from admission 4. COPD 5. Obstructive sleep apnea 6. Hypertension Plan We will give the patient a one-time dose of IV Lasix today; we will continue to monitor strict JAYCEE's, daily weights, renal function and electrolytes; continue with low-salt and fluid restricted diet . Continue metoprolol, Xarelto.
[2020-07-07] MEDS: LOPERAMIDE 2 MG CAP PO SCH (20:07)
[2020-07-07] MEDS: RIVAROXABAN 20 MG TAB PO SCH (20:07)
--- NOTE | 2020-07-07 22:29 | PN ---
PROGRESS NOTE DATE OF SERVICE: 07/07/2020 REASON FOR FOLLOWUP: Cellulitis. INTERVAL HISTORY: Patient is currently afebrile. He is breathing comfortably, although he is complaining of more cough. Not bringing up any sputum. No chest pain. No abdominal pain. No diarrhea. PHYSICAL EXAMINATION: Blood pressure 114/71 with a pulse of 84, temperature 98.2. He is 94% on 4 L nasal cannula. General description is an elderly male up in the chair in no distress. Respiratory system: Unlabored breathing, decreased breath sounds in the bases. No wheeze. HEART: S1, S2. Regular rate and rhythm. Abdomen soft, no tenderness. LEGS: Overall swelling and redness has improved. LABS: Hemoglobin 13.1, white count 7.6, BUN of 39, creatinine 1.35. DIAGNOSTIC IMPRESSION AND PLAN: Patient with bilateral lower extremity swelling, possible fluid overload and concern for possible cellulitis in this patient seemed to have shown overall clinical improvement. Currently on Rocephin and finish therapy with short course of oral Keflex and Mumtaz wrap to the leg. Continue supportive care. MMODL / IJN: [id number] /
[2020-07-08] MEDS: ACETAMINOPHEN TAB 325 MG TAB PO SCH ×3 (02:57→14:00)
[2020-07-08] MEDS: CALCIUM CARB-VIT D 500MG-200UN 1 EACH TAB PO SCH ×2 (06:36→14:00)
[2020-07-08] MEDS: THIAMINE 100 MG TAB PO SCH (06:36)
[2020-07-08] MEDS: CHOLECALCIFEROL 1,000 UNIT TAB PO SCH (09:32)
[2020-07-08] MEDS: predniSONE 20 MG TAB PO SCH (09:32)
[2020-07-08] MEDS: MULTIVITAMINS, THERA 1 EACH TAB PO SCH (09:33)
[2020-07-08] MEDS: LOPERAMIDE 2 MG CAP PO SCH ×2 (09:33→14:01)
[2020-07-08] MEDS: FUROSEMIDE 20 MG TAB PO SCH (09:33)
[2020-07-08] MEDS: FAMOTIDINE 20 MG TAB PO SCH (09:33)
[2020-07-08] MEDS: METOPROLOL TARTRATE 25 MG TAB PO SCH (09:33)
[2020-07-08] MEDS: TIOTROPIUM 18 MCG/PUFF INHALER INHALATION SCH (09:41)
[2020-07-08] MEDS: SYMBICORT 160-4.5 MCG INHALER INHALATION SCH (09:41)
[2020-07-08] MEDS: ALBUTEROL NEBULIZED 2.5 MG/3 ML INHALATION PRN (09:41)
[2020-07-08 10:40] VITALS: PULSE 71; TEMP 97.6
--- NOTE | 2020-07-08 11:09 | P.PN ---
Subjective Progress Note Date: 07/08/20 This is a 69-year-old gentleman with past medical history significant for paroxysmal atrial fibrillation, COPD, chronic hypoxic respiratory failure, chronic swelling of his bilateral lower extremities, history of DVT, hypertension, sleep apnea, presented to the hospital with increased swelling in his lower extremities. Cardiology consultation was requested because of atrial fibrillation. Patient was seen yesterday in consult by Dr. Taveras, he was initiated on a Cardizem drip. This morning patient is in and out of atrial fibrillation, his heart rate is in the 70s, Cardizem drip was turned off through the night and remains off this morning. He underwent an echocardiogram with Doppler study during this admission which revealed normal left ventricular systolic function, moderate pulmonary hypertension likely secondary to the COPD. Patient was seen and examined this morning, appears somewhat anxious, complaining of pain in his ankle, he still has bilateral swelling. Patient does drink a significant amount of alcohol and may be going through some withdrawal symptoms this morning, he does have tremors noted as well. Currently on C wall protocol. Blood pressure 130/80, heart rate in the 80s, 98% on 4 L of oxygen. White blood cell count 9.0, hemoglobin 13.6, platelet count 351. Sodium 133, potassium 4.0, BUN 45, creatinine 1.4. 07/06/2020 Patient was seen and examined this morning, he does feel a little more short of breath today, and has an increase in his lower extremity edema. Blood pressure 112/70 with a heart rate in the 70s, 95% on 4 L of oxygen. White blood cell count 8.0, hemoglobin 13.5, platelet count 321. Sodium 135, potassium 4.7, BUN 48, creatinine 1.5. Echocardiogram with Doppler study revealed an ejection fraction of 50-55%. Right ventricle is mildly enlarged. 07/07/2020 Patient was seen and examined this morning, overall looking better today. Edema less in his lower extremities. Blood pressure 1 130/80 with a heart rate in the 60s, 100% on 4 L of oxygen. White blood cell count 7.6, hemoglobin 13.1, platelet count 359. Sodium 134, potassium 4.2, BUN 39, creatinine 1.3 07/08/2020 Patient was seen and examined this morning, continues to do well, blood pressure 114/70 with a heart rate in the 60s to 70s, 100% on 4 L of oxygen. No lab data today. Objective - Vital Signs Vital signs: Vital Signs Temp 97.6 F 07/08/20 08:00 Pulse 64 07/08/20 09:52 Resp 20 07/08/20 08:00 BP 114/78 07/08/20 08:00 Pulse Ox 100 07/08/20 08:00 Intake & Output 07/07/20 07/08/20 07/08/20 18:59 06:59 18:59 Intake Total 840 90 Output Total 1150 1950 Balance -310 -1950 90 Weight 95.7 kg Intake: Oral 840 90 Output: Urine 825 1950 Straight 900 Post Void Residual 325 Other: Voiding Method Self-Catheterization Self-Catheterization Self-Catheterization # Voids 1 - Exam PHYSICAL EXAMINATION: GENERAL: 69-year-old gentleman in no acute distress at the time of my examination HEENT: Head is atraumatic, normocephalic. Pupils equal, round. Sclera anicteric. Conjunctiva are clear. Mucous membranes of the mouth are moist. Neck is supple. There is no elevated jugular venous pressure. No carotid bruit is heard. HEART EXAMINATION: Heart S1 S2 1 systolic murmur is heard CHEST EXAMINATION: Lungs show some improvement in air entry with fine scattered wheezing throughout. ABDOMEN: Soft, nontender. Bowel sounds are heard. No organomegaly noted. EXTREMITIES: 2+ peripheral pulses with trace evidence of peripheral edema, bilateral erythema improving. NEUROLOGIC patient is awake, alert and oriented X3 . - Labs CBC & Chem 7: 07/07/20 07:05 07/07/20 07:05 Labs: Microbiology - Last 24 Hours (Table) 07/03/20 16:15 Blood Culture - Preliminary Blood No Growth after 96 hours Assessment and Plan Plan: Assessment and plan #1 diastolic congestive heart failure acute on chronic #2 paroxysmal atrial fibrillation, currently in normal sinus rhythm #3 acute on chronic renal failure, improved from admission #4 COPD #5 obstructive sleep apnea #6 hypertension #7 history of DVT #8 history of prostate CVA with inability to urinate at times, patient had to straight cath last night, for 500 mL of urine Plan From cardiology's perspective, we'll continue patient on his current medications. We will follow along with you now on an as-needed basis only, please don't hesitate to call if you have any questions at all. DNP note has been reviewed, I agree with a documented findings and plan of care. Patient was seen and examined.
[2020-07-08 11:46] LABS: Calcium 8.9 mg/dL (8.4-10.2)
--- NOTE | 2020-07-08 14:04 | P.PN ---
Subjective Progress Note Date: 07/08/20 69-year-old gentleman with past medical history significant for paroxysmal atrial fibrillation, COPD, chronic hypoxic respiratory failure, chronic swelling of his bilateral lower extremities, history of DVT, hypertension, sleep apnea, presented to the hospital with increased swelling in his lower extremities. Cardiology consultation was requested because of atrial fibrillation. Patient was seen yesterday in consult by Dr. Taveras, he was initiated on a Cardizem drip. This morning patient is in and out of atrial fibrillation, his heart rate is in the 70s, Cardizem drip was turned off through the night and remains off this morning. He underwent an echocardiogram with Doppler study during this admis paulo which revealed normal left ventricular systolic function, moderate pulmonary hypertension likely secondary to the COPD. 07/06/2020 Patient was seen and examined this morning, he does feel a little more short of breath today, and has an increase in his lower extremity edema. Blood pressure 112/70 with a heart rate in the 70s, 95% on 4 L of oxygen. White blood cell count 8.0, hemoglobin 13.5, platelet count 321. Sodium 135, potassium 4.7, BUN 48, creatinine 1.5. Echocardiogram with Doppler study revealed an ejection fraction of 50-55%. Right ventricle is mildly enlarged. We will order x-ray of left hand and uric acid levels to rule out 07/07/2020 Patient was seen and examined this morning, remains frustrated regarding recurrent swelling of lower extremities; overall looking better today. Edema less in his lower extremities. Blood pressure 1 130/80 with a heart rate in the 60s, 100% on 4 L of oxygen. White blood cell count 7.6, hemoglobin 13.1, platelet count 359. Sodium 134, potassium 4.2, BUN 39, creatinine 1.3 Cardiology is following and recommending to continue current medications and observe patient for another 24-48 hours prior to discharge Objective - Vital Signs Vital signs: Vital Signs Temp 97.6 F 07/08/20 08:00 Pulse 64 07/08/20 09:52 Resp 20 07/08/20 08:00 BP 114/78 07/08/20 08:00 Pulse Ox 100 07/08/20 08:00 Intake & Output 07/07/20 07/08/20 07/08/20 18:59 06:59 18:59 Intake Total 840 90 Output Total 1150 1950 Balance -310 -1950 90 Weight 95.7 kg Intake: Oral 840 90 Output: Urine 825 1950 Straight 900 Post Void Residual 325 Other: Voiding Method Self-Catheterization Self-Catheterization # Voids 1 - Exam PHYSICAL EXAMINATION: GENERAL: The patient is alert and oriented x3, not in any acute distress. Well developed, well nourished. HEENT: Pupils are round and equally reacting to light. EOMI. No scleral icterus. No conjunctival pallor. Normocephalic, atraumatic. No pharyngeal erythema. No thyromegaly. CARDIOVASCULAR: S1 and S2 present. No murmurs, rubs, or gallops. PULMONARY: Chest is clear to auscultation, no wheezing or crackles. ABDOMEN: Soft, nontender, nondistended, normoactive bowel sounds. No palpable organomegaly. MUSCULOSKELETAL: No joint swelling or deformity. EXTREMITIES: Patient does have swelling and erythema of third distal phalanx. NEUROLOGICAL: Gross neurological examination did not reveal any focal deficits. SKIN: No rashes. - Labs CBC & Chem 7: 07/07/20 07:05 07/08/20 11:21 Labs: Microbiology - Last 24 Hours (Table) 07/03/20 16:15 Blood Culture - Preliminary Blood No Growth after 96 hours Assessment and Plan Assessment: 1. Diastolic congestive heart failure acute on chronic 2. Paroxysmal atrial fibrillation, currently in normal sinus rhythm 3. Acute on chronic renal failure, improved from admission 4. COPD 5. Obstructive sleep apnea 6. Hypertension Plan We will give the patient a one-time dose of IV Lasix today; we will continue to monitor strict JAYCEE's, daily weights, renal function and electrolytes; continue with low-salt and fluid restricted diet . Continue metoprolol, Xarelto.
--- NOTE | 2020-07-08 14:05 | P.DS ---
Providers Date of admission: 07/03/20 16:22 Expected date of discharge: 07/08/20 Attending physician: Otoniel Lee Consults: 07/03/20 16:54 Consult Physician Routine Consulting Provider: Aleks Maynard Consult Reason/Comments: afib rvr Do you want consulting provider notified?: Yes 07/03/20 21:16 Consult Physician Routine Consulting Provider: Joshua Woodruff Consult Reason/Comments: bilateral leg cellulitis Do you want consulting provider notified?: Yes 07/05/20 12:12 Consult Physician Routine Consulting Provider: Josue Black Consult Reason/Comments: Right kidney cyst Do you want consulting provider notified?: Yes Primary care physician: [facility] Course: 69-year-old gentleman with past medical history significant for paroxysmal atrial fibrillation, COPD, chronic hypoxic respiratory failure, chronic swelling of his bilateral lower extremities, history of DVT, hypertension, sleep apnea, presented to the hospital with increased swelling in his lower extremities. Cardiology consultation was requested because of atrial fibrillation. Patient was seen yesterday in consult by Dr. Taveras, he was initiated on a Cardizem drip. This morning patient is in and out of atrial fibrillation, his heart rate is in the 70s, Cardizem drip was turned off through the night and remains off this morning. He underwent an echocardiogram with Doppler study during this admission which revealed normal left ventricular systolic function, moderate pulmonary hypertension likely secondary to the COPD. 07/06/2020 Patient was seen and examined this morning, he does feel a little more short of breath today, and has an increase in his lower extremity edema. Blood pressure 112/70 with a heart rate in the 70s, 95% on 4 L of oxygen. White blood cell count 8.0, hemoglobin 13.5, platelet count 321. Sodium 135, potassium 4.7, BUN 48, creatinine 1.5. Echocardiogram with Doppler study revealed an ejection fraction of 50-55%. Right ventricle is mildly enlarged. We will order x-ray of left hand and uric acid levels to rule out 07/07/2020 Patient was seen and examined this morning, remains frustrated regarding recurrent swelling of lower extremities; overall looking better today. Edema less in his lower extremities. Blood pressure 1 130/80 with a heart rate in the 60s, 100% on 4 L of oxygen. White blood cell count 7.6, hemoglobin 13.1, platelet count 359. Sodium 134, potassium 4.2, BUN 39, creatinine 1.3 Cardiology is following and recommending to continue current medications and observe patient for another 24-48 hours prior to discharge 07/08/20 patient cleared for dc by Cards and ID Patient Condition at Discharge: Serious Plan - Discharge Summary Discharge Rx Participant: No New Discharge Prescriptions: New Cephalexin [Keflex] 750 mg PO Q12H 3 Days #6 cap predniSONE See Taper PO DIRECTED #20 tab Continue Tiotropium [place] [Spiriva] 18 mcg INHALATION RT-DAILY Budesonide/Formoterol Fumarate [Symbicort 160-4.5 Mcg Inhaler] 2 puff INHALATION RT-BID Furosemide [Lasix] 40 mg PO BID Acetaminophen [Tylenol] 650 mg PO Q6H Albuterol Inhaler [Ventolin Hfa Inhaler] 1 puff INHALATION RT-Q6H PRN PRN Reason: Shortness Of Breath Albuterol Nebulized [Ventolin Nebulized] 2.5 mg INHALATION RT-Q4H PRN PRN Reason: Shortness Of Breath Cholecalciferol [Vitamin D3 (25 Mcg = 1000 Iu)] 2,000 unit PO DAILY Lidocaine 5% Patch [Lidoderm 5% Patch] 1 patch TOPICAL DAILY PRN PRN Reason: Pain Rivaroxaban [Xarelto] 20 mg PO DAILY Potassium Chloride ER [K-Dur 20] 20 meq PO DAILY 30 Days #30 tab.er.prt SILVER sulfADIAZINE CREAM [Silvadene Cream] 1 applic TOPICAL DAILY 30 Days #1 applic Thiamine [Vitamin B-1] 100 mg PO BID-W/MEALS 30 Days #60 tab Metoprolol Tartrate [Lopressor] 25 mg PO BID Dextran 70/Hypromellose [Genteal Tears 0.1%-0.3% Drop] 1 drop BOTH EYES QID PRN PRN Reason: DRY EYES amLODIPine [Norvasc] 5 mg PO DAILY Discharge Medication List Budesonide/Formoterol Fumarate [Symbicort 160-4.5 Mcg Inhaler] 2 puff INHALATION RT-BID 09/22/16 [History] Tiotropium [place] [Spiriva] 18 mcg INHALATION RT-DAILY 09/22/16 [History] Furosemide [Lasix] 40 mg PO BID 10/27/16 [History] Acetaminophen [Tylenol] 650 mg PO Q6H 04/17/20 [History] Albuterol Inhaler [Ventolin Hfa Inhaler] 1 puff INHALATION RT-Q6H PRN 04/17/20 [History] Albuterol Nebulized [Ventolin Nebulized] 2.5 mg INHALATION RT-Q4H PRN 04/17/20 [History] Cholecalciferol [Vitamin D3 (25 Mcg = 1000 Iu)] 2,000 unit PO DAILY 04/17/20 [History] Lidocaine 5% Patch [Lidoderm 5% Patch] 1 patch TOPICAL DAILY PRN 04/17/20 [History] Rivaroxaban [Xarelto] 20 mg PO DAILY 04/17/20 [History] Potassium Chloride ER [K-Dur 20] 20 meq PO DAILY 30 Days #30 tab.er.prt 04/23/20 [Rx] SILVER sulfADIAZINE CREAM [Silvadene Cream] 1 applic TOPICAL DAILY 30 Days #1 applic 04/23/20 [Rx] Thiamine [Vitamin B-1] 100 mg PO BID-W/MEALS 30 Days #60 tab 04/23/20 [Rx] Dextran 70/Hypromellose [Genteal Tears 0.1%-0.3% Drop] 1 drop BOTH EYES QID PRN 07/03/20 [History] Metoprolol Tartrate [Lopressor] 25 mg PO BID 07/03/20 [History] amLODIPine [Norvasc] 5 mg PO DAILY 07/03/20 [History] Cephalexin [Keflex] 750 mg PO Q12H 3 Days #6 cap 07/08/20 [Rx] predniSONE See Taper PO DIRECTED #20 tab 07/08/20 [Rx] Follow up Appointment(s)/Referral(s): [facility],Clinic [Primary Care Provider] - 1-2 days Activity/Diet/Wound Care/Special Instructions: [facility], [facility] clinic has been updated . Please fax discharge summary and discharge medication list to [facility] at discharge Discharge Disposition: HOME WITH HOME HEALTH SERVICES
[2020-07-08 14:14] VITALS: BP 110/66; RESP 19
--- NOTE | 2020-07-08 16:12 | PN ---
PROGRESS NOTE DATE OF SERVICE: 07/08/2020 REASON FOR FOLLOWUP: Left lower extremity cellulitis. INTERVAL HISTORY: The patient is currently afebrile. Patient is breathing comfortably. Did have a cough. No sputum. No abdominal pain. No nausea, vomiting. Swelling of the leg wound with no redness. PHYSICAL EXAMINATION: Blood pressure 110/66, pulse of 71, temperature 97.6. He is 98% on 4 L nasal cannula. General description: He is an elderly male up in the room in no distress. Respiratory system: Unlabored breathing, decreased breath sounds in the base. No wheeze. Heart S1, S2. Regular rate and rhythm. Abdomen soft, no tenderness. Legs did have minimal swelling. No redness. No drainage. LABS: Creatinine 1.24. DIAGNOSTIC IMPRESSION AND PLAN: Patient admitted to the hospital mostly with swelling and concern for possible cellulitis lower extremity. Overall improvement to finish therapy with short course of oral Keflex. Continue supportive care. MMODL / IJN: [id number] /
== END 2020-07-08 15:20 | disposition home health service (06) | DRG 291 ==
LOC: EC 14:06 → 3SCARD 16:22
PROVIDERS: ADMIT Hospitalist; ATTEND Hospitalist
DX: I13.0 Hypertensive heart and chronic kidney disease with heart failure and stage 1 through stage 4 chronic kidney disease, or unspecified chronic kidney disease (principal); I50.33 Acute on chronic diastolic (congestive) heart failure; J44.1 Chronic obstructive pulmonary disease with (acute) exacerbation; J96.11 Chronic respiratory failure with hypoxia; L03.114 Cellulitis of left upper limb; L03.115 Cellulitis of right lower limb; L03.116 Cellulitis of left lower limb; N17.9 Acute kidney failure, unspecified; E87.1 Hypo-osmolality and hyponatremia; F10.239 Alcohol dependence with withdrawal, unspecified; I27.29 Other secondary pulmonary hypertension; I48.0 Paroxysmal atrial fibrillation; Z87.891 Personal history of nicotine dependence; K76.9 Liver disease, unspecified; M41.9 Scoliosis, unspecified; M81.0 Age-related osteoporosis without current pathological fracture; N18.9 Chronic kidney disease, unspecified; N28.1 Cyst of kidney, acquired; N40.1 Benign prostatic hyperplasia with lower urinary tract symptoms; R33.8 Other retention of urine; T50.2X5A Adverse effect of carbonic-anhydrase inhibitors, benzothiadiazides and other diuretics, initial encounter; T46.1X5A Adverse effect of calcium-channel blockers, initial encounter; Z79.01 Long term (current) use of anticoagulants; Z79.51 Long term (current) use of inhaled steroids; Z79.899 Other long term (current) drug therapy; Z82.49 Family history of ischemic heart disease and other diseases of the circulatory system; Z85.46 Personal history of malignant neoplasm of prostate; Z86.718 Personal history of other venous thrombosis and embolism; M19.90 Unspecified osteoarthritis, unspecified site; K44.9 Diaphragmatic hernia without obstruction or gangrene; G47.33 Obstructive sleep apnea (adult) (pediatric); E86.1 Hypovolemia; Z99.81 Dependence on supplemental oxygen; Z99.89 Dependence on other enabling machines and devices; B95.5 Unspecified streptococcus as the cause of diseases classified elsewhere; Z92.3 Personal history of irradiation; Z90.89 Acquired absence of other organs; F14.11 Cocaine abuse, in remission; F11.11 Opioid abuse, in remission; Z79.52 Long term (current) use of systemic steroids
CPT/HCPCS: 36415; 71046; 76770; 80048; 80053; 81001; 82565; 83605; 83880; 84484; 84550; 85025; 87040; 87324; 93005; 93306; 93970; 94640; 96365; 96366; 96367; 96368; 96375; 99291

== ENCOUNTER 2020-10-12 08:17 | Day surgery (SDC) | payer MEDICARE, OTHER ==
[~2020-10-12 08:17] MED LIST: PREMYELOGRAM MEDICATION REVIEW 1 EACH MISC PO ONE
[2020-10-12 08:37] VITALS: RESP 22; TEMP 97.9
[2020-10-12] MEDS ORDERED: diazePAM 5 MG TAB PO STA (09:14)
[2020-10-12 09:35] VITALS: BP 125/79; PULSE 99
--- NOTE | 2020-10-12 10:21 | FL ---
EXAMINATION TYPE: FL myelogram 2 or more regions DATE OF EXAM: 10/12/2020 10:10 AM HISTORY: Lower extremity pain and numbness 2 min 59 sec fl time used myelogram with doctor tresa 1 image taken unable to complete myelogram patient was returned to radiology nurse IMPRESSION: Unsuccessful myelogram
== END 2020-10-12 10:24 | disposition home or self-care (01) ==
LOC: RADPROMAIN 08:17
PROVIDERS: ATTEND Orthopaedic Surgery
DX: M54.6 Pain in thoracic spine (principal); M54.5 Low back pain; Z53.8 Procedure and treatment not carried out for other reasons; J44.9 Chronic obstructive pulmonary disease, unspecified; M10.9 Gout, unspecified; Z91.81 History of falling; Z87.891 Personal history of nicotine dependence; Z82.49 Family history of ischemic heart disease and other diseases of the circulatory system; Z85.46 Personal history of malignant neoplasm of prostate
CPT/HCPCS: 62305